=== PATIENT | male | born 1955 | race Caucasian/White ===

== ENCOUNTER 2017-01-30 12:12 | Emergency (ER) | payer MEDICARE, BC ==
[2017-01-30] MEDS ORDERED: Sodium Chloride 0.9% 10 ML Syringe FLUSH PRN (14:33)
[2017-01-30] MEDS ORDERED: Furosemide 40 MG/4 ML VIAL IVPUSH ONE (14:34)
--- NOTE | 2017-01-30 14:35 | EDM.PDOC ---
ED HPI GENERAL MEDICAL PROBLEM - General Chief Complaint: General Stated Complaint: SOB/SWOLLEN LEGS & ABD Time Seen by Provider: 01/30/17 14:00 Source of Information: Reports: Patient, Family History Limitations: Reports: Other (PT IS A POOR HISTORIAN. ) - History of Present Illness INITIAL COMMENTS - FREE TEXT/NARRATIVE: PT ARRIVED WITH SOB AND MARKED ANKLE SWELLING. hE HAS NOT BEEN TAKING HIS MEDS. hE FILLS THEM AND ONCE THEY RUN OUT HE STOPS TAKING THE MEDS. Onset: Gradual Duration: Day(s): Location: Reports: Chest, Lower Extremity, Left, Lower Extremity, Right, Other ( SOB) Associated Symptoms: Reports: Shortness of Breath - Related Data Allergies Allergy/AdvReac Type Severity Reaction Status Date / Time No Known Allergies Allergy Verified 01/30/17 13:26 Home Meds: Home Meds Aspirin [Ecotrin] 325 mg PO DAILY 10/03/13 [History] Metoprolol Tartrate [Metoprolol Tartrate] 100 mg PO BID 10/03/13 [History] Warfarin Sodium [Warfarin Sodium] 7.5 mg PO DAILY 10/03/13 [History] atorvaSTATin [Lipitor] 10 mg PO BEDTIME 10/03/13 [History] Past Medical History - Past Health History Medical/Surgical History: Denies Medical/Surgical History HEENT History: Reports: Impaired Vision Cardiovascular History: Reports: Bypass, High Cholesterol, Hypertension, Other ( See Below) Other Cardiovascular History: aortic disection Respiratory History: Reports: SOB Musculoskeletal History: Reports: Fracture Hematologic History: Reports: Blood Transfusion(s) - Past Surgical History Cardiovascular Surgical History: Reports: Valve Replacement Other 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 ) : Reports: No Symptoms Musculoskeletal: Reports: No Symptoms Skin: Reports: No Symptoms Neurological: Reports: Other ( very forgetful. He is quite sob and when he walks his o2 sats drop. ) Psychiatric: Reports: No Symptoms ED EXAM, GENERAL - Physical Exam Exam: See Below Free Text/Narrative:: Pt arrived with a history of increased sob. He has marked swelling of both legs and his abdoman. Exam Limited By: No Limitations General Appearance: Alert, Anxious Ears: Normal TMs Nose: Normal Inspection Throat/Mouth: Normal Inspection Head: Atraumatic Neck: Other (neck veins are markedly distended. ) Respiratory/Chest: Decreased Breath Sounds, Rales Cardiovascular: Irregularly Irregular GI/Abdominal: Distended, Other ( abdomanis very tight. ) (Male) Exam: Deferred Rectal (Males) Exam: Deferred Back Exam: Normal Inspection Extremities: Pedal Edema, Other (pt has severe edema with evidence of dermatitis. ) Neurological: Alert, Oriented, Normal Cognition Psychiatric: Normal Affect Course - Vital Signs Last Recorded V/S: Last Vital Signs Temp 36.9 C 01/30/17 13:25 Pulse 63 01/30/17 13:25 Resp 18 01/30/17 13:25 BP 122/71 01/30/17 13:25 Pulse Ox 90 L 01/30/17 13:25 - Orders/Labs/Meds Orders: Active Orders 24 hr Category Date Time Status EKG Documentation Completion [RC] ASDIRECTED Care 01/30/17 14:34 Active Chest 2V [CR] Stat Exams 01/30/17 14:33 Taken Sodium Chloride 0.9% [Saline Flush] Med 01/30/17 14:33 Active 10 ml FLUSH ASDIRECTED PRN Saline Lock Insert [OM.PC] Routine Oth 01/30/17 14:33 Ordered EKG 12 Lead [EK] Routine Ther 01/30/17 14:34 Ordered Medication Orders Sodium Chloride (Saline Flush) 10 ml FLUSH ASDIRECTED PRN PRN Reason: Keep Vein Open Last Admin: 01/30/17 14:50 Dose: 10 ml Labs: Laboratory Tests 01/30/17 01/30/17 01/30/17 Range/Units 14:37 14:37 14:37 WBC 4.8 (4.5-11.0) K/uL RBC 5.73 (4.30-5.90) M/uL Hgb 14.7 D (12.0-15.0) g/dL Hct 44.4 (40.0-54.0) % MCV 78 L (80-98) fL MCH 26 L (27-31) pg MCHC 33 (32-36) % Plt Count 211 (150-400) K/uL Neut % (Auto) 79 H (36-66) % Lymph % (Auto) 9 L (24-44) % Davison % (Auto) 10 H (2-6) % Eos % (Auto) 2 (2-4) % Baso % (Auto) 0 (0-1) % PT 44.3 H (9.5-12.0) sec INR 3.91 H D (0.80-1.20) Sodium 138 L (140-148) mmol/L Potassium 4.3 (3.6-5.2) mmol/L Chloride 103 (100-108) mmol/L Carbon Dioxide 26 (21-32) mmol/L Anion Gap 13.3 (5.0-14.0) mmol/L BUN 18 (7-18) mg/dL Creatinine 1.2 (0.8-1.3) mg/dL Est Cr Clr Drug Dosing 71.21 mL/min Estimated GFR (MDRD) > 60 (>60) Glucose 87 (74-106) mg/dL Calcium 8.6 (8.5-10.1) mg/dL Total Bilirubin 2.4 H D (0.2-1.0) mg/dL AST 22 (15-37) U/L ALT 9 L (12-78) U/L Alkaline Phosphatase 116 (46-116) U/L Troponin I (0.000-0.056) ng/mL NT-Pro-B Natriuret Pep 04410 H (5-125) pg/mL Total Protein 6.3 L (6.4-8.2) g/dL Albumin 3.1 L (3.4-5.0) g/dL Globulin 3.2 (2.3-3.5) g/dL Albumin/Globulin Ratio 1.0 L (1.2-2.2) Urine Color Urine Appearance Urine pH (4.5-8.0) Ur Specific [place] (1.008-1.030) Urine Protein (NEGATIVE) mg/dL Urine Glucose (UA) (NEGATIVE) mg/dL Urine Ketones (NEGATIVE) mg/dL Urine Occult Blood (NEGATIVE) Urine Nitrite (NEGAITVE) Urine Bilirubin (NEGATIVE) Urine Urobilinogen (NORMAL) mg/dL Ur Leukocyte Esterase (NEGATIVE) Urine RBC (0-5) Urine WBC (0-5) Ur Epithelial Cells Amorphous Sediment Urine Bacteria Urine Mucus 01/30/17 01/30/17 Range/Units 15:54 16:37 WBC (4.5-11.0) K/uL RBC (4.30-5.90) M/uL Hgb (12.0-15.0) g/dL Hct (40.0-54.0) % MCV (80-98) fL MCH (27-31) pg MCHC (32-36) % Plt Count (150-400) K/uL Neut % (Auto) (36-66) % Lymph % (Auto) (24-44) % Davison % (Auto) (2-6) % Eos % (Auto) (2-4) % Baso % (Auto) (0-1) % PT (9.5-12.0) sec INR (0.80-1.20) Sodium (140-148) mmol/L Potassium (3.6-5.2) mmol/L Chloride (100-108) mmol/L Carbon Dioxide (21-32) mmol/L Anion Gap (5.0-14.0) mmol/L BUN (7-18) mg/dL Creatinine (0.8-1.3) mg/dL Est Cr Clr Drug Dosing mL/min Estimated GFR (MDRD) (>60) Glucose (74-106) mg/dL Calcium (8.5-10.1) mg/dL Total Bilirubin (0.2-1.0) mg/dL AST (15-37) U/L ALT (12-78) U/L Alkaline Phosphatase (46-116) U/L Troponin I 0.023 (0.000-0.056) ng/mL NT-Pro-B Natriuret Pep (5-125) pg/mL Total Protein (6.4-8.2) g/dL Albumin (3.4-5.0) g/dL Globulin (2.3-3.5) g/dL Albumin/Globulin Ratio (1.2-2.2) Urine Color [place] Urine Appearance Clear Urine pH 5.0 (4.5-8.0) Ur Specific [place] 1.015 (1.008-1.030) Urine Protein 30 H (NEGATIVE) mg/dL Urine Glucose (UA) Normal (NEGATIVE) mg/dL Urine Ketones Negative (NEGATIVE) mg/dL Urine Occult Blood Negative (NEGATIVE) Urine Nitrite Negative (NEGAITVE) Urine Bilirubin Small (NEGATIVE) Urine Urobilinogen 4 (NORMAL) mg/dL Ur Leukocyte Esterase Negative (NEGATIVE) Urine RBC 0-5 (0-5) Urine WBC 0-5 (0-5) Ur Epithelial Cells Not seen Amorphous Sediment Not seen Urine Bacteria Not seen Urine Mucus Not seen Meds: Medications Generic Name Dose Route Start Last Admin Trade Name Freq PRN Reason Stop Dose Admin Sodium Chloride 10 ml 01/30/17 14:33 01/30/17 14:50 Saline Flush FLUSH 10 ml ASDIRECTED PRN Administration Keep Vein Open Discontinued Medications Generic Name Dose Route Start Last Admin Trade Name Freq PRN Reason Stop Dose Admin Furosemide 60 mg 01/30/17 14:34 01/30/17 14:50 Lasix IVPUSH 01/30/17 14:35 60 mg ONETIME ONE Administration - Re-Assessments/Exams Free Text/Narrative Re-Assessment/Exam: 01/30/17 17:09 murillo cath was placed. He was given Laix 60mg iv push. There were no beds in [facility] and he was transfered to [facility]. Departure - Departure Time of Disposition: 17:10 Disposition: DC/Tfer to Acute Hospital 02 Condition: Fair Clinical Impression: Chronic right-sided CHF (congestive heart failure), History of aortic dissection - Discharge Information Referrals: Nick Albright MD [Primary Care Provider] - Forms: ED Department Discharge Care Plan Goals: transfer to [facility]. - My Orders Last 24 Hours: My Active Orders 01/30/17 14:33 Chest 2V [CR] Stat Sodium Chloride 0.9% [Saline Flush] 10 ml FLUSH ASDIRECTED PRN Saline Lock Insert [OM.PC] Routine 01/30/17 14:34 EKG Documentation Completion [RC] ASDIRECTED EKG 12 Lead [EK] Routine - Assessment/Plan Last 24 Hours: My Active Orders 01/30/17 14:33 Chest 2V [CR] Stat Sodium Chloride 0.9% [Saline Flush] 10 ml FLUSH ASDIRECTED PRN Saline Lock Insert [OM.PC] Routine 01/30/17 14:34 EKG Documentation Completion [RC] ASDIRECTED EKG 12 Lead [EK] Routine
[2017-01-30 17:10] VITALS: BP 125/71
--- NOTE | 2017-01-31 08:47 | CR ---
Cardiomegaly. Sternotomy. Tortuous aorta. The last sternotomy wire is broken. No focal consolidation.
== END 2017-01-30 18:14 ==
LOC: JP.ED 12:12
DX: I11.0 Hypertensive heart disease with heart failure (principal); I50.9 Heart failure, unspecified; E78.00 Pure hypercholesterolemia, unspecified; Z95.1 Presence of aortocoronary bypass graft; Z95.2 Presence of prosthetic heart valve; Z98.890 Other specified postprocedural states; Z79.82 Long term (current) use of aspirin; Z79.01 Long term (current) use of anticoagulants; Z79.899 Other long term (current) drug therapy
CPT/HCPCS: 36415; 51702; 71020; 80053; 81001; 83880; 84484; 85025; 85610; 93005; 96374; 99285; J1940; J7050; 93010

== ENCOUNTER 2019-12-09 14:42 | Inpatient (IN) | payer BC, MEDICARE, OTHER ==
--- NOTE | 2019-12-09 15:42 | EDM.PDOC ---
<DeborahJaqueliney M - Last Filed: 12/09/19 16:40> ED HPI GENERAL MEDICAL PROBLEM - General Chief Complaint: Cardiovascular Problem Stated Complaint: ANKLES INFECTED Time Seen by Provider: 12/09/19 14:46 Source of Information: Reports: Patient, Old Records, RN, RN Notes Reviewed History Limitations: Reports: No Limitations - History of Present Illness INITIAL COMMENTS - FREE TEXT/NARRATIVE: 64 year old male presents with 3 plus weeks of the progression of BLLE wounds. The right leg is 3+ edema, reddened, open vascular sores, blisters that have opened, pulse is +1, cool, and skin is shiny, and tight. The left leg is +4 edema, reddened, open vascular sores with maggots, blisters that have opened, pulse is +1, cool. and skin is shiny, and tight. BLLE are very malodorous with seeping exudate that is yellowish/willis. Patient states ambulation is difficult. Pain at rest is minimal, however, the pain starts "when I'm trying to take a nap". Did not disclose a specific pain score. Pt lives alone in a single dwelling. States he called home health today and they came out to the residence to "clean his legs" and that is when it was discovered maggots were in wound bed on left leg. Pt indicates that this happens every summer for the last four years. Further indicated, he is only taking a "1/2 fluid pill and a daily aspirin". Has not taken the prescribed medications in months as was trying to self diagnose illnesses. Does further request "we give him antibiotics like all the other times". Will complete a sepsis work up. Called Dr Rod and will see pt in the am and more than likely debride and follow patient as inpatient. Onset: Gradual Onset Date: 11/17/19 Duration: Week(s):, Getting Worse, Recurring Location: Reports: Lower Extremity, Left, Lower Extremity, Right Quality: Reports: Ache Severity: Severe Improves with: Reports: None Worsens with: Reports: None Associated Symptoms: Reports: Fever/Chills, Weakness - Related Data Allergies Allergy/AdvReac Type Severity Reaction Status Date / Time pollen extracts Allergy Sneezing Verified 12/09/19 16:14 Home Meds: Home Meds atorvaSTATin [Lipitor] 0 mg PO BEDTIME 10/03/13 [History] Spironolactone [Aldactone] 0 mg PO BID 04/03/18 [History] carvediloL [Coreg] 0 mg PO BID 04/03/18 [History] lisinopriL [Prinivil] 0 mg PO DAILY 04/03/18 [History] Warfarin [Coumadin] 0 mg PO DAILY@1300 04/17/18 [History] Aspirin 325 mg PO DAILY 12/09/19 [History] Furosemide [Lasix] 0 mg PO DAILY 12/09/19 [History] Past Medical History - Past Health History Medical/Surgical History: Denies Medical/Surgical History HEENT History: Reports: Impaired Vision Cardiovascular History: Reports: Bypass, High Cholesterol, Hypertension, Other (See Below) Other Cardiovascular History: aortic disection Respiratory History: Reports: SOB Musculoskeletal History: Reports: Fracture Other Musculoskeletal History: Hx of rib fx Hematologic History: Reports: Blood Transfusion(s) Dermatologic History: Reports: Cellulitis - Past Surgical History Head Surgeries/Procedures: Reports: None HEENT Surgical History: Reports: None Cardiovascular Surgical History: Reports: Valve Replacement Other 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 Musculoskeletal Surgical History: Reports: None Dermatological Surgical History: Reports: None Social & Family History - Family History Family Medical History: Noncontributory - Tobacco Use Smoking Status *Q: Never Smoker - Caffeine Use Caffeine Use: Reports: None - Alcohol Use Days Per Week of Alcohol Use: 7 Number of Drinks Per Day: 2 Total Drinks Per Week: 14 - Recreational Drug Use Recreational Drug Use: No - Living Situation & Occupation Occupation: Other (Single dwelling home) ED ROS GENERAL - Review of Systems Constitutional: Reports: Fever, Chills, Malaise, Weakness, Fatigue, Night Sweats, Diaphoresis, Decreased Appetite HEENT: Reports: No Symptoms Respiratory: Reports: Shortness of Breath Cardiovascular: Reports: Dyspnea on Exertion, Edema Endocrine: Reports: Fatigue GI/Abdominal: Reports: Decreased Appetite : Reports: No Symptoms Musculoskeletal: Reports: Leg Pain, Foot Pain Skin: Reports: Erythema, Wound, Change in Color, Other (Significant vascular wounds to BLLE ) Neurological: Reports: No Symptoms Psychiatric: Reports: No Symptoms Hematologic/Lymphatic: Reports: Other (Prescribed to take Coumadin but does not) Immunologic: Reports: Seasonal Allergy, Pollen Allergy ED EXAM, GENERAL - Physical Exam Exam: See Below Exam Limited By: No Limitations General Appearance: Alert, Moderate Distress Eye Exam: Bilateral Eye: Normal Inspection, PERRL Ear Exam: Bilateral Ear: Auricle Normal Nose: Normal Inspection Throat/Mouth: Normal Inspection, Normal Voice, No Airway Compromise Head: Normocephalic Neck: Normal Inspection Respiratory/Chest: Other (Pt c/o SOB but on RA 93%) Cardiovascular: Irregularly Irregular, Other (EKG A fib controlled rate ) Peripheral Pulses: 1+: Dorsalis Pedis (L), Dorsalis Pedis (R), 2+: Radial (L), Radial (R) GI/Abdominal: Normal Bowel Sounds, Soft, Non-Tender, No Distention (Male) Exam: Deferred Rectal (Males) Exam: Deferred Extremities: Slow Capillary Refill, Leg Pain, Increased Warmth, Redness, Other (BLLE vascular wounds with decreased pulses) Neurological: Alert, Oriented, CN II-XII Intact, Normal Cognition Psychiatric: Other (Amor answers. ) Skin Exam: Cool, Erythema, Increased Warmth, Wound/Incision Course - Re-Assessments/Exams Free Text/Narrative Re-Assessment/Exam: 12/09/19 16:24 ROS completed Consulted with Dr Fuentes on diagnostics Orders initiated mine supervisor aware of admit Dr Rod on OR for Sunday12/09/19 16:40 All labs and diagnostics have been reviewed. Departure - Departure Disposition: Admitted As Inpatient 64 Clinical Impression: Cellulitis of left lower leg Referrals: Nick Albright MD [Primary Care Provider] - Forms: ED Department Discharge Sepsis Event Note (ED) - Evaluation Sepsis Screening Result: No Definite Risk <Alex Fuentes - Last Filed: 12/09/19 17:35> ED ROS GENERAL - Review of Systems Review Of Systems: See Below ED EXAM, GENERAL - Physical Exam Free Text/Narrative:: Agree with exam below Course - Vital Signs Last Recorded V/S: Last Vital Signs Temp 100 F 12/09/19 15:14 Pulse 74 12/09/19 16:31 Resp 16 12/09/19 15:14 BP 137/68 12/09/19 16:31 Pulse Ox 95 12/09/19 15:14 - Orders/Labs/Meds Orders: Active Orders 24 hr Category Date Time Status Patient Status Manage Transfer [TRANSFER] Routine ADT 12/09/19 17:14 Active EKG Documentation Completion [RC] ASDIRECTED Care 12/09/19 15:49 Active Chest 1V Frontal [CR] Stat Exams 12/09/19 15:45 Taken CORONAVIRUS COVID-19 YINKA [MOLEC] Stat Lab 12/09/19 16:01 Ordered CRP [C-REACTIVE PROTEIN] [CHEM] Stat Lab 12/09/19 17:20 Received CULTURE BLOOD [BC] Stat Lab 12/09/19 15:52 Received CULTURE BLOOD [BC] Stat Lab 12/09/19 16:00 Received Piperacillin/Tazobactam/Dext [Zosyn in Dextrose Iso- Med 12/09/19 18:00 Active Osmotic 3.375 GM] 3.375 gm Premix Bag 1 bag IV Q6H Sodium Chloride 0.9% [Normal Saline] 1,000 ml Med 12/09/19 17:15 Active IV ASDIRECTED Resuscitation Status Routine Resus Stat 12/09/19 17:15 Ordered EKG 12 Lead [EK] Routine Ther 12/09/19 15:48 Ordered Medication Orders Sodium Chloride (Normal Saline) 1,000 mls @ 25 mls/hr IV ASDIRECTED LEIGH Piperacillin/Tazobactam/ (Dextrose 3.375 gm/ Premix) 50 mls @ 100 mls/hr IV Q6H [facility] Labs: Laboratory Tests 12/09/19 12/09/19 12/09/19 Range/Units 15:52 15:52 15:52 WBC 4.3 L (4.5-11.0) K/uL RBC 4.97 (4.30-5.90) M/uL Hgb 14.1 (12.0-15.0) g/dL Hct 44.0 (40.0-54.0) % MCV 89 (80-98) fL MCH 28 (27-31) pg MCHC 32 (32-36) % Plt Count 146 L (150-400) K/uL Neut % (Auto) 73 H (36-66) % Lymph % (Auto) 13 L (24-44) % Swisher % (Auto) 11 H (2-6) % Eos % (Auto) 3 (2-4) % Baso % (Auto) 0 (0-1) % PT (9.5-12.0) sec INR (0.80-1.20) Sodium 140 (140-148) mmol/L Potassium 4.4 (3.6-5.2) mmol/L Chloride 102 (100-108) mmol/L Carbon Dioxide 28 (21-32) mmol/L Anion Gap 10.3 (5.0-14.0) mmol/L BUN 22 H (7-18) mg/dL Creatinine 1.2 (0.8-1.3) mg/dL Est Cr Clr Drug Dosing 66.46 mL/min Estimated GFR (MDRD) > 60 (>60) Glucose 90 (74-106) mg/dL Lactic Acid 1.4 (0.4-2.0) mmol/L Calcium 8.8 (8.5-10.1) mg/dL Total Bilirubin 2.0 H (0.2-1.0) mg/dL AST 29 (15-37) U/L ALT 13 (12-78) U/L Alkaline Phosphatase 197 H (46-116) U/L Total Protein 7.2 (6.4-8.2) g/dL Albumin 3.6 (3.4-5.0) g/dL Globulin 3.6 H (2.3-3.5) g/dL Albumin/Globulin Ratio 1.0 L (1.2-2.2) Procalcitonin ng/mL Urine Color (YELLOW) Urine Appearance (CLEAR) Urine pH (5.0-8.0) Ur Specific [place] (1.008-1.030) Urine Protein (NEGATIVE) mg/dL Urine Glucose (UA) (NEGATIVE) mg/dL Urine Ketones (NEGATIVE) mg/dL Urine Occult Blood (NEGATIVE) Urine Nitrite (NEGATIVE) Urine Bilirubin (NEGATIVE) Urine Urobilinogen (0.2-1.0) EU/dL Ur Leukocyte Esterase (NEGATIVE) Ethyl Alcohol mg/dL 12/09/19 12/09/19 12/09/19 Range/Units 15:52 15:52 15:52 WBC (4.5-11.0) K/uL RBC (4.30-5.90) M/uL Hgb (12.0-15.0) g/dL Hct (40.0-54.0) % MCV (80-98) fL MCH (27-31) pg MCHC (32-36) % Plt Count (150-400) K/uL Neut % (Auto) (36-66) % Lymph % (Auto) (24-44) % Swisher % (Auto) (2-6) % Eos % (Auto) (2-4) % Baso % (Auto) (0-1) % PT 12.7 H (9.5-12.0) sec INR 1.19 D (0.80-1.20) Sodium (140-148) mmol/L Potassium (3.6-5.2) mmol/L Chloride (100-108) mmol/L Carbon Dioxide (21-32) mmol/L Anion Gap (5.0-14.0) mmol/L BUN (7-18) mg/dL Creatinine (0.8-1.3) mg/dL Est Cr Clr Drug Dosing mL/min Estimated GFR (MDRD) (>60) Glucose (74-106) mg/dL Lactic Acid (0.4-2.0) mmol/L Calcium (8.5-10.1) mg/dL Total Bilirubin (0.2-1.0) mg/dL AST (15-37) U/L ALT (12-78) U/L Alkaline Phosphatase (46-116) U/L Total Protein (6.4-8.2) g/dL Albumin (3.4-5.0) g/dL Globulin (2.3-3.5) g/dL Albumin/Globulin Ratio (1.2-2.2) Procalcitonin < 0.05 ng/mL Urine Color (YELLOW) Urine Appearance (CLEAR) Urine pH (5.0-8.0) Ur Specific [place] (1.008-1.030) Urine Protein (NEGATIVE) mg/dL Urine Glucose (UA) (NEGATIVE) mg/dL Urine Ketones (NEGATIVE) mg/dL Urine Occult Blood (NEGATIVE) Urine Nitrite (NEGATIVE) Urine Bilirubin (NEGATIVE) Urine Urobilinogen (0.2-1.0) EU/dL Ur Leukocyte Esterase (NEGATIVE) Ethyl Alcohol < 3 mg/dL 12/09/19 Range/Units 16:32 WBC (4.5-11.0) K/uL RBC (4.30-5.90) M/uL Hgb (12.0-15.0) g/dL Hct (40.0-54.0) % MCV (80-98) fL MCH (27-31) pg MCHC (32-36) % Plt Count (150-400) K/uL Neut % (Auto) (36-66) % Lymph % (Auto) (24-44) % Swisher % (Auto) (2-6) % Eos % (Auto) (2-4) % Baso % (Auto) (0-1) % PT (9.5-12.0) sec INR (0.80-1.20) Sodium (140-148) mmol/L Potassium (3.6-5.2) mmol/L Chloride (100-108) mmol/L Carbon Dioxide (21-32) mmol/L Anion Gap (5.0-14.0) mmol/L BUN (7-18) mg/dL Creatinine (0.8-1.3) mg/dL Est Cr Clr Drug Dosing mL/min Estimated GFR (MDRD) (>60) Glucose (74-106) mg/dL Lactic Acid (0.4-2.0) mmol/L Calcium (8.5-10.1) mg/dL Total Bilirubin (0.2-1.0) mg/dL AST (15-37) U/L ALT (12-78) U/L Alkaline Phosphatase (46-116) U/L Total Protein (6.4-8.2) g/dL Albumin (3.4-5.0) g/dL Globulin (2.3-3.5) g/dL Albumin/Globulin Ratio (1.2-2.2) Procalcitonin ng/mL Urine Color Yellow (YELLOW) Urine Appearance Clear (CLEAR) Urine pH 6.0 (5.0-8.0) Ur Specific [place] 1.020 (1.008-1.030) Urine Protein 100 H (NEGATIVE) mg/dL Urine Glucose (UA) Negative (NEGATIVE) mg/dL Urine Ketones Negative (NEGATIVE) mg/dL Urine Occult Blood Negative (NEGATIVE) Urine Nitrite Negative (NEGATIVE) Urine Bilirubin Negative (NEGATIVE) Urine Urobilinogen 2.0 H (0.2-1.0) EU/dL Ur Leukocyte Esterase Negative (NEGATIVE) Ethyl Alcohol mg/dL Meds: Medications Generic Name Dose Route Start Last Admin Trade Name Freq PRN Reason Stop Dose Admin Sodium Chloride 1,000 mls @ 25 mls/hr 12/09/19 17:15 Normal Saline IV ASDIRECTED LEIGH Piperacillin/Tazobactam/ 50 mls @ 100 mls/hr 12/09/19 18:00 Dextrose 3.375 gm/ Premix IV Q6H LEIGH Discontinued Medications Generic Name Dose Route Start Last Admin Trade Name Matthieu PRN Reason Stop Dose Admin Sodium Chloride 1,000 mls @ 125 mls/hr 12/09/19 15:51 12/09/19 16:15 Normal Saline IV 12/09/19 23:50 125 mls/hr .BOLUS ONE Administration Departure - Departure Time of Disposition: 17:35 Condition: Fair Sepsis Event Note (ED) - Focused Exam Vital Signs: Vital Signs Temp Pulse Resp BP Pulse Ox 12/09/19 16:31 74 137/68 12/09/19 16:01 70 131/66 12/09/19 15:14 100 F 85 16 149/81 H 95 - Assessment/Plan Plan: Assessment Acuity = acute Site and laterality = bilateral lower extremity cellulitis with medical compliance Etiology = probable bacterial cause Manifestations = none Location of injury = Home Lab values = CBC, CMP, lactic acid, procalcitonin, urinalysis, alcohol all within normal limits Plan Call discussed case hospitalist on-call he currently agreed to come and evaluate the patient at 1700 Alex Gray MD was personally available for consultation in the ED. I have reviewed the chart and agree with the documentation as recorded by the CAREER DEVELOPER Student, including the assessment, treatment plan and disposition. Alex Gray MD personally saw and examined the patient. I have reviewed and agree with the CAREER DEVELOPER Student's findings. This note was dictated using [employer] voice recognition software please call with any questions on syntax or grammar.
[2019-12-09] MEDS ORDERED: Sodium Chloride 0.9% 1,000 ML IV ONE (15:51)
[2019-12-09] MEDS ORDERED: Piperacillin/Tazobactam 3.375 GM in Sodium Chloride 0.9% 50 ML IV SCH (17:15)
[2019-12-09] MEDS ORDERED: Sodium Chloride 0.9% 1,000 ML IV SCH (17:15)
--- NOTE | 2019-12-09 17:29 | PCM.HP.2 ---
H&P History of Present Illness - General Date of Service: 12/09/19 Admit Problem/Dx: Admission Diagnosis/Problem Admission Diagnosis/Problem Cellulitis of lower extremity Source of Information: Patient, Provider History Limitations: Reports: No Limitations - History of Present Illness Initial Comments - Free Text/Narative: CC: my legs are stinging HPI: Prabhjot presents to the emergency room today with about 1 month of progressive swelling and increasing pain in both lower extremities from the knee distally. He describes a moderate stinging pain involving both lower legs especially in the posterior portion between the calf and the heel. Pain is worse when he tries to stand up but there are some sharp shooting pains that come and go. He has been taking aspirin without much relief. Pain has steadily been getting worse. He has also noted increased swelling in both lower extremities over that period of time. The legs are weeping. He reports a history of similar difficulties and that this occurs about once per year in the early summer. He does admit that he quit taking all of his medications about 1 month ago. Since that time he has noticed the changes mentioned above. He has not had any fevers. He does occasionally have chills. No complaints of cough, shortness of breath, abdominal pain or nausea. No change in bowel or bladder habits. Appetite has been good. No change in energy that he reports. He did call to set up home health care to come take care of the wounds on his legs which he says have been increasing over the past couple of weeks. When the nurse came to evaluate his legs she noticed maggots on his leg and immediately called an a mbulance. Work-up in the emergency room revealed evidence for bilateral lower extremity cellulitis with significant ulcerations and sloughing of the skin especially in the posterior aspect of the lower extremities. Multiple maggots have been removed. Laboratory studies are surprisingly normal. There is evidence for volume overload with congestive heart failure. Cultures have been obtained. A ntibiotics will be initiated. He will be admitted for medical and likely surgical management. - Related Data Allergies/Adverse Reactions: Allergies Allergy/AdvReac Type Severity Reaction Status Date / Time pollen extracts Allergy Sneezing Verified 12/09/19 16:14 Home Medications: Home Meds atorvaSTATin [Lipitor] 0 mg PO BEDTIME 10/03/13 [History] Spironolactone [Aldactone] 0 mg PO BID 04/03/18 [History] carvediloL [Coreg] 0 mg PO BID 04/03/18 [History] lisinopriL [Prinivil] 0 mg PO DAILY 04/03/18 [History] Warfarin [Coumadin] 0 mg PO DAILY@1300 04/17/18 [History] Aspirin 325 mg PO DAILY 12/09/19 [History] Furosemide [Lasix] 0 mg PO DAILY 12/09/19 [History] Past Medical History - Past Health History Medical/Surgical History: Denies Medical/Surgical History HEENT History: Reports: Impaired Vision Cardiovascular History: Reports: Bypass, High Cholesterol, Hypertension, Other (See Below) Other Cardiovascular History: aortic disection Respiratory History: Reports: SOB Musculoskeletal History: Reports: Fracture Other Musculoskeletal History: Hx of rib fx Hematologic History: Reports: Blood Transfusion(s) Dermatologic History: Reports: Cellulitis - Past Surgical History Head Surgeries/Procedures: Reports: None HEENT Surgical History: Reports: None Cardiovascular Surgical History: Reports: Valve Replacement Other 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 Musculoskeletal Surgical History: Reports: None Dermatological Surgical History: Reports: None Social & Family History - Family History Family Medical History: Noncontributory - Tobacco Use Smoking Status *Q: Never Smoker - Caffeine Use Caffeine Use: Reports: None - Alcohol Use Days Per Week of Alcohol Use: 7 Number of Drinks Per Day: 2 Total Drinks Per Week: 14 - Recreational Drug Use Recreational Drug Use: No - Living Situation & Occupation Occupation: Other (Single dwelling home) H&P Review of Systems - Review of Systems: Review Of Systems: See Below Free Text/Narrative: A complete 12 point review of systems was obtained. Pertinent positives and negatives are noted in the history of present illness. All other systems were reviewed and were negative except as noted. Exam - Exam Exam: See Below - Vital Signs Vital Signs: Last Vital Signs Temp 37.7 C 12/09/19 15:14 Pulse 85 12/09/19 15:14 Resp 16 12/09/19 15:14 BP 149/81 H 12/09/19 15:14 Pulse Ox 95 12/09/19 15:14 Weight: 98.2 kg - Exam Quality Assessment: No: Supplemental Oxygen General: Alert, Oriented, Cooperative. No: Mild Distress HEENT: Conjunctiva Clear, Mucosa Moist & [place]. No: Scleral Icterus Neck: Supple, Trachea Midline, JVD Lungs: Clear to Auscultation, Normal Respiratory Effort Cardiovascular: Regular Rate, Irregular Rhythm, Systolic Murmur, Diastolic Murmur, Gallop/S3 GI/Abdominal Exam: Normal Bowel Sounds, Soft, Non-Tender, No Distention Extremities: Pedal Edema, Increased Warmth (both lower legs from knee to midshin ), Other (feet are cool to touch ) Peripheral Pulses: 0: Dorsalis Pedis (L), Dorsalis Pedis (R) Skin: Warm, Dry, Rash (erythema over both lower legs from toes to knee. Ulcerations with sloughing skin posterior lower legs from heel to midcalf. One maggot noted on left leg. ) Neuro Extensive - Mental Status: Alert, Oriented x3, Nl Response to Commands Neuro Extensive - Motor, Sensory, Reflexes: No: Dysarthria, Abnormal Motor, Tremor Psychiatric: Alert, Normal Affect - Patient Data Lab Results Last 24 hrs: Laboratory Results - last 24 hr 12/09/19 12/09/19 12/09/19 Range/Units 15:52 15:52 15:52 WBC 4.3 L (4.5-11.0) K/uL RBC 4.97 (4.30-5.90) M/uL Hgb 14.1 (12.0-15.0) g/dL Hct 44.0 (40.0-54.0) % MCV 89 (80-98) fL MCH 28 (27-31) pg MCHC 32 (32-36) % Plt Count 146 L (150-400) K/uL Neut % (Auto) 73 H (36-66) % Lymph % (Auto) 13 L (24-44) % [place] % (Auto) 11 H (2-6) % Eos % (Auto) 3 (2-4) % Baso % (Auto) 0 (0-1) % PT (9.5-12.0) sec INR (0.80-1.20) Sodium 140 (140-148) mmol/L Potassium 4.4 (3.6-5.2) mmol/L Chloride 102 (100-108) mmol/L Carbon Dioxide 28 (21-32) mmol/L Anion Gap 10.3 (5.0-14.0) mmol/L BUN 22 H (7-18) mg/dL Creatinine 1.2 (0.8-1.3) mg/dL Est Cr Clr Drug Dosing 66.46 mL/min Estimated GFR (MDRD) > 60 (>60) Glucose 90 (74-106) mg/dL Lactic Acid 1.4 (0.4-2.0) mmol/L Calcium 8.8 (8.5-10.1) mg/dL Total Bilirubin 2.0 H (0.2-1.0) mg/dL AST 29 (15-37) U/L ALT 13 (12-78) U/L Alkaline Phosphatase 197 H (46-116) U/L Total Protein 7.2 (6.4-8.2) g/dL Albumin 3.6 (3.4-5.0) g/dL Globulin 3.6 H (2.3-3.5) g/dL Albumin/Globulin Ratio 1.0 L (1.2-2.2) Procalcitonin ng/mL Urine Color (YELLOW) Urine Appearance (CLEAR) Urine pH (5.0-8.0) Ur Specific [place] (1.008-1.030) Urine Protein (NEGATIVE) mg/dL Urine Glucose (UA) (NEGATIVE) mg/dL Urine Ketones (NEGATIVE) mg/dL Urine Occult Blood (NEGATIVE) Urine Nitrite (NEGATIVE) Urine Bilirubin (NEGATIVE) Urine Urobilinogen (0.2-1.0) EU/dL Ur Leukocyte Esterase (NEGATIVE) Ethyl Alcohol mg/dL 12/09/19 12/09/19 12/09/19 Range/Units 15:52 15:52 15:52 WBC (4.5-11.0) K/uL RBC (4.30-5.90) M/uL Hgb (12.0-15.0) g/dL Hct (40.0-54.0) % MCV (80-98) fL MCH (27-31) pg MCHC (32-36) % Plt Count (150-400) K/uL Neut % (Auto) (36-66) % Lymph % (Auto) (24-44) % [place] % (Auto) (2-6) % Eos % (Auto) (2-4) % Baso % (Auto) (0-1) % PT 12.7 H (9.5-12.0) sec INR 1.19 D (0.80-1.20) Sodium (140-148) mmol/L Potassium (3.6-5.2) mmol/L Chloride (100-108) mmol/L Carbon Dioxide (21-32) mmol/L Anion Gap (5.0-14.0) mmol/L BUN (7-18) mg/dL Creatinine (0.8-1.3) mg/dL Est Cr Clr Drug Dosing mL/min Estimated GFR (MDRD) (>60) Glucose (74-106) mg/dL Lactic Acid (0.4-2.0) mmol/L Calcium (8.5-10.1) mg/dL Total Bilirubin (0.2-1.0) mg/dL AST (15-37) U/L ALT (12-78) U/L Alkaline Phosphatase (46-116) U/L Total Protein (6.4-8.2) g/dL Albumin (3.4-5.0) g/dL Globulin (2.3-3.5) g/dL Albumin/Globulin Ratio (1.2-2.2) Procalcitonin < 0.05 ng/mL Urine Color (YELLOW) Urine Appearance (CLEAR) Urine pH (5.0-8.0) Ur Specific [place] (1.008-1.030) Urine Protein (NEGATIVE) mg/dL Urine Glucose (UA) (NEGATIVE) mg/dL Urine Ketones (NEGATIVE) mg/dL Urine Occult Blood (NEGATIVE) Urine Nitrite (NEGATIVE) Urine Bilirubin (NEGATIVE) Urine Urobilinogen (0.2-1.0) EU/dL Ur Leukocyte Esterase (NEGATIVE) Ethyl Alcohol < 3 mg/dL 12/09/19 Range/Units 16:32 WBC (4.5-11.0) K/uL RBC (4.30-5.90) M/uL Hgb (12.0-15.0) g/dL Hct (40.0-54.0) % MCV (80-98) fL MCH (27-31) pg MCHC (32-36) % Plt Count (150-400) K/uL Neut % (Auto) (36-66) % Lymph % (Auto) (24-44) % [place] % (Auto) (2-6) % Eos % (Auto) (2-4) % Baso % (Auto) (0-1) % PT (9.5-12.0) sec INR (0.80-1.20) Sodium (140-148) mmol/L Potassium (3.6-5.2) mmol/L Chloride (100-108) mmol/L Carbon Dioxide (21-32) mmol/L Anion Gap (5.0-14.0) mmol/L BUN (7-18) mg/dL Creatinine (0.8-1.3) mg/dL Est Cr Clr Drug Dosing mL/min Estimated GFR (MDRD) (>60) Glucose (74-106) mg/dL Lactic Acid (0.4-2.0) mmol/L Calcium (8.5-10.1) mg/dL Total Bilirubin (0.2-1.0) mg/dL AST (15-37) U/L ALT (12-78) U/L Alkaline Phosphatase (46-116) U/L Total Protein (6.4-8.2) g/dL Albumin (3.4-5.0) g/dL Globulin (2.3-3.5) g/dL Albumin/Globulin Ratio (1.2-2.2) Procalcitonin ng/mL Urine Color Yellow (YELLOW) Urine Appearance Clear (CLEAR) Urine pH 6.0 (5.0-8.0) Ur Specific [place] 1.020 (1.008-1.030) Urine Protein 100 H (NEGATIVE) mg/dL Urine Glucose (UA) Negative (NEGATIVE) mg/dL Urine Ketones Negative (NEGATIVE) mg/dL Urine Occult Blood Negative (NEGATIVE) Urine Nitrite Negative (NEGATIVE) Urine Bilirubin Negative (NEGATIVE) Urine Urobilinogen 2.0 H (0.2-1.0) EU/dL Ur Leukocyte Esterase Negative (NEGATIVE) Ethyl Alcohol mg/dL Result Diagrams: 12/09/19 15:52 12/09/19 15:52 Imaging Impressions Last 24 hrs: CXR-image personally reviewed-lungs clear with no mass, infiltrate or effusion. Heart size is enlarged and bigger than previous CXR EKG INTERPRETATION EKG Date: 12/09/19 Rhythm: A-Fib Rate (Beats/Min): 80 [place]: Normal P-Wave: Variable QRS: Normal ST-T: Normal QT: Normal Sepsis Event Note - Evaluation Sepsis Screening Result: No Definite Risk - Focused Exam Vital Signs: Vital Signs Temp Pulse Resp BP Pulse Ox 12/09/19 15:14 37.7 C 85 16 149/81 H 95 Date Exam was Performed: 12/09/19 Time Exam was Performed: 17:38 *Q Meaningful Use (ADM) - VTE *Q VTE Mechanical Contraindications *Q: Bilateral Lower Dermatits - VTE Risk Assess *Q Each Risk Factor Represents 1 Point: Swollen Legs, Current, Obesity ( BMI > 25 kg/m2), Congestive heart failure (CHF) Total Score 1 Point Risk Factors: 3 Each Risk Factor Represents 2 Points: Age 60 - 74 Years Total Score 2 Point Risk Factors: 2 Each Risk Factor Represents 3 Points: None Total Score 3 Point Risk Factors: 0 Each Risk Factor Represents 5 Points: None Total Score 5 Point Risk Factors: 0 Venous Thromboembolism Risk Factor Score *Q: 5 - Problem List (1) Cellulitis of both lower extremities SNOMED Code(s): 623153928 ICD Code: L03.115 - CELLULITIS OF RIGHT LOWER LIMB; L03.116 - CELLULITIS OF LEFT LOWER LIMB Status: Acute Current Visit: Yes (2) Venous stasis dermatitis of both lower extremities SNOMED Code(s): 93831417 ICD Code: I87.2 - VENOUS INSUFFICIENCY (CHRONIC) (PERIPHERAL) Status: Acute Current Visit: No (3) Systolic congestive heart failure SNOMED Code(s): 97702027, 833138803 ICD Code: I50.20 - UNSPECIFIED SYSTOLIC (CONGESTIVE) HEART FAILURE Status: Acute Current Visit: Yes Qualifiers: Heart failure chronicity: acute on chronic Qualified Code(s): I50.23 - Acute on chronic systolic (congestive) heart failure (4) Chronic atrial fibrillation SNOMED Code(s): 767310929 ICD Code: I48.20 - CHRONIC ATRIAL FIBRILLATION, UNSPECIFIED Status: Chronic Current Visit: Yes Problem List Initiated/Reviewed/Updated: Yes Orders Last 24hrs: Active Orders 24 hr Category Date Time Status Patient Status Manage Transfer [TRANSFER] Routine ADT 12/09/19 17:14 Ordered EKG Documentation Completion [RC] ASDIRECTED Care 12/09/19 15:49 Active Chest 1V Frontal [CR] Stat Exams 12/09/19 15:45 Taken CORONAVIRUS COVID-19 YINKA [MOLEC] Stat Lab 12/09/19 16:01 Ordered CRP [C-REACTIVE PROTEIN] [CHEM] Stat Lab 12/09/19 17:20 Received CULTURE BLOOD [BC] Stat Lab 12/09/19 15:52 Received CULTURE BLOOD [BC] Stat Lab 12/09/19 16:00 Received Piperacillin/Tazobactam/Dext [Zosyn in Dextrose Iso- Med 12/09/19 18:00 Active Osmotic 3.375 GM] 3.375 gm Premix Bag 1 bag IV Q6H Sodium Chloride 0.9% [Normal Saline] 1,000 ml Med 12/09/19 17:15 Active IV ASDIRECTED Resuscitation Status Routine Resus Stat 12/09/19 17:15 Ordered EKG 12 Lead [EK] Routine Ther 12/09/19 15:48 Ordered Medication Orders Sodium Chloride (Normal Saline) 1,000 mls @ 25 mls/hr IV ASDIRECTED LEIGH Piperacillin/Tazobactam/ (Dextrose 3.375 gm/ Premix) 50 mls @ 100 mls/hr IV Q6H LEIGH Assessment/Plan Comment:: ASSESSMENT AND PLAN - Bilateral lower extremity cellulitis with ulcerations and sloughing of the skin- underlying congestive heart failure as well as peripheral vascular disease as discussed below. There is evidence for cellulitis. History of similar wounds and has previously been seen by wound care. Not febrile or septic. Procalcitonin is normal but CRP is greater than 3. -Antibiotic coverage with Pip/Tazo and vancomycin -Follow-up cultures -Symptomatic management of pain -Surgical consultation with Dr. Rod for debridement Congestive heart failure, systolic-most recent recorded ejection fraction was 25 to 30%. History of CABG. No reports of angina or even dyspnea on exertion. Off all of his medications times at least 1 month. -Dose of furosemide now and repeat in the morning -Consider restarting beta-hope and potentially URVASHI inhibitor following some initial diuresis -Congestive heart failure education -Low-sodium diet Chronic atrial fibrillation-currently rate controlled even without medications. Previously anticoagulated but off times at least 1 month. CHADSS-Vasc >2. -Consider beta-hope as above -Patient would benefit from anticoagulation once surgical interventions are complete Peripheral vascular disease-history of. No recent studies to evaluate arterial flow. -Consider further evaluation such as CT angiogram or DANIEL Maintenance issues - - DVT prophylaxis -none for right now with mechanical not an option given his cellulitis and holding off on pharmacological in case he needs more intense debridement - GI prophylaxis -not indicated - Nutrition -low sodium this evening and nothing by mouth after midnight just in case - Leach catheter -not indicated CODE STATUS -full code Admission justification -this patient will be admitted for inpatient services and is medically appropriate meeting medical necessity for inpatient admission as outlined in my documentation. I reasonably expect the patient will require inpatient services that span a period time over 2 midnights. I reasonably expect this patient to be discharged or transferred within 96 hours after admission to the [facility]. Disposition -I would anticipate discharge home probably with home care after the hospital stay Primary care physician -Dr Anam Khan M.D. - Mortality Measure Prognosis:: Good
[2019-12-09] MEDS: Piperacillin/Tazobactam/Dext 3.375 GM in Premix Bag 1 BAG IV SCH (17:31)
[2019-12-09] MEDS ORDERED: Magnesium Hydroxide 400 MG/5 ML Susp 30 ML Cup PO PRN (17:46)
[2019-12-09] MEDS ORDERED: Ondansetron 4 MG/2 ML SDV IV PRN (17:46)
[2019-12-09] MEDS ORDERED: Ondansetron 4 MG Tab.DIS PO PRN (17:46)
[2019-12-09] MEDS ORDERED: Furosemide 20 MG/2 ML VIAL IVPUSH ONE (17:46)
[2019-12-09] MEDS ORDERED: LORazepam 2 MG/ML SDV IVPUSH PRN (17:46)
[2019-12-09] MEDS ORDERED: HYDROmorphone 1 MG/ML Syringe IVPUSH PRN (17:46)
[2019-12-09] MEDS ORDERED: Acetaminophen 325 MG Tab PO PRN (17:46)
[2019-12-09] MEDS ORDERED: Melatonin 3 MG Tab PO PRN (17:46)
[2019-12-09] MEDS: oxyCODONE 5 MG Tab PO PRN (20:55)
[2019-12-09] MEDS: atorvaSTATin 10 MG Tab PO SCH (20:55)
[2019-12-09] MEDS: Lactobacillus Rhamnosus GG (Probiotic) Cap PO SCH (20:55)
[2019-12-10] MEDS: Piperacillin/Tazobactam/Dext 3.375 GM in Premix Bag 1 BAG IV SCH ×4 (00:25→20:51)
[2019-12-10 07:03] LABS: HEMOGLOBIN A1C 5.4 % (4.5-6.2)
[2019-12-10] MEDS: Aspirin 325 MG Tab.EC PO SCH (08:49)
[2019-12-10] MEDS: Furosemide 20 MG/2 ML VIAL IVPUSH SCH (08:49)
[2019-12-10] MEDS: Lactobacillus Rhamnosus GG (Probiotic) Cap PO SCH ×2 (08:49→20:54)
--- NOTE | 2019-12-10 09:13 | CONS ---
DATE OF SERVICE: 12/10/2019 REFERRING PHYSICIAN: CONSULTING PHYSICIAN: Devon Rod MD REASON FOR CONSULTATION: Cellulitis, lower leg. HISTORY OF PRESENT ILLNESS: This is a gentleman who was admitted to the hospital for a 1- month history of cellulitis in his lower extremities. There were some compliance issues. The patient states he has been washing this, however, he is uncertain. He has had maggots noted in the wound during this hospitalization. He has a longstanding history of venous insufficiency. PAST MEDICAL HISTORY: Hypercholesterolemia, hypertension, rib fractures, recurrent cellulitis, shortness of breath, aortic dissection with repair. SOCIAL HISTORY: He is not a smoker. FAMILY HISTORY: Noncontributory. REVIEW OF SYSTEMS: GENERAL: No specific changes. HEENT: No changes. CARDIOVASCULAR: No history of myocardial infarction. RESPIRATORY: No shortness of breath. GASTROINTESTINAL: No changes. The remainder of review of systems is reviewed and is negative. PHYSICAL EXAMINATION: VITAL SIGNS: Temperature is 99.7, blood pressure 100/68, respirations 16, 94% on room air. HEENT: Pupils are equal. NECK: Supple. LUNGS: Clear. CARDIOVASCULAR: Regular rhythm and rate. ABDOMEN: Nondistended. EXTREMITIES: Venous stasis ulcers with lipodermatosclerosis. PLAN: I discussed and placed orders for a wound care plan, which include showering, debridement with soft mechanical debridement today. This will continue daily, and we will re- evaluate intermittently. Devon Rod MD /[id number] MTDD
--- NOTE | 2019-12-10 09:25 | PCM.PN ---
- General Info Date of Service: 12/10/19 Subjective Update: Mr. Wise is been stable since admission. Vital signs have been within desired range and he has been afebrile, white blood cell count remains normal. Functional Status: Reports: Pain Controlled, Tolerating Diet, Ambulating, Urinating - Review of Systems General: Reports: Weakness. Denies: Fever, Chills Pulmonary: Reports: No Symptoms Cardiovascular: Reports: No Symptoms Gastrointestinal: Reports: No Symptoms - Patient Data Vitals - Most Recent: Last Vital Signs Temp 98.0 F 12/10/19 08:59 Pulse 68 12/10/19 08:59 Resp 16 12/10/19 08:59 BP 117/54 L 12/10/19 08:59 Pulse Ox 97 12/10/19 08:59 Weight - Most Recent: 216 lb I&O - Last 24 Hours: Intake & Output 12/09/19 12/10/19 12/10/19 22:59 06:59 14:59 Intake Total 730 Output Total 900 Balance -170 Lab Results Last 24 Hours: Laboratory Results - last 24 hr 12/09/19 12/09/19 12/09/19 Range/Units 15:52 15:52 15:52 WBC 4.3 L (4.5-11.0) K/uL RBC 4.97 (4.30-5.90) M/uL Hgb 14.1 (12.0-15.0) g/dL Hct 44.0 (40.0-54.0) % MCV 89 (80-98) fL MCH 28 (27-31) pg MCHC 32 (32-36) % Plt Count 146 L (150-400) K/uL Neut % (Auto) 73 H (36-66) % Lymph % (Auto) 13 L (24-44) % [place] % (Auto) 11 H (2-6) % Eos % (Auto) 3 (2-4) % Baso % (Auto) 0 (0-1) % PT (9.5-12.0) sec INR (0.80-1.20) Sodium 140 (140-148) mmol/L Potassium 4.4 (3.6-5.2) mmol/L Chloride 102 (100-108) mmol/L Carbon Dioxide 28 (21-32) mmol/L Anion Gap 10.3 (5.0-14.0) mmol/L BUN 22 H (7-18) mg/dL Creatinine 1.2 (0.8-1.3) mg/dL Est Cr Clr Drug Dosing 66.46 mL/min Estimated GFR (MDRD) > 60 (>60) Glucose 90 (74-106) mg/dL Hemoglobin A1c (4.5-6.2) % Lactic Acid 1.4 (0.4-2.0) mmol/L Calcium 8.8 (8.5-10.1) mg/dL Magnesium (1.8-2.4) mg/dL Total Bilirubin 2.0 H (0.2-1.0) mg/dL AST 29 (15-37) U/L ALT 13 (12-78) U/L Alkaline Phosphatase 197 H (46-116) U/L C-Reactive Protein (0.0-0.3) mg/dL Total Protein 7.2 (6.4-8.2) g/dL Albumin 3.6 (3.4-5.0) g/dL Globulin 3.6 H (2.3-3.5) g/dL Albumin/Globulin Ratio 1.0 L (1.2-2.2) Procalcitonin ng/mL TSH, Ultra Sensitive (0.358-3.740) uIU/mL Urine Color (YELLOW) Urine Appearance (CLEAR) Urine pH (5.0-8.0) Ur Specific [place] (1.008-1.030) Urine Protein (NEGATIVE) mg/dL Urine Glucose (UA) (NEGATIVE) mg/dL Urine Ketones (NEGATIVE) mg/dL Urine Occult Blood (NEGATIVE) Urine Nitrite (NEGATIVE) Urine Bilirubin (NEGATIVE) Urine Urobilinogen (0.2-1.0) EU/dL Ur Leukocyte Esterase (NEGATIVE) Ethyl Alcohol mg/dL SARS Virus RNA (PCR) (NEGATIVE) 12/09/19 12/09/19 12/09/19 Range/Units 15:52 15:52 15:52 WBC (4.5-11.0) K/uL RBC (4.30-5.90) M/uL Hgb (12.0-15.0) g/dL Hct (40.0-54.0) % MCV (80-98) fL MCH (27-31) pg MCHC (32-36) % Plt Count (150-400) K/uL Neut % (Auto) (36-66) % Lymph % (Auto) (24-44) % [place] % (Auto) (2-6) % Eos % (Auto) (2-4) % Baso % (Auto) (0-1) % PT 12.7 H (9.5-12.0) sec INR 1.19 D (0.80-1.20) Sodium (140-148) mmol/L Potassium (3.6-5.2) mmol/L Chloride (100-108) mmol/L Carbon Dioxide (21-32) mmol/L Anion Gap (5.0-14.0) mmol/L BUN (7-18) mg/dL Creatinine (0.8-1.3) mg/dL Est Cr Clr Drug Dosing mL/min Estimated GFR (MDRD) (>60) Glucose (74-106) mg/dL Hemoglobin A1c (4.5-6.2) % Lactic Acid (0.4-2.0) mmol/L Calcium (8.5-10.1) mg/dL Magnesium (1.8-2.4) mg/dL Total Bilirubin (0.2-1.0) mg/dL AST (15-37) U/L ALT (12-78) U/L Alkaline Phosphatase (46-116) U/L C-Reactive Protein (0.0-0.3) mg/dL Total Protein (6.4-8.2) g/dL Albumin (3.4-5.0) g/dL Globulin (2.3-3.5) g/dL Albumin/Globulin Ratio (1.2-2.2) Procalcitonin < 0.05 ng/mL TSH, Ultra Sensitive (0.358-3.740) uIU/mL Urine Color (YELLOW) Urine Appearance (CLEAR) Urine pH (5.0-8.0) Ur Specific [place] (1.008-1.030) Urine Protein (NEGATIVE) mg/dL Urine Glucose (UA) (NEGATIVE) mg/dL Urine Ketones (NEGATIVE) mg/dL Urine Occult Blood (NEGATIVE) Urine Nitrite (NEGATIVE) Urine Bilirubin (NEGATIVE) Urine Urobilinogen (0.2-1.0) EU/dL Ur Leukocyte Esterase (NEGATIVE) Ethyl Alcohol < 3 mg/dL SARS Virus RNA (PCR) (NEGATIVE) 12/09/19 12/09/19 12/09/19 Range/Units 16:01 16:32 17:20 WBC (4.5-11.0) K/uL RBC (4.30-5.90) M/uL Hgb (12.0-15.0) g/dL Hct (40.0-54.0) % MCV (80-98) fL MCH (27-31) pg MCHC (32-36) % Plt Count (150-400) K/uL Neut % (Auto) (36-66) % Lymph % (Auto) (24-44) % [place] % (Auto) (2-6) % Eos % (Auto) (2-4) % Baso % (Auto) (0-1) % PT (9.5-12.0) sec INR (0.80-1.20) Sodium (140-148) mmol/L Potassium (3.6-5.2) mmol/L Chloride (100-108) mmol/L Carbon Dioxide (21-32) mmol/L Anion Gap (5.0-14.0) mmol/L BUN (7-18) mg/dL Creatinine (0.8-1.3) mg/dL Est Cr Clr Drug Dosing mL/min Estimated GFR (MDRD) (>60) Glucose (74-106) mg/dL Hemoglobin A1c (4.5-6.2) % Lactic Acid (0.4-2.0) mmol/L Calcium (8.5-10.1) mg/dL Magnesium (1.8-2.4) mg/dL Total Bilirubin (0.2-1.0) mg/dL AST (15-37) U/L ALT (12-78) U/L Alkaline Phosphatase (46-116) U/L C-Reactive Protein 3.57 H (0.0-0.3) mg/dL Total Protein (6.4-8.2) g/dL Albumin (3.4-5.0) g/dL Globulin (2.3-3.5) g/dL Albumin/Globulin Ratio (1.2-2.2) Procalcitonin ng/mL TSH, Ultra Sensitive (0.358-3.740) uIU/mL Urine Color Yellow (YELLOW) Urine Appearance Clear (CLEAR) Urine pH 6.0 (5.0-8.0) Ur Specific [place] 1.020 (1.008-1.030) Urine Protein 100 H (NEGATIVE) mg/dL Urine Glucose (UA) Negative (NEGATIVE) mg/dL Urine Ketones Negative (NEGATIVE) mg/dL Urine Occult Blood Negative (NEGATIVE) Urine Nitrite Negative (NEGATIVE) Urine Bilirubin Negative (NEGATIVE) Urine Urobilinogen 2.0 H (0.2-1.0) EU/dL Ur Leukocyte Esterase Negative (NEGATIVE) Ethyl Alcohol mg/dL SARS Virus RNA (PCR) Negative (NEGATIVE) 12/10/19 12/10/19 12/10/19 Range/Units 04:30 04:30 04:30 WBC 4.7 (4.5-11.0) K/uL RBC 4.43 (4.30-5.90) M/uL Hgb 12.5 (12.0-15.0) g/dL Hct 39.4 L (40.0-54.0) % MCV 89 (80-98) fL MCH 28 (27-31) pg MCHC 32 (32-36) % Plt Count 156 (150-400) K/uL Neut % (Auto) (36-66) % Lymph % (Auto) (24-44) % [place] % (Auto) (2-6) % Eos % (Auto) (2-4) % Baso % (Auto) (0-1) % PT (9.5-12.0) sec INR (0.80-1.20) Sodium 139 L (140-148) mmol/L Potassium 3.5 L (3.6-5.2) mmol/L Chloride 103 (100-108) mmol/L Carbon Dioxide 29 (21-32) mmol/L Anion Gap 10.5 (5.0-14.0) mmol/L BUN 21 H (7-18) mg/dL Creatinine 1.1 (0.8-1.3) mg/dL Est Cr Clr Drug Dosing 68.21 mL/min Estimated GFR (MDRD) > 60 (>60) Glucose 97 (74-106) mg/dL Hemoglobin A1c 5.4 (4.5-6.2) % Lactic Acid (0.4-2.0) mmol/L Calcium 8.4 L (8.5-10.1) mg/dL Magnesium 1.8 (1.8-2.4) mg/dL Total Bilirubin (0.2-1.0) mg/dL AST (15-37) U/L ALT (12-78) U/L Alkaline Phosphatase (46-116) U/L C-Reactive Protein (0.0-0.3) mg/dL Total Protein (6.4-8.2) g/dL Albumin (3.4-5.0) g/dL Globulin (2.3-3.5) g/dL Albumin/Globulin Ratio (1.2-2.2) Procalcitonin ng/mL TSH, Ultra Sensitive 3.121 (0.358-3.740) uIU/mL Urine Color (YELLOW) Urine Appearance (CLEAR) Urine pH (5.0-8.0) Ur Specific [place] (1.008-1.030) Urine Protein (NEGATIVE) mg/dL Urine Glucose (UA) (NEGATIVE) mg/dL Urine Ketones (NEGATIVE) mg/dL Urine Occult Blood (NEGATIVE) Urine Nitrite (NEGATIVE) Urine Bilirubin (NEGATIVE) Urine Urobilinogen (0.2-1.0) EU/dL Ur Leukocyte Esterase (NEGATIVE) Ethyl Alcohol mg/dL SARS Virus RNA (PCR) (NEGATIVE) Med Orders - Current: Current Medications Acetaminophen (Tylenol) 650 mg PO Q4H PRN PRN Reason: Pain (Mild 1-3)/fever Aspirin (Ecotrin) 325 mg PO DAILY REPLACED BY [facility] Last Admin: 12/10/19 08:49 Dose: 325 mg Documented by: Atorvastatin Calcium (Lipitor) 10 mg PO BEDTIME REPLACED BY [facility] Last Admin: 12/09/19 20:55 Dose: 10 mg Documented by: Furosemide (Lasix) 20 mg IVPUSH DAILY REPLACED BY [facility] Last Admin: 12/10/19 08:49 Dose: 20 mg Documented by: Hydromorphone HCl (Dilaudid) 0.5 mg IVPUSH Q2H PRN PRN Reason: Pain (severe 7-10) Vancomycin HCl 1.5 gm/ Sodium (Chloride) 250 mls @ 150 mls/hr IV Q12H REPLACED BY [facility] Last Admin: 12/10/19 06:34 Dose: 150 mls/hr Documented by: Piperacillin/Tazobactam/ (Dextrose 3.375 gm/ Premix) 50 mls @ 100 mls/hr IV Q6H REPLACED BY [facility] Lactobacillus Rhamnosus (Culturelle) 1 cap PO BID REPLACED BY [facility] Last Admin: 12/10/19 08:49 Dose: 1 cap Documented by: Lorazepam (Ativan) 0.5 mg IVPUSH Q4H PRN PRN Reason: Nausea/Vomiting Magnesium Hydroxide (Milk Of Magnesia) 30 ml PO Q12H PRN PRN Reason: Constipation Melatonin (Melatonin) 9 mg PO BEDTIME PRN PRN Reason: sleep Ondansetron HCl (Zofran) 4 mg IV Q6H PRN PRN Reason: Nausea/Vomiting Ondansetron HCl (Zofran Odt) 4 mg PO Q6H PRN PRN Reason: Nausea able to take PO Oxycodone HCl (Oxycodone) 5 - 10 mg PO Q4H PRN PRN Reason: Pain Last Admin: 12/09/19 20:55 Dose: 10 mg Documented by: Potassium Chloride (Klor-Con M20) 40 meq PO ONETIME ONE Stop: 12/10/19 09:21 Senna/Docusate Sodium (Senna Plus) 1 tab PO BID PRN PRN Reason: Constipation Spironolactone (Aldactone) 25 mg PO BID REPLACED BY [facility] Discontinued Medications Furosemide (Lasix) 20 mg IVPUSH ONETIME ONE Stop: 12/09/19 17:47 Last Admin: 12/09/19 18:45 Dose: 20 mg Documented by: Sodium Chloride (Normal Saline) 1,000 mls @ 125 mls/hr IV .BOLUS ONE Stop: 12/09/19 23:50 Last Admin: 12/09/19 16:15 Dose: 125 mls/hr Documented by: Sodium Chloride (Normal Saline) 1,000 mls @ 25 mls/hr IV ASDIRECTED REPLACED BY [facility] Last Admin: 12/09/19 18:31 Dose: 25 mls/hr Documented by: Piperacillin/Tazobactam/ (Dextrose 3.375 gm/ Premix) 50 mls @ 100 mls/hr IV Q6H REPLACED BY [facility] Last Admin: 12/10/19 05:59 Dose: 100 mls/hr Documented by: - Exam Quality Assessment: DVT Prophylaxis General: Alert, Oriented, Cooperative, Mild Distress Lungs: Clear to Auscultation, Normal Respiratory Effort Cardiovascular: Regular Rate, Regular Rhythm, No Murmurs GI/Abdominal Exam: Soft, Non-Tender, No Organomegaly, No Distention Extremities: Pedal Edema, Redness Sepsis Event Note - Evaluation Sepsis Screening Result: No Definite Risk - Focused Exam Vital Signs: Vital Signs Temp Pulse Resp BP Pulse Ox 12/10/19 08:59 98.0 F 68 16 117/54 L 97 12/10/19 02:00 99.7 F 69 16 100/68 94 L 12/09/19 22:00 99.1 F 71 16 117/64 94 L Date Exam was Performed: 12/10/19 Time Exam was Performed: 09:22 - Problem List Review Problem List Initiated/Reviewed/Updated: Yes - My Orders Last 24 Hours: My Active Orders 12/10/19 09:17 Convert IV to Saline Lock [OM.PC] Routine 12/10/19 09:20 Potassium Chloride [Klor-Con M20] 40 meq PO ONETIME ONE 12/10/19 09:30 Spironolactone [Aldactone] 25 mg PO BID 12/11/19 05:00 BASIC METABOLIC PANEL,BMP [CHEM] Timed - Plan Plan:: ASSESSMENT AND PLAN - Bilateral lower extremity cellulitis with ulcerations and sloughing of the skin- underlying congestive heart failure as well as peripheral vascular disease as discussed below. There is evidence for cellulitis. History of similar wounds and has previously been seen by wound care. Not febrile or septic. Procalcitonin is normal but CRP is greater than 3. -Antibiotic coverage with Pip/Tazo and vancomycin -Follow-up cultures -Symptomatic management of pain -Surgical follow-up per Dr. Rod Congestive heart failure, systolic-most recent recorded ejection fraction was 25 to 30%. History of CABG. No reports of angina or even dyspnea on exertion. Off all of his medications times at least 1 month. -Dose of furosemide now and repeat in the morning -Consider restarting beta-hope and potentially URVASHI inhibitor following some initial diuresis -Congestive heart failure education -Low-sodium diet -Echocardiogram to reassess left ventricular function Chronic atrial fibrillation-currently rate controlled even without medications. Previously anticoagulated but off times at least 1 month. CHADSS-Vasc >2. -Consider beta-hope as above -Patient would benefit from anticoagulation once surgical interventions are complete Peripheral vascular disease-history of. No recent studies to evaluate arterial flow. -Consider further evaluation such as CT angiogram or DANIEL Maintenance issues - - DVT prophylaxis -none for right now with mechanical not an option given his cellulitis and holding off on pharmacological in case he needs more intense debridement - GI prophylaxis -not indicated - Nutrition -low sodium this evening and nothing by mouth after midnight just in case - Leach catheter -not indicated CODE STATUS -full code Admission justification -this patient will be admitted for inpatient services and is medically appropriate meeting medical necessity for inpatient admission as outlined in my documentation. I reasonably expect the patient will require inpatient services that span a period time over 2 midnights. I reasonably expect this patient to be discharged or transferred within 96 hours after admission to the [facility]. Disposition -I would anticipate discharge home probably with home care after the hospital stay Primary care physician -Dr Anam Albright
[2019-12-10] MEDS ORDERED: Potassium Chloride 20 MEQ Tab.ER PO ONE (10:00)
[2019-12-10] MEDS: Spironolactone 25 MG Tab PO SCH ×2 (10:55→20:54)
[2019-12-10] MEDS: Carvedilol 6.25 MG Tab PO SCH (17:23)
[2019-12-10] MEDS: atorvaSTATin 10 MG Tab PO SCH (20:54)
[2019-12-11] MEDS: Piperacillin/Tazobactam/Dext 3.375 GM in Premix Bag 1 BAG IV SCH ×4 (02:28→20:45)
[2019-12-11] MEDS: oxyCODONE 5 MG Tab PO PRN (07:43)
[2019-12-11] MEDS ORDERED: Lisinopril 5 MG Tab PO SCH (09:00)
--- NOTE | 2019-12-11 09:14 | CR ---
CHEST: Portable 12/09/2019 at 4:13 PM CLINICAL HISTORY:Fatigue COMPARISON:2017 FINDINGS: The heart is enlarged. There has been previous sternotomy. No infiltrate effusion or pneumothorax is seen. There are atherosclerotic changes in the aorta. Impression: Moderate cardiomegaly No acute cardiopulmonary process.
[2019-12-11] MEDS: Aspirin 325 MG Tab.EC PO SCH (09:24)
[2019-12-11] MEDS: Lactobacillus Rhamnosus GG (Probiotic) Cap PO SCH ×2 (09:24→21:06)
[2019-12-11] MEDS: Carvedilol 6.25 MG Tab PO SCH (10:53)
[2019-12-11] MEDS: Spironolactone 25 MG Tab PO SCH (10:53)
[2019-12-11] MEDS: Furosemide 20 MG/2 ML VIAL IVPUSH SCH (10:54)
--- NOTE | 2019-12-11 11:56 | PCM.PN ---
- General Info Date of Service: 12/11/19 Subjective Update: Mr. Wise has noted further improvement over the last 24 hours, he did have a more mild temperature elevation last night. Legs are currently wrapped with Prateek bandages but were seen earlier this morning by Dr. Rod. Vital signs have shown a lower blood pressure so his antihypertensive congestive heart failure medications have been held. Appetite is been fairly good and he denies other symptoms or discomfort. Functional Status: Reports: Tolerating Diet, Ambulating, Urinating - Review of Systems General: Reports: Fever, Weakness. Denies: Chills Pulmonary: Reports: No Symptoms Cardiovascular: Reports: No Symptoms Gastrointestinal: Reports: No Symptoms - Patient Data Vitals - Most Recent: Last Vital Signs Temp 97.4 F 12/11/19 11:00 Pulse 60 12/11/19 11:00 Resp 16 12/11/19 11:00 BP 118/57 L 12/11/19 11:00 Pulse Ox 97 12/11/19 11:00 Weight - Most Recent: 216 lb 0.002 oz I&O - Last 24 Hours: Intake & Output 12/10/19 12/11/19 12/11/19 22:59 06:59 14:59 Intake Total 1875 1000 530 Output Total 100 Balance 1775 1000 530 Lab Results Last 24 Hours: Laboratory Results - last 24 hr 12/11/19 12/11/19 Range/Units 05:34 05:34 Sodium 138 L (140-148) mmol/L Potassium 3.9 (3.6-5.2) mmol/L Chloride 103 (100-108) mmol/L Carbon Dioxide 31 (21-32) mmol/L Anion Gap 7.9 (5.0-14.0) mmol/L BUN 24 H (7-18) mg/dL Creatinine 1.3 (0.8-1.3) mg/dL Est Cr Clr Drug Dosing 61.44 mL/min Estimated GFR (MDRD) 55 L (>60) Glucose 102 (74-106) mg/dL Calcium 8.5 (8.5-10.1) mg/dL Vancomycin Trough 16.6 (10.0-20.0) ug/mL [place] Results Last 24 Hours: Microbiology 12/09/19 16:00 Aerobic Blood Culture - Preliminary Blood NO GROWTH AFTER 1 DAY Anaerobic Blood Culture - Preliminary NO GROWTH AFTER 1 DAY 12/09/19 15:52 Aerobic Blood Culture - Preliminary Blood NO GROWTH AFTER 1 DAY Anaerobic Blood Culture - Preliminary NO GROWTH AFTER 1 DAY Med Orders - Current: Current Medications Acetaminophen (Tylenol) 650 mg PO Q4H PRN PRN Reason: Pain (Mild 1-3)/fever Last Admin: 12/10/19 17:23 Dose: 650 mg Documented by: Aspirin (Ecotrin) 325 mg PO DAILY [facility] Last Admin: 12/11/19 09:24 Dose: 325 mg Documented by: Atorvastatin Calcium (Lipitor) 10 mg PO BEDTIME [facility] Last Admin: 12/10/19 20:54 Dose: 10 mg Documented by: Furosemide (Lasix) 20 mg IVPUSH DAILY [facility] Last Admin: 12/11/19 10:54 Dose: Not Given Documented by: Hydromorphone HCl (Dilaudid) 0.5 mg IVPUSH Q2H PRN PRN Reason: Pain (severe 7-10) Vancomycin HCl 1.5 gm/ Sodium (Chloride) 250 mls @ 150 mls/hr IV Q12H [facility] Last Admin: 12/11/19 05:51 Dose: 150 mls/hr Documented by: Piperacillin/Tazobactam/ (Dextrose 3.375 gm/ Premix) 50 mls @ 100 mls/hr IV Q6H [facility] Last Admin: 12/11/19 07:43 Dose: 100 mls/hr Documented by: Lactobacillus Rhamnosus (Culturelle) 1 cap PO BID [facility] Last Admin: 12/11/19 09:24 Dose: 1 cap Documented by: Lorazepam (Ativan) 0.5 mg IVPUSH Q4H PRN PRN Reason: Nausea/Vomiting Magnesium Hydroxide (Milk Of Magnesia) 30 ml PO Q12H PRN PRN Reason: Constipation Melatonin (Melatonin) 9 mg PO BEDTIME PRN PRN Reason: sleep Ondansetron HCl (Zofran) 4 mg IV Q6H PRN PRN Reason: Nausea/Vomiting Ondansetron HCl (Zofran Odt) 4 mg PO Q6H PRN PRN Reason: Nausea able to take PO Oxycodone HCl (Oxycodone) 5 - 10 mg PO Q4H PRN PRN Reason: Pain Last Admin: 12/11/19 07:43 Dose: 5 mg Documented by: Senna/Docusate Sodium (Senna Plus) 1 tab PO BID PRN PRN Reason: Constipation Discontinued Medications Carvedilol (Coreg) 6.25 mg PO BIDMEALS [facility] Last Admin: 12/11/19 10:53 Dose: Not Given Documented by: Furosemide (Lasix) 20 mg IVPUSH ONETIME ONE Stop: 12/09/19 17:47 Last Admin: 12/09/19 18:45 Dose: 20 mg Documented by: Sodium Chloride (Normal Saline) 1,000 mls @ 125 mls/hr IV .BOLUS ONE Stop: 12/09/19 23:50 Last Admin: 12/09/19 16:15 Dose: 125 mls/hr Documented by: Sodium Chloride (Normal Saline) 1,000 mls @ 25 mls/hr IV ASDIRECTED [facility] Last Admin: 12/09/19 18:31 Dose: 25 mls/hr Documented by: Piperacillin/Tazobactam/ (Dextrose 3.375 gm/ Premix) 50 mls @ 100 mls/hr IV Q6H [facility] Last Admin: 12/10/19 05:59 Dose: 100 mls/hr Documented by: Lisinopril (Prinivil) 5 mg PO DAILY [facility] Last Admin: 12/11/19 10:54 Dose: Not Given Documented by: Potassium Chloride (Klor-Con M20) 40 meq PO ONETIME ONE Stop: 12/10/19 10:01 Last Admin: 12/10/19 10:55 Dose: 40 meq Documented by: Spironolactone (Aldactone) 25 mg PO BID [facility] Last Admin: 12/11/19 10:53 Dose: Not Given Documented by: - Exam Quality Assessment: DVT Prophylaxis General: Alert, Oriented, Cooperative, Mild Distress Lungs: Clear to Auscultation, Normal Respiratory Effort Cardiovascular: Regular Rate, Regular Rhythm, No Murmurs GI/Abdominal Exam: Soft, Non-Tender, No Organomegaly, No Distention Extremities: Pedal Edema Sepsis Event Note - Evaluation Sepsis Screening Result: No Definite Risk - Focused Exam Vital Signs: Vital Signs Temp Pulse Resp BP BP Pulse Ox 12/11/19 11:00 97.4 F 60 16 118/57 L 97 12/11/19 07:00 97.2 F 49 L 16 90/54 L 96 12/11/19 03:00 98.6 F 60 18 105/66 95 Date Exam was Performed: 12/11/19 Time Exam was Performed: 11:52 - Problem List Review Problem List Initiated/Reviewed/Updated: Yes - Plan Plan:: ASSESSMENT AND PLAN - Bilateral lower extremity cellulitis with ulcerations and sloughing of the skin- underlying congestive heart failure as well as peripheral vascular disease as discussed below. -Antibiotic coverage with Pip/Tazo and vancomycin -Follow-up cultures -Symptomatic management of pain -Surgical follow-up per Dr. Rod Congestive heart failure, systolic-most recent recorded ejection fraction was 25 to 30%. History of CABG. No reports of angina or even dyspnea on exertion. Pressure has been trending low and will need to hold his PRATEEK inhibitor beta- hope and Spironolactone. Echocardiogram obtained this morning results are pending -Dose of furosemide now and repeat in the morning -Low-sodium diet -Echocardiogram to reassess left ventricular function Chronic atrial fibrillation-currently rate controlled even without medications. Previously anticoagulated but off times at least 1 month. CHADSS-Vasc >2. -Consider beta-hope as above -Patient would benefit from anticoagulation once surgical interventions are complete Peripheral vascular disease-history of Maintenance issues - - DVT prophylaxis -Lovenox 40 mg subcu daily - GI prophylaxis -not indicated - Nutrition -low sodium this evening and nothing by mouth after midnight just in case - Leach catheter -not indicated CODE STATUS -full code Admission justification -this patient will be admitted for inpatient services and is medically appropriate meeting medical necessity for inpatient admission as outlined in my documentation. I reasonably expect the patient will require inpatient services that span a period time over 2 midnights. I reasonably expect this patient to be discharged or transferred within 96 hours [facility]. Disposition -I would anticipate discharge home probably with home care after the hospital stay Primary care physician -Dr Anam Albright
[2019-12-11] MEDS: Enoxaparin 40 MG/0.4 ML Syringe SUBCUT SCH (13:18)
[2019-12-11] MEDS: atorvaSTATin 10 MG Tab PO SCH (21:06)
[2019-12-12] MEDS: Piperacillin/Tazobactam/Dext 3.375 GM in Premix Bag 1 BAG IV SCH ×4 (02:20→20:17)
[2019-12-12] MEDS: Aspirin 325 MG Tab.EC PO SCH (08:06)
[2019-12-12] MEDS: Lactobacillus Rhamnosus GG (Probiotic) Cap PO SCH ×2 (08:06→20:31)
[2019-12-12] MEDS: Furosemide 20 MG/2 ML VIAL IVPUSH SCH (10:24)
[2019-12-12] MEDS: oxyCODONE 5 MG Tab PO PRN (10:31)
[2019-12-12] MEDS: Enoxaparin 40 MG/0.4 ML Syringe SUBCUT SCH (13:20)
--- NOTE | 2019-12-12 15:31 | PCM.PN ---
- General Info Date of Service: 12/12/19 Subjective Update: Mr. Wise has been stable since yesterday, further improvement in swelling as well as erythema of both lower extremities. He has remained afebrile and been hemodynamically stable. Functional Status: Reports: Tolerating Diet, Ambulating, Urinating - Review of Systems General: Denies: Fever, Chills Pulmonary: Reports: No Symptoms Cardiovascular: Reports: No Symptoms Gastrointestinal: Reports: No Symptoms - Patient Data Vitals - Most Recent: Last Vital Signs Temp 98.3 F 12/12/19 10:42 Pulse 65 12/12/19 10:42 Resp 14 12/12/19 10:42 BP 124/70 12/12/19 10:42 Pulse Ox 97 12/12/19 10:42 Weight - Most Recent: 216 lb 0.002 oz I&O - Last 24 Hours: Intake & Output 12/12/19 12/12/19 12/12/19 06:59 14:59 22:59 Intake Total 300 472 Balance 300 472 Lab Results Last 24 Hours: Laboratory Results - last 24 hr 12/12/19 Range/Units 04:10 Creatinine 1.1 (0.8-1.3) mg/dL Est Cr Clr Drug Dosing 72.61 mL/min Estimated GFR (MDRD) > 60 (>60) [place] Results Last 24 Hours: Microbiology 12/09/19 16:00 Aerobic Blood Culture - Preliminary Blood NO GROWTH AFTER 2 DAYS Anaerobic Blood Culture - Preliminary NO GROWTH AFTER 2 DAYS 12/09/19 15:52 Aerobic Blood Culture - Preliminary Blood NO GROWTH AFTER 2 DAYS Anaerobic Blood Culture - Preliminary NO GROWTH AFTER 2 DAYS Med Orders - Current: Current Medications Acetaminophen (Tylenol) 650 mg PO Q4H PRN PRN Reason: Pain (Mild 1-3)/fever Last Admin: 12/10/19 17:23 Dose: 650 mg Documented by: Aspirin (Ecotrin) 325 mg PO DAILY [facility] Last Admin: 12/12/19 08:06 Dose: 325 mg Documented by: Atorvastatin Calcium (Lipitor) 10 mg PO BEDTIME [facility] Last Admin: 12/11/19 21:06 Dose: 10 mg Documented by: Enoxaparin Sodium (Lovenox) 40 mg SUBCUT Q24H [facility] Last Admin: 12/12/19 13:20 Dose: 40 mg Documented by: Hydromorphone HCl (Dilaudid) 0.5 mg IVPUSH Q2H PRN PRN Reason: Pain (severe 7-10) Vancomycin HCl 1.5 gm/ Sodium (Chloride) 250 mls @ 150 mls/hr IV Q12H [facility] Last Admin: 12/12/19 05:35 Dose: 150 mls/hr Documented by: Piperacillin/Tazobactam/ (Dextrose 3.375 gm/ Premix) 50 mls @ 100 mls/hr IV Q6H [facility] Last Admin: 12/12/19 13:19 Dose: 100 mls/hr Documented by: Lactobacillus Rhamnosus (Culturelle) 1 cap PO BID [facility] Last Admin: 12/12/19 08:06 Dose: 1 cap Documented by: Lorazepam (Ativan) 0.5 mg IVPUSH Q4H PRN PRN Reason: Nausea/Vomiting Magnesium Hydroxide (Milk Of Magnesia) 30 ml PO Q12H PRN PRN Reason: Constipation Melatonin (Melatonin) 9 mg PO BEDTIME PRN PRN Reason: sleep Ondansetron HCl (Zofran) 4 mg IV Q6H PRN PRN Reason: Nausea/Vomiting Ondansetron HCl (Zofran Odt) 4 mg PO Q6H PRN PRN Reason: Nausea able to take PO Oxycodone HCl (Oxycodone) 5 - 10 mg PO Q4H PRN PRN Reason: Pain Last Admin: 12/12/19 10:31 Dose: 5 mg Documented by: Senna/Docusate Sodium (Senna Plus) 1 tab PO BID PRN PRN Reason: Constipation Discontinued Medications Carvedilol (Coreg) 6.25 mg PO BIDMEALS [facility] Last Admin: 12/11/19 10:53 Dose: Not Given Documented by: Furosemide (Lasix) 20 mg IVPUSH ONETIME ONE Stop: 12/09/19 17:47 Last Admin: 12/09/19 18:45 Dose: 20 mg Documented by: Furosemide (Lasix) 20 mg IVPUSH DAILY [facility] Last Admin: 12/12/19 10:24 Dose: 20 mg Documented by: Sodium Chloride (Normal Saline) 1,000 mls @ 125 mls/hr IV .BOLUS ONE Stop: 12/09/19 23:50 Last Admin: 12/09/19 16:15 Dose: 125 mls/hr Documented by: Sodium Chloride (Normal Saline) 1,000 mls @ 25 mls/hr IV ASDIRECTED [facility] Last Admin: 12/09/19 18:31 Dose: 25 mls/hr Documented by: Piperacillin/Tazobactam/ (Dextrose 3.375 gm/ Premix) 50 mls @ 100 mls/hr IV Q6H [facility] Last Admin: 12/10/19 05:59 Dose: 100 mls/hr Documented by: Lisinopril (Prinivil) 5 mg PO DAILY [facility] Last Admin: 12/11/19 10:54 Dose: Not Given Documented by: Potassium Chloride (Klor-Con M20) 40 meq PO ONETIME ONE Stop: 12/10/19 10:01 Last Admin: 12/10/19 10:55 Dose: 40 meq Documented by: Spironolactone (Aldactone) 25 mg PO BID [facility] Last Admin: 12/11/19 10:53 Dose: Not Given Documented by: - Exam Quality Assessment: DVT Prophylaxis General: Alert, Oriented, Cooperative, Mild Distress Lungs: Clear to Auscultation, Normal Respiratory Effort, Decreased Breath Sounds Cardiovascular: Regular Rate, Regular Rhythm, No Murmurs GI/Abdominal Exam: Soft, Non-Tender, No Organomegaly, No Distention Extremities: Other (Improved erythema and infection both lower extremities) Sepsis Event Note - Evaluation Sepsis Screening Result: No Definite Risk - Focused Exam Vital Signs: Vital Signs Temp Pulse Resp BP Pulse Ox 12/12/19 10:42 98.3 F 65 14 124/70 97 12/12/19 07:42 98 F 57 L 14 122/58 L 95 Date Exam was Performed: 12/12/19 Time Exam was Performed: 15:25 - Problem List Review Problem List Initiated/Reviewed/Updated: Yes - My Orders Last 24 Hours: My Active Orders 12/13/19 09:00 Furosemide [Lasix] 40 mg PO DAILY - Plan Plan:: ASSESSMENT AND PLAN - Bilateral lower extremity cellulitis with ulcerations and sloughing of the skin- underlying congestive heart failure as well as peripheral vascular disease as discussed below. Very good improvement from admission and infection and swelling -Antibiotic coverage with Pip/Tazo and vancomycin -Follow-up cultures -Symptomatic management of pain -Surgical follow-up per Dr. Rod Congestive heart failure, systolic-most recent recorded ejection fraction was 25 to 30%. History of CABG. No reports of angina or even dyspnea on exertion. Pressure has been trending low and will need to hold his URVASHI inhibitor beta- hope and Spironolactone. Echocardiogram results are pending -Furosemide 40 mg p.o. daily -Low-sodium diet Chronic atrial fibrillation-currently rate controlled even without medications. Previously anticoagulated but off times at least 1 month. CHADSS-Vasc >2. -Consider beta-hope as above -Patient would benefit from anticoagulation once surgical interventions are complete Peripheral vascular disease-history of Maintenance issues - - DVT prophylaxis -Lovenox 40 mg subcu daily - GI prophylaxis -not indicated - Nutrition -low sodium this evening and nothing by mouth after midnight just in case - Leach catheter -not indicated CODE STATUS -full code Admission justification -this patient will be admitted for inpatient services and is medically appropriate meeting medical necessity for inpatient admission as outlined in my documentation. I reasonably expect the patient will require inpatient services that span a period time over 2 midnights. I reasonably expect this patient to be discharged or transferred within 96 hours [facility] Disposition -I would anticipate discharge home probably with home care after the hospital stay Primary care physician -Dr Anam Albright
[2019-12-12] MEDS: atorvaSTATin 10 MG Tab PO SCH (20:31)
[2019-12-13] MEDS: Piperacillin/Tazobactam/Dext 3.375 GM in Premix Bag 1 BAG IV SCH ×4 (01:19→20:31)
[2019-12-13] MEDS: Furosemide 40 MG Tab PO SCH (08:42)
[2019-12-13] MEDS: Lactobacillus Rhamnosus GG (Probiotic) Cap PO SCH ×2 (08:42→20:40)
[2019-12-13] MEDS: Aspirin 325 MG Tab.EC PO SCH (08:42)
--- NOTE | 2019-12-13 10:11 | PCM.PN ---
- General Info Date of Service: 12/13/19 Subjective Update: Mr. Wise has been stable since yesterday, good vital signs and no significant temperature elevation. Continues to experience pain in both legs especially with ambulation. Functional Status: Reports: Tolerating Diet, Ambulating, Urinating - Review of Systems General: Reports: Weakness, Fatigue. Denies: Fever, Chills Pulmonary: Reports: No Symptoms Cardiovascular: Reports: No Symptoms Gastrointestinal: Reports: No Symptoms Musculoskeletal: Reports: Leg Pain - Patient Data Vitals - Most Recent: Last Vital Signs Temp 97.4 F 12/13/19 07:00 Pulse 61 12/13/19 07:00 Resp 18 12/13/19 07:00 BP 121/65 12/13/19 07:00 Pulse Ox 96 12/13/19 07:00 Weight - Most Recent: 216 lb 0.002 oz I&O - Last 24 Hours: Intake & Output 12/12/19 12/13/19 12/13/19 22:59 06:59 14:59 Intake Total 1280 350 240 Balance 1280 350 240 [place] Results Last 24 Hours: Microbiology 12/09/19 16:00 Aerobic Blood Culture - Preliminary Blood NO GROWTH AFTER 3 DAYS Anaerobic Blood Culture - Preliminary NO GROWTH AFTER 3 DAYS 12/09/19 15:52 Aerobic Blood Culture - Preliminary Blood NO GROWTH AFTER 3 DAYS Anaerobic Blood Culture - Preliminary NO GROWTH AFTER 3 DAYS Med Orders - Current: Current Medications Acetaminophen (Tylenol) 650 mg PO Q4H PRN PRN Reason: Pain (Mild 1-3)/fever Last Admin: 12/10/19 17:23 Dose: 650 mg Documented by: Aspirin (Ecotrin) 325 mg PO DAILY [facility] Last Admin: 12/13/19 08:42 Dose: 325 mg Documented by: Atorvastatin Calcium (Lipitor) 10 mg PO BEDTIME [facility] Last Admin: 12/12/19 20:31 Dose: 10 mg Documented by: Enoxaparin Sodium (Lovenox) 40 mg SUBCUT Q24H [facility] Last Admin: 12/12/19 13:20 Dose: 40 mg Documented by: Furosemide (Lasix) 40 mg PO DAILY [facility] Last Admin: 12/13/19 08:42 Dose: 40 mg Documented by: Hydromorphone HCl (Dilaudid) 0.5 mg IVPUSH Q2H PRN PRN Reason: Pain (severe 7-10) Vancomycin HCl 1.5 gm/ Sodium (Chloride) 250 mls @ 150 mls/hr IV Q12H [facility] Last Admin: 12/13/19 05:20 Dose: 150 mls/hr Documented by: Piperacillin/Tazobactam/ (Dextrose 3.375 gm/ Premix) 50 mls @ 100 mls/hr IV Q6H [facility] Last Admin: 12/13/19 08:38 Dose: 100 mls/hr Documented by: Lactobacillus Rhamnosus (Culturelle) 1 cap PO BID [facility] Last Admin: 12/13/19 08:42 Dose: 1 cap Documented by: Lorazepam (Ativan) 0.5 mg IVPUSH Q4H PRN PRN Reason: Nausea/Vomiting Magnesium Hydroxide (Milk Of Magnesia) 30 ml PO Q12H PRN PRN Reason: Constipation Melatonin (Melatonin) 9 mg PO BEDTIME PRN PRN Reason: sleep Ondansetron HCl (Zofran) 4 mg IV Q6H PRN PRN Reason: Nausea/Vomiting Ondansetron HCl (Zofran Odt) 4 mg PO Q6H PRN PRN Reason: Nausea able to take PO Oxycodone HCl (Oxycodone) 5 - 10 mg PO Q4H PRN PRN Reason: Pain Last Admin: 12/12/19 10:31 Dose: 5 mg Documented by: Senna/Docusate Sodium (Senna Plus) 1 tab PO BID PRN PRN Reason: Constipation Discontinued Medications Carvedilol (Coreg) 6.25 mg PO BIDMEALS [facility] Last Admin: 12/11/19 10:53 Dose: Not Given Documented by: Furosemide (Lasix) 20 mg IVPUSH ONETIME ONE Stop: 12/09/19 17:47 Last Admin: 12/09/19 18:45 Dose: 20 mg Documented by: Furosemide (Lasix) 20 mg IVPUSH DAILY [facility] Last Admin: 12/12/19 10:24 Dose: 20 mg Documented by: Sodium Chloride (Normal Saline) 1,000 mls @ 125 mls/hr IV .BOLUS ONE Stop: 12/09/19 23:50 Last Admin: 12/09/19 16:15 Dose: 125 mls/hr Documented by: Sodium Chloride (Normal Saline) 1,000 mls @ 25 mls/hr IV ASDIRECTED [facility] Last Admin: 12/09/19 18:31 Dose: 25 mls/hr Documented by: Piperacillin/Tazobactam/ (Dextrose 3.375 gm/ Premix) 50 mls @ 100 mls/hr IV Q6H [facility] Last Admin: 12/10/19 05:59 Dose: 100 mls/hr Documented by: Lisinopril (Prinivil) 5 mg PO DAILY [facility] Last Admin: 12/11/19 10:54 Dose: Not Given Documented by: Potassium Chloride (Klor-Con M20) 40 meq PO ONETIME ONE Stop: 12/10/19 10:01 Last Admin: 12/10/19 10:55 Dose: 40 meq Documented by: Spironolactone (Aldactone) 25 mg PO BID [facility] Last Admin: 12/11/19 10:53 Dose: Not Given Documented by: - Exam Quality Assessment: DVT Prophylaxis General: Alert, Oriented, Cooperative, Mild Distress Lungs: Clear to Auscultation, Normal Respiratory Effort Cardiovascular: Regular Rate, Regular Rhythm, No Murmurs GI/Abdominal Exam: Soft, Non-Tender, No Organomegaly, No Distention Extremities: Other (Venous stasis both lower extremities, cellulitis significantly improved) Sepsis Event Note - Evaluation Sepsis Screening Result: No Definite Risk - Focused Exam Vital Signs: Vital Signs Temp Pulse Resp BP Pulse Ox 12/13/19 07:00 97.4 F 61 18 121/65 96 12/13/19 04:41 96.9 F 65 18 95/59 L 95 12/12/19 22:55 98.0 F 67 16 127/86 97 Date Exam was Performed: 12/13/19 Time Exam was Performed: 10:09 - Problem List Review Problem List Initiated/Reviewed/Updated: Yes - My Orders Last 24 Hours: My Active Orders 12/13/19 09:00 Furosemide [Lasix] 40 mg PO DAILY 12/13/19 10:08 Warfarin [Coumadin] 5 mg PO ONETIME ONE 12/13/19 10:09 INR,PT,PROTHROMBIN TIME [COAG] Routine 12/14/19 05:11 INR,PT,PROTHROMBIN TIME [COAG] AM - Plan Plan:: ASSESSMENT AND PLAN - Bilateral lower extremity cellulitis with ulcerations and sloughing of the skin- underlying congestive heart failure as well as peripheral vascular disease as discussed below. Very good improvement from admission and infection and swelling -Antibiotic coverage with Pip/Tazo and vancomycin -Follow-up cultures -Symptomatic management of pain -Surgical follow-up per Dr. Rod Congestive heart failure, systolic-most recent recorded ejection fraction was 25 to 30%. History of CABG. No reports of angina or even dyspnea on exertion. Pressure has been trending low and will need to hold his URVASHI inhibitor beta- hope and Spironolactone. Echocardiogram results are pending -Furosemide 40 mg p.o. daily -Low-sodium diet Chronic atrial fibrillation-currently rate controlled even without medications. Previously anticoagulated but off times at least 1 month. CHADSS-Vasc >2. -Warfarin 5 mg p.o. today -INR now and in a.m. Peripheral vascular disease-history of Maintenance issues - - DVT prophylaxis -Lovenox 40 mg subcu daily - GI prophylaxis -not indicated - Nutrition -low sodium this evening and nothing by mouth after midnight just in case - Leach catheter -not indicated CODE STATUS -full code Admission justification -this patient will be admitted for inpatient services and is medically appropriate meeting medical necessity for inpatient admission as outlined in my documentation. I reasonably expect the patient will require inpatient services that span a period time over 2 midnights. I reasonably expect this patient to be discharged or transferred within 96 hours after admission to the [facility]. Disposition -I would anticipate discharge home probably with home care after the hospital stay Primary care physician -Dr Anam Albright
[2019-12-13] MEDS ORDERED: Warfarin 5 MG Tab PO ONE (11:00)
[2019-12-13] MEDS: Enoxaparin 40 MG/0.4 ML Syringe SUBCUT SCH (11:44)
[2019-12-13] MEDS: atorvaSTATin 10 MG Tab PO SCH (20:40)
[2019-12-14] MEDS: Piperacillin/Tazobactam/Dext 3.375 GM in Premix Bag 1 BAG IV SCH ×2 (01:23→07:43)
[2019-12-14] MEDS: oxyCODONE 5 MG Tab PO PRN (08:13)
[2019-12-14] MEDS: Lactobacillus Rhamnosus GG (Probiotic) Cap PO SCH (08:14)
[2019-12-14] MEDS: Aspirin 325 MG Tab.EC PO SCH (08:14)
[2019-12-14] MEDS: Furosemide 40 MG Tab PO SCH (08:14)
[2019-12-14] MEDS ORDERED: Warfarin 5 MG Tab PO ONE (11:00)
[2019-12-14 11:16] VITALS: BP 133/72; PULSE 73
[2019-12-14] MEDS: Enoxaparin 40 MG/0.4 ML Syringe SUBCUT SCH (12:07)
--- NOTE | 2019-12-14 12:34 | PCM.DCSUM1 ---
Discharge Summary - Hospital Course Brief History: Mr. Wise is a 64-year-old gentleman who was admitted through the emergency department with weakness and fever secondary to bilateral lower extremity venous stasis and cellulitis. - Discharge Data Discharge Date: 12/14/19 Discharge Disposition: Home, Self-Care 01 Condition: Fair - Referral to Home Health Date of Face to Face Encounter: 12/14/19 Reason for Homebound Status: Weakness, veinous stasis Primary Care Physician: Nick Albright MD Skilled Need: Daily dressing changes to both lower extremities - Patient Summary/Data Consults: Consultations 12/09/19 17:46 Consult to Physician [CONS] Routine Consulting Provider: Devon Rod Call Completed to Consulting Physician: Yes Reason for Consult: bilateral lower ext stasis ulcerations with infection Person Notified: RW Date Notified: 12/09/19 Special Instructions: will see in the morning Hospital Course: Mr. Wise presented to the emergency room with about 1 month of progressive swelling and increasing pain in both lower extremities from the knee distally. He describes a moderate stinging pain involving both lower legs especially in the posterior portion between the calf and the heel. Pain is worse when he tries to stand up but there are some sharp shooting pains that come and go. He has been taking aspirin without much relief. Pain has steadily been getting worse. He has also noted increased swelling in both lower extremities over that period of time. The legs are weeping. He reports a history of similar difficulties and that this occurs about once per year in the early summer. He does admit that he quit taking all of his medications about 1 month ago. Since that time he has noticed the changes mentioned above. He does occasionally have chills. He did call to set up home health care to come take care of the wounds on his legs which he says have been increasing over the past couple of weeks. When the nurse came to evaluate his legs she noticed maggots on his leg and imm ediately called an ambulance. Work-up in the emergency room revealed evidence for bilateral lower extremity cellulitis with significant ulcerations and sloughing of the skin especially in the posterior aspect of the lower extremities. Multiple maggots have been removed. Laboratory studies are surprisingly normal. There is evidence for volume overload with congestive heart failure. Cultures have been obtained. Antibiotics will be initiated. Given IV diuretic therapy during hospitalization with good diuresis and improvement in peripheral edema. Antibiotic therapy was initiated with Zosyn and vancomycin. Cultures remained negative. During the course of hospitalization he was seen and evaluated by Dr. Rod, who recommended daily dressing changes with Prateek wraps to both lower extremities. Follow-up appointment will be scheduled with Dr. Rod within a few weeks. Complex dressing changes at home home care services have been arranged, they will also check INR levels as needed. He was restarted on oral anticoagulation with warfarin during hospitalization. He will be discharged home with furosemide 40 mg daily and is instructed to follow a low-sodium diet. He will be transitioned to oral antibiotic therapy with Augmentin twice daily for an additional 5 days. Activity will be as tolerated and he will resume a low-sodium diet. - Patient Instructions Diet: Low Sodium Activity: As Tolerated Other/Special Instructions: Home care services for daily dressing changes both lower extremities. Please schedule follow-up appointment with primary care provider within 1 week, BMP should be obtained at the time of follow-up appointment. Please arrange for home care service to obtain INR on December 14. - Discharge Plan *PRESCRIPTION DRUG MONITORING PROGRAM REVIEWED*: Not Applicable *COPY OF PRESCRIPTION DRUG MONITORING REPORT IN PATIENT REESE: Not Applicable Prescriptions/Med Rec: Spironolactone [Aldactone] 25 mg PO BID #60 Amoxicillin/Potassium Clav [Augmentin 875-125 Tablet] 1 each PO BID #10 tablet carvediloL [Coreg] 6.25 mg PO BID #60 Warfarin [Coumadin] 5 mg PO DAILY@1300 #50 Lactobacillus Rhamnosus GG [Culturelle] 1 cap PO BID #60 cap Furosemide [Lasix] 40 mg PO DAILY #30 tablet atorvaSTATin [Lipitor] 10 mg PO BEDTIME #30 Home Medications: Home Meds Aspirin 325 mg PO DAILY 12/09/19 [History] Amoxicillin/Potassium Clav [Augmentin 875-125 Tablet] 1 each PO BID #10 tablet 12/14/19 [Rx] Furosemide [Lasix] 40 mg PO DAILY #30 tablet 12/14/19 [Rx] Lactobacillus Rhamnosus GG [Culturelle] 1 cap PO BID #60 cap 12/14/19 [Rx] Spironolactone [Aldactone] 25 mg PO BID #60 12/14/19 [Rx] Warfarin [Coumadin] 5 mg PO DAILY@1300 #50 12/14/19 [Rx] atorvaSTATin [Lipitor] 10 mg PO BEDTIME #30 12/14/19 [Rx] carvediloL [Coreg] 6.25 mg PO BID #60 12/14/19 [Rx] Referrals: Nick Alrbight MD [Primary Care Provider] - 12/22/19 1:40 pm Devon Rod MD [Physician] - 12/22/19 3:00 pm () - Discharge Summary/Plan Comment DC Time >30 min.: No - Patient Data Vitals - Most Recent: Last Vital Signs Temp 97.0 F 12/14/19 11:00 Pulse 73 12/14/19 11:00 Resp 18 12/14/19 11:00 BP 133/72 12/14/19 11:00 Pulse Ox 97 12/14/19 11:00 Weight - Most Recent: 216 lb 0.002 oz I&O - Last 24 hours: Intake & Output 12/13/19 12/14/19 12/14/19 22:59 06:59 14:59 Intake Total 830 100 50 Output Total 600 Balance 830 -500 50 Lab Results - Last 24 hrs: Laboratory Results - last 24 hr 12/14/19 Range/Units 04:50 PT 13.7 H (9.5-12.0) sec INR 1.29 H (0.80-1.20) CARLOS Results - Last 24 hrs: Microbiology 12/09/19 16:00 Aerobic Blood Culture - Preliminary Blood NO GROWTH AFTER 4 DAYS Anaerobic Blood Culture - Preliminary NO GROWTH AFTER 4 DAYS 12/09/19 15:52 Aerobic Blood Culture - Preliminary Blood NO GROWTH AFTER 4 DAYS Anaerobic Blood Culture - Preliminary NO GROWTH AFTER 4 DAYS Med Orders - Current: Current Medications Acetaminophen (Tylenol) 650 mg PO Q4H PRN PRN Reason: Pain (Mild 1-3)/fever Last Admin: 12/10/19 17:23 Dose: 650 mg Documented by: Aspirin (Ecotrin) 325 mg PO DAILY [facility] Last Admin: 12/14/19 08:14 Dose: 325 mg Documented by: Atorvastatin Calcium (Lipitor) 10 mg PO BEDTIME [facility] Last Admin: 12/13/19 20:40 Dose: 10 mg Documented by: Enoxaparin Sodium (Lovenox) 40 mg SUBCUT Q24H [facility] Last Admin: 12/14/19 12:07 Dose: 40 mg Documented by: Furosemide (Lasix) 40 mg PO DAILY [facility] Last Admin: 12/14/19 08:14 Dose: 40 mg Documented by: Hydromorphone HCl (Dilaudid) 0.5 mg IVPUSH Q2H PRN PRN Reason: Pain (severe 7-10) Vancomycin HCl 1.5 gm/ Sodium (Chloride) 250 mls @ 150 mls/hr IV Q12H [facility] Last Admin: 12/14/19 05:18 Dose: 150 mls/hr Documented by: Piperacillin/Tazobactam/ (Dextrose 3.375 gm/ Premix) 50 mls @ 100 mls/hr IV Q6H [facility] Last Admin: 12/14/19 07:43 Dose: 100 mls/hr Documented by: Lactobacillus Rhamnosus (Culturelle) 1 cap PO BID [facility] Last Admin: 12/14/19 08:14 Dose: 1 cap Documented by: Lorazepam (Ativan) 0.5 mg IVPUSH Q4H PRN PRN Reason: Nausea/Vomiting Magnesium Hydroxide (Milk Of Magnesia) 30 ml PO Q12H PRN PRN Reason: Constipation Melatonin (Melatonin) 9 mg PO BEDTIME PRN PRN Reason: sleep Ondansetron HCl (Zofran) 4 mg IV Q6H PRN PRN Reason: Nausea/Vomiting Ondansetron HCl (Zofran Odt) 4 mg PO Q6H PRN PRN Reason: Nausea able to take PO Oxycodone HCl (Oxycodone) 5 - 10 mg PO Q4H PRN PRN Reason: Pain Last Admin: 12/14/19 08:13 Dose: 5 mg Documented by: Senna/Docusate Sodium (Senna Plus) 1 tab PO BID PRN PRN Reason: Constipation Discontinued Medications Carvedilol (Coreg) 6.25 mg PO BIDMEALS [facility] Last Admin: 12/11/19 10:53 Dose: Not Given Documented by: Furosemide (Lasix) 20 mg IVPUSH ONETIME ONE Stop: 12/09/19 17:47 Last Admin: 12/09/19 18:45 Dose: 20 mg Documented by: Furosemide (Lasix) 20 mg IVPUSH DAILY [facility] Last Admin: 12/12/19 10:24 Dose: 20 mg Documented by: Sodium Chloride (Normal Saline) 1,000 mls @ 125 mls/hr IV .BOLUS ONE Stop: 12/09/19 23:50 Last Admin: 12/09/19 16:15 Dose: 125 mls/hr Documented by: Sodium Chloride (Normal Saline) 1,000 mls @ 25 mls/hr IV ASDIRECTED [facility] Last Admin: 12/09/19 18:31 Dose: 25 mls/hr Documented by: Piperacillin/Tazobactam/ (Dextrose 3.375 gm/ Premix) 50 mls @ 100 mls/hr IV Q6H [facility] Last Admin: 12/10/19 05:59 Dose: 100 mls/hr Documented by: Lisinopril (Prinivil) 5 mg PO DAILY [facility] Last Admin: 12/11/19 10:54 Dose: Not Given Documented by: Potassium Chloride (Klor-Con M20) 40 meq PO ONETIME ONE Stop: 12/10/19 10:01 Last Admin: 12/10/19 10:55 Dose: 40 meq Documented by: Spironolactone (Aldactone) 25 mg PO BID [facility] Last Admin: 12/11/19 10:53 Dose: Not Given Documented by: Warfarin Sodium (Coumadin) 5 mg PO ONETIME ONE Stop: 12/13/19 11:01 Last Admin: 12/13/19 11:44 Dose: 5 mg Documented by: Warfarin Sodium (Coumadin) 5 mg PO ONETIME ONE Stop: 12/14/19 11:01 Last Admin: 12/14/19 10:10 Dose: 5 mg Documented by: - Exam Quality Assessment: Reports: DVT Prophylaxis General: Reports: Alert, Oriented, Cooperative, No Acute Distress Lungs: Reports: Clear to Auscultation, Normal Respiratory Effort Cardiovascular: Reports: Regular Rate, Regular Rhythm, No Murmurs GI/Abdominal Exam: Soft, Non-Tender, No Organomegaly, No Distention Extremities: Other (Venous stasis both lower legs, cellulitis has resolved) *Q Meaningful Use (DIS) - VTE *Q VTE Mechanical Contraindications *Q: Bilateral Lower Edema
== END 2019-12-14 13:10 | disposition home or self-care (01) | DRG 602 ==
LOC: JP.ED 14:42 → JP.MS 17:14
PROVIDERS: ADMIT Internal Medicine; ATTEND Hospitalist
DX: L03.115 Cellulitis of right lower limb (principal); H54.7 Unspecified visual loss; I50.23 Acute on chronic systolic (congestive) heart failure; I10 Essential (primary) hypertension; I48.20 Chronic atrial fibrillation, unspecified; L97.929 Non-pressure chronic ulcer of unspecified part of left lower leg with unspecified severity; L97.919 Non-pressure chronic ulcer of unspecified part of right lower leg with unspecified severity; Z20.828 Contact with and (suspected) exposure to other viral communicable diseases; I11.0 Hypertensive heart disease with heart failure; L03.116 Cellulitis of left lower limb; E78.00 Pure hypercholesterolemia, unspecified; I87.2 Venous insufficiency (chronic) (peripheral); I73.9 Peripheral vascular disease, unspecified; Z91.09 Other allergy status, other than to drugs and biological substances; Z79.01 Long term (current) use of anticoagulants; Z79.82 Long term (current) use of aspirin; Z79.899 Other long term (current) drug therapy; Z95.2 Presence of prosthetic heart valve; Z95.1 Presence of aortocoronary bypass graft
CPT/HCPCS: 36415; 71045 ×2; 80053; 80307; 81003; 83605; 84145; 85025; 85610; 87040 ×2; 93005; 93010; 99285; J7040; U0002; 80048; 80202; 82565; 83036; 83735; 84443; 85027; 86140; 93306; A9270-GY; J1650; J1940; J2543; J3370; J7030; J7050

== ENCOUNTER 2020-02-26 15:20 | Observation (INO) | payer MEDICARE, OTHER ==
--- NOTE | 2020-02-26 16:43 | EDM.PDOC ---
ED HPI GENERAL MEDICAL PROBLEM - General Chief Complaint: General Stated Complaint: MEDICAL [facility]IA [facility] Time Seen by Provider: 02/26/20 16:43 Source of Information: Reports: Patient History Limitations: Reports: No Limitations - History of Present Illness INITIAL COMMENTS - FREE TEXT/NARRATIVE: 64 years old male patient brought in by ambulance for evaluation. Patient stated that he was drinking alcohol 4 days ago and watching football game. He tripped and fell down. He think he had his head at that time. He think he might have lost consciousness. Patient was in the floor for 4 days not able to get up because of generalized weakness and generalized pain. His neighbor was checking on him today and found him in the floor and they called ambulance to bring him in for evaluation. Patient is complaining of left-sided rib pain and left hip pain that has been going on for 4 days since the fall. Otherwise denies any headache or visual changes. Denies any neck pain or back pain. Denies any focal weakness or numbness anywhere. Complaining of generalized weakness. Denies any cough or fever. Denies any sore throat runny nose or congestion. Denies any chest pain or shortness breath. Denies any abdominal pain diarrhea or constipation. Denies any urinary symptom. Denies any drug use. Left Breast Pain Score (Numeric/FACES): 1 - Related Data Allergies Allergy/AdvReac Type Severity Reaction Status Date / Time pollen extracts Allergy Sneezing Verified 02/26/20 15:56 Home Meds: Home Meds Aspirin 325 mg PO DAILY 12/09/19 [History] Furosemide [Lasix] 40 mg PO DAILY #30 tablet 12/14/19 [Rx] Lactobacillus Rhamnosus GG [Culturelle] 1 cap PO BID #60 cap 12/14/19 [Rx] Spironolactone [Aldactone] 25 mg PO BID #60 12/14/19 [Rx] Warfarin [Coumadin] 5 mg PO DAILY@1300 #50 12/14/19 [Rx] atorvaSTATin [Lipitor] 10 mg PO BEDTIME #30 12/14/19 [Rx] carvediloL [Coreg] 6.25 mg PO BID #60 12/14/19 [Rx] Cholecalciferol (Vitamin D3) [Vitamin D3] 2,000 unit PO DAILY 02/26/20 [History] Omeprazole 20 mg PO QID 02/26/20 [History] Sertraline [Zoloft] 50 mg PO DAILY 02/26/20 [History] Past Medical History - Past Health History Medical/Surgical History: Denies Medical/Surgical History HEENT History: Reports: Impaired Vision Cardiovascular History: Reports: Bypass, High Cholesterol, Hypertension, Other (See Below) Other Cardiovascular History: aortic disection Respiratory History: Reports: SOB Musculoskeletal History: Reports: Fracture Other Musculoskeletal History: Hx of rib fx Psychiatric History: Reports: Depression Hematologic History: Reports: Blood Transfusion(s) Dermatologic History: Reports: Cellulitis - Past Surgical History Cardiovascular Surgical History: Reports: Valve Replacement 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 ED EXAM, GENERAL - Physical Exam Exam: See Below Exam Limited By: No Limitations General Appearance: Alert, WD/WN, No Apparent Distress Eye Exam: Bilateral Eye: EOMI, PERRL Nose: Normal Inspection, Normal Mucosa, No Blood Throat/Mouth: Normal Inspection, Normal Lips, Normal Teeth, Normal Gums, Normal Oropharynx, Normal Voice, No Airway Compromise Head: Atraumatic, Normocephalic Neck: Normal Inspection, Supple, Non-Tender, Full Range of Motion Respiratory/Chest: No Respiratory Distress, Lungs Clear, Normal Breath Sounds, No Accessory Muscle Use, Other (Tenderness on palpation all the left lateral chest wall. No erythema no swelling no deformity.). No: Respiratory Distress, Crackles, Rales, Rhonchi, Wheezing, Stridor, Retractions Cardiovascular: Normal Peripheral Pulses, Regular Rate, Rhythm, No Edema, No Gallop, No JVD, No Murmur, No Rub GI/Abdominal: Normal Bowel Sounds, Soft, Non-Tender, No Organomegaly, No Distention, No Abnormal Bruit, No Mass Back Exam: Normal Inspection. No: CVA Tenderness (R), CVA Tenderness (L), Muscle Spasm (Bilateral lower extremity erythema, excoriation, dermatitis), Paraspinal Tenderness, Vertebral Tenderness Extremities: Normal Capillary Refill. No: Pedal Edema Neurological: Alert, Oriented, CN II-XII Intact, Normal Cognition, Normal Gait, Normal Reflexes, No Motor/Sensory Deficits Psychiatric: Normal Affect, Normal Mood Course - Vital Signs Last Recorded V/S: Last Vital Signs Temp 35.8 C L 02/26/20 16:08 Pulse 60 02/26/20 18:54 Resp 16 02/26/20 16:08 BP 125/57 L 02/26/20 18:54 Pulse Ox 98 02/26/20 18:54 - Orders/Labs/Meds Orders: Active Orders 24 hr Category Date Time Status EKG Documentation Completion [RC] ASDIRECTED Care 02/26/20 16:46 Active Hip Min 2V or 3V w Pelvis Lt [CR] Stat Exams 02/26/20 17:45 Taken Ribs 2V w Chest Lt [CR] Stat Exams 02/26/20 17:42 Taken DRUG SCREEN, URINE [URCHEM] Urgent Lab 02/26/20 16:44 Ordered UA W/MICROSCOPIC [URIN] Urgent Lab 02/26/20 16:44 Ordered EKG 12 Lead [EK] Urgent Ther 02/26/20 16:44 Ordered Labs: Laboratory Tests 02/26/20 02/26/20 02/26/20 Range/Units 16:50 16:50 16:50 WBC 7.7 (4.5-11.0) K/uL RBC 4.51 (4.30-5.90) M/uL Hgb 12.9 (12.0-15.0) g/dL Hct 40.6 (40.0-54.0) % MCV 90 (80-98) fL MCH 29 (27-31) pg MCHC 32 (32-36) % Plt Count 186 (150-400) K/uL Neut % (Auto) 84 H (36-66) % Lymph % (Auto) 7 L (24-44) % Brule % (Auto) 9 H (2-6) % Eos % (Auto) 0 L (2-4) % Baso % (Auto) 0 (0-1) % PT 13.2 H (9.5-12.0) sec INR 1.22 H (0.80-1.20) Sodium 140 (140-148) mmol/L Potassium 4.3 (3.6-5.2) mmol/L Chloride 103 (100-108) mmol/L Carbon Dioxide 25 (21-32) mmol/L Anion Gap 11.7 (5.0-14.0) mmol/L BUN 32 H (7-18) mg/dL Creatinine 0.9 (0.8-1.3) mg/dL Est Cr Clr Drug Dosing 88.62 mL/min Estimated GFR (MDRD) > 60 (>60) Glucose 85 (74-106) mg/dL Lactic Acid (0.4-2.0) mmol/L Calcium 8.9 (8.5-10.1) mg/dL Total Bilirubin 3.4 H D (0.2-1.0) mg/dL AST 31 (15-37) U/L ALT 19 (12-78) U/L Alkaline Phosphatase 145 H (46-116) U/L Ammonia (11-32) mmol/L Creatine Kinase (39-308) U/L Troponin I 0.057 H (0.000-0.056) ng/mL Total Protein 6.4 (6.4-8.2) g/dL Albumin 3.1 L (3.4-5.0) g/dL Globulin 3.3 (2.3-3.5) g/dL Albumin/Globulin Ratio 0.9 L (1.2-2.2) Lipase 45 L (73-393) U/L Ethyl Alcohol mg/dL 02/26/20 02/26/20 02/26/20 Range/Units 16:50 16:50 16:50 WBC (4.5-11.0) K/uL RBC (4.30-5.90) M/uL Hgb (12.0-15.0) g/dL Hct (40.0-54.0) % MCV (80-98) fL MCH (27-31) pg MCHC (32-36) % Plt Count (150-400) K/uL Neut % (Auto) (36-66) % Lymph % (Auto) (24-44) % Brule % (Auto) (2-6) % Eos % (Auto) (2-4) % Baso % (Auto) (0-1) % PT (9.5-12.0) sec INR (0.80-1.20) Sodium (140-148) mmol/L Potassium (3.6-5.2) mmol/L Chloride (100-108) mmol/L Carbon Dioxide (21-32) mmol/L Anion Gap (5.0-14.0) mmol/L BUN (7-18) mg/dL Creatinine (0.8-1.3) mg/dL Est Cr Clr Drug Dosing mL/min Estimated GFR (MDRD) (>60) Glucose (74-106) mg/dL Lactic Acid 1.4 (0.4-2.0) mmol/L Calcium (8.5-10.1) mg/dL Total Bilirubin (0.2-1.0) mg/dL AST (15-37) U/L ALT (12-78) U/L Alkaline Phosphatase (46-116) U/L Ammonia 20 (11-32) mmol/L Creatine Kinase (39-308) U/L Troponin I (0.000-0.056) ng/mL Total Protein (6.4-8.2) g/dL Albumin (3.4-5.0) g/dL Globulin (2.3-3.5) g/dL Albumin/Globulin Ratio (1.2-2.2) Lipase (73-393) U/L Ethyl Alcohol < 3 mg/dL 02/26/20 Range/Units 17:42 WBC (4.5-11.0) K/uL RBC (4.30-5.90) M/uL Hgb (12.0-15.0) g/dL Hct (40.0-54.0) % MCV (80-98) fL MCH (27-31) pg MCHC (32-36) % Plt Count (150-400) K/uL Neut % (Auto) (36-66) % Lymph % (Auto) (24-44) % Brule % (Auto) (2-6) % Eos % (Auto) (2-4) % Baso % (Auto) (0-1) % PT (9.5-12.0) sec INR (0.80-1.20) Sodium (140-148) mmol/L Potassium (3.6-5.2) mmol/L Chloride (100-108) mmol/L Carbon Dioxide (21-32) mmol/L Anion Gap (5.0-14.0) mmol/L BUN (7-18) mg/dL Creatinine (0.8-1.3) mg/dL Est Cr Clr Drug Dosing mL/min Estimated GFR (MDRD) (>60) Glucose (74-106) mg/dL Lactic Acid (0.4-2.0) mmol/L Calcium (8.5-10.1) mg/dL Total Bilirubin (0.2-1.0) mg/dL AST (15-37) U/L ALT (12-78) U/L Alkaline Phosphatase (46-116) U/L Ammonia (11-32) mmol/L Creatine Kinase 123 (39-308) U/L Troponin I (0.000-0.056) ng/mL Total Protein (6.4-8.2) g/dL Albumin (3.4-5.0) g/dL Globulin (2.3-3.5) g/dL Albumin/Globulin Ratio (1.2-2.2) Lipase (73-393) U/L Ethyl Alcohol mg/dL - Re-Assessments/Exams Free Text/Narrative Re-Assessment/Exam: 02/26/20 19:27 Patient was seen and examined shortly after arrival. Stable. EKG, lab and imaging reviewed with the patient. EKG shows no sign of acute ischemia. Troponin is barely above the upper limits of normal. Patient doesn't have any chest pain. No sign of acute coronary syndrome. CT head shows left-sided subdural hematoma. Small 2 mm. Patient does not want to be transferred to a higher level of care. He is asymptomatic. Neurologically intact. Very small 2 mm subdural hematoma. Possibly happened 4 days ago after the fall. Has been stable since then. Case was discussed with Dr. Khan hospitalist bloom conveyor operator and he accepted the admission for further management. Patient agrees with the plan. Stable for admission. Departure - Departure Time of Disposition: 19:20 Disposition: Admitted As Inpatient 64 Condition: Fair Clinical Impression: Subdural hematoma, Elevated troponin, Fall, Left hip pain, Dermatitis - Discharge Information Referrals: PCP,None [Primary Care Provider] - Forms: ED Department Discharge Sepsis Event Note (ED) - Evaluation Sepsis Screening Result: No Definite Risk - Focused Exam Vital Signs: Vital Signs Temp Pulse Resp BP Pulse Ox 02/26/20 18:54 60 125/57 L 98 02/26/20 17:21 51 L 129/52 L 02/26/20 16:15 63 128/90 98 02/26/20 16:08 35.8 C L 64 16 137/84 98 02/26/20 15:30 35.8 C L 64 16 137/84 98 - My Orders Last 24 Hours: My Active Orders 02/26/20 16:44 DRUG SCREEN, URINE [URCHEM] Urgent UA W/MICROSCOPIC [URIN] Urgent EKG 12 Lead [EK] Urgent 02/26/20 16:46 EKG Documentation Completion [RC] ASDIRECTED 02/26/20 17:42 Ribs 2V w Chest Lt [CR] Stat 02/26/20 17:45 Hip Min 2V or 3V w Pelvis Lt [CR] Stat - Assessment/Plan Last 24 Hours: My Active Orders 02/26/20 16:44 DRUG SCREEN, URINE [URCHEM] Urgent UA W/MICROSCOPIC [URIN] Urgent EKG 12 Lead [EK] Urgent 02/26/20 16:46 EKG Documentation Completion [RC] ASDIRECTED 02/26/20 17:42 Ribs 2V w Chest Lt [CR] Stat 02/26/20 17:45 Hip Min 2V or 3V w Pelvis Lt [CR] Stat Plan: Admission to Dr. Khan hospitalist bloom conveyor operator.
--- NOTE | 2020-02-26 18:13 | CRLCT ---
INDICATION: Fall TECHNIQUE: CT head without contrast. COMPARISON: 04/21/2013 FINDINGS: There is mild age-related cortical atrophy, increased. The ventricles have increased in size, however within normal limits for the patient`s age. There is no mass effect or midline shift. 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 White matter hypodensities are suggestive of chronic small vessel ischemic changes, increased. There is no loss of blanco-white differentiation. There is a small left parafalcine subdural hematoma, measuring approximately 2 mm, with apparent extension of tiny subdural blood along the left tentorial root. No acute calvarial fracture is seen. There is mild paranasal sinus mucosal thickening. There is opacification of some posterior mastoid air cells bilaterally. The visualized orbits are within normal limits. IMPRESSION: A small left parafalcine subdural hematoma. Chronic infarcts. The findings were discussed with Dr. Marques Rdz, by phone, on 02/26/2020 at 6:05 p.m.. Dictated by Jd Grant MD @ 02/26/2020 6:10:49 PM Please note that all CT scans at this facility use dose modulation, iterative reconstruction, and/or weight-based dosing when appropriate to reduce radiation dose to as low as reasonably achievable. Dictated by: Jd Grant MD @ 02/26/2020 18:11:05 (Electronically Signed)
--- NOTE | 2020-02-26 19:51 | PCM.HP.2 ---
H&P History of Present Illness - General Date of Service: 02/26/20 Admit Problem/Dx: Admission Diagnosis/Problem Admission Diagnosis/Problem Subdural hematoma Source of Information: Patient, Provider History Limitations: Reports: No Limitations - History of Present Illness Initial Comments - Free Text/Narative: CC: I've been on the floor for days HPI: Prabhjot presents to the emergency room today by ambulance with weakness, left rib pain and left hip pain. He reports that he tripped and fell 4 days ago after the [employer] game. He has been laying on the floor since that time. He has been able to crawl short distances but could not get to the phone. He landed on his left side striking his left shoulder, left ribs and left hip. Between weakness and pain he was not able to get up. He has not had anything to eat or drink in 4 days. Today he was finally able to manage to crawl far enough to get to the phone to call for help. He does admit to drinking about 3 ounces of alcohol during the football game but does not think that he was drunk. He reports that he just tripped over a rug and fell down. He has not had any fevers. He has not had any medications. He is feeling better after a little bit of fluid and some food here in the emergency room. Work-up in the emergency room has been remarkable for a very small left-sided subdural hematoma which is only 2 mm in diameter. There is no evidence for hip or rib fracture. His lab work looks surprisingly good with a normal CK and normal kidney function. He is very weak. He is going to be admitted for fu rther management. Left Breast Pain Score (Numeric/FACES): 1 - Related Data Allergies/Adverse Reactions: Allergies Allergy/AdvReac Type Severity Reaction Status Date / Time pollen extracts Allergy Sneezing Verified 02/26/20 15:56 Home Medications: Home Meds Aspirin 325 mg PO DAILY 12/09/19 [History] Furosemide [Lasix] 40 mg PO DAILY #30 tablet 12/14/19 [Rx] Lactobacillus Rhamnosus GG [Culturelle] 1 cap PO BID #60 cap 12/14/19 [Rx] Spironolactone [Aldactone] 25 mg PO BID #60 12/14/19 [Rx] Warfarin [Coumadin] 5 mg PO DAILY@1300 #50 12/14/19 [Rx] atorvaSTATin [Lipitor] 10 mg PO BEDTIME #30 12/14/19 [Rx] carvediloL [Coreg] 6.25 mg PO BID #60 12/14/19 [Rx] Cholecalciferol (Vitamin D3) [Vitamin D3] 2,000 unit PO DAILY 02/26/20 [History] Omeprazole 20 mg PO QID 02/26/20 [History] Sertraline [Zoloft] 50 mg PO DAILY 02/26/20 [History] Past Medical History - Past Health History Medical/Surgical History: Denies Medical/Surgical History HEENT History: Reports: Impaired Vision Cardiovascular History: Reports: Bypass, High Cholesterol, Hypertension, Other (See Below) Other Cardiovascular History: aortic disection Respiratory History: Reports: SOB Musculoskeletal History: Reports: Fracture Other Musculoskeletal History: Hx of rib fx Psychiatric History: Reports: Depression Hematologic History: Reports: Blood Transfusion(s) Dermatologic History: Reports: Cellulitis - Past Surgical History Cardiovascular Surgical History: Reports: Valve Replacement 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 Pertinent positives and negatives are noted in the history of present illness. All other systems were reviewed and were negative except as noted. Exam - Exam Exam: See Below - Vital Signs Vital Signs: Last Vital Signs Temp 35.8 C L 02/26/20 16:08 Pulse 60 02/26/20 18:54 Resp 16 02/26/20 16:08 BP 125/57 L 02/26/20 18:54 Pulse Ox 98 02/26/20 18:54 Weight: 90.718 kg - Exam Quality Assessment: No: Supplemental Oxygen General: Alert, Oriented, Cooperative. No: Mild Distress HEENT: Conjunctiva Clear. No: Mucosa Moist & Benld (dry), Scleral Icterus Neck: Supple, Trachea Midline. No: Lymphadenopathy Lungs: Clear to Auscultation, Normal Respiratory Effort Cardiovascular: Regular Rate, Regular Rhythm, Systolic Murmur GI/Abdominal Exam: Normal Bowel Sounds, Soft, No Distention, Tender (mild LUQ) Back Exam: Normal Inspection, Muscle Spasm Extremities: Pedal Edema. No: Increased Warmth Skin: Warm, Dry, Other (bothlower legs erythematous and scaly with some SS drainage from the posterior left lower leg) Neuro Extensive - Mental Status: Alert, Oriented x3, Nl Response to Commands Neuro Extensive - Motor, Sensory, Reflexes: No: Dysarthria, Abnormal Motor, Tremor Psychiatric: Alert, Normal Affect - Patient Data Lab Results Last 24 hrs: Laboratory Results - last 24 hr 02/26/20 02/26/20 02/26/20 Range/Units 16:50 16:50 16:50 WBC 7.7 (4.5-11.0) K/uL RBC 4.51 (4.30-5.90) M/uL Hgb 12.9 (12.0-15.0) g/dL Hct 40.6 (40.0-54.0) % MCV 90 (80-98) fL MCH 29 (27-31) pg MCHC 32 (32-36) % Plt Count 186 (150-400) K/uL Neut % (Auto) 84 H (36-66) % Lymph % (Auto) 7 L (24-44) % Morrison % (Auto) 9 H (2-6) % Eos % (Auto) 0 L (2-4) % Baso % (Auto) 0 (0-1) % PT 13.2 H (9.5-12.0) sec INR 1.22 H (0.80-1.20) Sodium 140 (140-148) mmol/L Potassium 4.3 (3.6-5.2) mmol/L Chloride 103 (100-108) mmol/L Carbon Dioxide 25 (21-32) mmol/L Anion Gap 11.7 (5.0-14.0) mmol/L BUN 32 H (7-18) mg/dL Creatinine 0.9 (0.8-1.3) mg/dL Est Cr Clr Drug Dosing 88.62 mL/min Estimated GFR (MDRD) > 60 (>60) Glucose 85 (74-106) mg/dL Lactic Acid (0.4-2.0) mmol/L Calcium 8.9 (8.5-10.1) mg/dL Total Bilirubin 3.4 H D (0.2-1.0) mg/dL AST 31 (15-37) U/L ALT 19 (12-78) U/L Alkaline Phosphatase 145 H (46-116) U/L Ammonia (11-32) mmol/L Creatine Kinase (39-308) U/L Troponin I 0.057 H (0.000-0.056) ng/mL Total Protein 6.4 (6.4-8.2) g/dL Albumin 3.1 L (3.4-5.0) g/dL Globulin 3.3 (2.3-3.5) g/dL Albumin/Globulin Ratio 0.9 L (1.2-2.2) Lipase 45 L (73-393) U/L Ethyl Alcohol mg/dL 02/26/20 02/26/20 02/26/20 Range/Units 16:50 16:50 16:50 WBC (4.5-11.0) K/uL RBC (4.30-5.90) M/uL Hgb (12.0-15.0) g/dL Hct (40.0-54.0) % MCV (80-98) fL MCH (27-31) pg MCHC (32-36) % Plt Count (150-400) K/uL Neut % (Auto) (36-66) % Lymph % (Auto) (24-44) % Morrison % (Auto) (2-6) % Eos % (Auto) (2-4) % Baso % (Auto) (0-1) % PT (9.5-12.0) sec INR (0.80-1.20) Sodium (140-148) mmol/L Potassium (3.6-5.2) mmol/L Chloride (100-108) mmol/L Carbon Dioxide (21-32) mmol/L Anion Gap (5.0-14.0) mmol/L BUN (7-18) mg/dL Creatinine (0.8-1.3) mg/dL Est Cr Clr Drug Dosing mL/min Estimated GFR (MDRD) (>60) Glucose (74-106) mg/dL Lactic Acid 1.4 (0.4-2.0) mmol/L Calcium (8.5-10.1) mg/dL Total Bilirubin (0.2-1.0) mg/dL AST (15-37) U/L ALT (12-78) U/L Alkaline Phosphatase (46-116) U/L Ammonia 20 (11-32) mmol/L Creatine Kinase (39-308) U/L Troponin I (0.000-0.056) ng/mL Total Protein (6.4-8.2) g/dL Albumin (3.4-5.0) g/dL Globulin (2.3-3.5) g/dL Albumin/Globulin Ratio (1.2-2.2) Lipase (73-393) U/L Ethyl Alcohol < 3 mg/dL 02/26/20 Range/Units 17:42 WBC (4.5-11.0) K/uL RBC (4.30-5.90) M/uL Hgb (12.0-15.0) g/dL Hct (40.0-54.0) % MCV (80-98) fL MCH (27-31) pg MCHC (32-36) % Plt Count (150-400) K/uL Neut % (Auto) (36-66) % Lymph % (Auto) (24-44) % Morrison % (Auto) (2-6) % Eos % (Auto) (2-4) % Baso % (Auto) (0-1) % PT (9.5-12.0) sec INR (0.80-1.20) Sodium (140-148) mmol/L Potassium (3.6-5.2) mmol/L Chloride (100-108) mmol/L Carbon Dioxide (21-32) mmol/L Anion Gap (5.0-14.0) mmol/L BUN (7-18) mg/dL Creatinine (0.8-1.3) mg/dL Est Cr Clr Drug Dosing mL/min Estimated GFR (MDRD) (>60) Glucose (74-106) mg/dL Lactic Acid (0.4-2.0) mmol/L Calcium (8.5-10.1) mg/dL Total Bilirubin (0.2-1.0) mg/dL AST (15-37) U/L ALT (12-78) U/L Alkaline Phosphatase (46-116) U/L Ammonia (11-32) mmol/L Creatine Kinase 123 (39-308) U/L Troponin I (0.000-0.056) ng/mL Total Protein (6.4-8.2) g/dL Albumin (3.4-5.0) g/dL Globulin (2.3-3.5) g/dL Albumin/Globulin Ratio (1.2-2.2) Lipase (73-393) U/L Ethyl Alcohol mg/dL Result Diagrams: 02/26/20 16:50 02/26/20 16:50 Imaging Impressions Last 24 hrs: I personally reviewed all of the images listed below and the radiologist interpretation is noted for the CT scan of the head Head CT-very small subfalcine subdural hematoma measuring 2 mm in diameter. He has some chronic changes but no evidence for acute stroke. No mass. Left hip x-ray-no evidence for fracture or dislocation. Left chest x-ray with rib detail-no evidence for rib fracture Sepsis Event Note - Evaluation Sepsis Screening Result: No Definite Risk - Focused Exam Vital Signs: Vital Signs Temp Pulse Resp BP Pulse Ox 02/26/20 18:54 60 125/57 L 98 02/26/20 17:21 51 L 129/52 L 02/26/20 16:15 63 128/90 98 02/26/20 16:08 35.8 C L 64 16 137/84 98 02/26/20 15:30 35.8 C L 64 16 137/84 98 *Q Meaningful Use (ADM) - VTE *Q VTE Mechanical Contraindications *Q: Bilateral Lower Dermatits VTE Pharmacological Contraindications *Q: Risk of Bleeding (Subdural hematoma) - VTE Risk Assess *Q Each Risk Factor Represents 1 Point: Swollen Legs, Current, Congestive heart failure (CHF) Total Score 1 Point Risk Factors: 2 Each Risk Factor Represents 2 Points: Age 60 - 74 Years Total Score 2 Point Risk Factors: 2 Each Risk Factor Represents 3 Points: None Total Score 3 Point Risk Factors: 0 Each Risk Factor Represents 5 Points: None Total Score 5 Point Risk Factors: 0 Venous Thromboembolism Risk Factor Score *Q: 4 - Problem List (1) Subdural hematoma SNOMED Code(s): 143711576 ICD Code: S06.5X9A - TRAUM SUBDR HEM W LOC OF UNSP DURATION, INIT Status: Acute Current Visit: Yes (2) Generalized weakness SNOMED Code(s): 77731093 ICD Code: R53.1 - WEAKNESS Status: Acute Current Visit: Yes (3) Systolic congestive heart failure SNOMED Code(s): 02911068, 367663372 ICD Code: I50.20 - UNSPECIFIED SYSTOLIC (CONGESTIVE) HEART FAILURE Status: Chronic Current Visit: No Qualifiers: Heart failure chronicity: chronic Qualified Code(s): I50.22 - Chronic systolic (congestive) heart failure (4) Chronic atrial fibrillation SNOMED Code(s): 369565436 ICD Code: I48.20 - CHRONIC ATRIAL FIBRILLATION, UNSPECIFIED Status: Chronic Current Visit: No Problem List Initiated/Reviewed/Updated: Yes Orders Last 24hrs: Active Orders 24 hr Category Date Time Status Patient Status Manage Transfer [TRANSFER] Routine ADT 02/26/20 19:40 Ordered EKG Documentation Completion [RC] ASDIRECTED Care 02/26/20 16:46 Active Hip Min 2V or 3V w Pelvis Lt [CR] Stat Exams 02/26/20 17:45 Taken Ribs 2V w Chest Lt [CR] Stat Exams 02/26/20 17:42 Taken DRUG SCREEN, URINE [URCHEM] Urgent Lab 02/26/20 16:44 Ordered UA W/MICROSCOPIC [URIN] Urgent Lab 02/26/20 16:44 Ordered Resuscitation Status Routine Resus Stat 02/26/20 19:42 Ordered EKG 12 Lead [EK] Urgent Ther 02/26/20 16:44 Ordered Assessment/Plan Comment:: ASSESSMENT AND PLAN - Subdural hematoma-resulted from a fall. This is very small. No headache or symptoms to suggest this is clinically significant. Previously he has been on warfarin but has not been taking this recently. -Repeat CT scan in the morning -Hold systemic anticoagulation Fall with generalized weakness-no obvious evidence for infection. Surprisingly there is no evidence for rhabdomyolysis after being on the floor for several days. Laboratory studies look surprisingly good. He is mildly dehydrated. -IV fluids -Physical therapy in the morning Chronic systolic congestive heart failure-compensated at this time. 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 Also contribution from peripheral vascular disease. Overall his legs look to be doing fairly well with no obvious evidence for infection. -Continue medical management Chronic atrial fibrillation-currently rate controlled. INR is normal at this time and probably a good thing with his subdural hematoma. -Continue beta-hope -Hold warfarin Maintenance issues - - DVT prophylaxis -unable to utilize DVT prophylaxis because of chronic lower extremity dermatitis as well as high risk of bleeding with any sort of ant icoagulation - GI prophylaxis -PPI - Nutrition -regular - Leach catheter -not indicated CODE STATUS -full code Admission justification -patient will be referred observation status for repeat head CT and physical therapy Disposition -I would anticipate discharge home after the hospital stay Primary care physician -Dr Anam Khan M.D. - Mortality Measure Prognosis:: Good
[2020-02-26] MEDS ORDERED: Ondansetron 4 MG Tab.DIS PO PRN (20:13)
[2020-02-26] MEDS ORDERED: Sodium Chloride 0.9% 1,000 ML IV ONE (20:13)
[2020-02-26] MEDS ORDERED: Magnesium Hydroxide 400 MG/5 ML Susp 30 ML Cup PO PRN (20:13)
[2020-02-26] MEDS ORDERED: oxyCODONE 5 MG Tab PO PRN (20:13)
[2020-02-26] MEDS ORDERED: Albuterol 0.083% 2.5 MG/3 ML Neb Soln NEB PRN (20:13)
[2020-02-26] MEDS ORDERED: Acetaminophen 325 MG Tab PO PRN (20:13)
[2020-02-26] MEDS ORDERED: Ibuprofen 600 MG Tab PO PRN (20:13)
[2020-02-26] MEDS ORDERED: Ondansetron 4 MG/2 ML SDV IV PRN (20:13)
[2020-02-26] MEDS ORDERED: LORazepam 2 MG/ML SDV IVPUSH PRN (20:13)
[2020-02-26] MEDS: Sodium Chloride 0.9% 1,000 ML IV SCH (20:54)
[2020-02-26] MEDS ORDERED: atorvaSTATin 10 MG Tab PO SCH (21:00)
[2020-02-26] MEDS: Melatonin 3 MG Tab PO PRN (21:06)
[2020-02-27] MEDS: Sodium Chloride 0.9% 1,000 ML IV SCH (06:09)
[2020-02-27] MEDS: CARVEDILOL 6.25 MG PO SCH ×3 (08:22→20:13)
[2020-02-27] MEDS: Pantoprazole 40 MG Tab.CR PO SCH (08:32)
[2020-02-27] MEDS: Aspirin 325 MG Tab.EC PO SCH (08:50)
[2020-02-27] MEDS: SERTRALINE 50 MG PO SCH (08:50)
[2020-02-27] MEDS ORDERED: Non-Formulary Medication 1 Each (Aspirin [Aspirin] 325 MG) PO SCH (09:00)
--- NOTE | 2020-02-27 09:15 | CT ---
Head wo Cont CLINICAL HISTORY: Subdural hematoma COMPARISON: 02/26/2020 TECHNIQUE: Transverse scans were obtained from the base of the skull through the vertex without IV contrast on a multislice, multidetector CT scanner. Auto dosage reduction and iterative reconstruction techniques employed. FINDINGS: Persistent thickening and increased density in the falx extending posteriorly to the tentorium. It is unchanged since the prior study. There is an area of previous ischemic infarct in the right frontal lobe. There are small hypodensities in both basal ganglia. Represent previous lacunar type infarcts There is moderate periventricular and subcortical lucency consistent with chronic ischemic microvascular change The basal cisterns and sulci over the convexities are prominent. The ventricles are prominent. There is moderate atherosclerotic calcification in the carotid and vertebrobasilar arteries IMPRESSION: No significant change in parafalcine density extending posteriorly.. This is suspect for small subdural hematoma. 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
--- NOTE | 2020-02-27 09:50 | CR ---
Hip Min 2V or 3V w Pelvis CLINICAL HISTORY: Fall FINDINGS: There is joint space narrowing and some periarticular spurring in both hips. No fracture is identified. Sacrum and SI joints appear intact IMPRESSION: Moderate osteoarthritic changes both hips No fracture or dislocation , Ribs 2V w Chest Lt CLINICAL HISTORY: Fall FINDINGS: Heart is moderately enlarged. Patient has had previous sternotomy. Lungs are clear. There is a slightly angulated fracture of the distal aspect of the left seventh rib IMPRESSION: Anterior lateral fracture of the left seventh rib
[2020-02-27] MEDS ORDERED: FLU Vacc QV2020-21(65YR UP)/PF 240 MCG/0.7 ML Syringe IM ONE (10:00)
--- NOTE | 2020-02-27 15:22 | PCM.PN ---
- General Info Date of Service: 02/27/20 Subjective Update: No acute events overnight. Symptomatically feeling better today. Less hip and rib pain. Strength is a little better and he was able to get around the room to some extent. Appetite has been good. Vitals are stable. No fevers. Feels extremely tired but does feel like he is moving in the right direction and is hoping to go home tomorrow. Functional Status: Reports: Pain Controlled, Tolerating Diet - Review of Systems General: Reports: Weakness - Patient Data Vitals - Most Recent: Last Vital Signs Temp 36.4 C 02/27/20 14:43 Pulse 108 H 02/27/20 14:43 Resp 16 02/27/20 14:43 BP 118/48 L 02/27/20 14:43 Pulse Ox 96 02/27/20 14:43 Weight - Most Recent: 90.718 kg I&O - Last 24 Hours: Intake & Output 02/27/20 02/27/20 02/27/20 06:59 14:59 22:59 Intake Total 1933 1090 Output Total 600 Balance 1333 1090 Lab Results Last 24 Hours: Laboratory Results - last 24 hr 02/26/20 02/26/20 02/26/20 Range/Units 16:50 16:50 16:50 WBC 7.7 (4.5-11.0) K/uL RBC 4.51 (4.30-5.90) M/uL Hgb 12.9 (12.0-15.0) g/dL Hct 40.6 (40.0-54.0) % MCV 90 (80-98) fL MCH 29 (27-31) pg MCHC 32 (32-36) % Plt Count 186 (150-400) K/uL Neut % (Auto) 84 H (36-66) % Lymph % (Auto) 7 L (24-44) % [place] % (Auto) 9 H (2-6) % Eos % (Auto) 0 L (2-4) % Baso % (Auto) 0 (0-1) % PT 13.2 H (9.5-12.0) sec INR 1.22 H (0.80-1.20) Sodium 140 (140-148) mmol/L Potassium 4.3 (3.6-5.2) mmol/L Chloride 103 (100-108) mmol/L Carbon Dioxide 25 (21-32) mmol/L Anion Gap 11.7 (5.0-14.0) mmol/L BUN 32 H (7-18) mg/dL Creatinine 0.9 (0.8-1.3) mg/dL Est Cr Clr Drug Dosing 88.62 mL/min Estimated GFR (MDRD) > 60 (>60) Glucose 85 (74-106) mg/dL Lactic Acid (0.4-2.0) mmol/L Calcium 8.9 (8.5-10.1) mg/dL Total Bilirubin 3.4 H D (0.2-1.0) mg/dL AST 31 (15-37) U/L ALT 19 (12-78) U/L Alkaline Phosphatase 145 H (46-116) U/L Ammonia (11-32) mmol/L Creatine Kinase (39-308) U/L Troponin I 0.057 H (0.000-0.056) ng/mL Total Protein 6.4 (6.4-8.2) g/dL Albumin 3.1 L (3.4-5.0) g/dL Globulin 3.3 (2.3-3.5) g/dL Albumin/Globulin Ratio 0.9 L (1.2-2.2) Lipase 45 L (73-393) U/L Urine Color (YELLOW) Urine Appearance (CLEAR) Urine pH (5.0-8.0) Ur Specific [place] (1.008-1.030) Urine Protein (NEGATIVE) mg/dL Urine Glucose (UA) (NEGATIVE) mg/dL Urine Ketones (NEGATIVE) mg/dL Urine Occult Blood (NEGATIVE) Urine Nitrite (NEGATIVE) Urine Bilirubin (NEGATIVE) Urine Urobilinogen (0.2-1.0) EU/dL Ur Leukocyte Esterase (NEGATIVE) Urine RBC (0-5) Urine WBC (0-5) Ur Epithelial Cells Amorphous Sediment Urine Bacteria Urine Mucus Urine Opiates Screen (NEGATIVE) Ur Oxycodone Screen (NEGATIVE) Urine Methadone Screen (NEGATIVE) Ur Propoxyphene Screen (NEGATIVE) Ur Barbiturates Screen (NEGATIVE) Ur Tricyclics Screen (NEGATIVE) Ur Phencyclidine Scrn (NEGATIVE) Ur Amphetamine Screen (NEGATIVE) U Methamphetamines Scrn (NEGATIVE) Urine MDMA Screen (NEGATIVE) U Benzodiazepines Scrn (NEGATIVE) U Cocaine Metab Screen (NEGATIVE) U Marijuana (THC) Screen (NEGATIVE) Ethyl Alcohol mg/dL 02/26/20 02/26/20 02/26/20 Range/Units 16:50 16:50 16:50 WBC (4.5-11.0) K/uL RBC (4.30-5.90) M/uL Hgb (12.0-15.0) g/dL Hct (40.0-54.0) % MCV (80-98) fL MCH (27-31) pg MCHC (32-36) % Plt Count (150-400) K/uL Neut % (Auto) (36-66) % Lymph % (Auto) (24-44) % [place] % (Auto) (2-6) % Eos % (Auto) (2-4) % Baso % (Auto) (0-1) % PT (9.5-12.0) sec INR (0.80-1.20) Sodium (140-148) mmol/L Potassium (3.6-5.2) mmol/L Chloride (100-108) mmol/L Carbon Dioxide (21-32) mmol/L Anion Gap (5.0-14.0) mmol/L BUN (7-18) mg/dL Creatinine (0.8-1.3) mg/dL Est Cr Clr Drug Dosing mL/min Estimated GFR (MDRD) (>60) Glucose (74-106) mg/dL Lactic Acid 1.4 (0.4-2.0) mmol/L Calcium (8.5-10.1) mg/dL Total Bilirubin (0.2-1.0) mg/dL AST (15-37) U/L ALT (12-78) U/L Alkaline Phosphatase (46-116) U/L Ammonia 20 (11-32) mmol/L Creatine Kinase (39-308) U/L Troponin I (0.000-0.056) ng/mL Total Protein (6.4-8.2) g/dL Albumin (3.4-5.0) g/dL Globulin (2.3-3.5) g/dL Albumin/Globulin Ratio (1.2-2.2) Lipase (73-393) U/L Urine Color (YELLOW) Urine Appearance (CLEAR) Urine pH (5.0-8.0) Ur Specific [place] (1.008-1.030) Urine Protein (NEGATIVE) mg/dL Urine Glucose (UA) (NEGATIVE) mg/dL Urine Ketones (NEGATIVE) mg/dL Urine Occult Blood (NEGATIVE) Urine Nitrite (NEGATIVE) Urine Bilirubin (NEGATIVE) Urine Urobilinogen (0.2-1.0) EU/dL Ur Leukocyte Esterase (NEGATIVE) Urine RBC (0-5) Urine WBC (0-5) Ur Epithelial Cells Amorphous Sediment Urine Bacteria Urine Mucus Urine Opiates Screen (NEGATIVE) Ur Oxycodone Screen (NEGATIVE) Urine Methadone Screen (NEGATIVE) Ur Propoxyphene Screen (NEGATIVE) Ur Barbiturates Screen (NEGATIVE) Ur Tricyclics Screen (NEGATIVE) Ur Phencyclidine Scrn (NEGATIVE) Ur Amphetamine Screen (NEGATIVE) U Methamphetamines Scrn (NEGATIVE) Urine MDMA Screen (NEGATIVE) U Benzodiazepines Scrn (NEGATIVE) U Cocaine Metab Screen (NEGATIVE) U Marijuana (THC) Screen (NEGATIVE) Ethyl Alcohol < 3 mg/dL 02/26/20 02/27/20 02/27/20 Range/Units 17:42 04:00 04:00 WBC 5.4 (4.5-11.0) K/uL RBC 4.11 L (4.30-5.90) M/uL Hgb 11.7 L (12.0-15.0) g/dL Hct 37.1 L (40.0-54.0) % MCV 90 (80-98) fL MCH 29 (27-31) pg MCHC 32 (32-36) % Plt Count 150 (150-400) K/uL Neut % (Auto) (36-66) % Lymph % (Auto) (24-44) % [place] % (Auto) (2-6) % Eos % (Auto) (2-4) % Baso % (Auto) (0-1) % PT (9.5-12.0) sec INR (0.80-1.20) Sodium 139 L (140-148) mmol/L Potassium 3.9 (3.6-5.2) mmol/L Chloride 107 (100-108) mmol/L Carbon Dioxide 23 (21-32) mmol/L Anion Gap 12.9 (5.0-14.0) mmol/L BUN 32 H (7-18) mg/dL Creatinine 0.9 (0.8-1.3) mg/dL Est Cr Clr Drug Dosing 88.62 mL/min Estimated GFR (MDRD) > 60 (>60) Glucose 117 H (74-106) mg/dL Lactic Acid (0.4-2.0) mmol/L Calcium 8.5 (8.5-10.1) mg/dL Total Bilirubin 2.2 H (0.2-1.0) mg/dL AST 28 (15-37) U/L ALT 14 (12-78) U/L Alkaline Phosphatase 140 H (46-116) U/L Ammonia (11-32) mmol/L Creatine Kinase 123 (39-308) U/L Troponin I (0.000-0.056) ng/mL Total Protein 5.7 L (6.4-8.2) g/dL Albumin 2.7 L (3.4-5.0) g/dL Globulin 3.0 (2.3-3.5) g/dL Albumin/Globulin Ratio 0.9 L (1.2-2.2) Lipase (73-393) U/L Urine Color (YELLOW) Urine Appearance (CLEAR) Urine pH (5.0-8.0) Ur Specific [place] (1.008-1.030) Urine Protein (NEGATIVE) mg/dL Urine Glucose (UA) (NEGATIVE) mg/dL Urine Ketones (NEGATIVE) mg/dL Urine Occult Blood (NEGATIVE) Urine Nitrite (NEGATIVE) Urine Bilirubin (NEGATIVE) Urine Urobilinogen (0.2-1.0) EU/dL Ur Leukocyte Esterase (NEGATIVE) Urine RBC (0-5) Urine WBC (0-5) Ur Epithelial Cells Amorphous Sediment Urine Bacteria Urine Mucus Urine Opiates Screen (NEGATIVE) Ur Oxycodone Screen (NEGATIVE) Urine Methadone Screen (NEGATIVE) Ur Propoxyphene Screen (NEGATIVE) Ur Barbiturates Screen (NEGATIVE) Ur Tricyclics Screen (NEGATIVE) Ur Phencyclidine Scrn (NEGATIVE) Ur Amphetamine Screen (NEGATIVE) U Methamphetamines Scrn (NEGATIVE) Urine MDMA Screen (NEGATIVE) U Benzodiazepines Scrn (NEGATIVE) U Cocaine Metab Screen (NEGATIVE) U Marijuana (THC) Screen (NEGATIVE) Ethyl Alcohol mg/dL 02/27/20 02/27/20 Range/Units 05:34 05:34 WBC (4.5-11.0) K/uL RBC (4.30-5.90) M/uL Hgb (12.0-15.0) g/dL Hct (40.0-54.0) % MCV (80-98) fL MCH (27-31) pg MCHC (32-36) % Plt Count (150-400) K/uL Neut % (Auto) (36-66) % Lymph % (Auto) (24-44) % [place] % (Auto) (2-6) % Eos % (Auto) (2-4) % Baso % (Auto) (0-1) % PT (9.5-12.0) sec INR (0.80-1.20) Sodium (140-148) mmol/L Potassium (3.6-5.2) mmol/L Chloride (100-108) mmol/L Carbon Dioxide (21-32) mmol/L Anion Gap (5.0-14.0) mmol/L BUN (7-18) mg/dL Creatinine (0.8-1.3) mg/dL Est Cr Clr Drug Dosing mL/min Estimated GFR (MDRD) (>60) Glucose (74-106) mg/dL Lactic Acid (0.4-2.0) mmol/L Calcium (8.5-10.1) mg/dL Total Bilirubin (0.2-1.0) mg/dL AST (15-37) U/L ALT (12-78) U/L Alkaline Phosphatase (46-116) U/L Ammonia (11-32) mmol/L Creatine Kinase (39-308) U/L Troponin I (0.000-0.056) ng/mL Total Protein (6.4-8.2) g/dL Albumin (3.4-5.0) g/dL Globulin (2.3-3.5) g/dL Albumin/Globulin Ratio (1.2-2.2) Lipase (73-393) U/L Urine Color Yellow (YELLOW) Urine Appearance Clear (CLEAR) Urine pH 5.5 (5.0-8.0) Ur Specific [place] 1.025 (1.008-1.030) Urine Protein 30 H (NEGATIVE) mg/dL Urine Glucose (UA) Negative (NEGATIVE) mg/dL Urine Ketones 15 H (NEGATIVE) mg/dL Urine Occult Blood Trace-intact H (NEGATIVE) Urine Nitrite Negative (NEGATIVE) Urine Bilirubin Large H (NEGATIVE) Urine Urobilinogen 2.0 H (0.2-1.0) EU/dL Ur Leukocyte Esterase Negative (NEGATIVE) Urine RBC 0-5 (0-5) Urine WBC 0-5 (0-5) Ur Epithelial Cells Rare Amorphous Sediment Few Urine Bacteria Rare Urine Mucus Many Urine Opiates Screen Negative (NEGATIVE) Ur Oxycodone Screen Negative (NEGATIVE) Urine Methadone Screen Negative (NEGATIVE) Ur Propoxyphene Screen Negative (NEGATIVE) Ur Barbiturates Screen Negative (NEGATIVE) Ur Tricyclics Screen Negative (NEGATIVE) Ur Phencyclidine Scrn Negative (NEGATIVE) Ur Amphetamine Screen Negative (NEGATIVE) U Methamphetamines Scrn Negative (NEGATIVE) Urine MDMA Screen Negative (NEGATIVE) U Benzodiazepines Scrn Negative (NEGATIVE) U Cocaine Metab Screen Negative (NEGATIVE) U Marijuana (THC) Screen Negative (NEGATIVE) Ethyl Alcohol mg/dL Med Orders - Current: Current Medications Acetaminophen (Tylenol) 650 mg PO Q4H PRN PRN Reason: Pain (Mild 1-3)/fever Albuterol (Proventil Neb Soln) 2.5 mg NEB Q4H PRN PRN Reason: Shortness Of Breath/wheezing Aspirin (Ecotrin) 325 mg PO DAILY [facility] [place] Last Admin: 02/27/20 08:50 Dose: Not Given Documented by: Atorvastatin Calcium (Lipitor) 10 mg PO BEDTIME [facility] [place] Carvedilol (Coreg) 6.25 mg PO BID [facility] [place] Last Admin: 02/27/20 08:50 Dose: Not Given Documented by: Sodium Chloride (Normal Saline) 1,000 mls @ 125 mls/hr IV ASDIRECTED [facility] [place] Last Admin: 02/27/20 06:09 Dose: 125 mls/hr Documented by: Ibuprofen (Motrin) 600 mg PO Q6H PRN PRN Reason: Pain/Fever Last Admin: 02/26/20 21:06 Dose: 600 mg Documented by: Lorazepam (Ativan) 0.5 mg IVPUSH Q4H PRN PRN Reason: Nausea/Vomiting Magnesium Hydroxide (Milk Of Magnesia) 30 ml PO Q12H PRN PRN Reason: Constipation Melatonin (Melatonin) 9 mg PO BEDTIME PRN PRN Reason: Sleep Last Admin: 02/26/20 21:06 Dose: 9 mg Documented by: Ondansetron HCl (Zofran) 4 mg IV Q6H PRN PRN Reason: Nausea/Vomiting Ondansetron HCl (Zofran Odt) 4 mg PO Q6H PRN PRN Reason: Nausea able to take PO Oxycodone HCl (Oxycodone) 5 - 10 mg PO Q4H PRN PRN Reason: Pain Pantoprazole Sodium (Protonix) 40 mg PO ACBREAKFAST [facility] [place] Last Admin: 02/27/20 08:32 Dose: 40 mg Documented by: Senna/Docusate Sodium (Senna Plus) 1 tab PO BID PRN PRN Reason: Constipation Sertraline HCl (Zoloft) 50 mg PO DAILY [facility] [place] Last Admin: 02/27/20 08:50 Dose: Not Given Documented by: Discontinued Medications Sodium Chloride (Normal Saline) 1,000 mls @ 999 mls/hr IV .BOLUS ONE Stop: 02/26/20 21:13 Last Admin: 02/26/20 20:56 Dose: 999 mls/hr Documented by: - Exam Quality Assessment: No: Supplemental Oxygen General: Alert, Oriented, Cooperative, No Acute Distress Lungs: Normal Respiratory Effort Cardiovascular: Regular Rate, Regular Rhythm GI/Abdominal Exam: Soft, No Distention Extremities: Pedal Edema Skin: Warm, Dry, Other (scaly skin changes both lower legs ) Psy/Mental Status: Alert, Normal Affect Sepsis Event Note - Evaluation Sepsis Screening Result: No Definite Risk - Focused Exam Vital Signs: Vital Signs Temp Pulse Resp BP BP Pulse Ox 02/27/20 14:43 36.4 C 108 H 16 118/48 L 96 02/27/20 10:32 36.5 C 56 L 18 134/59 L 97 02/27/20 07:39 36.3 C 52 L 12 107/59 L 97 - Problem List & Annotations (1) Subdural hematoma SNOMED Code(s): 958144403 Code(s): S06.5X9A - TRAUM SUBDR HEM W LOC OF UNSP DURATION, INIT Status: Acute Current Visit: Yes (2) Generalized weakness SNOMED Code(s): 94866247 Code(s): R53.1 - WEAKNESS Status: Acute Current Visit: Yes (3) Systolic congestive heart failure SNOMED Code(s): 12869598, 914209177 Code(s): I50.20 - UNSPECIFIED SYSTOLIC (CONGESTIVE) HEART FAILURE Status: Chronic Current Visit: No Qualifiers: Heart failure chronicity: chronic Qualified Code(s): I50.22 - Chronic systolic (congestive) heart failure (4) Chronic atrial fibrillation SNOMED Code(s): 622781699 Code(s): I48.20 - CHRONIC ATRIAL FIBRILLATION, UNSPECIFIED Status: Chronic Current Visit: No - Problem List Review Problem List Initiated/Reviewed/Updated: Yes - My Orders Last 24 Hours: My Active Orders 02/26/20 Dinner Regular Diet [DIET] 02/26/20 19:42 Resuscitation Status Routine 02/26/20 20:13 Acetaminophen [TylenoL] 650 mg PO Q4H PRN Albuterol [Proventil Neb Soln] 2.5 mg NEB Q4H PRN Docusate Sodium/Sennosides [Senna Plus] 1 tab PO BID PRN Ibuprofen [Motrin] 600 mg PO Q6H PRN LORazepam [Ativan] 0.5 mg IVPUSH Q4H PRN Magnesium Hydroxide [Milk of Magnesia] 30 ml PO Q12H PRN Melatonin 9 mg PO BEDTIME PRN Ondansetron [Zofran ODT] 4 mg PO Q6H PRN Ondansetron [Zofran] 4 mg IV Q6H PRN Sodium Chloride 0.9% [Normal Saline] 1,000 ml IV ASDIRECTED oxyCODONE 5 - 10 mg PO Q4H PRN 02/26/20 20:13 Patient Status [ADT] Routine Intake and Output [RC] QSHIFT Notify Provider Vital Signs [RC] ASDIRECTED Oxygen Therapy [RC] PRN RT Aerosol Therapy [RC] ASDIRECTED Up With Assistance [RC] ASDIRECTED Vital Signs [RC] Q4H Pressure Reduction Mattress [OM.PC] Routine VTE Mechanical Contraindications [AST] Routine VTE Pharmacological Contraindications [AST] Routine 02/26/20 21:00 carvediloL [Coreg] 6.25 mg PO BID 02/27/20 07:00 PT Evaluation and Treatment [CONS] Routine 02/27/20 07:30 Pantoprazole [ProTONIX] 40 mg PO ACBREAKFAST 02/27/20 09:00 Aspirin [Ecotrin] 325 mg PO DAILY Sertraline [Zoloft] 50 mg PO DAILY 02/27/20 21:00 atorvaSTATin [Lipitor] 10 mg PO BEDTIME - Plan Plan:: ASSESSMENT AND PLAN - Subdural hematoma-resulted from a fall. This is very small and repeat head CT showed it was stable. -Hold systemic anticoagulation Fall with generalized weakness-no obvious evidence for infection. Repeat labs unremarkable. Still very weak and fatigued otherwise doing okay. -Saline lock IV -Physical therapy Chronic systolic congestive heart failure-compensated at this time. 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 Also contribution from peripheral vascular disease. -Continue medical management Chronic atrial fibrillation-currently rate controlled. INR is normal at this time. -Continue beta-hope -Hold warfarin Maintenance issues - - DVT prophylaxis -unable to utilize DVT prophylaxis because of chronic lower extremity dermatitis as well as high risk of bleeding with any sort of a nticoagulation - GI prophylaxis -PPI - Nutrition -regular Admission justification -patient will be referred observation status for additional physical therapy Disposition -I would anticipate discharge home with home care after the hospital stay Primary care physician -Dr Anam Khan M.D.
[2020-02-27] MEDS: atorvaSTATin 10 MG Tab (PTOM) PO SCH (20:11)
[2020-02-28] MEDS: Sodium Chloride 0.9% 1,000 ML IV SCH ×2 (00:12→09:12)
[2020-02-28] MEDS: Melatonin 3 MG Tab PO PRN (00:15)
[2020-02-28] MEDS: Pantoprazole 40 MG Tab.CR PO SCH (08:29)
[2020-02-28] MEDS: SERTRALINE 50 MG PO SCH (08:46)
[2020-02-28] MEDS: Aspirin 325 MG Tab.EC PO SCH (08:46)
[2020-02-28] MEDS ORDERED: Carvedilol 3.125 MG Tab PO SCH (09:00)
--- NOTE | 2020-02-28 12:38 | PCM.PN ---
- General Info Date of Service: 02/28/20 Subjective Update: There were no acute events overnight. Patient feels a little better today with a little bit of improvement in his strength. Still having some intermittent pains in the left side of his chest where he fell and landed on that area. Appetite has been good. Hydration is slowly improving. No fevers. Repeat labs were unremarkable. He thinks that he is still too weak to go home but has been making improvements. Functional Status: Reports: Pain Controlled, Tolerating Diet - Review of Systems General: Reports: Weakness. Denies: Fever - Patient Data Vitals - Most Recent: Last Vital Signs Temp 36 C L 02/28/20 11:07 Pulse 62 02/28/20 11:07 Resp 18 02/28/20 11:07 BP 130/63 02/28/20 11:07 Pulse Ox 95 02/28/20 11:07 Weight - Most Recent: 90.718 kg I&O - Last 24 Hours: Intake & Output 02/27/20 02/28/20 02/28/20 22:59 06:59 14:59 Intake Total 1679 980 Output Total 400 500 Balance -400 1679 480 Med Orders - Current: Current Medications Acetaminophen (Tylenol) 650 mg PO Q4H PRN PRN Reason: Pain (Mild 1-3)/fever Albuterol (Proventil Neb Soln) 2.5 mg NEB Q4H PRN PRN Reason: Shortness Of Breath/wheezing Aspirin (Ecotrin) 325 mg PO DAILY [facility] Last Admin: 02/28/20 08:46 Dose: 325 mg Documented by: Atorvastatin Calcium (Lipitor) 10 mg PO BEDTIME [facility] Last Admin: 02/27/20 20:11 Dose: 10 mg Documented by: Carvedilol (Coreg) 3.125 mg PO BIDMEALS [facility] Ibuprofen (Motrin) 600 mg PO Q6H PRN PRN Reason: Pain/Fever Last Admin: 02/26/20 21:06 Dose: 600 mg Documented by: Lorazepam (Ativan) 0.5 mg IVPUSH Q4H PRN PRN Reason: Nausea/Vomiting Magnesium Hydroxide (Milk Of Magnesia) 30 ml PO Q12H PRN PRN Reason: Constipation Melatonin (Melatonin) 9 mg PO BEDTIME PRN PRN Reason: Sleep Last Admin: 02/28/20 00:15 Dose: 9 mg Documented by: Ondansetron HCl (Zofran) 4 mg IV Q6H PRN PRN Reason: Nausea/Vomiting Ondansetron HCl (Zofran Odt) 4 mg PO Q6H PRN PRN Reason: Nausea able to take PO Oxycodone HCl (Oxycodone) 5 - 10 mg PO Q4H PRN PRN Reason: Pain Last Admin: 02/28/20 10:25 Dose: 10 mg Documented by: Pantoprazole Sodium (Protonix) 40 mg PO ACBREAKFAST [facility] Last Admin: 02/28/20 08:29 Dose: 40 mg Documented by: Senna/Docusate Sodium (Senna Plus) 1 tab PO BID PRN PRN Reason: Constipation Sertraline HCl (Zoloft) 50 mg PO DAILY [facility] Last Admin: 02/28/20 08:46 Dose: 50 mg Documented by: Discontinued Medications Carvedilol (Coreg) 6.25 mg PO BID [facility] Last Admin: 02/27/20 20:13 Dose: Not Given Documented by: Carvedilol (Coreg) 3.125 mg PO BIDMEALS [facility] Last Admin: 02/28/20 10:26 Dose: 3.125 mg Documented by: Sodium Chloride (Normal Saline) 1,000 mls @ 125 mls/hr IV ASDIRECTED [facility] Last Admin: 02/27/20 06:09 Dose: 125 mls/hr Documented by: Sodium Chloride (Normal Saline) 1,000 mls @ 999 mls/hr IV .BOLUS ONE Stop: 02/26/20 21:13 Last Admin: 02/26/20 20:56 Dose: 999 mls/hr Documented by: Sodium Chloride (Normal Saline) 1,000 mls @ 125 mls/hr IV ASDIRECTED [facility] Last Admin: 02/28/20 09:12 Dose: 125 mls/hr Documented by: - Exam Quality Assessment: No: Supplemental Oxygen General: Alert, Oriented, Cooperative, No Acute Distress Lungs: Normal Respiratory Effort Cardiovascular: Regular Rate, Regular Rhythm, Tachycardia GI/Abdominal Exam: Soft, No Distention Extremities: No Pedal Edema Skin: Warm, Dry Psy/Mental Status: Alert, Normal Affect Sepsis Event Note - Evaluation Sepsis Screening Result: No Definite Risk - Focused Exam Vital Signs: Vital Signs Temp Pulse Pulse Resp BP BP BP 02/28/20 11:07 36 C L 62 18 130/63 02/28/20 10:26 62 105/68 02/28/20 07:43 37.0 C 62 12 105/68 02/28/20 03:00 16 Pulse Ox 02/28/20 11:07 95 02/28/20 10:26 02/28/20 07:43 98 02/28/20 03:00 - Problem List & Annotations (1) Subdural hematoma SNOMED Code(s): 200104224 Code(s): S06.5X9A - TRAUM SUBDR HEM W LOC OF UNSP DURATION, INIT Status: Acute Current Visit: Yes (2) Generalized weakness SNOMED Code(s): 42286946 Code(s): R53.1 - WEAKNESS Status: Acute Current Visit: Yes (3) Systolic congestive heart failure SNOMED Code(s): 13571471, 713771183 Code(s): I50.20 - UNSPECIFIED SYSTOLIC (CONGESTIVE) HEART FAILURE Status: Chronic Current Visit: No Qualifiers: Heart failure chronicity: chronic Qualified Code(s): I50.22 - Chronic systolic (congestive) heart failure (4) Chronic atrial fibrillation SNOMED Code(s): 100277490 Code(s): I48.20 - CHRONIC ATRIAL FIBRILLATION, UNSPECIFIED Status: Chronic Current Visit: No - Problem List Review Problem List Initiated/Reviewed/Updated: Yes - My Orders Last 24 Hours: My Active Orders 02/27/20 21:00 atorvaSTATin [Lipitor] 10 mg PO BEDTIME 02/28/20 11:15 carvediloL [Coreg] 3.125 mg PO BIDMEALS 02/28/20 12:37 Convert IV to Saline Lock [OM.PC] Routine - Plan Plan:: ASSESSMENT AND PLAN - Subdural hematoma-resulted from a fall. This is very small and repeat head CT showed it was stable. -Hold systemic anticoagulation Fall with generalized weakness-no obvious evidence for infection. Repeat labs unremarkable. Still subjectively weak but seems to be doing okay. Has been working with physical therapy. He thinks he would benefit from 1 additional day of therapy before going home. -Saline lock IV -Physical therapy -Ambulate 4 times daily Chronic systolic congestive heart failure-compensated at this time. 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 Also contribution from peripheral vascular disease. -Continue medical management -Wound care per Dr. Rod for his chronic lower extremity wounds Chronic atrial fibrillation-currently rate controlled. INR is normal at this time. -Continue beta-hope -Hold warfarin Maintenance issues - - DVT prophylaxis -unable to utilize DVT prophylaxis because of chronic lower extremity dermatitis as well as high risk of bleeding with any sort of anticoagulation - GI prophylaxis -PPI - Nutrition -regular Admission justification -patient will be referred observation status for additional physical therapy Disposition -I would anticipate discharge home with home care after the hospital stay, likely tomorrow if stable overnight Primary care physician -Dr Anam Khan M.D.
[2020-02-28] MEDS: Carvedilol 6.25 MG Tab**POM PO SCH (17:28)
[2020-02-28] MEDS: atorvaSTATin 10 MG Tab (PTOM) PO SCH (20:40)
[2020-02-29] MEDS: Pantoprazole 40 MG Tab.CR PO SCH (07:59)
[2020-02-29] MEDS: Aspirin 325 MG Tab.EC PO SCH (09:02)
[2020-02-29] MEDS: SERTRALINE 50 MG PO SCH (09:02)
[2020-02-29] MEDS: Carvedilol 6.25 MG Tab**POM PO SCH (09:16)
[2020-02-29 11:06] VITALS: BP 131/73; PULSE 54
--- NOTE | 2020-02-29 12:16 | PCM.DCSUM1 ---
Discharge Summary - Hospital Course Brief History: 64-year-old male with history of systolic congestive heart failure chronic lower extremity dermatitis with slowly healing wounds and chronic atrial fibrillation who presented with generalized weakness and dehydration after falling at home and spending 4 days on the floor. He was admitted for management of weakness and observation. Diagnosis: Stroke: No - Discharge Data Discharge Date: 02/29/20 Discharge Disposition: Home, W Home Health Agency Condition: Good - Referral to Home Health Date of Face to Face Encounter: 02/29/20 Reason for Homebound Status: Acute on chronic weakness with congestive heart failure Primary Care Physician: PCP None Skilled Need: Nursing to monitor congestive heart failure and perform dressing changes twice weekly on both lower extremities. Physical therapy to improve strength and endurance - Discharge Diagnosis/Problem(s) (1) Subdural hematoma SNOMED Code(s): 395399253 ICD Code: S06.5X9A - TRAUM SUBDR HEM W LOC OF UNSP DURATION, INIT Status: Acute Current Visit: Yes (2) Generalized weakness SNOMED Code(s): 88227478 ICD Code: R53.1 - WEAKNESS Status: Acute Current Visit: Yes (3) Systolic congestive heart failure SNOMED Code(s): 33256287, 418239377 ICD Code: I50.20 - UNSPECIFIED SYSTOLIC (CONGESTIVE) HEART FAILURE Status: Chronic Current Visit: No Qualifiers: Heart failure chronicity: chronic Qualified Code(s): I50.22 - Chronic systolic (congestive) heart failure (4) Chronic atrial fibrillation SNOMED Code(s): 989035518 ICD Code: I48.20 - CHRONIC ATRIAL FIBRILLATION, UNSPECIFIED Status: Chronic Current Visit: No - Patient Summary/Data Consults: Consultations 02/27/20 07:00 PT Evaluation and Treatment [CONS] Routine Please Evaluate and Treat. PT Reason for Consult: Strengthening This query below is only for informational purposes and is not editable. Hospital Course: Prabhjot presented to the emergency room with weakness and dehydration after falling at home and being on the floor for 4 days. Surprisingly in the emergency room his laboratory studies looked fairly good. There is no evidence for kidney injury or rhabdomyolysis. There is no evidence for infection. There is no evidence for rib fracture or left hip fracture. A head CT did show a very tiny 2 mm subdural hematoma. Patient was admitted for observation and hydration. A repeat head CT in the morning following admission showed that this was stable and had not increased in size. His warfarin was held during the hospital stay. His INR was normal at the time of presentation and he had not been taking the medication. Over the next several days he made slow but steady improvement in his strength. After we got him well-hydrated which took about 36 hours we converted him to a saline lock. He has been eating well. His strength has been improving and he has been able to take fairly long walks in the hallway. He has been using a walker and does have 1 that he will be taking home. His vital signs have all been stable. His pain has been fairly minimal. We did decrease the dose of his carvedilol because of some bradycardia. Dr. Rod did come see him regarding his lower extremity wounds which are chronic and he had been lost to follow-up as of late. Unna boots have been placed and the plan is to change these about every 3 days. He was interested in home care and a referral has been placed to [facility]. They will be providing nursing and physical therapy services. He will have follow-up with primary care and with Dr. Rod. - Patient Instructions Diet: Heart Healthy Diet Activity: As Tolerated Showering/Bathing: May Shower (if you cover your lower leg wraps) Notify Provider of: Fever, Increased Pain Other/Special Instructions: 1. You were in the hospital for observation and management of dehydration and weakness. Your strength has been improving following IV fluids as well as physical therapy. There is no evidence for infection. I recommend that you drink 64 ounces of water each day to help maintain hydration. I also recommend physical therapy via the home care team as outlined below. This will help improve your strength and endurance. 2. To help your lower legs heal up we have placed Unna boots. These should be changed twice weekly. This will be performed by home care services. You will be due for a boot change on either Sunday or Sunday. 3. Decrease your carvedilol dosing to 3.125 mg twice daily. Otherwise continue your usual home medications as previously prescribed. 4. Follow up with Dr Anam Albright as scheduled. 5. Follow up with Dr. Rod for additional wound care recommendations. The clinic will contact you to schedule this appointment early in the week. 6. I have placed a referral to home health care services. They will provide nursing services to help with wound care and dressing changes as well as physical therapy to help improve your strength and endurance. You should have your Unna boots changed twice weekly. Ideally you would remove the current set of Unna boots and shower on the day of the dressing change prior to the dressing change. - Discharge Plan *PRESCRIPTION DRUG MONITORING PROGRAM REVIEWED*: Not Applicable *COPY OF PRESCRIPTION DRUG MONITORING REPORT IN PATIENT REESE: Not Applicable Prescriptions/Med Rec: carvediloL [Carvedilol] 3.125 mg PO BID #60 tablet Home Medications: Home Meds Aspirin 325 mg PO DAILY 12/09/19 [History] Furosemide [Lasix] 40 mg PO DAILY #30 tablet 12/14/19 [Rx] Lactobacillus Rhamnosus GG [Culturelle] 1 cap PO BID #60 cap 12/14/19 [Rx] Spironolactone [Aldactone] 25 mg PO BID #60 12/14/19 [Rx] Warfarin [Coumadin] 5 mg PO DAILY@1300 #50 12/14/19 [Rx] atorvaSTATin [Lipitor] 10 mg PO BEDTIME #30 12/14/19 [Rx] Cholecalciferol (Vitamin D3) [Vitamin D3] 2,000 unit PO DAILY 02/26/20 [History] Omeprazole 20 mg PO QID 02/26/20 [History] Sertraline [Zoloft] 50 mg PO DAILY 02/26/20 [History] carvediloL [Carvedilol] 3.125 mg PO BID #60 tablet 02/29/20 [Rx] Oxygen Therapy Mode: Room Air Patient Handouts: Deconditioning, Dehydration, Adult, [id number] Referrals: Nick Albright MD [Family Provider] - 03/04/20 1:40 pm (Please arrive 15 minutes early to register for your appointment.) - Discharge Summary/Plan Comment DC Time >30 min.: Yes (45-setting up home care ) - Patient Data Vitals - Most Recent: Last Vital Signs Temp 35.6 C L 02/29/20 11:00 Pulse 54 L 02/29/20 11:00 Resp 18 02/29/20 07:47 BP 131/73 02/29/20 11:00 Pulse Ox 95 02/29/20 11:00 Weight - Most Recent: 90.718 kg I&O - Last 24 hours: Intake & Output 02/28/20 02/29/20 02/29/20 22:59 06:59 14:59 Intake Total 500 1000 1240 Output Total 200 300 300 Balance 300 700 940 Med Orders - Current: Current Medications Acetaminophen (Tylenol) 650 mg PO Q4H PRN PRN Reason: Pain (Mild 1-3)/fever Last Admin: 02/29/20 02:54 Dose: 650 mg Documented by: Albuterol (Proventil Neb Soln) 2.5 mg NEB Q4H PRN PRN Reason: Shortness Of Breath/wheezing Aspirin (Ecotrin) 325 mg PO DAILY [facility] Last Admin: 02/29/20 09:02 Dose: 325 mg Documented by: Atorvastatin Calcium (Lipitor) 10 mg PO BEDTIME [facility] Last Admin: 02/28/20 20:40 Dose: 10 mg Documented by: Carvedilol (Coreg) 3.125 mg PO BIDMEALS [facility] Last Admin: 02/29/20 09:16 Dose: 3.125 mg Documented by: Ibuprofen (Motrin) 600 mg PO Q6H PRN PRN Reason: Pain/Fever Last Admin: 02/26/20 21:06 Dose: 600 mg Documented by: Lorazepam (Ativan) 0.5 mg IVPUSH Q4H PRN PRN Reason: Nausea/Vomiting Magnesium Hydroxide (Milk Of Magnesia) 30 ml PO Q12H PRN PRN Reason: Constipation Melatonin (Melatonin) 9 mg PO BEDTIME PRN PRN Reason: Sleep Last Admin: 02/28/20 00:15 Dose: 9 mg Documented by: Ondansetron HCl (Zofran) 4 mg IV Q6H PRN PRN Reason: Nausea/Vomiting Ondansetron HCl (Zofran Odt) 4 mg PO Q6H PRN PRN Reason: Nausea able to take PO Oxycodone HCl (Oxycodone) 5 - 10 mg PO Q4H PRN PRN Reason: Pain Last Admin: 02/28/20 10:25 Dose: 10 mg Documented by: Pantoprazole Sodium (Protonix) 40 mg PO ACBREAKFAST [facility] Last Admin: 02/29/20 07:59 Dose: 40 mg Documented by: Senna/Docusate Sodium (Senna Plus) 1 tab PO BID PRN PRN Reason: Constipation Sertraline HCl (Zoloft) 50 mg PO DAILY [facility] Last Admin: 02/29/20 09:02 Dose: 50 mg Documented by: Discontinued Medications Carvedilol (Coreg) 6.25 mg PO BID [facility] Last Admin: 02/27/20 20:13 Dose: Not Given Documented by: Carvedilol (Coreg) 3.125 mg PO BIDMEALS [facility] Last Admin: 02/28/20 10:26 Dose: 3.125 mg Documented by: Sodium Chloride (Normal Saline) 1,000 mls @ 125 mls/hr IV ASDIRECTED [facility] Last Admin: 02/27/20 06:09 Dose: 125 mls/hr Documented by: Sodium Chloride (Normal Saline) 1,000 mls @ 999 mls/hr IV .BOLUS ONE Stop: 02/26/20 21:13 Last Admin: 02/26/20 20:56 Dose: 999 mls/hr Documented by: Sodium Chloride (Normal Saline) 1,000 mls @ 125 mls/hr IV ASDIRECTED [facility] Last Admin: 02/28/20 09:12 Dose: 125 mls/hr Documented by: *Q Meaningful Use (DIS) - VTE *Q VTE Mechanical Contraindications *Q: Bilateral Lower Dermatits VTE Pharmacological Contraindications *Q: Risk of Bleeding (Subdural hematoma)
== END 2020-02-29 15:10 | disposition home health service (06) ==
LOC: JP.ED 15:20 → JP.MS 19:40
PROVIDERS: ADMIT Internal Medicine; ATTEND Internal Medicine
DX: S06.5X9A Traumatic subdural hemorrhage with loss of consciousness of unspecified duration, initial encounter (principal); R53.1 Weakness; E86.0 Dehydration; I50.22 Chronic systolic (congestive) heart failure; I48.20 Chronic atrial fibrillation, unspecified; I11.0 Hypertensive heart disease with heart failure; E78.00 Pure hypercholesterolemia, unspecified; F32.9 Major depressive disorder, single episode, unspecified; W19.XXXA Unspecified fall, initial encounter; Z79.82 Long term (current) use of aspirin; Z79.899 Other long term (current) drug therapy; Z79.01 Long term (current) use of anticoagulants; Z91.048 Other nonmedicinal substance allergy status
CPT/HCPCS: 36415; 51798; 70450; 71101; 73502; 80053; 80305; 80307; 81001; 82140; 82550; 83605; 83690; 84484; 85025; 85027; 85610; 93005; 96360; 96361; 97110; 97116; 97162; 97535; 99285; A9270; G0378; J7030; 93010

== ENCOUNTER 2020-07-01 14:17 | Inpatient (IN) | payer MEDICARE ==
--- NOTE | 2020-07-01 15:15 | EDM.PDOC ---
ED HPI GENERAL MEDICAL PROBLEM - General Chief Complaint: General Stated Complaint: MEDICAL [facility]IA [facility] Time Seen by Provider: 07/01/20 14:25 Source of Information: Reports: Patient, EMS, Old Records History Limitations: Reports: Other (poor historian) - History of Present Illness INITIAL COMMENTS - FREE TEXT/NARRATIVE: 64 yo male here via EMS with a complaint of weakness and SOB. He has had a frequent cough. Sx's getting worse for about 2 weeks. He was here last in the fall as an inpatient and has not had any follow up visits since then. He lives alone. He has a vehicle that he rarely drives. He says he's been too weak to get to the bathroom or get food since yesterday. He has not had a fever or chest pain. Has kemi boots on both legs since March that he has never taken off. Has a pHx of ETOH abuse. Onset: Gradual Duration: Week(s): (2), Getting Worse Location: Reports: Chest, Generalized Quality: Reports: Other (pain not reported) Severity: Moderate Improves with: Reports: Rest Worsens with: Reports: Movement Context: Reports: Other (See HPI) Associated Symptoms: Reports: Cough, Shortness of Breath, Weakness. Denies: Diaphoresis, Fever/Chills, Nausea/Vomiting Treatments FR[employer]: Reports: Other (see below) (none) - Related Data Allergies Allergy/AdvReac Type Severity Reaction Status Date / Time pollen extracts Allergy Sneezing Verified 07/01/20 14:26 Home Meds: Home Meds Aspirin 325 mg PO DAILY 12/09/19 [History] Furosemide [Lasix] 40 mg PO DAILY #30 tablet 12/14/19 [Rx] Lactobacillus Rhamnosus GG [Culturelle] 1 cap PO BID #60 cap 12/14/19 [Rx] Spironolactone [Aldactone] 25 mg PO BID #60 12/14/19 [Rx] Warfarin [Coumadin] 5 mg PO DAILY@1300 #50 12/14/19 [Rx] atorvaSTATin [Lipitor] 10 mg PO BEDTIME #30 12/14/19 [Rx] Cholecalciferol (Vitamin D3) [Vitamin D3] 2,000 unit PO DAILY 02/26/20 [History] Omeprazole 20 mg PO QID 02/26/20 [History] Sertraline [Zoloft] 50 mg PO DAILY 02/26/20 [History] carvediloL [Carvedilol] 3.125 mg PO BID #60 tablet 02/29/20 [Rx] Past Medical History - Past Health History Medical/Surgical History: Denies Medical/Surgical History HEENT History: Reports: Impaired Vision Cardiovascular History: Reports: Afib, Bypass, Heart Failure, High Cholesterol, Hypertension, MS, Prior Cardiac Arrest, PVD, Other (See Below) Other Cardiovascular History: CABG; aortic dissection; CHF Respiratory History: Reports: SOB Musculoskeletal History: Reports: Fracture, Other (See Below) Other Musculoskeletal History: Hx of rib fx Neurological History: Reports: Other (See Below) Other Neuro History: subdural hematoma. Hx of cerebral embolic infarction Psychiatric History: Reports: Depression Hematologic History: Reports: Blood Transfusion(s) Dermatologic History: Reports: Cellulitis, Venous Stasis Dermatitis, Other (See Below) Other Dermatologic History: B lower leg (12/2019) - Infectious Disease History Infectious Disease History: Reports: None - Past Surgical History Head Surgeries/Procedures: Reports: None HEENT Surgical History: Reports: None Cardiovascular Surgical History: Reports: Aneurysm, Coronary Artery Bypass, Valve Replacement, Other (See Below) Other 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 Musculoskeletal Surgical History: Reports: None Dermatological Surgical History: Reports: None Social & Family History - Family History Family Medical History: No Pertinent Family History - Tobacco Use Tobacco Use Status *Q: Former Tobacco User Used Tobacco, but Quit: Yes Month/Year Tobacco Last Used: 35 years ago - Caffeine Use Caffeine Use: Reports: Coffee - Recreational Drug Use Recreational Drug Use: No - Living Situation & Occupation Occupation: Other (Single dwelling home) ED ROS GENERAL - Review of Systems Review Of Systems: See Below Constitutional: Reports: Weakness. Denies: Fever, Chills HEENT: Reports: No Symptoms Respiratory: Reports: Shortness of Breath, Cough, Sputum. Denies: Pleuritic Chest Pain, Hemoptysis (not until he arrived in the ER) Cardiovascular: Denies: Chest Pain Endocrine: Reports: No Symptoms GI/Abdominal: Reports: Other (abdominal distention) : Reports: No Symptoms Musculoskeletal: Reports: No Symptoms Skin: Reports: Other (wraps on both legs for chronic LE edema/stasis ulcers) Neurological: Reports: No Symptoms Psychiatric: Reports: No Symptoms ED EXAM, GENERAL - Physical Exam Exam: See Below Exam Limited By: No Limitations General Appearance: Alert, WD/WN, No Apparent Distress Eye Exam: Bilateral Eye: Normal Inspection Ears: Normal External Exam, Normal Canal, Hearing Grossly Normal Ear Exam: Bilateral Ear: Auricle Normal, Canal Normal Nose: Normal Inspection, No Blood Throat/Mouth: Normal Inspection, Normal Lips, Normal Oropharynx, Normal Voice, No Airway Compromise Head: Atraumatic, Normocephalic Neck: Normal Inspection Respiratory/Chest: No Respiratory Distress, Lungs Clear, No Accessory Muscle Use, Decreased Breath Sounds (Right lower half of his chest). No: Normal Breath Sounds Cardiovascular: Regular Rate, Rhythm, Tachycardia (mildly tachy) GI/Abdominal: Normal Bowel Sounds, Non-Tender, Distended (ascites present). No: Soft Back Exam: Normal Inspection Extremities: Other (Kemi Boots on both legs, removed and skin looks pretty well healed. ) Neurological: Alert, Oriented, CN II-XII Intact, Normal Cognition, No Motor/Sensory Deficits Psychiatric: Normal Affect, Normal Mood Skin Exam: Warm, Dry, Intact, Normal Color, No Rash. No: Erythema #1 Interpretation EKG Date: 07/01/20 Time: 15:55 Rhythm: A-Fib Rate (Beats/Min): 100 [place]: LAD-Left [place] Deviation P-Wave: Absent QRS: Normal ST-T: Normal QT: Normal (inverted or flattened T's in lateral leads) Comparison: No Change Course - Vital Signs Text/Narrative:: Dr. Khan aware @ 1740h Last Recorded V/S: Last Vital Signs Temp 36.8 C 07/01/20 14:26 Pulse 96 07/01/20 15:51 Resp 26 H 07/01/20 15:51 BP 131/71 07/01/20 15:51 Pulse Ox 93 L 07/01/20 15:51 - Orders/Labs/Meds Orders: Active Orders 24 hr Category Date Time Status Cardiac Monitoring [RC] .As Directed Care 07/01/20 14:49 Active EKG Documentation Completion [RC] ASDIRECTED Care 07/01/20 15:42 Active COVID-19/FLU A+B/RSV [[facility]] Stat Lab 07/01/20 17:34 Received HEPATIC FUNCTION PANEL,HFP [CHEM] Urgent Lab 07/01/20 14:56 Received Iopamidol [Isovue-370 (76%)] Med 07/01/20 17:00 Active 100 ml IV . DIRECTED Sodium Chloride 0.9% [Normal Saline] 1,000 ml Med 07/01/20 15:45 Active IV ASDIRECTED Sodium Chloride 0.9% [Normal Saline] 100 ml Med 07/01/20 17:00 Active IV ASDIRECTED EKG 12 Lead [EK] Routine Ther 07/01/20 15:42 Ordered Medication Orders Sodium Chloride (Normal Saline) 1,000 mls @ 125 mls/hr IV ASDIRECTED [facility] Last Admin: 07/01/20 15:58 Dose: 125 mls/hr Documented by: PREILOR Sodium Chloride (Normal Saline) 100 mls @ 3.5 mls/sec IV ASDIRECTED [facility] Stop: 07/01/20 23:00 Last Admin: 07/01/20 17:06 Dose: 4 mls/sec Documented by: ELADIO Iopamidol (Isovue-370 (76%)) 100 ml IV . DIRECTED LEIGH Stop: 07/01/20 23:00 Last Admin: 07/01/20 17:06 Dose: 100 ml Documented by: ELADIO Labs: Laboratory Tests 07/01/20 07/01/20 07/01/20 Range/Units 14:56 14:56 14:56 WBC 9.4 (4.5-11.0) K/uL RBC 5.11 (4.30-5.90) M/uL Hgb 14.4 D (12.0-15.0) g/dL Hct 45.4 (40.0-54.0) % MCV 89 (80-98) fL MCH 28 (27-31) pg MCHC 32 (32-36) % Plt Count 218 (150-400) K/uL PT (9.5-12.0) sec INR (0.80-1.20) D-Dimer, Quantitative 8079.33 H (0.0-500.0) ng/mL Sodium 134 L (140-148) mmol/L Potassium 4.1 (3.6-5.2) mmol/L Chloride 97 L (100-108) mmol/L Carbon Dioxide 24 (21-32) mmol/L Anion Gap 17.1 H (5.0-14.0) mmol/L BUN 37 H (7-18) mg/dL Creatinine 1.3 (0.8-1.3) mg/dL Est Cr Clr Drug Dosing 63.17 mL/min Estimated GFR (MDRD) 55 L (>60) Glucose 127 H (74-106) mg/dL Calcium 9.0 (8.5-10.1) mg/dL Troponin I 0.118 H* (0.000-0.056) ng/mL NT-Pro-B Natriuret Pep 49328 H (5-125) pg/mL Urine Color (YELLOW) Urine Appearance (CLEAR) Urine pH (5.0-8.0) Ur Specific [place] (1.008-1.030) Urine Protein (NEGATIVE) mg/dL Urine Glucose (UA) (NEGATIVE) mg/dL Urine Ketones (NEGATIVE) mg/dL Urine Occult Blood (NEGATIVE) Urine Nitrite (NEGATIVE) Urine Bilirubin (NEGATIVE) Urine Urobilinogen (0.2-1.0) EU/dL Ur Leukocyte Esterase (NEGATIVE) Urine RBC (0-5) Urine WBC (0-5) Ur Epithelial Cells Amorphous Sediment Urine Bacteria Urine Mucus Urine Other 07/01/20 07/01/20 Range/Units 14:56 17:28 WBC (4.5-11.0) K/uL RBC (4.30-5.90) M/uL Hgb (12.0-15.0) g/dL Hct (40.0-54.0) % MCV (80-98) fL MCH (27-31) pg MCHC (32-36) % Plt Count (150-400) K/uL PT 15.9 H (9.5-12.0) sec INR 1.47 H (0.80-1.20) D-Dimer, Quantitative (0.0-500.0) ng/mL Sodium (140-148) mmol/L Potassium (3.6-5.2) mmol/L Chloride (100-108) mmol/L Carbon Dioxide (21-32) mmol/L Anion Gap (5.0-14.0) mmol/L BUN (7-18) mg/dL Creatinine (0.8-1.3) mg/dL Est Cr Clr Drug Dosing mL/min Estimated GFR (MDRD) (>60) Glucose (74-106) mg/dL Calcium (8.5-10.1) mg/dL Troponin I (0.000-0.056) ng/mL NT-Pro-B Natriuret Pep (5-125) pg/mL Urine Color Brown A (YELLOW) Urine Appearance Turbid A (CLEAR) Urine pH 5.5 (5.0-8.0) Ur Specific [place] 1.025 (1.008-1.030) Urine Protein 100 H (NEGATIVE) mg/dL Urine Glucose (UA) Negative (NEGATIVE) mg/dL Urine Ketones Trace H (NEGATIVE) mg/dL Urine Occult Blood Negative (NEGATIVE) Urine Nitrite Negative (NEGATIVE) Urine Bilirubin Large H (NEGATIVE) Urine Urobilinogen >=8.0 H (0.2-1.0) EU/dL Ur Leukocyte Esterase Negative (NEGATIVE) Urine RBC 0-5 (0-5) Urine WBC 0-5 (0-5) Ur Epithelial Cells Few Amorphous Sediment Not seen Urine Bacteria Not seen Urine Mucus Moderate Urine Other Meds: Medications Generic Name Dose Route Start Last Admin Trade Name Freq PRN Reason Stop Dose Admin Sodium Chloride 1,000 mls @ 125 mls/hr 07/01/20 15:45 07/01/20 15:58 Normal Saline IV 125 mls/hr ASDIRECTED [facility] Administration Sodium Chloride 100 mls @ 3.5 mls/sec 07/01/20 17:00 07/01/20 17:06 Normal Saline IV 07/01/20 23:00 4 mls/sec ASDIRECTED [facility] Administration Iopamidol 100 ml 07/01/20 17:00 07/01/20 17:06 Isovue-370 (76%) IV 07/01/20 23:00 100 ml . DIRECTED LEIGH Administration Discontinued Medications Generic Name Dose Route Start Last Admin Trade Name Freq PRN Reason Stop Dose Admin Sodium Chloride 10 ml 07/01/20 16:58 07/01/20 17:06 Saline Flush FLUSH 07/01/20 16:59 10 ml ONETIME ONE Administration - Radiology Interpretation Free Text/Narrative:: CXR-infiltrate R lower lung field angio chest-poor study, can't r/o PE abd/pelvis CT-ascites, no other acute findings CT Results Date: 07/01/20 Departure - Departure Time of Disposition: 18:00 Disposition: Admitted As Inpatient 64 Condition: Fair Clinical Impression: Weakness, Medical non-compliance Ascites Qualifiers: Ascites type: due to alcoholic cirrhosis Qualified Code(s): K70.31 - Alcoholic cirrhosis of liver with ascites - Discharge Information *PRESCRIPTION DRUG MONITORING PROGRAM REVIEWED*: Not Applicable *COPY OF PRESCRIPTION DRUG MONITORING REPORT IN PATIENT REESE: Not Applicable Referrals: PCP,None [Primary Care Provider] - Forms: ED Department Discharge Sepsis Event Note (ED) - Evaluation Sepsis Screening Result: No Definite Risk - Focused Exam Vital Signs: Vital Signs Temp Pulse Resp BP Pulse Ox 07/01/20 15:51 96 26 H 131/71 93 L 07/01/20 15:01 105 H 132/75 07/01/20 14:26 36.8 C 108 H 20 142/80 H 93 L 07/01/20 14:23 36.8 C 108 H 20 142/80 H 93 L - My Orders Last 24 Hours: My Active Orders 07/01/20 14:49 Cardiac Monitoring [RC] .As Directed 07/01/20 15:42 EKG Documentation Completion [RC] ASDIRECTED EKG 12 Lead [EK] Routine 07/01/20 15:45 Sodium Chloride 0.9% [Normal Saline] 1,000 ml IV ASDIRECTED 07/01/20 17:00 Iopamidol [Isovue-370 (76%)] 100 ml IV . DIRECTED Sodium Chloride 0.9% [Normal Saline] 100 ml IV ASDIRECTED 07/01/20 17:34 COVID-19/FLU A+B/RSV [[facility]] Stat - Assessment/Plan Last 24 Hours: My Active Orders 07/01/20 14:49 Cardiac Monitoring [RC] .As Directed 07/01/20 15:42 EKG Documentation Completion [RC] ASDIRECTED EKG 12 Lead [EK] Routine 07/01/20 15:45 Sodium Chloride 0.9% [Normal Saline] 1,000 ml IV ASDIRECTED 07/01/20 17:00 Iopamidol [Isovue-370 (76%)] 100 ml IV . DIRECTED Sodium Chloride 0.9% [Normal Saline] 100 ml IV ASDIRECTED 07/01/20 17:34 COVID-19/FLU A+B/RSV [[facility]] Stat
--- NOTE | 2020-07-01 15:23 | CR ---
CHEST: 2 view CLINICAL HISTORY:Hemoptysis, SOB COMPARISON:February 2020 FINDINGS: Heart is moderately enlarged. There has been previous sternotomy. Pulmonary vascularity is normal. There is right lower lobe infiltrate. There may be a small right effusion. IMPRESSION: Right lower lobe pneumonia. Follow-up recommended until clear Moderate cardiomegaly.
[2020-07-01] MEDS: Sodium Chloride 0.9% 1,000 ML IV SCH (15:58)
[2020-07-01] MEDS ORDERED: Sodium Chloride 0.9% 10 ML Syringe FLUSH ONE (16:58)
[2020-07-01] MEDS ORDERED: Iopamidol 755 Mg/ML 100 ML Bottle IV SCH (17:00)
[2020-07-01] MEDS ORDERED: Sodium Chloride 0.9% 100 ML IV SCH (17:00)
--- NOTE | 2020-07-01 17:34 | CRLCT ---
Indication: Shortness of breath Technique: Volumetric multidetector CT images of the chest were obtained after the administration of IV contrast. 100 cc Isovue 370 low osmolar intravenous contrast Comparison: None available. Findings: The thoracic inlet and thyroid gland are unremarkable. The thoracic aorta is moderately ectatic. There is prior median sternotomy with likely coronary artery bypass grafting. There is marked enlargement of the cardiac chambers predominantly within the right atrium. There is reflux of contrast seen into the inferior vena cava. There is demonstration of somewhat poor distal contrast opacification of the right lower lobe subsegmental pulmonary arteries likely representing admixture of contrast, underlying pulmonary emboli are difficult to exclude. Otherwise no evidence of large central pulmonary emboli are appreciated. There is no mediastinal, hilar or axillary adenopathy. There is moderate central bronchial thickening and mucoid impaction of lower lobe bronchi. There is moderate right-sided pleural effusion with adjacent compressive atelectasis with consolidative opacity in the inferior right upper and right lower lobes likely representing multifocal infiltrates. There is no evidence of pulmonary mass or suspicious pulmonary nodule. The partially visualized upper abdomen demonstrates marked ascites fluid. The thoracic vertebral body heights are grossly maintained with moderate multilevel degenerative disc disease and flowing anterior osteophytosis. Impression: Exam is somewhat limited due to early contrast bolus timing with poor opacification of the right lower lobe subsegmental pulmonary arteries where there is likely admixture of contrast versus non opacification of the right lower lobe subsegmental arteries. An underlying pulmonary embolus is difficult to exclude. No other filling defect within the subsegmental pulmonary arteries is appreciated. There is demonstration of marked cardiac chamber enlargement predominantly in the right atrium with reflux of contrast into the inferior vena cava. Moderate right-sided pleural effusion with airspace opacity in the inferior right upper and aerated right lower lobes likely representing infiltrates and/or atelectasis. Please note that all CT scans at this facility use dose modulation, iterative reconstruction, and/or weight-based dosing when appropriate to reduce radiation dose to as low as reasonably achievable. Dictated by Gideon Walker MD @ Jul 01 2020 5:20PM Signed by Dr. Gideon Walker @ Jul 01 2020 5:32PM
--- NOTE | 2020-07-01 17:44 | CRLCT ---
INDICATION: Ascites COMPARISON: Portions of the study from July 21, 2015 TECHNIQUE: CT examination of the abdomen and pelvis was performed following the uneventful intravenous administration of 100 cc of Isovue 370. Thin section axial images were obtained from the lung bases through the pubic symphysis. Oral contrast was not administered. Please note that all CT scans at this facility use dose modulation, iterative reconstruction, and/or weight-based dosing when appropriate to reduce radiation dose to as low as reasonably achievable. FINDINGS: LUNG BASES: The heart is substantially enlarged with multichamber enlargement. There is a right effusion and there is right basilar airspace disease. The left lung base appears normal. LIVER/BILIARY SYSTEM:There is no focal hepatic mass or biliary ductal dilatation. Imaging is limited by motion. There appears to be a sludge ball in the gallbladder but the gallbladder is poorly seen. ADRENALS: Normal KIDNEYS, URETERS and BLADDER:There is a left renal mass that does not measure simple cystic nodule was present in 2016 and is actually smaller. It currently measures about 1.6 centimeters and is probably a hyperdense cyst. No obstructive uropathy. Possible small renal calculi. SPLEEN:Normal appearance. PANCREAS: Poorly seen due to motion RETROPERITONEUM and MESENTERY: Atherosclerotic vascular calcifications. There are findings of a chronic dissection which appear to been present in 2016. The contrast bolus is such that this is not fully or formally evaluated GASTROINTESTINAL SYSTEM: There is no evidence of diverticulitis, colitis, mechanical obstruction, or appendicitis. The small bowel as visualized appears normal. PELVIS: Bladder wall thickening diffusely..Limited evaluation due to motion OSSEOUS STRUCTURES and ABDOMINAL WALL: No destructive process of bonediffuse body wall edema. OTHER: Marked ascites IMPRESSION: 1. There is a right effusion and there is body wall edema and marked ascites. This represents an anasarca pattern and is new since the prior study. The liver is difficult to evaluate due to motion but no abnormalities are noted. The anasarca may be due to right heart disease. 2. The heart is markedly enlarged. 3. There are findings of a chronic dissection of the aorta. This was present in 2016. 4. Other incidental findings as discussed above Please note that all CT scans at this facility use dose modulation, iterative reconstruction, and/or weight-based dosing when appropriate to reduce radiation dose to as low as reasonably achievable. Dictated by Pepito Lucio MD @ Jul 01 2020 5:34PM Signed by Dr. Pepito Lucio @ Jul 01 2020 5:44PM
[2020-07-01 18:20] LABS: CORONAVIRUS COVID-19 NAA NEGATIVE (NEGATIVE)
--- NOTE | 2020-07-01 18:26 | PCM.HP.2 ---
H&P History of Present Illness - General Date of Service: 07/01/20 Admit Problem/Dx: Admission Diagnosis/Problem Admission Diagnosis/Problem CHF, Congestive heart failure Source of Information: Patient, Provider History Limitations: Reports: No Limitations - History of Present Illness Initial Comments - Free Text/Narative: CC: my belly is too big HPI: Prabhjot presents to the emergency room today by ambulance with progressive weakness, diarrhea and lightheadedness. He reports that he has not been doing well for the last several months but things have gone downhill more quickly over the past 2 weeks and especially the last 1 week. He reports increasing abdominal distention but no significant abdominal pain. He has not had much of an appetite and has consumed very little food. He does not have nausea. He does report multiple loose bowel movements daily for the past 2 weeks. No blood in his stool. He feels more short of breath than usual and walking even a short distance causes him to have dyspnea. He has not had any chest pain. He does report an occasional cough and has had some blood tinged sputum. He is not aware of any fevers or chills. He has not had any sick contacts. He does admit to drinking 2 alcoholic drinks per day with his drink of choice being peach tootie. He is not able to tell me the quantity and each of these drinks. When he arrived he had compression wraps on both lower legs. He tells us that they have been in place for about 3 months. He has not been to see a doctor since his last hospital discharge because travel is too difficult for him. He intermittently takes his pills but does not take them when he does not feel good. Work-up in the emergency room revealed a normal white count, stage III kidney disease as well as a mild elevation of his bilirubin. Imaging revealed right pleural effusion and probable right pneumonia as well as marked ascites and significant cardiomegaly. He is extremely weak and not safe for outpatient management. He will be admitted for management of congestive heart failure and right lung pneumonia. - Related Data Allergies/Adverse Reactions: Allergies Allergy/AdvReac Type Severity Reaction Status Date / Time pollen extracts Allergy Sneezing Verified 07/01/20 14:26 Home Medications: Home Meds Aspirin 325 mg PO DAILY 12/09/19 [History] Furosemide [Lasix] 40 mg PO DAILY #30 tablet 12/14/19 [Rx] Lactobacillus Rhamnosus GG [Culturelle] 1 cap PO BID #60 cap 12/14/19 [Rx] Spironolactone [Aldactone] 25 mg PO BID #60 12/14/19 [Rx] Warfarin [Coumadin] 5 mg PO DAILY@1300 #50 12/14/19 [Rx] atorvaSTATin [Lipitor] 10 mg PO BEDTIME #30 12/14/19 [Rx] Cholecalciferol (Vitamin D3) [Vitamin D3] 2,000 unit PO DAILY 02/26/20 [History] Omeprazole 20 mg PO QID 02/26/20 [History] Sertraline [Zoloft] 50 mg PO DAILY 02/26/20 [History] carvediloL [Carvedilol] 3.125 mg PO BID #60 tablet 02/29/20 [Rx] Past Medical History - Past Health History Medical/Surgical History: Denies Medical/Surgical History HEENT History: Reports: Impaired Vision Cardiovascular History: Reports: Afib, Bypass, Heart Failure, High Cholesterol, Hypertension, MA, Prior Cardiac Arrest, PVD, Other (See Below) Other Cardiovascular History: CABG; aortic dissection; CHF Respiratory History: Reports: SOB Musculoskeletal History: Reports: Fracture, Other (See Below) Other Musculoskeletal History: Hx of rib fx Neurological History: Reports: Other (See Below) Other Neuro History: subdural hematoma. Hx of cerebral embolic infarction Psychiatric History: Reports: Depression Hematologic History: Reports: Blood Transfusion(s) Dermatologic History: Reports: Cellulitis, Venous Stasis Dermatitis, Other (See Below) Other Dermatologic History: B lower leg (12/2019) - Infectious Disease History Infectious Disease History: Reports: None - Past Surgical History Head Surgeries/Procedures: Reports: None HEENT Surgical History: Reports: None Cardiovascular Surgical History: Reports: Aneurysm, Coronary Artery Bypass, Valve Replacement, Other (See Below) Other 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 Musculoskeletal Surgical History: Reports: None Dermatological Surgical History: Reports: None Social & Family History - Family History Family Medical History: No Pertinent Family History - Tobacco Use Tobacco Use Status *Q: Former Tobacco User Used Tobacco, but Quit: Yes Month/Year Tobacco Last Used: 35 years ago - Caffeine Use Caffeine Use: Reports: Coffee - Recreational Drug Use Recreational Drug Use: No - Living Situation & Occupation Occupation: Other (Single dwelling home) H&P Review of Systems - Review of Systems: Review Of Systems: See Below Free Text/Narrative: A complete 12 point review of systems was obtained. Pertinent positives and negatives are noted in the history of present illness. All other systems were reviewed and were negative except as noted. Exam - Exam Exam: See Below - Vital Signs Vital Signs: Last Vital Signs Temp 36.8 C 07/01/20 14:26 Pulse 96 07/01/20 15:51 Resp 26 H 07/01/20 15:51 BP 131/71 07/01/20 15:51 Pulse Ox 93 L 07/01/20 15:51 Weight: 81.647 kg - Exam Quality Assessment: No: Supplemental Oxygen General: Alert, Oriented, Cooperative. No: Mild Distress HEENT: Conjunctiva Clear. No: Mucosa Moist & [place] (dry), Scleral Icterus Neck: Supple, Trachea Midline, JVD Lungs: Decreased Breath Sounds (Right lower lung), Crackles (Right midlung). No: Normal Respiratory Effort (Increased work of breathing) Cardiovascular: Regular Rhythm, Tachycardia, Systolic Murmur, Gallop/S3 GI/Abdominal Exam: Soft, Distended, Tender (Mild epigastric). No: Normal Bowel Sounds (Hypoactive) Back Exam: Normal Inspection, Full Range of Motion Extremities: Pedal Edema (Pitting edema to the knee bilaterally). No: Increased Warmth Skin: Warm, Dry, Other (Ichthyotic changes of both lower legs below the knee. There is a lot of dry skin that remains adherent even after the compression wraps were removed. He does have a scabbed area on the upper lateral left lower leg. No significant drainage and no purulence. No erythema.) Neuro Extensive - Mental Status: Alert, Oriented x3, Nl Response to Commands Neuro Extensive - Motor, Sensory, Reflexes: No: Dysarthria, Abnormal Motor, Tremor Psychiatric: Alert, Normal Affect - Patient Data Lab Results Last 24 hrs: Laboratory Results - last 24 hr 07/01/20 07/01/20 07/01/20 Range/Units 14:56 14:56 14:56 WBC 9.4 (4.5-11.0) K/uL RBC 5.11 (4.30-5.90) M/uL Hgb 14.4 D (12.0-15.0) g/dL Hct 45.4 (40.0-54.0) % MCV 89 (80-98) fL MCH 28 (27-31) pg MCHC 32 (32-36) % Plt Count 218 (150-400) K/uL PT (9.5-12.0) sec INR (0.80-1.20) D-Dimer, Quantitative 8079.33 H (0.0-500.0) ng/mL Sodium 134 L (140-148) mmol/L Potassium 4.1 (3.6-5.2) mmol/L Chloride 97 L (100-108) mmol/L Carbon Dioxide 24 (21-32) mmol/L Anion Gap 17.1 H (5.0-14.0) mmol/L BUN 37 H (7-18) mg/dL Creatinine 1.3 (0.8-1.3) mg/dL Est Cr Clr Drug Dosing 63.17 mL/min Estimated GFR (MDRD) 55 L (>60) Glucose 127 H (74-106) mg/dL Calcium 9.0 (8.5-10.1) mg/dL Total Bilirubin (0.2-1.0) mg/dL Direct Bilirubin (0.0-0.2) mg/dL Indirect Bilirubin AST (15-37) U/L ALT (12-78) U/L Alkaline Phosphatase (46-116) U/L Troponin I 0.118 H* (0.000-0.056) ng/mL NT-Pro-B Natriuret Pep 08841 H (5-125) pg/mL Total Protein (6.4-8.2) g/dL Albumin (3.4-5.0) g/dL Globulin (2.3-3.5) g/dL Albumin/Globulin Ratio (1.2-2.2) Urine Color (YELLOW) Urine Appearance (CLEAR) Urine pH (5.0-8.0) Ur Specific [place] (1.008-1.030) Urine Protein (NEGATIVE) mg/dL Urine Glucose (UA) (NEGATIVE) mg/dL Urine Ketones (NEGATIVE) mg/dL Urine Occult Blood (NEGATIVE) Urine Nitrite (NEGATIVE) Urine Bilirubin (NEGATIVE) Urine Urobilinogen (0.2-1.0) EU/dL Ur Leukocyte Esterase (NEGATIVE) Urine RBC (0-5) Urine WBC (0-5) Ur Epithelial Cells Amorphous Sediment Urine Bacteria Urine Mucus Urine Other Influenza Type A RNA (NEGATIVE) RSV RNA (INAAT) (NEGATIVE) Influenza Type B RNA (NEGATIVE) SARS-CoV-2 RNA (YINKA) (NEGATIVE) 07/01/20 07/01/20 07/01/20 Range/Units 14:56 14:56 17:28 WBC (4.5-11.0) K/uL RBC (4.30-5.90) M/uL Hgb (12.0-15.0) g/dL Hct (40.0-54.0) % MCV (80-98) fL MCH (27-31) pg MCHC (32-36) % Plt Count (150-400) K/uL PT 15.9 H (9.5-12.0) sec INR 1.47 H (0.80-1.20) D-Dimer, Quantitative (0.0-500.0) ng/mL Sodium (140-148) mmol/L Potassium (3.6-5.2) mmol/L Chloride (100-108) mmol/L Carbon Dioxide (21-32) mmol/L Anion Gap (5.0-14.0) mmol/L BUN (7-18) mg/dL Creatinine (0.8-1.3) mg/dL Est Cr Clr Drug Dosing mL/min Estimated GFR (MDRD) (>60) Glucose (74-106) mg/dL Calcium (8.5-10.1) mg/dL Total Bilirubin 3.1 H (0.2-1.0) mg/dL Direct Bilirubin 1.95 H (0.0-0.2) mg/dL Indirect Bilirubin 1.15 AST 51 H D (15-37) U/L ALT 16 (12-78) U/L Alkaline Phosphatase 179 H (46-116) U/L Troponin I (0.000-0.056) ng/mL NT-Pro-B Natriuret Pep (5-125) pg/mL Total Protein 6.7 (6.4-8.2) g/dL Albumin 3.1 L (3.4-5.0) g/dL Globulin 3.6 H (2.3-3.5) g/dL Albumin/Globulin Ratio 0.9 L (1.2-2.2) Urine Color Brown A (YELLOW) Urine Appearance Turbid A (CLEAR) Urine pH 5.5 (5.0-8.0) Ur Specific [place] 1.025 (1.008-1.030) Urine Protein 100 H (NEGATIVE) mg/dL Urine Glucose (UA) Negative (NEGATIVE) mg/dL Urine Ketones Trace H (NEGATIVE) mg/dL Urine Occult Blood Negative (NEGATIVE) Urine Nitrite Negative (NEGATIVE) Urine Bilirubin Large H (NEGATIVE) Urine Urobilinogen >=8.0 H (0.2-1.0) EU/dL Ur Leukocyte Esterase Negative (NEGATIVE) Urine RBC 0-5 (0-5) Urine WBC 0-5 (0-5) Ur Epithelial Cells Few Amorphous Sediment Not seen Urine Bacteria Not seen Urine Mucus Moderate Urine Other Influenza Type A RNA (NEGATIVE) RSV RNA (INAAT) (NEGATIVE) Influenza Type B RNA (NEGATIVE) SARS-CoV-2 RNA (YINKA) (NEGATIVE) 07/01/20 Range/Units 17:34 WBC (4.5-11.0) K/uL RBC (4.30-5.90) M/uL Hgb (12.0-15.0) g/dL Hct (40.0-54.0) % MCV (80-98) fL MCH (27-31) pg MCHC (32-36) % Plt Count (150-400) K/uL PT (9.5-12.0) sec INR (0.80-1.20) D-Dimer, Quantitative (0.0-500.0) ng/mL Sodium (140-148) mmol/L Potassium (3.6-5.2) mmol/L Chloride (100-108) mmol/L Carbon Dioxide (21-32) mmol/L Anion Gap (5.0-14.0) mmol/L BUN (7-18) mg/dL Creatinine (0.8-1.3) mg/dL Est Cr Clr Drug Dosing mL/min Estimated GFR (MDRD) (>60) Glucose (74-106) mg/dL Calcium (8.5-10.1) mg/dL Total Bilirubin (0.2-1.0) mg/dL Direct Bilirubin (0.0-0.2) mg/dL Indirect Bilirubin AST (15-37) U/L ALT (12-78) U/L Alkaline Phosphatase (46-116) U/L Troponin I (0.000-0.056) ng/mL NT-Pro-B Natriuret Pep (5-125) pg/mL Total Protein (6.4-8.2) g/dL Albumin (3.4-5.0) g/dL Globulin (2.3-3.5) g/dL Albumin/Globulin Ratio (1.2-2.2) Urine Color (YELLOW) Urine Appearance (CLEAR) Urine pH (5.0-8.0) Ur Specific [place] (1.008-1.030) Urine Protein (NEGATIVE) mg/dL Urine Glucose (UA) (NEGATIVE) mg/dL Urine Ketones (NEGATIVE) mg/dL Urine Occult Blood (NEGATIVE) Urine Nitrite (NEGATIVE) Urine Bilirubin (NEGATIVE) Urine Urobilinogen (0.2-1.0) EU/dL Ur Leukocyte Esterase (NEGATIVE) Urine RBC (0-5) Urine WBC (0-5) Ur Epithelial Cells Amorphous Sediment Urine Bacteria Urine Mucus Urine Other Influenza Type A RNA Negative (NEGATIVE) RSV RNA (INAAT) Negative (NEGATIVE) Influenza Type B RNA Negative (NEGATIVE) SARS-CoV-2 RNA (YINKA) Negative (NEGATIVE) Result Diagrams: 07/01/20 14:56 07/01/20 14:56 Imaging Impressions Last 24 hrs: All images below were personally reviewed and the radiologist interpretation was noted Chest [id number] and a right effusion or infiltrate. No obvious mass CT scan of the chest-no definite evidence for pulmonary embolism but IV contrast bolus timing was suboptimal. He has cardiomegaly. He has a moderate right pleural effusion. He has a probable right lung infiltrate. CT scan abdomen and pelvis-Marked ascites noted. There are changes consistent with his known old aortic dissection but no obvious changes since 2016. Liver appears normal in size with no focal abnormalities. Sepsis Event Note - Evaluation Sepsis Screening Result: No Definite Risk - Focused Exam Vital Signs: Vital Signs Temp Pulse Resp BP Pulse Ox 07/01/20 15:51 96 26 H 131/71 93 L 07/01/20 15:01 105 H 132/75 07/01/20 14:26 36.8 C 108 H 20 142/80 H 93 L 07/01/20 14:23 36.8 C 108 H 20 142/80 H 93 L *Q Meaningful Use (ADM) - VTE *Q VTE Mechanical Contraindications *Q: Bilateral Lower Edema - VTE Risk Assess *Q Each Risk Factor Represents 1 Point: Swollen Legs, Current, Congestive heart failure (CHF) Total Score 1 Point Risk Factors: 2 Each Risk Factor Represents 2 Points: Age 60 - 74 Years Total Score 2 Point Risk Factors: 2 Each Risk Factor Represents 3 Points: None Total Score 3 Point Risk Factors: 0 Each Risk Factor Represents 5 Points: None Total Score 5 Point Risk Factors: 0 Venous Thromboembolism Risk Factor Score *Q: 4 - Problem List (1) Combined systolic and diastolic congestive heart failure SNOMED Code(s): 54625047, 759274737 ICD Code: I50.40 - UNSP COMBINED SYSTOLIC AND DIASTOLIC (CONGESTIVE) HRT FAIL Status: Acute Current Visit: Yes Qualifiers: Heart failure chronicity: acute on chronic Qualified Code(s): I50.43 - Acute on chronic combined systolic (congestive) and diastolic (congestive) heart failure (2) Cor pulmonale SNOMED Code(s): 35550914 ICD Code: I27.81 - COR PULMONALE (CHRONIC) Status: Acute Current Visit: Yes (3) Ascites SNOMED Code(s): 529712529 ICD Code: R18.8 - OTHER ASCITES Status: Acute Current Visit: Yes Qualifiers: Ascites type: due to alcoholic cirrhosis Qualified Code(s): K70.31 - Alcoholic cirrhosis of liver with ascites (4) Right lower lobe pneumonia SNOMED Code(s): 734817288 ICD Code: J18.9 - PNEUMONIA, UNSPECIFIED ORGANISM Status: Acute Current Visit: Yes Qualifiers: Pneumonia type: due to unspecified organism Qualified Code(s): J18.9 - Pneumonia, unspecified organism (5) Aortic insufficiency SNOMED Code(s): 65852138 ICD Code: I35.1 - NONRHEUMATIC AORTIC (VALVE) INSUFFICIENCY Status: Chronic Current Visit: Yes Qualifiers: Cardiac valve disease etiology: nonrheumatic Qualified Code(s): I35.1 - Nonrheumatic aortic (valve) insufficiency (6) Chronic venous stasis dermatitis of both lower extremities SNOMED Code(s): 87283802 ICD Code: I87.2 - VENOUS INSUFFICIENCY (CHRONIC) (PERIPHERAL) Status: Chronic Current Visit: Yes (7) CKD (chronic kidney disease), stage III SNOMED Code(s): 175081769 ICD Code: N18.30 - CHRONIC KIDNEY DISEASE, STAGE 3 UNSPECIFIED Status: Chronic Current Visit: Yes Qualifiers: Chronic kidney disease stage 3 subtype: stage 3a (GFR 45-59) Qualified Code(s): N18.31 - Chronic kidney disease, stage 3a (8) Alcohol dependence SNOMED Code(s): 46055441 ICD Code: F10.20 - ALCOHOL DEPENDENCE, UNCOMPLICATED Status: Chronic Current Visit: Yes Qualifiers: Substance use status: unspecified alcohol-induced disorder Qualified Code(s): F10.29 - Alcohol dependence with unspecified alcohol-induced disorder (9) Chronic atrial fibrillation SNOMED Code(s): 572803836 ICD Code: I48.20 - CHRONIC ATRIAL FIBRILLATION, UNSPECIFIED Status: Chronic Current Visit: No Problem List Initiated/Reviewed/Updated: Yes Orders Last 24hrs: Active Orders 24 hr Category Date Time Status Patient Status Manage Transfer [TRANSFER] Routine ADT 07/01/20 18:16 Ordered Cardiac Monitoring [RC] .As Directed Care 07/01/20 14:49 Active EKG Documentation Completion [RC] ASDIRECTED Care 07/01/20 15:42 Active Iopamidol [Isovue-370 (76%)] Med 07/01/20 17:00 Active 100 ml IV . DIRECTED Sodium Chloride 0.9% [Normal Saline] 1,000 ml Med 07/01/20 15:45 Active IV ASDIRECTED Sodium Chloride 0.9% [Normal Saline] 100 ml Med 07/01/20 17:00 Active IV ASDIRECTED Resuscitation Status Routine Resus Stat 07/01/20 18:19 Ordered EKG 12 Lead [EK] Routine Ther 07/01/20 15:42 Ordered Medication Orders Sodium Chloride (Normal Saline) 1,000 mls @ 125 mls/hr IV ASDIRECTED LEIGH Last Admin: 07/01/20 15:58 Dose: 125 mls/hr Documented by: PREILOR Sodium Chloride (Normal Saline) 100 mls @ 3.5 mls/sec IV ASDIRECTED LEIGH Stop: 07/01/20 23:00 Last Admin: 07/01/20 17:06 Dose: 4 mls/sec Documented by: ELADIO Iopamidol (Isovue-370 (76%)) 100 ml IV . DIRECTED LEIGH Stop: 07/01/20 23:00 Last Admin: 07/01/20 17:06 Dose: 100 ml Documented by: ELADIO Assessment/Plan Comment:: ASSESSMENT AND PLAN - Combined systolic and diastolic congestive heart failure-he presents with more of a core pulmonal picture. He has known severely reduced left ventricular func tion and poor right-sided function as well as pulmonary hypertension. Intermittently compliant with medications. He has marked ascites as well as a right pleural effusion. He would benefit from paracentesis and probably thoracentesis. Troponin mildly elevated but probably demand ischemia in the setting of severe heart failure. -Continue beta-hope and diuretics -Surgical consultation for paracentesis and thoracentesis in the morning -Ultrasound marking for the above procedures -Echocardiogram when available Alcohol dependence-marked ascites which could be from his heart failure versus c irrhosis. He does have an elevated bilirubin but AST and ALT are normal. No history of alcohol withdrawal. -Encouraged cessation -Ascites management as above Right lung pneumonia-noted on CT scan. White count is normal. No fevers. Not currently hypoxic. -Antibiotic coverage with ceftriaxone and azithromycin Chronic atrial fibrillation-rate controlled borderline at this time but he has not been taking his beta-hope. INR subtherapeutic at this time. -Continue beta-hope -Restart warfarin tomorrow after the procedure Stage III chronic kidney disease-creatinine near baseline. He will need close monitoring with large fluid shifts expected following the paracentesis and thoracentesis. Maintenance issues - - DVT prophylaxis -none until after procedure tomorrow. Unable to use SCDs or compression stockings because of his chronic venous stasis dermatitis - GI prophylaxis -PPI - Nutrition -low-sodium - Leach catheter -not indicated CODE STATUS -DNR/DNI Admission justification -this patient will be admitted for inpatient services and is medically appropriate meeting medical necessity for inpatient admission as outlined in my documentation. I reasonably expect the patient will require inpatient services that span a period time over 2 midnights. I reasonably expect this patient to be discharged or transferred within 96 hours [facility]. Disposition -I would anticipate discharge with home care versus subacute rehab Primary care physician -Dr Anam Khan M.D. - Mortality Measure Prognosis:: Good
[2020-07-01] MEDS ORDERED: LORazepam 2 MG/ML SDV IVPUSH PRN (19:22)
[2020-07-01] MEDS ORDERED: Ondansetron 4 MG Tab.DIS PO PRN (19:22)
[2020-07-01] MEDS ORDERED: Magnesium Hydroxide 400 MG/5 ML Susp 30 ML Cup PO PRN (19:22)
[2020-07-01] MEDS ORDERED: Melatonin 3 MG Tab PO PRN (19:22)
[2020-07-01] MEDS ORDERED: Morphine 2 MG/ML SYRINGE IVPUSH PRN (19:22)
[2020-07-01] MEDS ORDERED: Acetaminophen 325 MG Tab PO PRN (19:22)
[2020-07-01] MEDS ORDERED: Ondansetron 4 MG/2 ML SDV IV PRN (19:22)
[2020-07-01] MEDS ORDERED: oxyCODONE 5 MG Tab PO PRN (19:22)
[2020-07-01] MEDS: atorvaSTATin 10 MG Tab PO SCH (20:25)
[2020-07-01] MEDS: Azithromycin 250 MG Tab PO SCH (20:25)
[2020-07-01] MEDS ORDERED: cefTRIAXone 1 GM AdvVial IV ONE (20:39)
[2020-07-01] MEDS ORDERED: Sodium Chloride 0.9% 50 ML ONE (20:40)
[2020-07-01] MEDS: cefTRIAXone 1 GM in Sodium Chloride 0.9% 50 ML IV SCH (21:22)
[2020-07-02] MEDS: Sodium Chloride 0.9% 1,000 ML IV SCH ×2 (00:14→08:49)
[2020-07-02] MEDS ORDERED: Pantoprazole 40 MG Tab.CR PO SCH (07:30)
[2020-07-02] MEDS: Spironolactone 25 MG Tab PO SCH ×2 (09:07→16:38)
[2020-07-02] MEDS: Aspirin 325 MG Tab.EC PO SCH (09:08)
[2020-07-02] MEDS: Carvedilol 3.125 MG Tab PO SCH ×2 (09:08→16:30)
[2020-07-02] MEDS: Furosemide 40 MG Tab PO SCH (09:09)
[2020-07-02] MEDS: Pantoprazole 40 MG Tab.CR PO SCH (09:10)
--- NOTE | 2020-07-02 10:22 | PCM.PN ---
- General Info Date of Service: 07/02/20 Subjective Update: There were no acute events overnight. Abdomen still feels distended. He still feels short of breath. Low-grade fever overnight. No significant cough. Not much of an appetite but tolerating diet so far. Thoracentesis removed about 2 L of slightly bloody fluid from the right chest. Paracentesis removed about 2 L of clear yellow fluid from the abdomen. Functional Status: Reports: Pain Controlled, Tolerating Diet - Review of Systems General: Reports: Weakness Pulmonary: Reports: Shortness of Breath Cardiovascular: Reports: Edema Gastrointestinal: Reports: Other (distended ) - Patient Data Vitals - Most Recent: Last Vital Signs Temp 36.3 C 07/02/20 07:00 Pulse 86 07/02/20 09:08 Resp 28 H 07/02/20 07:00 BP 112/73 07/02/20 09:08 Pulse Ox 95 07/02/20 07:00 Weight - Most Recent: 81.647 kg Lab Results Last 24 Hours: Laboratory Results - last 24 hr 07/01/20 07/01/20 07/01/20 Range/Units 14:56 14:56 14:56 WBC 9.4 (4.5-11.0) K/uL RBC 5.11 (4.30-5.90) M/uL Hgb 14.4 D (12.0-15.0) g/dL Hct 45.4 (40.0-54.0) % MCV 89 (80-98) fL MCH 28 (27-31) pg MCHC 32 (32-36) % Plt Count 218 (150-400) K/uL PT (9.5-12.0) sec INR (0.80-1.20) D-Dimer, Quantitative 8079.33 H (0.0-500.0) ng/mL Sodium 134 L (140-148) mmol/L Potassium 4.1 (3.6-5.2) mmol/L Chloride 97 L (100-108) mmol/L Carbon Dioxide 24 (21-32) mmol/L Anion Gap 17.1 H (5.0-14.0) mmol/L BUN 37 H (7-18) mg/dL Creatinine 1.3 (0.8-1.3) mg/dL Est Cr Clr Drug Dosing 63.17 mL/min Estimated GFR (MDRD) 55 L (>60) Glucose 127 H (74-106) mg/dL Calcium 9.0 (8.5-10.1) mg/dL Magnesium (1.8-2.4) mg/dL Total Bilirubin (0.2-1.0) mg/dL Direct Bilirubin (0.0-0.2) mg/dL Indirect Bilirubin AST (15-37) U/L ALT (12-78) U/L Alkaline Phosphatase (46-116) U/L Troponin I 0.118 H* (0.000-0.056) ng/mL NT-Pro-B Natriuret Pep 68189 H (5-125) pg/mL Total Protein (6.4-8.2) g/dL Albumin (3.4-5.0) g/dL Globulin (2.3-3.5) g/dL Albumin/Globulin Ratio (1.2-2.2) Urine Color (YELLOW) Urine Appearance (CLEAR) Urine pH (5.0-8.0) Ur Specific [place] (1.008-1.030) Urine Protein (NEGATIVE) mg/dL Urine Glucose (UA) (NEGATIVE) mg/dL Urine Ketones (NEGATIVE) mg/dL Urine Occult Blood (NEGATIVE) Urine Nitrite (NEGATIVE) Urine Bilirubin (NEGATIVE) Urine Urobilinogen (0.2-1.0) EU/dL Ur Leukocyte Esterase (NEGATIVE) Urine RBC (0-5) Urine WBC (0-5) Ur Epithelial Cells Amorphous Sediment Urine Bacteria Urine Mucus Urine Other Influenza Type A RNA (NEGATIVE) RSV RNA (INAAT) (NEGATIVE) Influenza Type B RNA (NEGATIVE) SARS-CoV-2 RNA (YINKA) (NEGATIVE) 07/01/20 07/01/20 07/01/20 Range/Units 14:56 14:56 17:28 WBC (4.5-11.0) K/uL RBC (4.30-5.90) M/uL Hgb (12.0-15.0) g/dL Hct (40.0-54.0) % MCV (80-98) fL MCH (27-31) pg MCHC (32-36) % Plt Count (150-400) K/uL PT 15.9 H (9.5-12.0) sec INR 1.47 H (0.80-1.20) D-Dimer, Quantitative (0.0-500.0) ng/mL Sodium (140-148) mmol/L Potassium (3.6-5.2) mmol/L Chloride (100-108) mmol/L Carbon Dioxide (21-32) mmol/L Anion Gap (5.0-14.0) mmol/L BUN (7-18) mg/dL Creatinine (0.8-1.3) mg/dL Est Cr Clr Drug Dosing mL/min Estimated GFR (MDRD) (>60) Glucose (74-106) mg/dL Calcium (8.5-10.1) mg/dL Magnesium (1.8-2.4) mg/dL Total Bilirubin 3.1 H (0.2-1.0) mg/dL Direct Bilirubin 1.95 H (0.0-0.2) mg/dL Indirect Bilirubin 1.15 AST 51 H D (15-37) U/L ALT 16 (12-78) U/L Alkaline Phosphatase 179 H (46-116) U/L Troponin I (0.000-0.056) ng/mL NT-Pro-B Natriuret Pep (5-125) pg/mL Total Protein 6.7 (6.4-8.2) g/dL Albumin 3.1 L (3.4-5.0) g/dL Globulin 3.6 H (2.3-3.5) g/dL Albumin/Globulin Ratio 0.9 L (1.2-2.2) Urine Color Brown A (YELLOW) Urine Appearance Turbid A (CLEAR) Urine pH 5.5 (5.0-8.0) Ur Specific [place] 1.025 (1.008-1.030) Urine Protein 100 H (NEGATIVE) mg/dL Urine Glucose (UA) Negative (NEGATIVE) mg/dL Urine Ketones Trace H (NEGATIVE) mg/dL Urine Occult Blood Negative (NEGATIVE) Urine Nitrite Negative (NEGATIVE) Urine Bilirubin Large H (NEGATIVE) Urine Urobilinogen >=8.0 H (0.2-1.0) EU/dL Ur Leukocyte Esterase Negative (NEGATIVE) Urine RBC 0-5 (0-5) Urine WBC 0-5 (0-5) Ur Epithelial Cells Few Amorphous Sediment Not seen Urine Bacteria Not seen Urine Mucus Moderate Urine Other Influenza Type A RNA (NEGATIVE) RSV RNA (INAAT) (NEGATIVE) Influenza Type B RNA (NEGATIVE) SARS-CoV-2 RNA (YINKA) (NEGATIVE) 07/01/20 07/02/20 07/02/20 Range/Units 17:34 04:50 04:50 WBC 10.0 (4.5-11.0) K/uL RBC 5.00 (4.30-5.90) M/uL Hgb 14.3 (12.0-15.0) g/dL Hct 44.0 (40.0-54.0) % MCV 88 (80-98) fL MCH 29 (27-31) pg MCHC 33 (32-36) % Plt Count 197 (150-400) K/uL PT 21.9 H (9.5-12.0) sec INR 2.04 H (0.80-1.20) D-Dimer, Quantitative (0.0-500.0) ng/mL Sodium (140-148) mmol/L Potassium (3.6-5.2) mmol/L Chloride (100-108) mmol/L Carbon Dioxide (21-32) mmol/L Anion Gap (5.0-14.0) mmol/L BUN (7-18) mg/dL Creatinine (0.8-1.3) mg/dL Est Cr Clr Drug Dosing mL/min Estimated GFR (MDRD) (>60) Glucose (74-106) mg/dL Calcium (8.5-10.1) mg/dL Magnesium (1.8-2.4) mg/dL Total Bilirubin (0.2-1.0) mg/dL Direct Bilirubin (0.0-0.2) mg/dL Indirect Bilirubin AST (15-37) U/L ALT (12-78) U/L Alkaline Phosphatase (46-116) U/L Troponin I (0.000-0.056) ng/mL NT-Pro-B Natriuret Pep (5-125) pg/mL Total Protein (6.4-8.2) g/dL Albumin (3.4-5.0) g/dL Globulin (2.3-3.5) g/dL Albumin/Globulin Ratio (1.2-2.2) Urine Color (YELLOW) Urine Appearance (CLEAR) Urine pH (5.0-8.0) Ur Specific [place] (1.008-1.030) Urine Protein (NEGATIVE) mg/dL Urine Glucose (UA) (NEGATIVE) mg/dL Urine Ketones (NEGATIVE) mg/dL Urine Occult Blood (NEGATIVE) Urine Nitrite (NEGATIVE) Urine Bilirubin (NEGATIVE) Urine Urobilinogen (0.2-1.0) EU/dL Ur Leukocyte Esterase (NEGATIVE) Urine RBC (0-5) Urine WBC (0-5) Ur Epithelial Cells Amorphous Sediment Urine Bacteria Urine Mucus Urine Other Influenza Type A RNA Negative (NEGATIVE) RSV RNA (INAAT) Negative (NEGATIVE) Influenza Type B RNA Negative (NEGATIVE) SARS-CoV-2 RNA (YINKA) Negative (NEGATIVE) 07/02/20 Range/Units 04:50 WBC (4.5-11.0) K/uL RBC (4.30-5.90) M/uL Hgb (12.0-15.0) g/dL Hct (40.0-54.0) % MCV (80-98) fL MCH (27-31) pg MCHC (32-36) % Plt Count (150-400) K/uL PT (9.5-12.0) sec INR (0.80-1.20) D-Dimer, Quantitative (0.0-500.0) ng/mL Sodium 134 L (140-148) mmol/L Potassium 4.3 (3.6-5.2) mmol/L Chloride 99 L (100-108) mmol/L Carbon Dioxide 20 L (21-32) mmol/L Anion Gap 19.3 H (5.0-14.0) mmol/L BUN 40 H (7-18) mg/dL Creatinine 1.3 (0.8-1.3) mg/dL Est Cr Clr Drug Dosing 63.17 mL/min Estimated GFR (MDRD) 55 L (>60) Glucose 90 (74-106) mg/dL Calcium 8.6 (8.5-10.1) mg/dL Magnesium 2.0 (1.8-2.4) mg/dL Total Bilirubin 3.4 H (0.2-1.0) mg/dL Direct Bilirubin (0.0-0.2) mg/dL Indirect Bilirubin AST 56 H (15-37) U/L ALT 14 (12-78) U/L Alkaline Phosphatase 163 H (46-116) U/L Troponin I (0.000-0.056) ng/mL NT-Pro-B Natriuret Pep (5-125) pg/mL Total Protein 6.3 L (6.4-8.2) g/dL Albumin 3.0 L (3.4-5.0) g/dL Globulin 3.3 (2.3-3.5) g/dL Albumin/Globulin Ratio 0.9 L (1.2-2.2) Urine Color (YELLOW) Urine Appearance (CLEAR) Urine pH (5.0-8.0) Ur Specific [place] (1.008-1.030) Urine Protein (NEGATIVE) mg/dL Urine Glucose (UA) (NEGATIVE) mg/dL Urine Ketones (NEGATIVE) mg/dL Urine Occult Blood (NEGATIVE) Urine Nitrite (NEGATIVE) Urine Bilirubin (NEGATIVE) Urine Urobilinogen (0.2-1.0) EU/dL Ur Leukocyte Esterase (NEGATIVE) Urine RBC (0-5) Urine WBC (0-5) Ur Epithelial Cells Amorphous Sediment Urine Bacteria Urine Mucus Urine Other Influenza Type A RNA (NEGATIVE) RSV RNA (INAAT) (NEGATIVE) Influenza Type B RNA (NEGATIVE) SARS-CoV-2 RNA (YINKA) (NEGATIVE) Med Orders - Current: Current Medications Acetaminophen (Tylenol) 650 mg PO Q4H PRN PRN Reason: Pain (Mild 1-3)/fever Last Admin: 07/01/20 23:12 Dose: 650 mg Documented by: Aspirin (Ecotrin) 325 mg PO DAILY [facility] Last Admin: 07/02/20 09:08 Dose: 325 mg Documented by: Atorvastatin Calcium (Lipitor) 10 mg PO BEDTIME [facility] Last Admin: 07/01/20 20:25 Dose: 10 mg Documented by: Azithromycin (Zithromax) 500 mg PO BEDTIME [facility] Stop: 07/05/20 21:01 Last Admin: 07/01/20 20:25 Dose: 500 mg Documented by: Carvedilol (Coreg) 3.125 mg PO BIDMEALS [facility] Last Admin: 07/02/20 09:08 Dose: 3.125 mg Documented by: Furosemide (Lasix) 40 mg PO DAILY [facility] Last Admin: 07/02/20 09:09 Dose: 40 mg Documented by: Sodium Chloride (Normal Saline) 1,000 mls @ 125 mls/hr IV ASDIRECTED [facility] Last Admin: 07/02/20 08:49 Dose: 125 mls/hr Documented by: Ceftriaxone Sodium 1 gm/ (Sodium Chloride) 50 mls @ 100 mls/hr IV Q24H [facility] Last Admin: 07/01/20 21:22 Dose: 100 mls/hr Documented by: Lorazepam (Ativan) 0.5 mg IVPUSH Q4H PRN PRN Reason: Nausea/Vomiting Magnesium Hydroxide (Milk Of Magnesia) 30 ml PO Q12H PRN PRN Reason: Constipation Melatonin (Melatonin) 9 mg PO BEDTIME PRN PRN Reason: Sleep Morphine Sulfate (Morphine) 2 mg IVPUSH Q2H PRN PRN Reason: Pain (severe 7-10) Ondansetron HCl (Zofran) 4 mg IV Q6H PRN PRN Reason: Nausea/Vomiting Ondansetron HCl (Zofran Odt) 4 mg PO Q6H PRN PRN Reason: Nausea able to take PO Oxycodone HCl (Oxycodone) 5 mg PO Q4H PRN PRN Reason: Pain (moderate 4-6) Pantoprazole Sodium (Protonix) 40 mg PO ACBREAKFAST [facility] Last Admin: 07/02/20 09:10 Dose: 40 mg Documented by: Senna/Docusate Sodium (Senna Plus) 1 tab PO BID PRN PRN Reason: Constipation Sertraline HCl (Zoloft) 50 mg PO DAILY [facility] Spironolactone (Aldactone) 25 mg PO BIDDIURETIC [facility] Last Admin: 07/02/20 09:07 Dose: 25 mg Documented by: Discontinued Medications Ceftriaxone Sodium (Rocephin) Confirm Administered Dose 1 gm IV .STK-MED [facility] Stop: 07/01/20 20:40 Last Admin: 07/01/20 21:10 Dose: Not Given Documented by: Sodium Chloride (Normal Saline) 100 mls @ 3.5 mls/sec IV ASDIRECTED [facility] Stop: 07/01/20 23:00 Last Admin: 07/01/20 17:06 Dose: 4 mls/sec Documented by: Sodium Chloride (Normal Saline) Confirm Administered Dose 50 mls @ as directed .ROUTE .STK-MED ONE Stop: 07/01/20 20:41 Last Admin: 07/01/20 21:10 Dose: Not Given Documented by: Iopamidol (Isovue-370 (76%)) 100 ml IV . DIRECTED [facility] Stop: 07/01/20 23:00 Last Admin: 07/01/20 17:06 Dose: 100 ml Documented by: Pantoprazole Sodium (Protonix) 40 mg PO ACBREAKFAST [facility] Sodium Chloride (Saline Flush) 10 ml FLUSH ONETIME ONE Stop: 07/01/20 16:59 Last Admin: 07/01/20 17:06 Dose: 10 ml Documented by: - Exam Quality Assessment: No: Supplemental Oxygen General: Alert, Oriented, Cooperative, No Acute Distress Lungs: Normal Respiratory Effort. No: Wheezing Cardiovascular: Regular Rate, Regular Rhythm GI/Abdominal Exam: Soft, Distended Extremities: Pedal Edema. No: Increased Warmth Skin: Warm, Dry Psy/Mental Status: Alert, Normal Affect Sepsis Event Note - Evaluation Sepsis Screening Result: No Definite Risk - Focused Exam Vital Signs: Vital Signs Temp Temp Pulse Pulse Resp BP BP 07/02/20 09:08 86 112/73 07/02/20 07:00 36.3 C 28 H 112/73 07/02/20 05:39 36.8 C 97 18 120/56 L 07/01/20 23:42 36.9 C 07/01/20 23:12 37.8 C 07/01/20 22:50 38.2 C H 96 22 H 108/73 Pulse Ox 07/02/20 09:08 07/02/20 07:00 95 07/02/20 05:39 97 07/01/20 23:42 07/01/20 23:12 07/01/20 22:50 90 L - Problem List & Annotations (1) Combined systolic and diastolic congestive heart failure SNOMED Code(s): 97109445, 061272839 Code(s): I50.40 - UNSP COMBINED SYSTOLIC AND DIASTOLIC (CONGESTIVE) HRT FAIL Status: Acute Current Visit: Yes Qualifiers: Heart failure chronicity: acute on chronic Qualified Code(s): I50.43 - Acute on chronic combined systolic (congestive) and diastolic (congestive) heart failure (2) Cor pulmonale SNOMED Code(s): 45551812 Code(s): I27.81 - COR PULMONALE (CHRONIC) Status: Acute Current Visit: Yes (3) Ascites SNOMED Code(s): 302482517 Code(s): R18.8 - OTHER ASCITES Status: Acute Current Visit: Yes Qualifiers: Ascites type: due to alcoholic cirrhosis Qualified Code(s): K70.31 - Alcoholic cirrhosis of liver with ascites (4) Right lower lobe pneumonia SNOMED Code(s): 751582344 Code(s): J18.9 - PNEUMONIA, UNSPECIFIED ORGANISM Status: Acute Current Visit: Yes Qualifiers: Pneumonia type: due to unspecified organism Qualified Code(s): J18.9 - Pneumonia, unspecified organism (5) Aortic insufficiency SNOMED Code(s): 12316179 Code(s): I35.1 - NONRHEUMATIC AORTIC (VALVE) INSUFFICIENCY Status: Chronic Current Visit: Yes Qualifiers: Cardiac valve disease etiology: nonrheumatic Qualified Code(s): I35.1 - Nonrheumatic aortic (valve) insufficiency (6) Chronic venous stasis dermatitis of both lower extremities SNOMED Code(s): 01509749 Code(s): I87.2 - VENOUS INSUFFICIENCY (CHRONIC) (PERIPHERAL) Status: Chronic Current Visit: Yes (7) CKD (chronic kidney disease), stage III SNOMED Code(s): 465499341 Code(s): N18.30 - CHRONIC KIDNEY DISEASE, STAGE 3 UNSPECIFIED Status: Chron ic Current Visit: Yes Qualifiers: Chronic kidney disease stage 3 subtype: stage 3a (GFR 45-59) Qualified Code(s): N18.31 - Chronic kidney disease, stage 3a (8) Alcohol dependence SNOMED Code(s): 42844661 Code(s): F10.20 - ALCOHOL DEPENDENCE, UNCOMPLICATED Status: Chronic Current Visit: Yes Qualifiers: Substance use status: unspecified alcohol-induced disorder Qualified Code(s): F10.29 - Alcohol dependence with unspecified alcohol-induced disorder (9) Chronic atrial fibrillation SNOMED Code(s): 603832356 Code(s): I48.20 - CHRONIC ATRIAL FIBRILLATION, UNSPECIFIED Status: Chronic Current Visit: No - Problem List Review Problem List Initiated/Reviewed/Updated: Yes - My Orders Last 24 Hours: My Active Orders 07/01/20 Dinner 2 Gram Sodium Diet [DIET] 07/01/20 18:19 Resuscitation Status Routine 07/01/20 19:22 Acetaminophen [TylenoL] 650 mg PO Q4H PRN Azithromycin [Zithromax] 500 mg PO BEDTIME Docusate Sodium/Sennosides [Senna Plus] 1 tab PO BID PRN LORazepam [Ativan] 0.5 mg IVPUSH Q4H PRN Magnesium Hydroxide [Milk of Magnesia] 30 ml PO Q12H PRN Melatonin 9 mg PO BEDTIME PRN Morphine 2 mg IVPUSH Q2H PRN Ondansetron [Zofran ODT] 4 mg PO Q6H PRN Ondansetron [Zofran] 4 mg IV Q6H PRN oxyCODONE 5 mg PO Q4H PRN 07/01/20 19:22 Patient Status [ADT] Routine Height and Weight [RC] DAILY Intake and Output [RC] Q12H Notify Provider Consults [RC] ASDIRECTED Notify Provider Vital Signs [RC] ASDIRECTED Oxygen Therapy [RC] PRN Up With Assistance [RC] ASDIRECTED VTE/DVT Education [RC] Per Unit Routine Vital Signs [RC] Q4H Consult to Physician [CONS] Routine OT Evaluation and Treatment [CONS] Routine PT Evaluation and Treatment [CONS] Routine 07/01/20 20:00 cefTRIAXone [Rocephin] 1 gm Sodium Chloride 0.9% [Normal Saline] 50 ml IV Q24H 07/01/20 21:00 atorvaSTATin [Lipitor] 10 mg PO BEDTIME 07/02/20 07:00 US Guidance Paracentesis NC [US] Routine US Guidance Thoracentesis NC [US] Routine 07/02/20 08:00 Spironolactone [Aldactone] 25 mg PO BIDDIURETIC carvediloL [Coreg] 3.125 mg PO BIDMEALS 07/02/20 09:00 Aspirin [Ecotrin] 325 mg PO DAILY Furosemide [Lasix] 40 mg PO DAILY Pantoprazole [ProTONIX] 40 mg PO ACBREAKFAST Sertraline [Zoloft] 50 mg PO DAILY 07/02/20 10:21 Discontinue Telemetry Monitoring [Cardiac Monitoring Discontinue] [RC] Click to Edit Convert IV to Saline Lock [OM.PC] Routine 07/03/20 05:00 BASIC METABOLIC PANEL,BMP [CHEM] Timed INR,PT,PROTHROMBIN TIME [COAG] Timed 07/05/20 07:00 Echo Comp wo Cont [US] Routine - Plan Plan:: ASSESSMENT AND PLAN - Combined systolic and diastolic congestive heart failure-he presents with more of a core pulmonal picture, most recent EF 20 to 25% and grade 3 diastolic dysfunction. Status post right thoracentesis 07/02. Respiratory status has been stable. -Continue beta-hope and diuretics -Follow-up cultures and lab studies from thoracentesis fluid -Echocardiogram when available Alcohol dependence-marked ascites which could be from his heart failure versus cirrhosis. Bilirubin stable. Status post paracentesis today. -Follow-up cultures and laboratory studies from paracentesis fluid -Encouraged cessation -Diuretics as above -Consider repeat paracentesis in 1-2 days Right lung pneumonia-noted on CT scan. White count is normal. No fevers. Minimal symptoms. -Antibiotic coverage with ceftriaxone and azithromycin Chronic atrial fibrillation-rate controlled borderline at this time but he has not been taking his beta-hope. INR therapeutic today despite no warfarin. -Continue beta-hope -Restart warfarin tomorrow Stage III chronic kidney disease-creatinine near baseline. He will need close monitoring with large fluid shifts expected following the paracentesis and thoracentesis. Maintenance issues - - DVT prophylaxis -warfarin - GI prophylaxis -PPI - Nutrition -low-sodium Disposition -I would anticipate discharge with home care versus subacute rehab Primary care physician -Dr Anam Khan M.D.
[2020-07-02] MEDS ORDERED: LORazepam 2 MG/ML SDV IVPUSH ONE (10:30)
[2020-07-02] MEDS: Sertraline 50 MG Tab PO SCH (10:39)
--- NOTE | 2020-07-02 13:40 | CR ---
CHEST: Portable expiration AP chest CLINICAL HISTORY:Postthoracentesis COMPARISON:07/01/2020 FINDINGS: Heart is moderately enlarged. There has been previous sternotomy. There is a decrease in right pleural effusion. There is some persistent right lower lobe airspace disease. There is no evidence of pneumothorax. IMPRESSION: Status post right thoracentesis with a decrease in right pleural effusion. There is some persistent right lower lobe airspace disease which may represent some atelectasis No pneumothorax Moderate cardiomegaly
[2020-07-02] MEDS ORDERED: Sodium Chloride 0.9% 500 ML IV SCH (16:45)
[2020-07-02] MEDS: cefTRIAXone 1 GM in Sodium Chloride 0.9% 50 ML IV SCH (19:37)
[2020-07-02] MEDS: atorvaSTATin 10 MG Tab PO SCH (20:24)
[2020-07-02] MEDS: Azithromycin 250 MG Tab PO SCH (20:24)
[2020-07-03] MEDS: Pantoprazole 40 MG Tab.CR PO SCH (08:00)
[2020-07-03] MEDS: Aspirin 325 MG Tab.EC PO SCH (08:28)
[2020-07-03] MEDS: Furosemide 40 MG Tab PO SCH (08:29)
[2020-07-03] MEDS: Sertraline 50 MG Tab PO SCH (08:29)
[2020-07-03] MEDS: Spironolactone 25 MG Tab PO SCH ×2 (10:44→13:10)
[2020-07-03] MEDS: Carvedilol 3.125 MG Tab PO SCH ×2 (10:44→17:21)
--- NOTE | 2020-07-03 10:45 | PCM.PN ---
- General Info Date of Service: 07/03/20 Subjective Update: No acute events overnight. Patient had successful paracentesis and thoracentesis yesterday. Shortness of breath is quite a bit better today. Abdominal pain has resolved. Abdominal distention is better but still moderate. Patient does not have much of an appetite. He did not have any fevers overnight. He has not needed oxygen. Not much in the way of a cough. Cultures obtained yesterday from the paracentesis and thoracentesis fluid have not grown any bacteria to date. Functional Status: Reports: Pain Controlled, Tolerating Diet - Review of Systems General: Reports: Weakness Pulmonary: Denies: Shortness of Breath Gastrointestinal: Denies: Abdominal Pain - Patient Data Vitals - Most Recent: Last Vital Signs Temp 35.7 C L 07/03/20 07:23 Pulse 60 07/03/20 07:23 Resp 20 07/03/20 07:23 BP 94/66 07/03/20 07:23 Pulse Ox 92 L 07/03/20 07:23 Weight - Most Recent: 106.594 kg I&O - Last 24 Hours: Intake & Output 07/02/20 07/03/20 07/03/20 22:59 06:59 14:59 Intake Total 550 Balance 550 Lab Results Last 24 Hours: Laboratory Results - last 24 hr 07/02/20 07/02/20 07/02/20 Range/Units 12:36 12:36 12:36 PT (9.5-12.0) sec INR (0.80-1.20) Sodium (140-148) mmol/L Potassium (3.6-5.2) mmol/L Chloride (100-108) mmol/L Carbon Dioxide (21-32) mmol/L Anion Gap (5.0-14.0) mmol/L BUN (7-18) mg/dL Creatinine (0.8-1.3) mg/dL Est Cr Clr Drug Dosing mL/min Estimated GFR (MDRD) (>60) Glucose (74-106) mg/dL Calcium (8.5-10.1) mg/dL Fluid Type Peritoneal fluid Peritoneal fluid Thoracentesis fluid Fluid WBC 75 246 /ul Fluid RBC 558 6621 /ul Fluid Diff Comment Not Reportable Not Reportable Fluid Mononuclear Cell 98 44 % Fl Polymorphonucl Cell 2 56 % Fluid Glucose 88 mg/dL Fluid LDH 87 IU/L 07/02/20 07/03/20 07/03/20 Range/Units 12:36 04:00 04:00 PT 20.4 H (9.5-12.0) sec INR 1.90 H (0.80-1.20) Sodium 134 L (140-148) mmol/L Potassium 4.3 (3.6-5.2) mmol/L Chloride 102 (100-108) mmol/L Carbon Dioxide 20 L (21-32) mmol/L Anion Gap 16.3 H (5.0-14.0) mmol/L BUN 45 H (7-18) mg/dL Creatinine 1.1 (0.8-1.3) mg/dL Est Cr Clr Drug Dosing 74.30 mL/min Estimated GFR (MDRD) > 60 (>60) Glucose 93 (74-106) mg/dL Calcium 8.3 L (8.5-10.1) mg/dL Fluid Type Thoracentesis fluid Fluid WBC /ul Fluid RBC /ul Fluid Diff Comment Fluid Mononuclear Cell % Fl Polymorphonucl Cell % Fluid Glucose 70 mg/dL Fluid LDH 162 IU/L Francisco Results Last 24 Hours: Microbiology 07/02/20 12:36 Gram Stain - Final Thoracentesis Fluid 07/02/20 12:36 Gram Stain - Final Peritoneal Fluid Med Orders - Current: Current Medications Acetaminophen (Tylenol) 650 mg PO Q4H PRN PRN Reason: Pain (Mild 1-3)/fever Last Admin: 07/01/20 23:12 Dose: 650 mg Documented by: Aspirin (Ecotrin) 325 mg PO DAILY [facility] Last Admin: 07/03/20 08:28 Dose: 325 mg Documented by: Atorvastatin Calcium (Lipitor) 10 mg PO BEDTIME [facility] Last Admin: 07/02/20 20:24 Dose: 10 mg Documented by: Azithromycin (Zithromax) 500 mg PO BEDTIME [facility] Stop: 07/05/20 21:01 Last Admin: 07/02/20 20:24 Dose: 500 mg Documented by: Carvedilol (Coreg) 3.125 mg PO BIDMEALS [facility] Last Admin: 07/03/20 10:44 Dose: Not Given Documented by: Furosemide (Lasix) 40 mg PO DAILY [facility] Last Admin: 07/03/20 08:29 Dose: 40 mg Documented by: Ceftriaxone Sodium 1 gm/ (Sodium Chloride) 50 mls @ 100 mls/hr IV Q24H [facility] Last Admin: 07/02/20 19:37 Dose: 100 mls/hr Documented by: Lorazepam (Ativan) 0.5 mg IVPUSH Q4H PRN PRN Reason: Nausea/Vomiting Magnesium Hydroxide (Milk Of Magnesia) 30 ml PO Q12H PRN PRN Reason: Constipation Melatonin (Melatonin) 9 mg PO BEDTIME PRN PRN Reason: Sleep Morphine Sulfate (Morphine) 2 mg IVPUSH Q2H PRN PRN Reason: Pain (severe 7-10) Ondansetron HCl (Zofran) 4 mg IV Q6H PRN PRN Reason: Nausea/Vomiting Ondansetron HCl (Zofran Odt) 4 mg PO Q6H PRN PRN Reason: Nausea able to take PO Oxycodone HCl (Oxycodone) 5 mg PO Q4H PRN PRN Reason: Pain (moderate 4-6) Pantoprazole Sodium (Protonix) 40 mg PO ACBREAKFAST [facility] Last Admin: 07/03/20 08:00 Dose: 40 mg Documented by: Senna/Docusate Sodium (Senna Plus) 1 tab PO BID PRN PRN Reason: Constipation Sertraline HCl (Zoloft) 50 mg PO DAILY [facility] Last Admin: 07/03/20 08:29 Dose: 50 mg Documented by: Spironolactone (Aldactone) 25 mg PO BIDDIURETIC [facility] Last Admin: 07/03/20 10:44 Dose: Not Given Documented by: Discontinued Medications Ceftriaxone Sodium (Rocephin) Confirm Administered Dose 1 gm IV .STK-MED ONE Stop: 07/01/20 20:40 Last Admin: 07/01/20 21:10 Dose: Not Given Documented by: Sodium Chloride (Normal Saline) 1,000 mls @ 125 mls/hr IV ASDIRECTED [facility] Last Admin: 07/02/20 08:49 Dose: 125 mls/hr Documented by: Sodium Chloride (Normal Saline) 100 mls @ 3.5 mls/sec IV ASDIRECTED [facility] Stop: 07/01/20 23:00 Last Admin: 07/01/20 17:06 Dose: 4 mls/sec Documented by: Sodium Chloride (Normal Saline) Confirm Administered Dose 50 mls @ as directed .ROUTE .STK-MED ONE Stop: 07/01/20 20:41 Last Admin: 07/01/20 21:10 Dose: Not Given Documented by: Sodium Chloride (Normal Saline) 500 mls @ 500 mls/hr IV ASDIRECTED [facility] Stop: 07/02/20 17:46 Last Admin: 07/02/20 16:00 Dose: 500 mls/hr Documented by: Iopamidol (Isovue-370 (76%)) 100 ml IV . DIRECTED [facility] Stop: 07/01/20 23:00 Last Admin: 07/01/20 17:06 Dose: 100 ml Documented by: Lorazepam (Ativan) 0.5 mg IVPUSH ONETIME ONE Stop: 07/02/20 10:31 Last Admin: 07/02/20 10:51 Dose: 0.5 mg Documented by: Pantoprazole Sodium (Protonix) 40 mg PO ACBREAKFAST [facility] Last Admin: 07/02/20 10:47 Dose: Not Given Documented by: Sodium Chloride (Saline Flush) 10 ml FLUSH ONETIME ONE Stop: 07/01/20 16:59 Last Admin: 07/01/20 17:06 Dose: 10 ml Documented by: - Exam Quality Assessment: No: Supplemental Oxygen General: Alert, Oriented, Cooperative, No Acute Distress Lungs: Normal Respiratory Effort. No: Wheezing Cardiovascular: Regular Rate, Regular Rhythm GI/Abdominal Exam: Soft, Non-Tender, Distended Extremities: Pedal Edema. No: Increased Warmth Skin: Warm, Dry Psy/Mental Status: Alert, Normal Affect Sepsis Event Note - Evaluation Sepsis Screening Result: No Definite Risk - Focused Exam Vital Signs: Vital Signs Temp Pulse Resp BP Pulse Ox 07/03/20 07:23 35.7 C L 60 20 94/66 92 L 07/03/20 03:00 36.8 C 64 15 104/66 92 L - Problem List & Annotations (1) Combined systolic and diastolic congestive heart failure SNOMED Code(s): 61722798, 078663864 Code(s): I50.40 - UNSP COMBINED SYSTOLIC AND DIASTOLIC (CONGESTIVE) HRT FAIL Status: Acute Current Visit: Yes Qualifiers: Heart failure chronicity: acute on chronic Qualified Code(s): I50.43 - Acute on chronic combined systolic (congestive) and diastolic (congestive) heart failure (2) Cor pulmonale SNOMED Code(s): 65447178 Code(s): I27.81 - COR PULMONALE (CHRONIC) Status: Acute Current Visit: Yes (3) Ascites SNOMED Code(s): 850076391 Code(s): R18.8 - OTHER ASCITES Status: Acute Current Visit: Yes Qualifiers: Ascites type: due to alcoholic cirrhosis Qualified Code(s): K70.31 - Alcoholic cirrhosis of liver with ascites (4) Right lower lobe pneumonia SNOMED Code(s): 028782765 Code(s): J18.9 - PNEUMONIA, UNSPECIFIED ORGANISM Status: Acute Current Visit: Yes Qualifiers: Pneumonia type: due to unspecified organism Qualified Code(s): J18.9 - Pneumonia, unspecified organism (5) Aortic insufficiency SNOMED Code(s): 29743789 Code(s): I35.1 - NONRHEUMATIC AORTIC (VALVE) INSUFFICIENCY Status: Chronic Current Visit: Yes Qualifiers: Cardiac valve disease etiology: nonrheumatic Qualified Code(s): I35.1 - Nonrheumatic aortic (valve) insufficiency (6) Chronic venous stasis dermatitis of both lower extremities SNOMED Code(s): 00396890 Code(s): I87.2 - VENOUS INSUFFICIENCY (CHRONIC) (PERIPHERAL) Status: Chronic Current Visit: Yes (7) CKD (chronic kidney disease), stage III SNOMED Code(s): 858976981 Code(s): N18.30 - CHRONIC KIDNEY DISEASE, STAGE 3 UNSPECIFIED Status: Chronic Current Visit: Yes Qualifiers: Chronic kidney disease stage 3 subtype: stage 3a (GFR 45-59) Qualified Code(s): N18.31 - Chronic kidney disease, stage 3a (8) Alcohol dependence SNOMED Code(s): 92172211 Code(s): F10.20 - ALCOHOL DEPENDENCE, UNCOMPLICATED Status: Chronic Current Visit: Yes Qualifiers: Substance use status: unspecified alcohol-induced disorder Qualified Code(s): F10.29 - Alcohol dependence with unspecified alcohol-induced disorder (9) Chronic atrial fibrillation SNOMED Code(s): 682298221 Code(s): I48.20 - CHRONIC ATRIAL FIBRILLATION, UNSPECIFIED Status: Chronic Current Visit: No - Problem List Review Problem List Initiated/Reviewed/Updated: Yes - My Orders Last 24 Hours: My Active Orders 01/29/21 10:21 Convert IV to Saline Lock [OM.PC] Routine 07/02/20 12:36 CULTURE BODY FLUID + SMEAR [RM] Routine CULTURE BODY FLUID + SMEAR [RM] Routine 07/03/20 10:43 US Guidance Paracentesis NC [US] Routine 07/04/20 05:00 BASIC METABOLIC PANEL,BMP [CHEM] Timed INR,PT,PROTHROMBIN TIME [COAG] Timed 07/05/20 07:00 Echo Comp wo Cont [US] Routine - Plan Plan:: ASSESSMENT AND PLAN - Combined systolic and diastolic congestive heart failure-he presents with more of a core pulmonal picture, most recent EF 20 to 25% and grade 3 diastolic dysfunction. Respiratory status improved following paracentesis. Volume status appears fairly appropriate today. -Continue beta-hope and diuretics -Follow-up cultures and lab studies from thoracentesis fluid -Echocardiogram when available Alcohol dependence-marked ascites which could be from his heart failure versus cirrhosis. Bilirubin stable. Status post paracentesis yesterday but still appears to have a fair amount of ascites. -Follow-up cultures and laboratory studies from paracentesis fluid -Encourage alcohol cessation -Diuretics as above -Repeat paracentesis this afternoon or tomorrow morning Right lung pneumonia-noted on CT scan. White count remains normal. No fevers. Minimal symptoms. -Antibiotic coverage with ceftriaxone and azithromycin for 5 days Chronic atrial fibrillation-rate controlled borderline at this time but he has not been taking his beta-hope. INR nearly therapeutic today despite no warfarin. -Continue beta-hope -Hold warfarin today Stage III chronic kidney disease-creatinine near baseline. Stable so far. Maintenance issues - - DVT prophylaxis -warfarin - GI prophylaxis -PPI - Nutrition -low-sodium Disposition -I would anticipate discharge with home care versus subacute rehab Primary care physician -Dr Anam Khan M.D.
[2020-07-03] MEDS: cefTRIAXone 1 GM in Sodium Chloride 0.9% 50 ML IV SCH (19:55)
[2020-07-03] MEDS: atorvaSTATin 10 MG Tab PO SCH (20:03)
[2020-07-03] MEDS: Azithromycin 250 MG Tab PO SCH (20:03)
[2020-07-04] MEDS: Pantoprazole 40 MG Tab.CR PO SCH (08:34)
[2020-07-04] MEDS: Carvedilol 3.125 MG Tab PO SCH ×2 (08:35→16:14)
[2020-07-04] MEDS: Spironolactone 25 MG Tab PO SCH (08:35)
[2020-07-04] MEDS: Aspirin 325 MG Tab.EC PO SCH (08:35)
[2020-07-04] MEDS: Sertraline 50 MG Tab PO SCH (08:36)
[2020-07-04] MEDS: Furosemide 40 MG Tab PO SCH (08:36)
--- NOTE | 2020-07-04 09:50 | PCM.PN ---
- General Info Date of Service: 07/04/20 Subjective Update: No acute events overnight. Patient had a paracentesis with removal of 5 L of straw-colored fluid this morning. Abdominal distention has improved significantly. He does not have any abdominal pain at this time. Shortness of breath is better again today. Still not much of an appetite. He is tired this morning because he did not sleep well last night. He has not had any fevers. Cultures from paracentesis and thoracentesis fluid yesterday are negative at 24 hours. Functional Status: Reports: Pain Controlled, Tolerating Diet - Review of Systems General: Reports: Weakness Cardiovascular: Reports: Dyspnea on Exertion - Patient Data Vitals - Most Recent: Last Vital Signs Temp 36.1 C 07/04/20 07:36 Pulse 60 07/04/20 08:23 Resp 20 07/04/20 08:23 BP 87/61 L 07/04/20 08:23 Pulse Ox 93 L 07/04/20 08:23 Weight - Most Recent: 108.4 kg I&O - Last 24 Hours: Intake & Output 07/03/20 07/04/20 07/04/20 22:59 06:59 14:59 Intake Total 50 480 Balance 50 480 Lab Results Last 24 Hours: Laboratory Results - last 24 hr 07/04/20 07/04/20 Range/Units 04:15 04:15 PT 17.6 H (9.5-12.0) sec INR 1.63 H (0.80-1.20) Sodium 134 L (140-148) mmol/L Potassium 4.0 (3.6-5.2) mmol/L Chloride 101 (100-108) mmol/L Carbon Dioxide 21 (21-32) mmol/L Anion Gap 16.0 H (5.0-14.0) mmol/L BUN 46 H (7-18) mg/dL Creatinine 1.1 (0.8-1.3) mg/dL Est Cr Clr Drug Dosing 74.30 mL/min Estimated GFR (MDRD) > 60 (>60) Glucose 105 (74-106) mg/dL Calcium 8.3 L (8.5-10.1) mg/dL Francisco Results Last 24 Hours: Microbiology 07/02/20 12:36 Gram Stain - Final Thoracentesis Fluid Body Fluid Culture - Preliminary NO GROWTH AFTER 1 DAY 07/02/20 12:36 Gram Stain - Final Peritoneal Fluid Body Fluid Culture - Preliminary NO GROWTH AFTER 1 DAY Med Orders - Current: Current Medications Acetaminophen (Tylenol) 650 mg PO Q4H PRN PRN Reason: Pain (Mild 1-3)/fever Last Admin: 07/01/20 23:12 Dose: 650 mg Documented by: Aspirin (Ecotrin) 325 mg PO DAILY [facility] Last Admin: 07/04/20 08:35 Dose: 325 mg Documented by: Atorvastatin Calcium (Lipitor) 10 mg PO BEDTIME [facility] Last Admin: 07/03/20 20:03 Dose: 10 mg Documented by: Azithromycin (Zithromax) 500 mg PO BEDTIME [facility] Stop: 07/05/20 21:01 Last Admin: 07/03/20 20:03 Dose: 500 mg Documented by: Carvedilol (Coreg) 3.125 mg PO BIDMEALS [facility] Last Admin: 07/04/20 08:35 Dose: Not Given Documented by: Cefdinir (Omnicef) 300 mg PO BID [facility] Stop: 07/06/20 09:01 Furosemide (Lasix) 40 mg PO DAILY [facility] Last Admin: 07/04/20 08:36 Dose: Not Given Documented by: Albumin Human (Albumin 25%) 25 gm in 100 mls @ 25 mls/hr IV Q6H [facility] Stop: 07/04/20 19:29 Last Admin: 07/04/20 09:37 Dose: 25 mls/hr Documented by: Lorazepam (Ativan) 0.5 mg IVPUSH Q4H PRN PRN Reason: Nausea/Vomiting Magnesium Hydroxide (Milk Of Magnesia) 30 ml PO Q12H PRN PRN Reason: Constipation Melatonin (Melatonin) 9 mg PO BEDTIME PRN PRN Reason: Sleep Morphine Sulfate (Morphine) 2 mg IVPUSH Q2H PRN PRN Reason: Pain (severe 7-10) Ondansetron HCl (Zofran) 4 mg IV Q6H PRN PRN Reason: Nausea/Vomiting Ondansetron HCl (Zofran Odt) 4 mg PO Q6H PRN PRN Reason: Nausea able to take PO Oxycodone HCl (Oxycodone) 5 mg PO Q4H PRN PRN Reason: Pain (moderate 4-6) Pantoprazole Sodium (Protonix) 40 mg PO ACBREAKFAST [facility] Last Admin: 07/04/20 08:34 Dose: 40 mg Documented by: Senna/Docusate Sodium (Senna Plus) 1 tab PO BID PRN PRN Reason: Constipation Sertraline HCl (Zoloft) 50 mg PO DAILY [facility] Last Admin: 07/04/20 08:36 Dose: 50 mg Documented by: Spironolactone (Aldactone) 25 mg PO BIDDIURETIC [facility] Last Admin: 07/04/20 08:35 Dose: Not Given Documented by: Warfarin Sodium (Coumadin) 2.5 mg PO DAILY@1300 [facility] Discontinued Medications Ceftriaxone Sodium (Rocephin) Confirm Administered Dose 1 gm IV .STK-MED ONE Stop: 07/01/20 20:40 Last Admin: 07/01/20 21:10 Dose: Not Given Documented by: Sodium Chloride (Normal Saline) 1,000 mls @ 125 mls/hr IV ASDIRECTED [facility] Last Admin: 07/02/20 08:49 Dose: 125 mls/hr Documented by: Sodium Chloride (Normal Saline) 100 mls @ 3.5 mls/sec IV ASDIRECTED [facility] Stop: 07/01/20 23:00 Last Admin: 07/01/20 17:06 Dose: 4 mls/sec Documented by: Ceftriaxone Sodium 1 gm/ (Sodium Chloride) 50 mls @ 100 mls/hr IV Q24H [facility] Last Admin: 07/03/20 19:55 Dose: 100 mls/hr Documented by: Sodium Chloride (Normal Saline) Confirm Administered Dose 50 mls @ as directed .ROUTE .STK-MED ONE Stop: 07/01/20 20:41 Last Admin: 07/01/20 21:10 Dose: Not Given Documented by: Sodium Chloride (Normal Saline) 500 mls @ 500 mls/hr IV ASDIRECTED [facility] Stop: 07/02/20 17:46 Last Admin: 07/02/20 16:00 Dose: 500 mls/hr Documented by: Iopamidol (Isovue-370 (76%)) 100 ml IV . DIRECTED [facility] Stop: 07/01/20 23:00 Last Admin: 07/01/20 17:06 Dose: 100 ml Documented by: Lorazepam (Ativan) 0.5 mg IVPUSH ONETIME ONE Stop: 07/02/20 10:31 Last Admin: 07/02/20 10:51 Dose: 0.5 mg Documented by: Pantoprazole Sodium (Protonix) 40 mg PO ACBREAKFAST [facility] Last Admin: 07/02/20 10:47 Dose: Not Given Documented by: Sodium Chloride (Saline Flush) 10 ml FLUSH ONETIME ONE Stop: 07/01/20 16:59 Last Admin: 07/01/20 17:06 Dose: 10 ml Documented by: - Exam Quality Assessment: No: Supplemental Oxygen General: Alert, Oriented, Cooperative, No Acute Distress Lungs: Normal Respiratory Effort, Crackles (right lung ) Cardiovascular: Regular Rate, Regular Rhythm GI/Abdominal Exam: Soft, No Distention Extremities: Pedal Edema, Other (shedding skin ) Skin: Warm, Dry Psy/Mental Status: Alert, Normal Affect Sepsis Event Note - Evaluation Sepsis Screening Result: No Definite Risk - Focused Exam Vital Signs: Vital Signs Temp Pulse Resp BP Pulse Ox 07/04/20 08:23 60 20 87/61 L 93 L 07/04/20 07:36 36.1 C 72 20 107/76 96 07/04/20 04:00 36.1 C 56 L 16 95/60 94 L 07/03/20 23:00 36.3 C 70 16 100/68 96 - Problem List & Annotations (1) Combined systolic and diastolic congestive heart failure SNOMED Code(s): 65558898, 306286042 Code(s): I50.40 - UNSP COMBINED SYSTOLIC AND DIASTOLIC (CONGESTIVE) HRT FAIL Status: Acute Current Visit: Yes Qualifiers: Heart failure chronicity: acute on chronic Qualified Code(s): I50.43 - Acute on chronic combined systolic (congestive) and diastolic (congestive) heart failure (2) Cor pulmonale SNOMED Code(s): 50090030 Code(s): I27.81 - COR PULMONALE (CHRONIC) Status: Acute Current Visit: Yes (3) Ascites SNOMED Code(s): 461681396 Code(s): R18.8 - OTHER ASCITES Status: Acute Current Visit: Yes Qualifiers: Ascites type: due to alcoholic cirrhosis Qualified Code(s): K70.31 - Alcoholic cirrhosis of liver with ascites (4) Right lower lobe pneumonia SNOMED Code(s): 848425968 Code(s): J18.9 - PNEUMONIA, UNSPECIFIED ORGANISM Status: Acute Current Visit: Yes Qualifiers: Pneumonia type: due to unspecified organism Qualified Code(s): J18.9 - Pneumonia, unspecified organism (5) Aortic insufficiency SNOMED Code(s): 47425992 Code(s): I35.1 - NONRHEUMATIC AORTIC (VALVE) INSUFFICIENCY Status: Chronic Current Visit: Yes Qualifiers: Cardiac valve disease etiology: nonrheumatic Qualified Code(s): I35.1 - Nonrheumatic aortic (valve) insufficiency (6) Chronic venous stasis dermatitis of both lower extremities SNOMED Code(s): 29009972 Code(s): I87.2 - VENOUS INSUFFICIENCY (CHRONIC) (PERIPHERAL) Status: Chronic Current Visit: Yes (7) CKD (chronic kidney disease), stage III SNOMED Code(s): 038556050 Code(s): N18.30 - CHRONIC KIDNEY DISEASE, STAGE 3 UNSPECIFIED Status: Chronic Current Visit: Yes Qualifiers: Chronic kidney disease stage 3 subtype: stage 3a (GFR 45-59) Qualified Code(s): N18.31 - Chronic kidney disease, stage 3a (8) Alcohol dependence SNOMED Code(s): 21640126 Code(s): F10.20 - ALCOHOL DEPENDENCE, UNCOMPLICATED Status: Chronic Current Visit: Yes Qualifiers: Substance use status: unspecified alcohol-induced disorder Qualified Code(s): F10.29 - Alcohol dependence with unspecified alcohol-induced disorder (9) Chronic atrial fibrillation SNOMED Code(s): 817303842 Code(s): I48.20 - CHRONIC ATRIAL FIBRILLATION, UNSPECIFIED Status: Chronic Current Visit: No - Problem List Review Problem List Initiated/Reviewed/Updated: Yes - My Orders Last 24 Hours: My Active Orders 07/03/20 10:43 US Guidance Paracentesis NC [US] Routine 07/04/20 09:30 Albumin Human [Albumin 25%] 25 gm in 100 ml IV Q6H 07/04/20 13:00 Warfarin [Coumadin] 2.5 mg PO DAILY@1300 07/04/20 21:00 Cefdinir [Omnicef] 300 mg PO BID 07/05/20 05:00 BASIC METABOLIC PANEL,BMP [CHEM] Timed INR,PT,PROTHROMBIN TIME [COAG] Timed 07/05/20 07:00 Echo Comp wo Cont [US] Routine - Plan Plan:: ASSESSMENT AND PLAN - Combined systolic and diastolic congestive heart failure-he presents with more of a core pulmonal picture, most recent EF 20 to 25% and grade 3 diastolic dysfunction. Respiratory status has continued to improve. No hypoxia. -Continue beta-hope -Hold diuretics today -Follow-up cultures and lab studies from thoracentesis fluid -Echocardiogram Sunday Alcohol dependence-marked ascites which could be from his heart failure versus cirrhosis. Bilirubin stable. Status post paracentesis x2 and doing better today. -Follow-up cultures and laboratory studies from paracentesis fluid -Encourage alcohol cessation -Diuretics as above Right lung pneumonia-noted on CT scan. White count remains normal. No fevers. Minimal symptoms. -Antibiotic coverage with cefdinir and azithromycin for 5 days Chronic atrial fibrillation-rate controlled good so far. Restarting warfarin today. -Continue beta-hope -Restart warfarin today -INR in the morning Chronic venous stasis-skin is currently sloughing because of prolonged time with compression wraps on. We are currently leaving the legs open to the air to allow the skin to slough. He would benefit from outpatient follow-up with Dr. Rod. Stage III chronic kidney disease-stable. Maintenance issues - - DVT prophylaxis -warfarin - GI prophylaxis -PPI - Nutrition -low-sodium Disposition -I would anticipate discharge with home care if they will take him versus subacute rehab Primary care physician -Dr Anam Khan M.D.
[2020-07-04] MEDS: Warfarin 2.5 MG Tab PO SCH (14:20)
[2020-07-04] MEDS: atorvaSTATin 10 MG Tab PO SCH (20:31)
[2020-07-04] MEDS: Azithromycin 250 MG Tab PO SCH (20:31)
[2020-07-04] MEDS: Cefdinir 300 MG Cap PO SCH (20:31)
--- NOTE | 2020-07-05 07:51 | OR ---
DATE OF PROCEDURE: 07/02/2020 SURGEON: Devon Rod MD PROCEDURES: 1. Thoracentesis. 2. Paracentesis. COMPLICATIONS: None. BATTERY SERVICE TECHNICIAN: None. ANESTHETIC: Local. RISKS: Risks, benefits, alternatives and limitations including but not limited to infection, bleeding, injury to abdominal structures, pneumothorax, hemothorax and other risks not listed here were explained to the patient who wished to proceed. PROCEDURE IN DETAIL: The patient was under the Delatorre stand. The right chest was marked by ultrasound. This was prepped, draped and anesthetized with lidocaine. A single alyssa was created, as the sheath was introduced, the needle was withdrawn. Approximately 1600 mL of straw-colored fluid was removed and sent for cytology. Sheath was then removed, direct pressure was held and dressings were applied. The patient was then placed in a supine position, the area of maximal fluid was marked by ultrasound. This was prepped and draped in the same fashion, anesthetized with lidocaine and alyssa was created in the skin, sheath was introduced as the needle was withdrawn. Approximately 2.5 liters of fluid was removed. This was also straw colored. A suture was then used to close the defect. Dressings were applied. The patient tolerated the procedure well. Devon Rod MD /[id number]
[2020-07-05] MEDS ORDERED: Benzocaine/Cetylpyridinium/Menthol Lozenge MUCMEM PRN (08:25)
--- NOTE | 2020-07-05 08:32 | OR ---
DATE OF PROCEDURE: 07/04/2020 SURGEON: Devon Rod MD PROCEDURE: Paracentesis. COMPLICATIONS: None. IMMERSION METALCLEANER: None. ANESTHETIC: Local. RISKS: Risks, benefits, alternatives, and limitations including, but not limited to, infection, bleeding, injury to abdominal structures were explained to the patient and he wished to proceed. FINDINGS: 5 L of straw-colored fluid. DESCRIPTION OF PROCEDURE: The patient was placed in supine position. The right abdomen was marked. This was then prepped and draped. A single alyssa was created in the skin after anesthetizing with lidocaine. The sheath was introduced as the needle was withdrawn. Using vacuum bottle system, 5 L of straw-colored fluid was able to be removed without difficulty. No blood was noted. The sheath was then removed. A [id number] Prolene suture was then placed. Dressings were applied. The patient tolerated the procedure well. Devon oRd MD /[id number]
[2020-07-05] MEDS: Spironolactone 25 MG Tab PO SCH ×2 (08:33→14:06)
[2020-07-05] MEDS: Pantoprazole 40 MG Tab.CR PO SCH (08:33)
[2020-07-05] MEDS: Aspirin 325 MG Tab.EC PO SCH (08:33)
[2020-07-05] MEDS: Carvedilol 3.125 MG Tab PO SCH ×2 (08:33→16:45)
[2020-07-05] MEDS: Sertraline 50 MG Tab PO SCH (08:34)
[2020-07-05] MEDS: Cefdinir 300 MG Cap PO SCH ×2 (08:34→21:19)
[2020-07-05] MEDS: Furosemide 40 MG Tab PO SCH (08:35)
[2020-07-05] MEDS ORDERED: Furosemide 20 MG/2 ML VIAL IVPUSH ONE ×2 (11:30→14:00)
[2020-07-05] MEDS: Warfarin 2.5 MG Tab PO SCH (13:33)
--- NOTE | 2020-07-05 13:49 | PCM.PN ---
- General Info Date of Service: 07/05/20 Subjective Update: Mr. Wise has been fairly stable since yesterday, following large volume paracentesis performed by Dr. Rod. Blood pressure remains soft and borderline. Echocardiogram obtained this morning shows severely decreased left ventricular function with underlying valvular disease. Continues to experience anasarca involving his thighs, lower back, and lower abdominal wall. Functional Status: Reports: Tolerating Diet, Urinating. Denies: Ambulating - Review of Systems General: Reports: Weakness. Denies: Fever, Chills Pulmonary: Reports: Shortness of Breath, Cough. Denies: Pleuritic Chest Pain, Sputum, Hemoptysis, Wheezing Cardiovascular: Reports: Dyspnea on Exertion, Edema. Denies: Chest Pain, Palpitations, Orthopnea, PND, Lightheadedness Gastrointestinal: Reports: No Symptoms Genitourinary: Reports: No Symptoms - Patient Data Vitals - Most Recent: Last Vital Signs Temp 98.5 F 07/05/20 11:14 Pulse 55 L 07/05/20 11:26 Resp 18 07/05/20 11:14 BP 94/59 L 07/05/20 11:26 Pulse Ox 95 07/05/20 11:26 Weight - Most Recent: 224 lb 3.2 oz I&O - Last 24 Hours: Intake & Output 07/04/20 07/05/20 07/05/20 22:59 06:59 14:59 Intake Total 200 100 240 Balance 200 100 240 Lab Results Last 24 Hours: Laboratory Results - last 24 hr 07/05/20 07/05/20 Range/Units 05:00 05:00 PT 17.0 H (9.5-12.0) sec INR 1.57 H (0.80-1.20) Sodium 135 L (140-148) mmol/L Potassium 4.2 (3.6-5.2) mmol/L Chloride 102 (100-108) mmol/L Carbon Dioxide 22 (21-32) mmol/L Anion Gap 15.2 H (5.0-14.0) mmol/L BUN 47 H (7-18) mg/dL Creatinine 1.1 (0.8-1.3) mg/dL Est Cr Clr Drug Dosing 73.29 mL/min Estimated GFR (MDRD) > 60 (>60) Glucose 109 H (74-106) mg/dL Calcium 8.2 L (8.5-10.1) mg/dL Francisco Results Last 24 Hours: Microbiology 07/02/20 12:36 Gram Stain - Final Peritoneal Fluid Body Fluid Culture - Preliminary NO GROWTH AFTER 2 DAYS 07/02/20 12:36 Gram Stain - Final Thoracentesis Fluid Body Fluid Culture - Preliminary NO GROWTH AFTER 2 DAYS Med Orders - Current: Current Medications Acetaminophen (Tylenol) 650 mg PO Q4H PRN PRN Reason: Pain (Mild 1-3)/fever Last Admin: 07/01/20 23:12 Dose: 650 mg Documented by: Aspirin (Ecotrin) 325 mg PO DAILY [facility] Last Admin: 07/05/20 08:33 Dose: 325 mg Documented by: Atorvastatin Calcium (Lipitor) 10 mg PO BEDTIME [facility] Last Admin: 07/04/20 20:31 Dose: 10 mg Documented by: Azithromycin (Zithromax) 500 mg PO BEDTIME [facility] Stop: 07/05/20 21:01 Last Admin: 07/04/20 20:31 Dose: 500 mg Documented by: Benzocaine/Menthol (Cepacol Sore Throat) 1 lozenge MUCMEM ASDIRECTED PRN PRN Reason: DRY/SORE THROAT Last Admin: 07/05/20 09:11 Dose: 1 reanna Documented by: Carvedilol (Coreg) 3.125 mg PO BIDMEALS [facility] Last Admin: 07/05/20 08:33 Dose: 3.125 mg Documented by: Cefdinir (Omnicef) 300 mg PO BID [facility] Stop: 07/06/20 09:01 Last Admin: 07/05/20 08:34 Dose: 300 mg Documented by: Furosemide (Lasix) 40 mg PO BID [facility] Lorazepam (Ativan) 0.5 mg IVPUSH Q4H PRN PRN Reason: Nausea/Vomiting Magnesium Hydroxide (Milk Of Magnesia) 30 ml PO Q12H PRN PRN Reason: Constipation Melatonin (Melatonin) 9 mg PO BEDTIME PRN PRN Reason: Sleep Morphine Sulfate (Morphine) 2 mg IVPUSH Q2H PRN PRN Reason: Pain (severe 7-10) Ondansetron HCl (Zofran) 4 mg IV Q6H PRN PRN Reason: Nausea/Vomiting Ondansetron HCl (Zofran Odt) 4 mg PO Q6H PRN PRN Reason: Nausea able to take PO Oxycodone HCl (Oxycodone) 5 mg PO Q4H PRN PRN Reason: Pain (moderate 4-6) Pantoprazole Sodium (Protonix) 40 mg PO ACBREAKFAST [facility] Last Admin: 07/05/20 08:33 Dose: 40 mg Documented by: Senna/Docusate Sodium (Senna Plus) 1 tab PO BID PRN PRN Reason: Constipation Sertraline HCl (Zoloft) 50 mg PO DAILY [facility] Last Admin: 07/05/20 08:34 Dose: 50 mg Documented by: Spironolactone (Aldactone) 25 mg PO BIDDIURETIC [facility] Last Admin: 07/05/20 08:33 Dose: 25 mg Documented by: Warfarin Sodium (Coumadin) 2.5 mg PO DAILY@1300 [facility] Last Admin: 07/05/20 13:33 Dose: 2.5 mg Documented by: Discontinued Medications Ceftriaxone Sodium (Rocephin) Confirm Administered Dose 1 gm IV .STK-MED [facility] Stop: 07/01/20 20:40 Last Admin: 07/01/20 21:10 Dose: Not Given Documented by: Furosemide (Lasix) 40 mg PO DAILY [facility] Last Admin: 07/05/20 08:35 Dose: Not Given Documented by: Furosemide (Lasix) 20 mg IVPUSH NOW ONE Stop: 07/05/20 11:31 Sodium Chloride (Normal Saline) 1,000 mls @ 125 mls/hr IV ASDIRECTED [facility] Last Admin: 07/02/20 08:49 Dose: 125 mls/hr Documented by: Sodium Chloride (Normal Saline) 100 mls @ 3.5 mls/sec IV ASDIRECTED [facility] Stop: 07/01/20 23:00 Last Admin: 07/01/20 17:06 Dose: 4 mls/sec Documented by: Ceftriaxone Sodium 1 gm/ (Sodium Chloride) 50 mls @ 100 mls/hr IV Q24H [facility] Last Admin: 07/03/20 19:55 Dose: 100 mls/hr Documented by: Sodium Chloride (Normal Saline) Confirm Administered Dose 50 mls @ as directed .ROUTE .STK-MED ONE Stop: 07/01/20 20:41 Last Admin: 07/01/20 21:10 Dose: Not Given Documented by: Sodium Chloride (Normal Saline) 500 mls @ 500 mls/hr IV ASDIRECTED [facility] Stop: 07/02/20 17:46 Last Admin: 07/02/20 16:00 Dose: 500 mls/hr Documented by: Albumin Human (Albumin 25%) 25 gm in 100 mls @ 25 mls/hr IV Q6H [facility] Stop: 07/04/20 19:29 Last Admin: 07/04/20 15:01 Dose: Not Given Documented by: Iopamidol (Isovue-370 (76%)) 100 ml IV . DIRECTED [facility] Stop: 07/01/20 23:00 Last Admin: 07/01/20 17:06 Dose: 100 ml Documented by: Lorazepam (Ativan) 0.5 mg IVPUSH ONETIME ONE Stop: 07/02/20 10:31 Last Admin: 07/02/20 10:51 Dose: 0.5 mg Documented by: Pantoprazole Sodium (Protonix) 40 mg PO ACBREAKFAST [facility] Last Admin: 07/02/20 10:47 Dose: Not Given Documented by: Sodium Chloride (Saline Flush) 10 ml FLUSH ONETIME ONE Stop: 07/01/20 16:59 Last Admin: 07/01/20 17:06 Dose: 10 ml Documented by: - Exam Quality Assessment: DVT Prophylaxis General: Alert, Oriented, Cooperative, Moderate Distress Lungs: Normal Respiratory Effort, Decreased Breath Sounds, Rales. No: Crackles, Rhonchi Cardiovascular: Regular Rate, Irregular Rhythm, Murmurs GI/Abdominal Exam: Soft, Non-Tender, No Organomegaly, No Distention Extremities: Non-Tender, Pedal Edema Sepsis Event Note - Evaluation Sepsis Screening Result: No Definite Risk - Focused Exam Vital Signs: Vital Signs Temp Pulse Pulse Resp BP BP Pulse Ox 07/05/20 11:26 55 L 94/59 L 95 07/05/20 11:14 98.5 F 48 L 18 86/52 L 95 07/05/20 08:33 65 105/65 07/05/20 08:25 65 18 100/65 95 - Problem List Review Problem List Initiated/Reviewed/Updated: Yes - My Orders Last 24 Hours: My Active Orders 07/05/20 08:25 Benzocaine/Cetylpyrd/Menthol [Cepacol Sore Throat] 1 lozenge MUCMEM ASDIRECTED PRN 07/06/20 05:00 CBC WITH AUTO DIFF [HEME] Timed COMPREHENSIVE METABOLIC PN,CMP [CHEM] Timed INR,PT,PROTHROMBIN TIME [COAG] Timed MAGNESIUM [CHEM] Timed 07/06/20 09:00 Furosemide [Lasix] 40 mg PO BID - Plan Plan:: ASSESSMENT AND PLAN - Combined systolic and diastolic congestive heart failure-echocardiogram shows severely decreased left ventricular function with underlying valvular disease -Continue beta-hope -Furosemide 40 mg twice daily -Follow-up cultures and lab studies from thoracentesis fluid Alcohol dependence-marked ascites which could be from his heart failure versus cirrhosis. Bilirubin stable. Status post paracentesis x2 -Follow-up cultures and laboratory studies from paracentesis fluid -Encourage alcohol cessation -Diuretics as above Right lung pneumonia-noted on CT scan. White count remains normal. No fevers. Minimal symptoms. -Antibiotic coverage with cefdinir and azithromycin for 5 days Chronic atrial fibrillation-rate controlled good so far. -Continue beta-hope -Warfarin daily -INR in the morning Chronic venous stasis-skin is currently sloughing because of prolonged time with compression wraps on. We are currently leaving the legs open to the air to allow the skin to slough. He would benefit from outpatient follow-up with Dr. Rod. Stage III chronic kidney disease-stable. Maintenance issues - - DVT prophylaxis -warfarin - GI prophylaxis -PPI - Nutrition -low-sodium Disposition -I would anticipate discharge with home care if they will take him versus subacute rehab Primary care physician -Dr Anam Albright
[2020-07-05] MEDS: Azithromycin 250 MG Tab PO SCH (21:20)
[2020-07-05] MEDS: atorvaSTATin 10 MG Tab PO SCH (21:20)
[2020-07-06] MEDS: Carvedilol 3.125 MG Tab PO SCH ×2 (08:35→17:39)
[2020-07-06] MEDS: Spironolactone 25 MG Tab PO SCH ×2 (08:35→14:17)
[2020-07-06] MEDS: Pantoprazole 40 MG Tab.CR PO SCH (08:35)
[2020-07-06] MEDS: Sertraline 50 MG Tab PO SCH (08:36)
[2020-07-06] MEDS: Aspirin 325 MG Tab.EC PO SCH (08:36)
[2020-07-06] MEDS: Cefdinir 300 MG Cap PO SCH (08:36)
[2020-07-06] MEDS: Furosemide 40 MG Tab PO SCH ×2 (08:36→14:16)
--- NOTE | 2020-07-06 14:05 | PCM.PN ---
- General Info Date of Service: 07/06/20 Subjective Update: Mr. Wise has felt more weak and tired today. He denies significant change in his level of shortness of breath. Renal function is stable but diuresis was minimal over the last 24 hours. Functional Status: Reports: Tolerating Diet, Urinating. Denies: Ambulating - Review of Systems General: Reports: Weakness, Fatigue. Denies: Fever, Chills Pulmonary: Reports: Shortness of Breath. Denies: Pleuritic Chest Pain, Cough, Sputum, Hemoptysis, Wheezing Cardiovascular: Reports: Dyspnea on Exertion, Edema. Denies: Chest Pain, Palpitations, Orthopnea, PND, Lightheadedness Gastrointestinal: Reports: No Symptoms - Patient Data Vitals - Most Recent: Last Vital Signs Temp 97.5 F 07/06/20 11:00 Pulse 84 07/06/20 11:00 Resp 18 07/06/20 11:00 BP 107/74 07/06/20 11:00 Pulse Ox 98 07/06/20 11:00 Weight - Most Recent: 224 lb 1.6 oz I&O - Last 24 Hours: Intake & Output 07/05/20 07/06/20 07/06/20 22:59 06:59 14:59 Intake Total 800 250 Output Total 300 250 150 Balance 500 -250 100 Lab Results Last 24 Hours: Laboratory Results - last 24 hr 07/06/20 07/06/20 07/06/20 Range/Units 04:10 04:10 04:10 WBC 8.0 (4.5-11.0) K/uL RBC 4.77 (4.30-5.90) M/uL Hgb 13.5 (12.0-15.0) g/dL Hct 41.5 (40.0-54.0) % MCV 87 (80-98) fL MCH 28 (27-31) pg MCHC 33 (32-36) % Plt Count 207 (150-400) K/uL Neut % (Auto) 82 H (36-66) % Lymph % (Auto) 8 L (24-44) % [place] % (Auto) 8 H (2-6) % Eos % (Auto) 2 (2-4) % Baso % (Auto) 0 (0-1) % PT 17.4 H (9.5-12.0) sec INR 1.61 H (0.80-1.20) Sodium 135 L (140-148) mmol/L Potassium 4.2 (3.6-5.2) mmol/L Chloride 101 (100-108) mmol/L Carbon Dioxide 21 (21-32) mmol/L Anion Gap 17.2 H (5.0-14.0) mmol/L BUN 44 H (7-18) mg/dL Creatinine 1.0 (0.8-1.3) mg/dL Est Cr Clr Drug Dosing 80.62 mL/min Estimated GFR (MDRD) > 60 (>60) Glucose 93 (74-106) mg/dL Calcium 8.5 (8.5-10.1) mg/dL Magnesium 1.8 (1.8-2.4) mg/dL Total Bilirubin 2.2 H (0.2-1.0) mg/dL AST 36 (15-37) U/L ALT 12 (12-78) U/L Alkaline Phosphatase 149 H (46-116) U/L Total Protein 5.4 L (6.4-8.2) g/dL Albumin 2.7 L (3.4-5.0) g/dL Globulin 2.7 (2.3-3.5) g/dL Albumin/Globulin Ratio 1.0 L (1.2-2.2) [place] Results Last 24 Hours: Microbiology 07/02/20 12:36 Gram Stain - Final Thoracentesis Fluid Body Fluid Culture - Final NO GROWTH AFTER 3 DAYS 07/02/20 12:36 Gram Stain - Final Peritoneal Fluid Body Fluid Culture - Final NO GROWTH AFTER 3 DAYS Med Orders - Current: Current Medications Acetaminophen (Tylenol) 650 mg PO Q4H PRN PRN Reason: Pain (Mild 1-3)/fever Last Admin: 07/01/20 23:12 Dose: 650 mg Documented by: Aspirin (Ecotrin) 325 mg PO DAILY [facility] Last Admin: 07/06/20 08:36 Dose: 325 mg Documented by: Atorvastatin Calcium (Lipitor) 10 mg PO BEDTIME [facility] Last Admin: 07/05/20 21:20 Dose: 10 mg Documented by: Benzocaine/Menthol (Cepacol Sore Throat) 1 lozenge MUCMEM ASDIRECTED PRN PRN Reason: DRY/SORE THROAT Last Admin: 07/05/20 09:11 Dose: 1 reanna Documented by: Carvedilol (Coreg) 3.125 mg PO BIDMEALS [facility] Last Admin: 07/06/20 08:35 Dose: 3.125 mg Documented by: Furosemide (Lasix) 40 mg PO BIDDIURETIC [facility] Last Admin: 07/06/20 08:36 Dose: 40 mg Documented by: Lorazepam (Ativan) 0.5 mg IVPUSH Q4H PRN PRN Reason: Nausea/Vomiting Magnesium Hydroxide (Milk Of Magnesia) 30 ml PO Q12H PRN PRN Reason: Constipation Melatonin (Melatonin) 9 mg PO BEDTIME PRN PRN Reason: Sleep Morphine Sulfate (Morphine) 2 mg IVPUSH Q2H PRN PRN Reason: Pain (severe 7-10) Ondansetron HCl (Zofran) 4 mg IV Q6H PRN PRN Reason: Nausea/Vomiting Last Admin: 07/06/20 11:09 Dose: 4 mg Documented by: Ondansetron HCl (Zofran Odt) 4 mg PO Q6H PRN PRN Reason: Nausea able to take PO Oxycodone HCl (Oxycodone) 5 mg PO Q4H PRN PRN Reason: Pain (moderate 4-6) Pantoprazole Sodium (Protonix) 40 mg PO ACBREAKFAST [facility] Last Admin: 07/06/20 08:35 Dose: 40 mg Documented by: Senna/Docusate Sodium (Senna Plus) 1 tab PO BID PRN PRN Reason: Constipation Sertraline HCl (Zoloft) 50 mg PO DAILY [facility] Last Admin: 07/06/20 08:36 Dose: 50 mg Documented by: Spironolactone (Aldactone) 25 mg PO BIDDIURETIC [facility] Last Admin: 07/06/20 08:35 Dose: 25 mg Documented by: Warfarin Sodium (Coumadin) 2.5 mg PO DAILY@1300 [facility] Last Admin: 07/05/20 13:33 Dose: 2.5 mg Documented by: Discontinued Medications Azithromycin (Zithromax) 500 mg PO BEDTIME [facility] Stop: 07/05/20 21:01 Last Admin: 07/05/20 21:20 Dose: 500 mg Documented by: Cefdinir (Omnicef) 300 mg PO BID [facility] Stop: 07/06/20 09:01 Last Admin: 07/06/20 08:36 Dose: 300 mg Documented by: Ceftriaxone Sodium (Rocephin) Confirm Administered Dose 1 gm IV .STK-MED ONE Stop: 07/01/20 20:40 Last Admin: 07/01/20 21:10 Dose: Not Given Documented by: Furosemide (Lasix) 40 mg PO DAILY [facility] Last Admin: 07/05/20 08:35 Dose: Not Given Documented by: Furosemide (Lasix) 20 mg IVPUSH NOW ONE Stop: 07/05/20 14:01 Last Admin: 07/05/20 14:06 Dose: 20 mg Documented by: Sodium Chloride (Normal Saline) 1,000 mls @ 125 mls/hr IV ASDIRECTED [facility] Last Admin: 07/02/20 08:49 Dose: 125 mls/hr Documented by: Sodium Chloride (Normal Saline) 100 mls @ 3.5 mls/sec IV ASDIRECTED [facility] Stop: 07/01/20 23:00 Last Admin: 07/01/20 17:06 Dose: 4 mls/sec Documented by: Ceftriaxone Sodium 1 gm/ (Sodium Chloride) 50 mls @ 100 mls/hr IV Q24H [facility] Last Admin: 07/03/20 19:55 Dose: 100 mls/hr Documented by: Sodium Chloride (Normal Saline) Confirm Administered Dose 50 mls @ as directed .ROUTE .[facility] ONE Stop: 07/01/20 20:41 Last Admin: 07/01/20 21:10 Dose: Not Given Documented by: Sodium Chloride (Normal Saline) 500 mls @ 500 mls/hr IV ASDIRECTED [facility] Stop: 07/02/20 17:46 Last Admin: 07/02/20 16:00 Dose: 500 mls/hr Documented by: Albumin Human (Albumin 25%) 25 gm in 100 mls @ 25 mls/hr IV Q6H [facility] Stop: 07/04/20 19:29 Last Admin: 07/04/20 15:01 Dose: Not Given Documented by: Iopamidol (Isovue-370 (76%)) 100 ml IV . DIRECTED [facility] Stop: 07/01/20 23:00 Last Admin: 07/01/20 17:06 Dose: 100 ml Documented by: Lorazepam (Ativan) 0.5 mg IVPUSH ONETIME ONE Stop: 07/02/20 10:31 Last Admin: 07/02/20 10:51 Dose: 0.5 mg Documented by: Pantoprazole Sodium (Protonix) 40 mg PO ACBREAKFAST LEIGH Last Admin: 07/02/20 10:47 Dose: Not Given Documented by: Sodium Chloride (Saline Flush) 10 ml FLUSH ONETIME ONE Stop: 07/01/20 16:59 Last Admin: 07/01/20 17:06 Dose: 10 ml Documented by: - Exam Quality Assessment: DVT Prophylaxis General: Alert, Oriented, Cooperative, Mild Distress Lungs: Normal Respiratory Effort, Decreased Breath Sounds. No: Rales, Rhonchi, Wheezing Cardiovascular: Regular Rate, Irregular Rhythm, Murmurs GI/Abdominal Exam: Soft, Non-Tender, No Organomegaly, No Distention Extremities: Non-Tender, Pedal Edema Sepsis Event Note - Evaluation Sepsis Screening Result: No Definite Risk - Focused Exam Vital Signs: Vital Signs Temp Pulse Pulse Resp BP BP Pulse Ox 07/06/20 11:00 97.5 F 84 18 107/74 98 07/06/20 08:35 70 97/73 07/06/20 07:00 98 F 70 16 / 97 - Problem List Review Problem List Initiated/Reviewed/Updated: Yes - My Orders Last 24 Hours: My Active Orders 07/06/20 09:00 Furosemide [Lasix] 40 mg PO BIDDIURETIC 07/07/20 05:00 COMPREHENSIVE METABOLIC PN,CMP [CHEM] Timed INR,PT,PROTHROMBIN TIME [COAG] Timed - Plan Plan:: ASSESSMENT AND PLAN Combined systolic and diastolic congestive heart failure-echocardiogram shows severely decreased left ventricular function with underlying valvular disease -Continue beta-hope -Furosemide 40 mg twice daily -Follow-up cultures and lab studies from thoracentesis fluid Alcohol dependence-marked ascites which could be from his heart failure versus cirrhosis. Bilirubin stable. Status post paracentesis x2 -Follow-up cultures and laboratory studies from paracentesis fluid -Encourage alcohol cessation -Diuretics as above Right lung pneumonia-noted on CT scan. White count remains normal. No fevers. Minimal symptoms. -Antibiotic coverage with cefdinir and azithromycin for 5 days Chronic atrial fibrillation-rate controlled good so far. -Continue beta-hope -Warfarin daily -INR in the morning Chronic venous stasis-skin is currently sloughing because of prolonged time with compression wraps on. We are currently leaving the legs open to the air to allow the skin to slough. He would benefit from outpatient follow-up with Dr. Rod. Stage III chronic kidney disease-stable. Maintenance issues - - DVT prophylaxis -warfarin - GI prophylaxis -PPI - Nutrition -low-sodium Disposition -I would anticipate discharge with home care if they will take him versus subacute rehab Primary care physician -Dr Anam Albright
[2020-07-06] MEDS: Warfarin 2.5 MG Tab PO SCH (14:16)
[2020-07-06] MEDS: atorvaSTATin 10 MG Tab PO SCH (20:49)
[2020-07-07] MEDS: Spironolactone 25 MG Tab PO SCH ×2 (08:38→13:37)
[2020-07-07] MEDS: Carvedilol 3.125 MG Tab PO SCH ×2 (08:38→16:38)
[2020-07-07] MEDS: Pantoprazole 40 MG Tab.CR PO SCH (08:38)
[2020-07-07] MEDS: Furosemide 40 MG Tab PO SCH ×2 (08:39→13:37)
[2020-07-07] MEDS: Sertraline 50 MG Tab PO SCH (08:39)
[2020-07-07] MEDS: Aspirin 325 MG Tab.EC PO SCH (08:39)
[2020-07-07] MEDS ORDERED: Atropine/Diphenoxylate 0.025-2.5 MG Tab PO PRN (11:53)
--- NOTE | 2020-07-07 11:53 | PCM.PN ---
- General Info Date of Service: 07/07/20 Subjective Update: Mr. Wise has remained stable since yesterday. He reports feeling fairly weak and fatigued today, similar to yesterday. Denies significant shortness of breath at rest, but is very weak with any attempt at activity. Functional Status: Reports: Tolerating Diet, Ambulating, Urinating - Review of Systems General: Reports: Weakness, Fatigue. Denies: Fever, Chills Pulmonary: Reports: Shortness of Breath. Denies: Pleuritic Chest Pain, Cough, Sputum, Hemoptysis, Wheezing Cardiovascular: Reports: Dyspnea on Exertion, Edema. Denies: Chest Pain, Palpitations, Orthopnea, PND, Lightheadedness Gastrointestinal: Reports: No Symptoms - Patient Data Vitals - Most Recent: Last Vital Signs Temp 97.7 F 07/07/20 10:09 Pulse 71 07/07/20 10:09 Resp 18 07/07/20 10:09 BP 93/58 L 07/07/20 10:09 Pulse Ox 94 L 07/07/20 10:09 Weight - Most Recent: 225 lb I&O - Last 24 Hours: Intake & Output 07/06/20 07/07/20 07/07/20 22:59 06:59 14:59 Intake Total 480 260 Output Total 100 Balance 380 260 Lab Results Last 24 Hours: Laboratory Results - last 24 hr 07/07/20 07/07/20 Range/Units 04:12 04:12 PT 19.3 H (9.5-12.0) sec INR 1.79 H (0.80-1.20) Sodium 135 L (140-148) mmol/L Potassium 4.8 (3.6-5.2) mmol/L Chloride 102 (100-108) mmol/L Carbon Dioxide 21 (21-32) mmol/L Anion Gap 16.8 H (5.0-14.0) mmol/L BUN 48 H (7-18) mg/dL Creatinine 1.3 (0.8-1.3) mg/dL Est Cr Clr Drug Dosing 62.02 mL/min Estimated GFR (MDRD) 55 L (>60) Glucose 109 H (74-106) mg/dL Calcium 8.5 (8.5-10.1) mg/dL Total Bilirubin 2.0 H (0.2-1.0) mg/dL AST 37 (15-37) U/L ALT 13 (12-78) U/L Alkaline Phosphatase 170 H (46-116) U/L Total Protein 5.9 L (6.4-8.2) g/dL Albumin 2.9 L (3.4-5.0) g/dL Globulin 3.0 (2.3-3.5) g/dL Albumin/Globulin Ratio 1.0 L (1.2-2.2) Med Orders - Current: Current Medications Acetaminophen (Tylenol) 650 mg PO Q4H PRN PRN Reason: Pain (Mild 1-3)/fever Last Admin: 07/01/20 23:12 Dose: 650 mg Documented by: Aspirin (Ecotrin) 325 mg PO DAILY [facility] Last Admin: 07/07/20 08:39 Dose: 325 mg Documented by: Atorvastatin Calcium (Lipitor) 10 mg PO BEDTIME [facility] Last Admin: 07/06/20 20:49 Dose: 10 mg Documented by: Benzocaine/Menthol (Cepacol Sore Throat) 1 lozenge MUCMEM ASDIRECTED PRN PRN Reason: DRY/SORE THROAT Last Admin: 07/05/20 09:11 Dose: 1 reanna Documented by: Carvedilol (Coreg) 3.125 mg PO BIDMEALS [facility] Last Admin: 07/07/20 08:38 Dose: 3.125 mg Documented by: Furosemide (Lasix) 40 mg PO BIDDIURETIC [facility] Last Admin: 07/07/20 08:39 Dose: 40 mg Documented by: Lorazepam (Ativan) 0.5 mg IVPUSH Q4H PRN PRN Reason: Nausea/Vomiting Magnesium Hydroxide (Milk Of Magnesia) 30 ml PO Q12H PRN PRN Reason: Constipation Melatonin (Melatonin) 9 mg PO BEDTIME PRN PRN Reason: Sleep Morphine Sulfate (Morphine) 2 mg IVPUSH Q2H PRN PRN Reason: Pain (severe 7-10) Ondansetron HCl (Zofran) 4 mg IV Q6H PRN PRN Reason: Nausea/Vomiting Last Admin: 07/06/20 11:09 Dose: 4 mg Documented by: Ondansetron HCl (Zofran Odt) 4 mg PO Q6H PRN PRN Reason: Nausea able to take PO Oxycodone HCl (Oxycodone) 5 mg PO Q4H PRN PRN Reason: Pain (moderate 4-6) Pantoprazole Sodium (Protonix) 40 mg PO ACBREAKFAST [facility] Last Admin: 07/07/20 08:38 Dose: 40 mg Documented by: Senna/Docusate Sodium (Senna Plus) 1 tab PO BID PRN PRN Reason: Constipation Sertraline HCl (Zoloft) 50 mg PO DAILY [facility] Last Admin: 07/07/20 08:39 Dose: 50 mg Documented by: Spironolactone (Aldactone) 25 mg PO BIDDIURETIC [facility] Last Admin: 07/07/20 08:38 Dose: 25 mg Documented by: Warfarin Sodium (Coumadin) 2.5 mg PO DAILY@1300 [facility] Last Admin: 07/06/20 14:16 Dose: 2.5 mg Documented by: Discontinued Medications Azithromycin (Zithromax) 500 mg PO BEDTIME [facility] Stop: 07/05/20 21:01 Last Admin: 07/05/20 21:20 Dose: 500 mg Documented by: Cefdinir (Omnicef) 300 mg PO BID [facility] Stop: 07/06/20 09:01 Last Admin: 07/06/20 08:36 Dose: 300 mg Documented by: Ceftriaxone Sodium (Rocephin) Confirm Administered Dose 1 gm IV .[facility] ONE Stop: 07/01/20 20:40 Last Admin: 07/01/20 21:10 Dose: Not Given Documented by: Furosemide (Lasix) 40 mg PO DAILY [facility] Last Admin: 07/05/20 08:35 Dose: Not Given Documented by: Furosemide (Lasix) 20 mg IVPUSH NOW ONE Stop: 07/05/20 14:01 Last Admin: 07/05/20 14:06 Dose: 20 mg Documented by: Sodium Chloride (Normal Saline) 1,000 mls @ 125 mls/hr IV ASDIRECTED [facility] Last Admin: 07/02/20 08:49 Dose: 125 mls/hr Documented by: Sodium Chloride (Normal Saline) 100 mls @ 3.5 mls/sec IV ASDIRECTED [facility] Stop: 07/01/20 23:00 Last Admin: 07/01/20 17:06 Dose: 4 mls/sec Documented by: Ceftriaxone Sodium 1 gm/ (Sodium Chloride) 50 mls @ 100 mls/hr IV Q24H [facility] Last Admin: 07/03/20 19:55 Dose: 100 mls/hr Documented by: Sodium Chloride (Normal Saline) Confirm Administered Dose 50 mls @ as directed .ROUTE .STK-MED ONE Stop: 07/01/20 20:41 Last Admin: 07/01/20 21:10 Dose: Not Given Documented by: Sodium Chloride (Normal Saline) 500 mls @ 500 mls/hr IV ASDIRECTED [facility] Stop: 07/02/20 17:46 Last Admin: 07/02/20 16:00 Dose: 500 mls/hr Documented by: Albumin Human (Albumin 25%) 25 gm in 100 mls @ 25 mls/hr IV Q6H [facility] Stop: 07/04/20 19:29 Last Admin: 07/04/20 15:01 Dose: Not Given Documented by: Iopamidol (Isovue-370 (76%)) 100 ml IV . DIRECTED [facility] Stop: 07/01/20 23:00 Last Admin: 07/01/20 17:06 Dose: 100 ml Documented by: Lorazepam (Ativan) 0.5 mg IVPUSH ONETIME ONE Stop: 07/02/20 10:31 Last Admin: 07/02/20 10:51 Dose: 0.5 mg Documented by: Pantoprazole Sodium (Protonix) 40 mg PO ACBREAKFAST [facility] Last Admin: 07/02/20 10:47 Dose: Not Given Documented by: Sodium Chloride (Saline Flush) 10 ml FLUSH ONETIME ONE Stop: 07/01/20 16:59 Last Admin: 07/01/20 17:06 Dose: 10 ml Documented by: - Exam Quality Assessment: DVT Prophylaxis General: Alert, Oriented, Cooperative, Mild Distress Lungs: Clear to Auscultation, Normal Respiratory Effort, Decreased Breath Sounds. No: Rales, Rhonchi, Wheezing Cardiovascular: Regular Rate, Irregular Rhythm, Murmurs GI/Abdominal Exam: Soft, Non-Tender, No Organomegaly, No Distention Extremities: Non-Tender, Pedal Edema Sepsis Event Note - Evaluation Sepsis Screening Result: No Definite Risk - Focused Exam Vital Signs: Vital Signs Temp Pulse Pulse Resp BP BP Pulse Ox 07/07/20 10:09 97.7 F 71 18 93/58 L 94 L 07/07/20 08:38 70 102/67 07/07/20 07:00 97.6 F 70 18 102/67 94 L 07/07/20 04:24 18 - Problem List Review Problem List Initiated/Reviewed/Updated: Yes - My Orders Last 24 Hours: My Active Orders 07/08/20 05:00 COMPREHENSIVE METABOLIC PN,CMP [CHEM] Timed INR,PT,PROTHROMBIN TIME [COAG] Timed - Plan Plan:: ASSESSMENT AND PLAN Combined systolic and diastolic congestive heart failure-echocardiogram shows severely decreased left ventricular function with underlying valvular disease -Continue beta-hope -Furosemide 40 mg twice daily -Follow-up cultures and lab studies from thoracentesis fluid Alcohol dependence-marked ascites which could be from his heart failure versus cirrhosis. Bilirubin stable. Status post paracentesis x2 -Follow-up cultures remain negative -Encourage alcohol cessation -Diuretics as above Right lung pneumonia-noted on CT scan. He has now completed a full course of antibiotic therapy Chronic atrial fibrillation-rate controlled good so far. -Continue beta-hope -Warfarin daily -INR in the morning Chronic venous stasis-skin is currently sloughing because of prolonged time with compression wraps on. We are currently leaving the legs open to the air to allow the skin to slough. He would benefit from outpatient follow-up with Dr. Rod. Stage III chronic kidney disease-stable. Maintenance issues - - DVT prophylaxis -warfarin - GI prophylaxis -PPI - Nutrition -low-sodium Disposition -I would anticipate discharge with home care if they will take him versus subacute rehab Primary care physician -Dr Anam Albright
[2020-07-07] MEDS: Warfarin 2.5 MG Tab PO SCH (13:37)
[2020-07-07] MEDS: atorvaSTATin 10 MG Tab PO SCH (20:23)
[2020-07-08] MEDS: Furosemide 40 MG Tab PO SCH ×2 (08:14→14:35)
[2020-07-08] MEDS: Sertraline 50 MG Tab PO SCH (08:14)
[2020-07-08] MEDS: Aspirin 325 MG Tab.EC PO SCH (08:14)
[2020-07-08] MEDS: Pantoprazole 40 MG Tab.CR PO SCH (08:20)
[2020-07-08] MEDS: Carvedilol 3.125 MG Tab PO SCH ×2 (08:20→17:21)
[2020-07-08] MEDS: Spironolactone 25 MG Tab PO SCH ×2 (08:21→14:34)
[2020-07-08] MEDS: Warfarin 2.5 MG Tab PO SCH (14:35)
--- NOTE | 2020-07-08 17:00 | PCM.PN ---
- General Info Date of Service: 07/08/20 Subjective Update: Mr. Wise remains very weak and somewhat lethargic. He has been uncooperative with physical therapy and Occupational Therapy. He reports intermittent difficulty with swallowing with coughing and choking sensation. Respiratory status has been stable and he is not experiencing significant shortness of breath with activity although this is very limited. Functional Status: Reports: Urinating. Denies: Tolerating Diet - Review of Systems General: Reports: Weakness, Fatigue. Denies: Fever, Chills Pulmonary: Reports: Shortness of Breath. Denies: Pleuritic Chest Pain, Cough, Sputum, Hemoptysis, Wheezing Cardiovascular: Reports: Dyspnea on Exertion, Edema. Denies: Chest Pain, Palpitations, Orthopnea, PND, Lightheadedness Gastrointestinal: Reports: No Symptoms Genitourinary: Reports: No Symptoms - Patient Data Vitals - Most Recent: Last Vital Signs Temp 97.2 F 07/08/20 14:34 Pulse 62 07/08/20 14:34 Resp 18 07/08/20 14:34 BP 107/67 07/08/20 14:34 Pulse Ox 92 L 07/08/20 14:34 Weight - Most Recent: 228 lb 1.6 oz I&O - Last 24 Hours: Intake & Output 07/08/20 07/08/20 07/08/20 06:59 14:59 22:59 Intake Total 220 Balance 220 Lab Results Last 24 Hours: Laboratory Results - last 24 hr 07/08/20 07/08/20 Range/Units 04:10 04:10 PT 23.0 H (9.5-12.0) sec INR 2.14 H (0.80-1.20) Sodium 134 L (140-148) mmol/L Potassium 4.6 (3.6-5.2) mmol/L Chloride 102 (100-108) mmol/L Carbon Dioxide 22 (21-32) mmol/L Anion Gap 14.6 H (5.0-14.0) mmol/L BUN 50 H (7-18) mg/dL Creatinine 1.2 (0.8-1.3) mg/dL Est Cr Clr Drug Dosing 67.19 mL/min Estimated GFR (MDRD) > 60 (>60) Glucose 94 (74-106) mg/dL Calcium 8.4 L (8.5-10.1) mg/dL Total Bilirubin 1.8 H (0.2-1.0) mg/dL AST 34 (15-37) U/L ALT 10 L (12-78) U/L Alkaline Phosphatase 152 H (46-116) U/L Total Protein 5.4 L (6.4-8.2) g/dL Albumin 2.6 L (3.4-5.0) g/dL Globulin 2.8 (2.3-3.5) g/dL Albumin/Globulin Ratio 0.9 L (1.2-2.2) Med Orders - Current: Current Medications Acetaminophen (Tylenol) 650 mg PO Q4H PRN PRN Reason: Pain (Mild 1-3)/fever Last Admin: 07/01/20 23:12 Dose: 650 mg Documented by: Aspirin (Ecotrin) 325 mg PO DAILY [facility] Last Admin: 07/08/20 08:14 Dose: 325 mg Documented by: Atorvastatin Calcium (Lipitor) 10 mg PO BEDTIME [facility] Last Admin: 07/07/20 20:23 Dose: 10 mg Documented by: Benzocaine/Menthol (Cepacol Sore Throat) 1 lozenge MUCMEM ASDIRECTED PRN PRN Reason: DRY/SORE THROAT Last Admin: 07/05/20 09:11 Dose: 1 reanna Documented by: Carvedilol (Coreg) 3.125 mg PO BIDMEALS [facility] Last Admin: 07/08/20 08:20 Dose: Not Given Documented by: Diphenoxylate HCl/Atropine (Lomotil 0.025-2.5 Mg) 1 tab PO TID PRN PRN Reason: Diarrhea Furosemide (Lasix) 40 mg PO BIDDIURETIC [facility] Last Admin: 07/08/20 14:35 Dose: 40 mg Documented by: Lorazepam (Ativan) 0.5 mg IVPUSH Q4H PRN PRN Reason: Nausea/Vomiting Magnesium Hydroxide (Milk Of Magnesia) 30 ml PO Q12H PRN PRN Reason: Constipation Melatonin (Melatonin) 9 mg PO BEDTIME PRN PRN Reason: Sleep Morphine Sulfate (Morphine) 2 mg IVPUSH Q2H PRN PRN Reason: Pain (severe 7-10) Ondansetron HCl (Zofran) 4 mg IV Q6H PRN PRN Reason: Nausea/Vomiting Last Admin: 07/06/20 11:09 Dose: 4 mg Documented by: Ondansetron HCl (Zofran Odt) 4 mg PO Q6H PRN PRN Reason: Nausea able to take PO Oxycodone HCl (Oxycodone) 5 mg PO Q4H PRN PRN Reason: Pain (moderate 4-6) Pantoprazole Sodium (Protonix) 40 mg PO ACBREAKFAST [facility] Last Admin: 07/08/20 08:20 Dose: 40 mg Documented by: Senna/Docusate Sodium (Senna Plus) 1 tab PO BID PRN PRN Reason: Constipation Sertraline HCl (Zoloft) 50 mg PO DAILY [facility] Last Admin: 07/08/20 08:14 Dose: 50 mg Documented by: Spironolactone (Aldactone) 25 mg PO BIDDIURETIC [facility] Last Admin: 07/08/20 14:34 Dose: 25 mg Documented by: Warfarin Sodium (Coumadin) 2.5 mg PO DAILY@1300 [facility] Last Admin: 07/08/20 14:35 Dose: 2.5 mg Documented by: Discontinued Medications Azithromycin (Zithromax) 500 mg PO BEDTIME [facility] Stop: 07/05/20 21:01 Last Admin: 07/05/20 21:20 Dose: 500 mg Documented by: Cefdinir (Omnicef) 300 mg PO BID [facility] Stop: 07/06/20 09:01 Last Admin: 07/06/20 08:36 Dose: 300 mg Documented by: Ceftriaxone Sodium (Rocephin) Confirm Administered Dose 1 gm IV .[facility] ONE Stop: 07/01/20 20:40 Last Admin: 07/01/20 21:10 Dose: Not Given Documented by: Furosemide (Lasix) 40 mg PO DAILY [facility] Last Admin: 07/05/20 08:35 Dose: Not Given Documented by: Furosemide (Lasix) 20 mg IVPUSH NOW ONE Stop: 07/05/20 14:01 Last Admin: 07/05/20 14:06 Dose: 20 mg Documented by: Sodium Chloride (Normal Saline) 1,000 mls @ 125 mls/hr IV ASDIRECTED [facility] Last Admin: 07/02/20 08:49 Dose: 125 mls/hr Documented by: Sodium Chloride (Normal Saline) 100 mls @ 3.5 mls/sec IV ASDIRECTED [facility] Stop: 07/01/20 23:00 Last Admin: 07/01/20 17:06 Dose: 4 mls/sec Documented by: Ceftriaxone Sodium 1 gm/ (Sodium Chloride) 50 mls @ 100 mls/hr IV Q24H [facility] Last Admin: 07/03/20 19:55 Dose: 100 mls/hr Documented by: Sodium Chloride (Normal Saline) Confirm Administered Dose 50 mls @ as directed .ROUTE .STK-MED ONE Stop: 07/01/20 20:41 Last Admin: 07/01/20 21:10 Dose: Not Given Documented by: Sodium Chloride (Normal Saline) 500 mls @ 500 mls/hr IV ASDIRECTED [facility] Stop: 07/02/20 17:46 Last Admin: 07/02/20 16:00 Dose: 500 mls/hr Documented by: Albumin Human (Albumin 25%) 25 gm in 100 mls @ 25 mls/hr IV Q6H [facility] Stop: 07/04/20 19:29 Last Admin: 07/04/20 15:01 Dose: Not Given Documented by: Iopamidol (Isovue-370 (76%)) 100 ml IV . DIRECTED [facility] Stop: 07/01/20 23:00 Last Admin: 07/01/20 17:06 Dose: 100 ml Documented by: Lorazepam (Ativan) 0.5 mg IVPUSH ONETIME ONE Stop: 07/02/20 10:31 Last Admin: 07/02/20 10:51 Dose: 0.5 mg Documented by: Pantoprazole Sodium (Protonix) 40 mg PO ACBREAKFAST [facility] Last Admin: 07/02/20 10:47 Dose: Not Given Documented by: Sodium Chloride (Saline Flush) 10 ml FLUSH ONETIME ONE Stop: 07/01/20 16:59 Last Admin: 07/01/20 17:06 Dose: 10 ml Documented by: - Exam Quality Assessment: Supplemental Oxygen, DVT Prophylaxis General: Alert, Oriented, Cooperative, Mild Distress Lungs: Decreased Breath Sounds. No: Rales, Rhonchi, Wheezing Cardiovascular: Regular Rate, Irregular Rhythm, Murmurs GI/Abdominal Exam: Soft, Non-Tender, No Organomegaly, No Distention Extremities: Non-Tender, Pedal Edema Sepsis Event Note - Evaluation Sepsis Screening Result: No Definite Risk - Focused Exam Vital Signs: Vital Signs Temp Pulse Resp BP Pulse Ox 07/08/20 14:34 97.2 F 62 18 107/67 92 L 07/08/20 11:00 97.1 F 56 L 18 105/59 L 95 07/08/20 08:00 96.5 F L 76 16 95/69 97 - Problem List Review Problem List Initiated/Reviewed/Updated: Yes - My Orders Last 24 Hours: My Active Orders 07/08/20 16:56 Consult to Speech Language Pathology [[employer] Evaluation and Treatment] [CONS] Routine 07/09/20 05:00 COMPREHENSIVE METABOLIC PN,CMP [CHEM] Timed INR,PT,PROTHROMBIN TIME [COAG] Timed - Plan Plan:: ASSESSMENT AND PLAN Combined systolic and diastolic congestive heart failure-echocardiogram shows severely decreased left ventricular function with underlying valvular disease -Continue beta-hope -Furosemide 40 mg twice daily -Follow-up cultures and lab studies from thoracentesis fluid Alcohol dependence-marked ascites which could be from his heart failure versus cirrhosis. Bilirubin stable. Status post paracentesis x2 -Follow-up cultures remain negative -Encourage alcohol cessation -Diuretics as above Right lung pneumonia-noted on CT scan. He has now completed a full course of antibiotic therapy Chronic atrial fibrillation-rate controlled good so far. -Continue beta-hope -Warfarin daily -INR in the morning Chronic venous stasis-skin is currently sloughing because of prolonged time with compression wraps on. We are currently leaving the legs open to the air to allow the skin to slough. He would benefit from outpatient follow-up with Dr. Rod. Stage III chronic kidney disease-stable. Maintenance issues - - DVT prophylaxis -warfarin - GI prophylaxis -PPI - Nutrition -low-sodium Disposition -I would anticipate discharge with home care if they will take him versus subacute rehab Primary care physician -Dr Anam Albright
[2020-07-08] MEDS: atorvaSTATin 10 MG Tab PO SCH (22:00)
[2020-07-09 07:54] VITALS: BP 92/66; PULSE 69
[2020-07-09] MEDS: Aspirin 325 MG Tab.EC PO SCH (08:15)
[2020-07-09] MEDS: Sertraline 50 MG Tab PO SCH (08:15)
[2020-07-09] MEDS: Furosemide 40 MG Tab PO SCH (08:16)
[2020-07-09] MEDS: Pantoprazole 40 MG Tab.CR PO SCH (08:16)
[2020-07-09] MEDS: Spironolactone 25 MG Tab PO SCH (08:16)
[2020-07-09] MEDS: Carvedilol 3.125 MG Tab PO SCH (08:17)
--- NOTE | 2020-07-09 09:42 | PCM.DCSUM1 ---
Discharge Summary - Hospital Course Brief History: Mr. Wise is a 65-year-old gentleman who was admitted through the emergency department with severe weakness and shortness of breath secondary to underlying pleural effusion, ascites, and severe systolic congestive heart failure. - Discharge Data Discharge Date: 07/09/20 Discharge Disposition: DC/Tfer to SNF 03 Condition: Stable - Referral to Home Health Primary Care Physician: Nick Albright MD - Patient Summary/Data Consults: Consultations 07/01/20 19:22 Consult to Physician [CONS] Routine Consulting Provider: Devon Rod Call Completed to Consulting Physician: Yes Reason for Consult: ascites Person Notified: RW Date Notified: 07/01/20 Special Instructions: will see in the morning for para and thoracentesis OT Evaluation and Treatment [CONS] Routine Please Evaluate and Treat. OT Reason for Consult: ADL's This query below is only for informational purposes and is not editable. PT Evaluation and Treatment [CONS] Routine Please Evaluate and Treat. PT Reason for Consult: Strengthening This query below is only for informational purposes and is not editable. 07/08/20 16:56 Consult to Speech Language Pathology [[employer] Evaluation and Treatment] [CONS] Routine Please Evaluate and Treat [employer] Reason for Consult: Possible aspiration with eating This query below is only for informational purposes and is not editable. Admission Diagnosis/Problem: CHF, Congestive heart failure Hospital Course: Mr. Wise presented to the emergency room by ambulance with progressive weakness, diarrhea and lightheadedness. He reports that he has not been doing well for the last several months but things have gone downhill more quickly over the past 2 weeks and especially the last 1 week. He reports increasing abdominal distention but no significant abdominal pain. He feels more short of breath than usual and walking even a short distance causes him to have dyspnea. He has not had any chest pain. He does report an occasional cough and has had some blood tinged sputum. He is not aware of any fevers or chills. He has not had any sick contacts. He does admit to drinking 2 alcoholic drinks per day with his drink of choice being peach tootie. He is not able to tell me the quantity and each of these drinks. When he arrived he had compression wraps on both lower legs. He tells us that they have been in place for about 3 months. He has not been to see a doctor since his last hospital discharge because travel is too difficult for him. He intermittently takes his pills but does not take them when he does not feel good. Work-up in the emergency room revealed a normal white count, stage III kidney disease as well as a mild elevation of his bilirubin. Imaging revealed right pleural effusion and probable right pneumonia as well as marked ascites and significant cardiomegaly. He was extremely weak and not safe for outpatient management. He was admitted for management of congestive heart failure and right lung pneumonia. After admission he was started on diuretic therapy and was seen and evaluated by Dr. Rod for surgical consult. Right thoracentesis was performed and 1.5 L of fluid were removed, fluid was consistent with transudate and cultures through the hospital stay showed no growth. Paracentesis was also performed and 1.5 L of fluid were removed, again no growth on cultures throughout the hospital stay. He felt improved but continued to note significant abdominal distention. A second paracentesis was performed by Dr. Rod removing a much greater amount of fluid and the patient felt significantly improved following that. He was treated with antibiotics for right lung pneumonia and completed a 5-day course. He was continued on oral anticoagulation with warfarin throughout his hospitalization and on the day of discharge INR was slightly supratherapeutic. His dose of warfarin will be decreased and a follow-up INR will be obtained on July 12. Through the rest of his hospital stay received oral diuretics twice daily with further diuresis and improvement in shortness of breath. He remains very weak and only intermittently would participate in physical therapy and Occupational Therapy. It was felt that he was too weak to safely function at home and he will be discharged to the longterm for restorative physical therapy and Occupational Therapy. Liver tests were monitored throughout hospital stay and remained stable it is felt that he does have a component of underlying cirrhosis secondary to his longstanding alcohol use. Activity will be as tolerated and he will be on a 2 g sodium diet. Up with primary care will be at the longterm as needed. Follow-up labs will be obtained on July 12 including BMP and INR. - Patient Instructions Diet: Low Sodium Activity: As Tolerated Other/Special Instructions: Obtain follow-up laboratory tests on July 12; BMP and INR. Please schedule outpatient speech pathology consult for evaluation of swallowing. - Discharge Plan *PRESCRIPTION DRUG MONITORING PROGRAM REVIEWED*: Not Applicable *COPY OF PRESCRIPTION DRUG MONITORING REPORT IN PATIENT REESE: Not Applicable Prescriptions/Med Rec: Warfarin [Coumadin] 1.5 mg PO DAILY #60 tab Atropine/Diphenoxylate [Diphenoxylate-Atropine] 1 tab PO TID PRN #60 tablet PRN Reason: Diarrhea Furosemide [Lasix] 40 mg PO BIDDIURETIC #60 tablet Home Medications: Home Meds Aspirin 325 mg PO DAILY 12/09/19 [History] Lactobacillus Rhamnosus GG [Culturelle] 1 cap PO BID #60 cap 12/14/19 [Rx] Spironolactone [Aldactone] 25 mg PO BID #60 12/14/19 [Rx] atorvaSTATin [Lipitor] 10 mg PO BEDTIME #30 12/14/19 [Rx] Cholecalciferol (Vitamin D3) [Vitamin D3] 2,000 unit PO DAILY 02/26/20 [History] Omeprazole 20 mg PO QID 02/26/20 [History] Sertraline [Zoloft] 50 mg PO DAILY 02/26/20 [History] carvediloL [Carvedilol] 3.125 mg PO BID #60 tablet 02/29/20 [Rx] Atropine/Diphenoxylate [Diphenoxylate-Atropine] 1 tab PO TID PRN #60 tablet 07/09/20 [Rx] Furosemide [Lasix] 40 mg PO BIDDIURETIC #60 tablet 07/09/20 [Rx] Warfarin [Coumadin] 1.5 mg PO DAILY #60 tab 07/09/20 [Rx] Referrals: PCP,None [Ordering Only Provider] - - Discharge Summary/Plan Comment DC Time >30 min.: No - Patient Data Vitals - Most Recent: Last Vital Signs Temp 96.6 F L 07/09/20 07:52 Pulse 69 07/09/20 08:17 Resp 16 07/09/20 07:52 BP 92/66 07/09/20 08:17 Pulse Ox 91 L 07/09/20 07:52 Weight - Most Recent: 228 lb 1.6 oz I&O - Last 24 hours: Intake & Output 07/08/20 07/09/20 07/09/20 22:59 06:59 14:59 Intake Total 980 240 Output Total 200 Balance 980 40 Lab Results - Last 24 hrs: Laboratory Results - last 24 hr 07/09/20 07/09/20 Range/Units 04:20 04:20 PT 32.8 H (9.5-12.0) sec INR 3.08 H (0.80-1.20) Sodium 135 L (140-148) mmol/L Potassium 4.6 (3.6-5.2) mmol/L Chloride 102 (100-108) mmol/L Carbon Dioxide 22 (21-32) mmol/L Anion Gap 15.6 H (5.0-14.0) mmol/L BUN 52 H (7-18) mg/dL Creatinine 1.2 (0.8-1.3) mg/dL Est Cr Clr Drug Dosing 67.19 mL/min Estimated GFR (MDRD) > 60 (>60) Glucose 100 (74-106) mg/dL Calcium 8.4 L (8.5-10.1) mg/dL Total Bilirubin 1.8 H (0.2-1.0) mg/dL AST 36 (15-37) U/L ALT 11 L (12-78) U/L Alkaline Phosphatase 161 H (46-116) U/L Total Protein 5.6 L (6.4-8.2) g/dL Albumin 2.6 L (3.4-5.0) g/dL Globulin 3.0 (2.3-3.5) g/dL Albumin/Globulin Ratio 0.9 L (1.2-2.2) Med Orders - Current: Current Medications Acetaminophen (Tylenol) 650 mg PO Q4H PRN PRN Reason: Pain (Mild 1-3)/fever Last Admin: 07/01/20 23:12 Dose: 650 mg Documented by: Aspirin (Ecotrin) 325 mg PO DAILY [facility] Last Admin: 07/09/20 08:15 Dose: 325 mg Documented by: Atorvastatin Calcium (Lipitor) 10 mg PO BEDTIME [facility] Last Admin: 07/08/20 22:00 Dose: 10 mg Documented by: Benzocaine/Menthol (Cepacol Sore Throat) 1 lozenge MUCMEM ASDIRECTED PRN PRN Reason: DRY/SORE THROAT Last Admin: 07/05/20 09:11 Dose: 1 reanna Documented by: Carvedilol (Coreg) 3.125 mg PO BIDMEALS [facility] Last Admin: 07/09/20 08:17 Dose: 3.125 mg Documented by: Diphenoxylate HCl/Atropine (Lomotil 0.025-2.5 Mg) 1 tab PO TID PRN PRN Reason: Diarrhea Furosemide (Lasix) 40 mg PO BIDDIURETIC [facility] Last Admin: 07/09/20 08:16 Dose: 40 mg Documented by: Lorazepam (Ativan) 0.5 mg IVPUSH Q4H PRN PRN Reason: Nausea/Vomiting Magnesium Hydroxide (Milk Of Magnesia) 30 ml PO Q12H PRN PRN Reason: Constipation Melatonin (Melatonin) 9 mg PO BEDTIME PRN PRN Reason: Sleep Morphine Sulfate (Morphine) 2 mg IVPUSH Q2H PRN PRN Reason: Pain (severe 7-10) Ondansetron HCl (Zofran) 4 mg IV Q6H PRN PRN Reason: Nausea/Vomiting Last Admin: 07/06/20 11:09 Dose: 4 mg Documented by: Ondansetron HCl (Zofran Odt) 4 mg PO Q6H PRN PRN Reason: Nausea able to take PO Oxycodone HCl (Oxycodone) 5 mg PO Q4H PRN PRN Reason: Pain (moderate 4-6) Pantoprazole Sodium (Protonix) 40 mg PO ACBREAKFAST [facility] Last Admin: 07/09/20 08:16 Dose: 40 mg Documented by: Senna/Docusate Sodium (Senna Plus) 1 tab PO BID PRN PRN Reason: Constipation Sertraline HCl (Zoloft) 50 mg PO DAILY [facility] Last Admin: 07/09/20 08:15 Dose: 50 mg Documented by: Spironolactone (Aldactone) 25 mg PO BIDDIURETIC [facility] Last Admin: 07/09/20 08:16 Dose: 25 mg Documented by: Warfarin Sodium (Coumadin) 1 mg PO DAILY@1300 [facility] Discontinued Medications Azithromycin (Zithromax) 500 mg PO BEDTIME [facility] Stop: 07/05/20 21:01 Last Admin: 07/05/20 21:20 Dose: 500 mg Documented by: Cefdinir (Omnicef) 300 mg PO BID [facility] Stop: 07/06/20 09:01 Last Admin: 07/06/20 08:36 Dose: 300 mg Documented by: Ceftriaxone Sodium (Rocephin) Confirm Administered Dose 1 gm IV .STK-MED ONE Stop: 07/01/20 20:40 Last Admin: 07/01/20 21:10 Dose: Not Given Documented by: Furosemide (Lasix) 40 mg PO DAILY [facility] Last Admin: 07/05/20 08:35 Dose: Not Given Documented by: Furosemide (Lasix) 20 mg IVPUSH NOW ONE Stop: 07/05/20 14:01 Last Admin: 07/05/20 14:06 Dose: 20 mg Documented by: Sodium Chloride (Normal Saline) 1,000 mls @ 125 mls/hr IV ASDIRECTED [facility] Last Admin: 07/02/20 08:49 Dose: 125 mls/hr Documented by: Sodium Chloride (Normal Saline) 100 mls @ 3.5 mls/sec IV ASDIRECTED [facility] Stop: 07/01/20 23:00 Last Admin: 07/01/20 17:06 Dose: 4 mls/sec Documented by: Ceftriaxone Sodium 1 gm/ (Sodium Chloride) 50 mls @ 100 mls/hr IV Q24H [facility] Last Admin: 07/03/20 19:55 Dose: 100 mls/hr Documented by: Sodium Chloride (Normal Saline) Confirm Administered Dose 50 mls @ as directed .ROUTE .[facility] ONE Stop: 07/01/20 20:41 Last Admin: 07/01/20 21:10 Dose: Not Given Documented by: Sodium Chloride (Normal Saline) 500 mls @ 500 mls/hr IV ASDIRECTED [facility] Stop: 07/02/20 17:46 Last Admin: 07/02/20 16:00 Dose: 500 mls/hr Documented by: Albumin Human (Albumin 25%) 25 gm in 100 mls @ 25 mls/hr IV Q6H [facility] Stop: 07/04/20 19:29 Last Admin: 07/04/20 15:01 Dose: Not Given Documented by: Iopamidol (Isovue-370 (76%)) 100 ml IV . DIRECTED [facility] Stop: 07/01/20 23:00 Last Admin: 07/01/20 17:06 Dose: 100 ml Documented by: Lorazepam (Ativan) 0.5 mg IVPUSH ONETIME ONE Stop: 07/02/20 10:31 Last Admin: 07/02/20 10:51 Dose: 0.5 mg Documented by: Pantoprazole Sodium (Protonix) 40 mg PO ACBREAKFAST [facility] Last Admin: 07/02/20 10:47 Dose: Not Given Documented by: Sodium Chloride (Saline Flush) 10 ml FLUSH ONETIME ONE Stop: 07/01/20 16:59 Last Admin: 07/01/20 17:06 Dose: 10 ml Documented by: Warfarin Sodium (Coumadin) 2.5 mg PO DAILY@1300 [facility] Last Admin: 07/08/20 14:35 Dose: 2.5 mg Documented by: - Exam General: Reports: Alert, Oriented, Cooperative, Mild Distress Lungs: Reports: Decreased Breath Sounds. Denies: Crackles, Rales, Rhonchi, Wheezing Cardiovascular: Reports: Regular Rate, Irregular Rhythm, Murmurs GI/Abdominal Exam: Soft, Non-Tender, No Organomegaly, No Distention Skin: Reports: Other ( flaking skin both lower extremities) *Q Meaningful Use (DIS) - VTE *Q VTE Mechanical Contraindications *Q: Bilateral Lower Edema
== END 2020-07-09 11:00 | DRG 291 ==
LOC: JP.ED 14:17 → JP.MS 18:16
PROVIDERS: ADMIT Internal Medicine; ATTEND Hospitalist
PROC: 0W993ZZ Drainage of Right Pleural Cavity, Percutaneous Approach (ICD-10-PCS; 2020-07-02)
PROC: 0W9G3ZZ Drainage of Peritoneal Cavity, Percutaneous Approach (ICD-10-PCS; 2020-07-02)
PROC: 0W9G3ZZ Drainage of Peritoneal Cavity, Percutaneous Approach (ICD-10-PCS; principal; 2020-07-04)
DX: I13.0 Hypertensive heart and chronic kidney disease with heart failure and stage 1 through stage 4 chronic kidney disease, or unspecified chronic kidney disease (principal); J18.9 Pneumonia, unspecified organism; I50.43 Acute on chronic combined systolic (congestive) and diastolic (congestive) heart failure; I48.20 Chronic atrial fibrillation, unspecified; J91.8 Pleural effusion in other conditions classified elsewhere; E78.5 Hyperlipidemia, unspecified; Z66 Do not resuscitate; R53.1 Weakness; I27.81 Cor pulmonale (chronic); I35.1 Nonrheumatic aortic (valve) insufficiency; K70.31 Alcoholic cirrhosis of liver with ascites; I87.2 Venous insufficiency (chronic) (peripheral); N18.31 Chronic kidney disease, stage 3a; F10.20 Alcohol dependence, uncomplicated; Z91.14 Patient's other noncompliance with medication regimen; H54.7 Unspecified visual loss; Z98.890 Other specified postprocedural states; I48.91 Unspecified atrial fibrillation; E78.00 Pure hypercholesterolemia, unspecified; I25.2 Old myocardial infarction; Z86.74 Personal history of sudden cardiac arrest; Z95.1 Presence of aortocoronary bypass graft; I73.9 Peripheral vascular disease, unspecified; I11.0 Hypertensive heart disease with heart failure; I50.9 Heart failure, unspecified; F32.9 Major depressive disorder, single episode, unspecified; Z79.01 Long term (current) use of anticoagulants; Z79.82 Long term (current) use of aspirin; Z79.899 Other long term (current) drug therapy; Z20.822 Contact with and (suspected) exposure to COVID-19; Z91.048 Other nonmedicinal substance allergy status
CPT/HCPCS: 0241U; 36415; 71045; 71046; 71275; 74177; 80048; 80053; 80076; 81001; 82945; 83615; 83735; 83880; 84484; 85025; 85027; 85379; 85610; 87070; 87205; 89050; 93005; 93306; 97110; 97116; 97162; 97165; 97530; 97535; 99285; 99223; 99231; 99232; 99233; 99238; A9270-GY; J0696; J1940; J2060; J2405; J7030; P9047; Q9967

== ENCOUNTER 2020-07-15 08:28 | Observation (INO) | payer MEDICARE ==
--- NOTE | 2020-07-15 11:58 | CT ---
Abdomen Pelvis wo Cont CLINICAL HISTORY: Abdominal distention, dyspnea, orthopnea COMPARISON: 07/01/2020. TECHNIQUE: Axial tomographic images are obtained from the dome of the diaphragm to the pubic symphysis without IV contrast enhancement. No oral contrast was used. The dosage reduction and iterative reconstruction techniques employed. FINDINGS: The heart is enlarged. Patient is a moderate right-sided pleural effusion which is slightly larger than prior study. There is some increase in right basilar airspace disease which may represent a combination of compressive atelectasis and some consolidation. There is a small but increasing left pleural effusion. There are 2 patchy pleural-based densities in the left posterior basal segment, new since prior study. There is massive abdominal ascites. This is slightly less than seen on 07/01/2020. There is diffuse subcutaneous edema similar to prior study. The liver is small and slightly irregular. The gallbladder is a persistent filling defect similar in appearance to the June study. The spleen has a normal size and shape. The pancreas shows no focal mass or inflammatory change. The adrenal glands appear normal bilaterally. There is a persistent the left upper pole renal mass measuring 3.1 x 2.5 cm. Mastoid density is too high for a simple cyst. There is a 2.4 cm low-attenuation focus just below this also measuring high for simple cyst. This should be correlated with ultrasound. There are 2 punctate calcifications in the left kidney. These may be vascular The aorta shows internal calcification consistent with a chronic dissection. This is unchanged since prior study. 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 There is no suspicious retroperitoneal adenopathy. There are small bilateral inguinal hernias containing ascitic fluid. IMPRESSION: Increasing pleural effusions Cardiomegaly Persistent moderate abdominal ascites. This may be slightly less than prior study. There is also diffuse subcutaneous edema consistent with anasarca. Patchy air space disease in the right lung base increased since prior study. There are patchy peripheral densities in the left basal segments which may represent new infiltrate. No change in chronic the distal aortic dissection. 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
--- NOTE | 2020-07-15 12:03 | EDM.PDOC ---
ED HPI GENERAL MEDICAL PROBLEM - General Chief Complaint: Abdominal Pain Stated Complaint: RASH ON LEGS Time Seen by Provider: 07/15/20 10:32 Source of Information: Reports: Patient, Old Records, Provider History Limitations: Reports: No Limitations - History of Present Illness INITIAL COMMENTS - FREE TEXT/NARRATIVE: Westley is a 65-year-old male with a history for severe congestive heart failure, liver failure with anasarca, pleural effusion, and chronic peripheral edema with venous status dermatitis. The patient was sent in by Dr. Rod for evaluation for possible paracentesis and thoracentesis from [facility]. The patient has been complaining of increasing dyspnea and orthopnea, likely due to the anasarca and pulmonary effusion. Patient denies an y fever, chills, cough, nausea or vomiting, diarrhea or constipation. He does have a markedly distended abdomen and erythematous almost purple lower extremities with 3-4+ pitting edema. The patient remains full code. - Related Data Allergies Allergy/AdvReac Type Severity Reaction Status Date / Time pollen extracts Allergy Sneezing Verified 07/15/20 10:17 Home Meds: Home Meds Aspirin 325 mg PO DAILY 12/09/19 [History] Spironolactone [Aldactone] 25 mg PO BID #60 12/14/19 [Rx] atorvaSTATin [Lipitor] 10 mg PO BEDTIME #30 12/14/19 [Rx] Cholecalciferol (Vitamin D3) [Vitamin D3] 2,000 unit PO DAILY 02/26/20 [History] Omeprazole 20 mg PO QID 02/26/20 [History] Sertraline [Zoloft] 50 mg PO DAILY 02/26/20 [History] carvediloL [Carvedilol] 3.125 mg PO BID #60 tablet 02/29/20 [Rx] Warfarin [Coumadin] 1.5 mg PO DAILY #60 tab 07/09/20 [Rx] Furosemide [Lasix] 40 mg PO BID 07/14/20 [History] Lactobacillus Rhamnosus GG [Culturelle] 1 cap PO TID 07/14/20 [History] Past Medical History - Past Health History Medical/Surgical History: Denies Medical/Surgical History HEENT History: Reports: Impaired Vision Cardiovascular History: Reports: Afib, Bypass, Heart Failure, High Cholesterol, Hypertension, [place], Prior Cardiac Arrest, PVD, Other (See Below) Other Cardiovascular History: CABG; aortic dissection; CHF Respiratory History: Reports: Pneumonia, Recurrent, SOB Gastrointestinal History: Reports: Cirrhosis, GERD, Other (See Below) Other Gastrointestinal History: ascities Genitourinary History: Reports: Chronic Renal Insuffiency Musculoskeletal History: Reports: Fracture, Other (See Below) Other Musculoskeletal History: Hx of rib fx Neurological History: Reports: Other (See Below) Other Neuro History: subdural hematoma. Hx of cerebral embolic infarction Psychiatric History: Reports: Depression Hematologic History: Reports: Blood Transfusion(s) Dermatologic History: Reports: Cellulitis, Venous Stasis Dermatitis, Other (See Below) Other Dermatologic History: B lower leg (12/2019) - Infectious Disease History Infectious Disease History: Reports: None - Past Surgical History Head Surgeries/Procedures: Reports: None HEENT Surgical History: Reports: None Cardiovascular Surgical History: Reports: Aneurysm, Coronary Artery Bypass, Valve Replacement, Other (See Below) Other 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 Respiratory Surgical History: Reports: None Musculoskeletal Surgical History: Reports: None Dermatological Surgical History: Reports: None Social & Family History - Family History Family Medical History: No Pertinent Family History - Tobacco Use Tobacco Use Status *Q: Former Tobacco User Used Tobacco, but Quit: Yes Month/Year Tobacco Last Used: 30 years - Caffeine Use Caffeine Use: Reports: Coffee - Recreational Drug Use Recreational Drug Use: No - Living Situation & Occupation Occupation: Other (Single dwelling home) ED ROS GENERAL - Review of Systems Review Of Systems: See Below Constitutional: Reports: Fever, Chills, Malaise HEENT: Reports: No Symptoms Respiratory: Reports: Shortness of Breath Cardiovascular: Reports: Dyspnea on Exertion, Edema, Orthopnea Endocrine: Reports: No Symptoms GI/Abdominal: Reports: Distension : Reports: No Symptoms Musculoskeletal: Reports: No Symptoms Neurological: Reports: No Symptoms Psychiatric: Reports: No Symptoms Hematologic/Lymphatic: Reports: No Symptoms Immunologic: Reports: No Symptoms ED EXAM, GENERAL - Physical Exam Exam: See Below Exam Limited By: No Limitations General Appearance: Alert, Anxious, Mild Distress Eye Exam: Bilateral Eye: EOMI, PERRL Throat/Mouth: Normal Inspection, Normal Lips, Normal Oropharynx, Normal Voice, No Airway Compromise Head: Atraumatic, Normocephalic Neck: Normal Inspection, Supple, Non-Tender, Full Range of Motion Respiratory/Chest: No Accessory Muscle Use, Chest Non-Tender, Decreased Breath Sounds (Diminished breath sounds especially in the right base.), Crackles Cardiovascular: Normal Peripheral Pulses, No Murmur, JVD (6 cm at 45 degrees.), Irregularly Irregular, Other (4+ pitting edema to the knees bilaterally.) Peripheral Pulses: 2+: Radial (L), Radial (R) GI/Abdominal: Normal Bowel Sounds, Distended (Markedly distended with fluid wave. Dullness to percussion throughout the abdomen.), Tender. No: Guarding, Rebound Back Exam: Normal Inspection, Full Range of Motion Extremities: Pedal Edema (4+ pitting edema to the knees.), Redness (Chronic venous stasis dermatitis.) Neurological: Alert, Oriented, Normal Cognition, No Motor/Sensory Deficits Psychiatric: Anxious Skin Exam: Warm, Erythema (Bilateral lower extremities consistent with venous stasis dermatitis) Lymphatic: No Adenopathy Course - Vital Signs Last Recorded V/S: Last Vital Signs Temp 37.3 C 07/15/20 12:05 Pulse 56 L 07/15/20 12:05 Resp 18 07/15/20 12:05 BP 107/49 L 07/15/20 10:14 Pulse Ox 94 L 07/15/20 12:05 - Orders/Labs/Meds Orders: Active Orders 24 hr Category Date Time Status Chest 1V Frontal [CR] Stat Exams 07/15/20 13:32 Taken US Guidance Paracentesis NC [US] Stat Exams 07/15/20 12:55 Taken US Guidance Thoracentesis NC [US] Routine Exams 07/15/20 Taken Albumin Human [Albumin 25%] Med 07/15/20 14:30 Active 25 gm in 100 ml IV ONETIME Albumin Human [Albumin 25%] Med 07/15/20 18:30 Active 25 gm in 100 ml IV ONETIME Ertapenem [INVanz] 1 gm Med 07/15/20 14:00 Active Sodium Chloride 0.9% [Normal Saline] 100 ml IV Q24H Sodium Chloride 0.9% [Saline Flush] Med 07/15/20 13:59 Active 10 ml FLUSH ASDIRECTED PRN Saline Lock Insert [OM.PC] Routine Oth 07/15/20 13:59 Ordered Medication Orders Ertapenem 1 gm/ Sodium (Chloride) 100 mls @ 200 mls/hr IV Q24H LEIGH Albumin Human (Albumin 25%) 25 gm in 100 mls @ 25 mls/hr IV ONETIME ONE Stop: 07/15/20 18:29 Albumin Human (Albumin 25%) 25 gm in 100 mls @ 25 mls/hr IV ONETIME ONE Stop: 07/15/20 22:29 Sodium Chloride (Saline Flush) 10 ml FLUSH ASDIRECTED PRN PRN Reason: Keep Vein Open Labs: Laboratory Tests 07/15/20 07/15/20 07/15/20 Range/Units 11:13 11:13 11:13 WBC 8.6 (4.5-11.0) K/uL RBC 5.05 (4.30-5.90) M/uL Hgb 14.1 (12.0-15.0) g/dL Hct 44.0 (40.0-54.0) % MCV 87 (80-98) fL MCH 28 (27-31) pg MCHC 32 (32-36) % Plt Count 205 (150-400) K/uL Neut % (Auto) 81 H (36-66) % Lymph % (Auto) 8 L (24-44) % Medina % (Auto) 9 H (2-6) % Eos % (Auto) 1 L (2-4) % Baso % (Auto) 0 (0-1) % PT 29.6 H (9.5-12.0) sec INR 2.77 H (0.80-1.20) Sodium 138 L (140-148) mmol/L Potassium 4.2 (3.6-5.2) mmol/L Chloride 102 (100-108) mmol/L Carbon Dioxide 26 (21-32) mmol/L Anion Gap 14.2 H (5.0-14.0) mmol/L BUN 38 H (7-18) mg/dL Creatinine 1.0 (0.8-1.3) mg/dL Est Cr Clr Drug Dosing 78.68 mL/min Estimated GFR (MDRD) > 60 (>60) Glucose 99 (74-106) mg/dL Calcium 8.2 L (8.5-10.1) mg/dL Total Bilirubin 1.9 H (0.2-1.0) mg/dL AST 32 (15-37) U/L ALT 13 (12-78) U/L Alkaline Phosphatase 178 H (46-116) U/L NT-Pro-B Natriuret Pep 95166 H (5-125) pg/mL Total Protein 6.1 L (6.4-8.2) g/dL Albumin 2.7 L (3.4-5.0) g/dL Globulin 3.4 (2.3-3.5) g/dL Albumin/Globulin Ratio 0.8 L (1.2-2.2) Meds: Medications Generic Name Dose Route Start Last Admin Trade Name Freq PRN Reason Stop Dose Admin Ertapenem 1 gm/ Sodium 100 mls @ 200 mls/hr 07/15/20 14:00 Chloride IV Q24H LEIGH Albumin Human 25 gm in 100 mls @ 25 mls/hr 07/15/20 14:30 Albumin 25% IV 07/15/20 18:29 ONETIME ONE Albumin Human 25 gm in 100 mls @ 25 mls/hr 07/15/20 18:30 Albumin 25% IV 07/15/20 22:29 ONETIME ONE Sodium Chloride 10 ml 07/15/20 13:59 Saline Flush FLUSH ASDIRECTED PRN Keep Vein Open Discontinued Medications Generic Name Dose Route Start Last Admin Trade Name Freq PRN Reason Stop Dose Admin Bacitracin 2 dose 07/15/20 12:56 Bacitracin Oint 1 Gm TOP 07/15/20 12:57 ONETIME ONE - Re-Assessments/Exams Free Text/Narrative Re-Assessment/Exam: 07/15/20 12:16 I reviewed the patient's labs and a CT of the abdomen and pelvis without contrast. Patient has elevation in his INR at 2.77. His AST and ALT are in normal range however, his total bili is 1.9, total protein of 6.1 and albumin of 2.7. The CT of the abdomen pelvis shows a large right pleural effusion and diffuse ascites throughout the abdomen. I discussed these findings with Dr. Rod who was planning on doing a paracentesis and thoracentesis at around 1300 hrs. He will come to the ER to perform these. After the procedures, the patient will likely go back to [facility]. 07/15/20 13:49 patient underwent a paracentesis and thoracentesis performed by Dr. Rod taking off approximately 5.5 L of fluid from between his chest and his abdomen. Patient is feeling better now. We did initiate antibiotics with Invanz 1 g every [address] Rod would also like the patient to receive 50 g of albumin which will take 8+ hours to infuse. We have to be careful because the patient has severe congestive heart failure and is subject of volume overload. 07/15/20 14:18 I discussed the case with Dr. Khan about admitting the patient for observation for this infusion of albumin. We would not be able to get him back to the residential as [facility] does not do any transfers after 1625 hrs. tonight and the patient would likely need to stay in the emergency room until 0700 hrs. tomorrow when they start running again. Departure - Departure Time of Disposition: 14:20 Disposition: Refer to Observation Condition: Poor Clinical Impression: Orthopnea, Peripheral edema, Venous stasis dermatitis of both lower extremitie s, Pleural effusion due to CHF (congestive heart failure), Chronic atrial fibrillation CHF (congestive heart failure), NYHA class IV Qualifiers: Congestive heart failure type: combined Congestive heart failure chronicity: chronic Qualified Code(s): I50.42 - Chronic combined systolic (congestive) and diastolic (congestive) heart failure Ascites Qualifiers: Ascites type: due to alcoholic cirrhosis Qualified Code(s): K70.31 - Alcoholic cirrhosis of liver with ascites Alcohol dependence Qualifiers: Substance use status: unspecified alcohol-induced disorder Qualified Code(s): F10.29 - Alcohol dependence with unspecified alcohol-induced disorder - Discharge Information *PRESCRIPTION DRUG MONITORING PROGRAM REVIEWED*: Not Applicable *COPY OF PRESCRIPTION DRUG MONITORING REPORT IN PATIENT REESE: Not Applicable Instructions: Shortness of Breath, Adult, [id number], Ascites, Stasis Dermatitis, Pleural Effusion Referrals: Nick Albright MD [Primary Care Provider] - Forms: ED Department Discharge Sepsis Event Note (ED) - Evaluation Sepsis Screening Result: No Definite Risk - Focused Exam Vital Signs: Vital Signs Temp Pulse Resp BP Pulse Ox 07/15/20 12:05 37.3 C 56 L 18 94 L 07/15/20 10:14 2.8 C L 62 24 H 107/49 L 95 - Problem List & Annotations (1) Ascites SNOMED Code(s): 683125417 Code(s): R18.8 - OTHER ASCITES Status: Chronic Priority: High Current Visit: Yes Qualifiers: Ascites type: due to alcoholic cirrhosis Qualified Code(s): K70.31 - Alcoholic cirrhosis of liver with ascites (2) Systolic congestive heart failure SNOMED Code(s): 79791031, 338373624 Code(s): I50.20 - UNSPECIFIED SYSTOLIC (CONGESTIVE) HEART FAILURE Status: Chronic Priority: High Current Visit: No Qualifiers: Heart failure chronicity: chronic Qualified Code(s): I50.22 - Chronic systolic (congestive) heart failure (3) Chronic atrial fibrillation SNOMED Code(s): 345566239 Code(s): I48.20 - CHRONIC ATRIAL FIBRILLATION, UNSPECIFIED Status: Chronic Priority: High Current Visit: Yes (4) CHF (congestive heart failure), NYHA class IV SNOMED Code(s): 738639605, 654741340 Code(s): I50.9 - HEART FAILURE, UNSPECIFIED Status: Acute Priority: High Current Visit: Yes Qualifiers: Congestive heart failure type: combined Congestive heart failure chronicity: chronic Qualified Code(s): I50.42 - Chronic combined systolic (congestive) and diastolic (congestive) heart failure (5) Orthopnea SNOMED Code(s): 04923305 Code(s): R06.01 - ORTHOPNEA Status: Acute Priority: High Current Visit: Yes (6) Peripheral edema SNOMED Code(s): 294735236 Code(s): R60.9 - EDEMA, UNSPECIFIED Status: Acute Priority: High Current Visit: Yes (7) Pleural effusion due to CHF (congestive heart failure) SNOMED Code(s): 92327597 Code(s): I50.9 - HEART FAILURE, UNSPECIFIED Status: Acute Priority: High Current Visit: Yes (8) Venous stasis dermatitis of both lower extremities SNOMED Code(s): 13668330 Code(s): I87.2 - VENOUS INSUFFICIENCY (CHRONIC) (PERIPHERAL) Status: Acute Priority: High Current Visit: Yes - Problem List Review Problem List Initiated/Reviewed/Updated: Yes - My Orders Last 24 Hours: My Active Orders 07/15/20 US Guidance Thoracentesis NC [US] Routine 07/15/20 12:55 US Guidance Paracentesis NC [US] Stat 07/15/20 13:32 Chest 1V Frontal [CR] Stat 07/15/20 13:59 Sodium Chloride 0.9% [Saline Flush] 10 ml FLUSH ASDIRECTED PRN Saline Lock Insert [OM.PC] Routine 07/15/20 14:00 Ertapenem [INVanz] 1 gm Sodium Chloride 0.9% [Normal Saline] 100 ml IV Q24H - Assessment/Plan Last 24 Hours: My Active Orders 07/15/20 US Guidance Thoracentesis NC [US] Routine 07/15/20 12:55 US Guidance Paracentesis NC [US] Stat 07/15/20 13:32 Chest 1V Frontal [CR] Stat 07/15/20 13:59 Sodium Chloride 0.9% [Saline Flush] 10 ml FLUSH ASDIRECTED PRN Saline Lock Insert [OM.PC] Routine 07/15/20 14:00 Ertapenem [INVanz] 1 gm Sodium Chloride 0.9% [Normal Saline] 100 ml IV Q24H
[2020-07-15] MEDS ORDERED: Bacitracin Oint 1 GM U/D Packet TOP ONE (12:56)
[2020-07-15] MEDS ORDERED: Sodium Chloride 0.9% 10 ML Syringe FLUSH PRN (13:59)
[2020-07-15] MEDS ORDERED: Ertapenem 1 GM in Sodium Chloride 0.9% 100 ML IV SCH (14:00)
--- NOTE | 2020-07-15 14:33 | CR ---
CHEST: Portable 07/15/2020 at 1:46 PM CLINICAL HISTORY:Post right thoracentesis COMPARISON:CT chest 07/01/2020 FINDINGS: There is some residual airspace disease in the right lung base. This likely represent some patchy atelectasis. There is some minimal residual pleural fluid. There is no evidence of pneumothorax. Heart is enlarged. IMPRESSION: Status post right thoracentesis with minimal residual fluid and some patchy right basilar airspace disease No pneumothorax
[2020-07-15] MEDS ORDERED: Ondansetron 4 MG Tab.DIS PO PRN (15:35)
[2020-07-15] MEDS ORDERED: Ondansetron 4 MG/2 ML SDV IV PRN (15:35)
[2020-07-15] MEDS ORDERED: Albuterol 0.083% 2.5 MG/3 ML Neb Soln NEB PRN (15:35)
[2020-07-15] MEDS ORDERED: Acetaminophen 325 MG Tab PO PRN (15:35)
[2020-07-15] MEDS ORDERED: LORazepam 2 MG/ML SDV IVPUSH PRN (15:35)
[2020-07-15] MEDS ORDERED: Melatonin 3 MG Tab PO PRN (15:35)
[2020-07-15] MEDS ORDERED: oxyCODONE 5 MG Tab PO PRN (15:35)
[2020-07-15] MEDS ORDERED: Magnesium Hydroxide 400 MG/5 ML Susp 30 ML Cup PO PRN (15:35)
--- NOTE | 2020-07-15 15:44 | PCM.HP.2 ---
H&P History of Present Illness - General Date of Service: 07/15/20 Admit Problem/Dx: Admission Diagnosis/Problem Admission Diagnosis/Problem CHF, Congestive heart failure Source of Information: Patient, Care Home Records, Provider, RN Notes Reviewed History Limitations: Reports: No Limitations - History of Present Illness Initial Comments - Free Text/Narative: CC: my belly was full HPI: Prabhjot was sent from the hourly caregiver center to the emergency room for evaluation of increasing abdominal distention and some abdominal discomfort. He reports increasing abdominal distention as well as progressive abdominal discomfort over the last week or so. He has a dull achy pain that is moderate in nature. Pain is relatively constant with no obvious triggers to make it w orse or alleviating factors. The pain does not seem to radiate and is located mostly in the mid abdomen. He has not had any nausea or fevers. He does feel short of breath especially with activity. This feels much like when he had significant ascites and a pleural effusion a couple of weeks ago. He is now status post thoracentesis and paracentesis with a total of 8 L of fluid removed. He will be receiving 50 g of albumin over the next 8 hours. he is currently staying at [facility] getting physical therapy and occupational therapy to improve strength with the goal of returning home. Work-up in the emergency room revealed massive ascites as well as a right pleural effusion. He did have a thoracentesis and paracentesis completed without obvious complication. Because of the large volume paracentesis he requires 50 g of albumin and will be admitted to the hospital to facilitate this infusion as well as monitoring of vital signs overnight. - Related Data Allergies/Adverse Reactions: Allergies Allergy/AdvReac Type Severity Reaction Status Date / Time pollen extracts Allergy Sneezing Verified 07/15/20 10:17 Home Medications: Home Meds Aspirin 325 mg PO DAILY 12/09/19 [History] Spironolactone [Aldactone] 25 mg PO BID #60 12/14/19 [Rx] atorvaSTATin [Lipitor] 10 mg PO BEDTIME #30 12/14/19 [Rx] Cholecalciferol (Vitamin D3) [Vitamin D3] 2,000 unit PO DAILY 02/26/20 [History] Omeprazole 20 mg PO QID 02/26/20 [History] Sertraline [Zoloft] 50 mg PO DAILY 02/26/20 [History] carvediloL [Carvedilol] 3.125 mg PO BID #60 tablet 02/29/20 [Rx] Warfarin [Coumadin] 1.5 mg PO DAILY #60 tab 07/09/20 [Rx] Furosemide [Lasix] 40 mg PO BID 07/14/20 [History] Lactobacillus Rhamnosus GG [Culturelle] 1 cap PO TID 07/14/20 [History] Past Medical History - Past Health History Medical/Surgical History: Denies Medical/Surgical History HEENT History: Reports: Impaired Vision Cardiovascular History: Reports: Afib, Bypass, Heart Failure, High Cholesterol, Hypertension, DE, Prior Cardiac Arrest, PVD, Other (See Below) Other Cardiovascular History: CABG; aortic dissection; CHF Respiratory History: Reports: Pneumonia, Recurrent, SOB Gastrointestinal History: Reports: Cirrhosis, GERD, Other (See Below) Other Gastrointestinal History: ascities Genitourinary History: Reports: Chronic Renal Insuffiency Musculoskeletal History: Reports: Fracture, Other (See Below) Other Musculoskeletal History: Hx of rib fx Neurological History: Reports: Other (See Below) Other Neuro History: subdural hematoma. Hx of cerebral embolic infarction Psychiatric History: Reports: Depression Hematologic History: Reports: Blood Transfusion(s) Dermatologic History: Reports: Cellulitis, Venous Stasis Dermatitis, Other (See Below) Other Dermatologic History: B lower leg (12/2019) - Infectious Disease History Infectious Disease History: Reports: None - Past Surgical History Head Surgeries/Procedures: Reports: None HEENT Surgical History: Reports: None Cardiovascular Surgical History: Reports: Aneurysm, Coronary Artery Bypass, Valve Replacement, Other (See Below) Other 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 Respiratory Surgical History: Reports: None Musculoskeletal Surgical History: Reports: None Dermatological Surgical History: Reports: None Social & Family History - Family History Family Medical History: No Pertinent Family History - Tobacco Use Tobacco Use Status *Q: Former Tobacco User Used Tobacco, but Quit: Yes Month/Year Tobacco Last Used: 30 years - Caffeine Use Caffeine Use: Reports: Coffee - Alcohol Use Alcohol Use History: Yes Alcohol Use in Last Twelve Months: Yes Alcohol Use Frequency: Daily - Recreational Drug Use Recreational Drug Use: No - Living Situation & Occupation Occupation: Other (Single dwelling home) H&P Review of Systems - Review of Systems: Review Of Systems: See Below Free Text/Narrative: A complete 12 point review of systems was obtained. Pertinent positives and negatives are noted in the history of present illness. All other systems were reviewed and were negative except as noted. Exam - Exam Exam: See Below - Vital Signs Vital Signs: Last Vital Signs Temp 37.3 C 07/15/20 12:05 Pulse 56 L 07/15/20 15:34 Resp 18 07/15/20 12:05 BP 118/48 L 07/15/20 15:34 Pulse Ox 94 L 07/15/20 12:05 Weight: 98.8 kg - Exam Quality Assessment: No: Supplemental Oxygen General: Alert, Oriented, Cooperative. No: Mild Distress HEENT: Conjunctiva Clear, Mucosa Moist & [place]. No: Scleral Icterus Neck: Supple, Trachea Midline Lungs: Normal Respiratory Effort, Crackles (right mid and lower lung ) Cardiovascular: Regular Rate, Irregular Rhythm, Systolic Murmur GI/Abdominal Exam: Normal Bowel Sounds, Soft, No Distention, Tender (mild diffuse) Extremities: Pedal Edema (pitting edema to the knee bilaterally ). No: Increased Warmth Skin: Warm, Dry, Rash (erythema right medial calf but no warmth. Peeling skin on both legs R>L but healing well. There are 4 grouped ulcers on the proximal portion of the right medial calf with no drainage. There is a scabbed ulcer that is dry right medial ankle. Left anterior ankle with 2 cm ulcer with no drainage or erythema. ), Other Neuro Extensive - Mental Status: Alert, Oriented x3, Nl Response to Commands Neuro Extensive - Motor, Sensory, Reflexes: No: Abnormal Reflexes, Abnormal Motor, Tremor Psychiatric: Alert, Normal Affect - Patient Data Lab Results Last 24 hrs: Laboratory Results - last 24 hr 07/15/20 07/15/20 07/15/20 Range/Units 11:13 11:13 11:13 WBC 8.6 (4.5-11.0) K/uL RBC 5.05 (4.30-5.90) M/uL Hgb 14.1 (12.0-15.0) g/dL Hct 44.0 (40.0-54.0) % MCV 87 (80-98) fL MCH 28 (27-31) pg MCHC 32 (32-36) % Plt Count 205 (150-400) K/uL Neut % (Auto) 81 H (36-66) % Lymph % (Auto) 8 L (24-44) % [place] % (Auto) 9 H (2-6) % Eos % (Auto) 1 L (2-4) % Baso % (Auto) 0 (0-1) % PT 29.6 H (9.5-12.0) sec INR 2.77 H (0.80-1.20) Sodium 138 L (140-148) mmol/L Potassium 4.2 (3.6-5.2) mmol/L Chloride 102 (100-108) mmol/L Carbon Dioxide 26 (21-32) mmol/L Anion Gap 14.2 H (5.0-14.0) mmol/L BUN 38 H (7-18) mg/dL Creatinine 1.0 (0.8-1.3) mg/dL Est Cr Clr Drug Dosing 78.68 mL/min Estimated GFR (MDRD) > 60 (>60) Glucose 99 (74-106) mg/dL Calcium 8.2 L (8.5-10.1) mg/dL Total Bilirubin 1.9 H (0.2-1.0) mg/dL AST 32 (15-37) U/L ALT 13 (12-78) U/L Alkaline Phosphatase 178 H (46-116) U/L NT-Pro-B Natriuret Pep 78827 H (5-125) pg/mL Total Protein 6.1 L (6.4-8.2) g/dL Albumin 2.7 L (3.4-5.0) g/dL Globulin 3.4 (2.3-3.5) g/dL Albumin/Globulin Ratio 0.8 L (1.2-2.2) Result Diagrams: 07/15/20 11:13 07/15/20 11:13 Imaging Impressions Last 24 hrs: All images below were personally reviewed CT of the abdomen and pelvis-moderate right and small left pleural effusion. Moderate to severe generalized ascites. Chest [id number] status post thoracentesis-minimal residual pleural eff usion. Patchy lower lung airspace change noted. Heart size is enlarged. No obvious mass or definite infiltrate. Sepsis Event Note - Evaluation Sepsis Screening Result: No Definite Risk - Focused Exam Vital Signs: Vital Signs Temp Pulse Resp BP Pulse Ox 07/15/20 15:34 56 L 118/48 L 07/15/20 14:00 58 L 105/56 L 07/15/20 12:05 37.3 C 56 L 18 94 L 07/15/20 10:14 2.8 C L 62 24 H 107/49 L 95 *Q Meaningful Use (ADM) - VTE *Q VTE Mechanical Contraindications *Q: Bilateral Lower Dermatits - Problem List (1) CHF (congestive heart failure), NYHA class IV SNOMED Code(s): 845266352, 163905544 ICD Code: I50.9 - HEART FAILURE, UNSPECIFIED Status: Acute Priority: High Current Visit: Yes Qualifiers: Congestive heart failure type: combined Congestive heart failure chroni city: acute on chronic Qualified Code(s): I50.43 - Acute on chronic combined systolic (congestive) and diastolic (congestive) heart failure (2) Pleural effusion due to CHF (congestive heart failure) SNOMED Code(s): 16384022 ICD Code: I50.9 - HEART FAILURE, UNSPECIFIED Status: Acute Priority: High Current Visit: Yes (3) Venous stasis dermatitis of both lower extremities SNOMED Code(s): 04756821 ICD Code: I87.2 - VENOUS INSUFFICIENCY (CHRONIC) (PERIPHERAL) Status: Chronic Priority: High Current Visit: Yes (4) Alcohol dependence SNOMED Code(s): 81277884 ICD Code: F10.20 - ALCOHOL DEPENDENCE, UNCOMPLICATED Status: Chronic Current Visit: Yes Qualifiers: Substance use status: unspecified alcohol-induced disorder Qualified Code(s): F10.29 - Alcohol dependence with unspecified alcohol-induced disorder (5) Ascites SNOMED Code(s): 075762727 ICD Code: R18.8 - OTHER ASCITES Status: Chronic Priority: High Current Visit: Yes Qualifiers: Ascites type: due to alcoholic cirrhosis Qualified Code(s): K70.31 - Alcoholic cirrhosis of liver with ascites (6) Chronic atrial fibrillation SNOMED Code(s): 478416765 ICD Code: I48.20 - CHRONIC ATRIAL FIBRILLATION, UNSPECIFIED Status: Chronic Priority: High Current Visit: Yes (7) CKD (chronic kidney disease), stage III SNOMED Code(s): 431198689 ICD Code: N18.30 - CHRONIC KIDNEY DISEASE, STAGE 3 UNSPECIFIED Status: Chronic Current Visit: No Qualifiers: Chronic kidney disease stage 3 subtype: stage 3a (GFR 45-59) Qualified Code(s): N18.31 - Chronic kidney disease, stage 3a Problem List Initiated/Reviewed/Updated: Yes Orders Last 24hrs: Active Orders 24 hr Category Date Time Status Patient Status Manage Transfer [TRANSFER] Routine ADT 07/15/20 15:34 Active Patient Status [ADT] Routine ADT 07/15/20 15:35 Active Dressing Change [Wound Care] [RC] Q3D Care 07/15/20 15:38 Active Intake and Output [RC] QSHIFT Care 07/15/20 15:35 Active Notify Provider Vital Signs [RC] ASDIRECTED Care 07/15/20 15:35 Active Oxygen Therapy [RC] PRN Care 07/15/20 15:35 Active RT Aerosol Therapy [RC] ASDIRECTED Care 07/15/20 15:37 Active Up With Assistance [RC] ASDIRECTED Care 07/15/20 15:35 Active VTE/DVT Education [RC] Per Unit Routine Care 07/15/20 15:35 Active Vital Signs [RC] Q4H Care 07/15/20 15:35 Active Regular Diet [DIET] Diet 07/15/20 Dinner Active US Guidance Paracentesis NC [US] Stat Exams 07/15/20 12:55 Taken US Guidance Thoracentesis NC [US] Routine Exams 07/15/20 Taken BASIC METABOLIC PANEL,BMP [CHEM] AM Lab 07/16/20 05:11 Ordered CBC W/O DIFF,HEMOGRAM [HEME] AM Lab 07/16/20 05:11 Ordered INR,PT,PROTHROMBIN TIME [COAG] AM Lab 07/16/20 05:11 Ordered Acetaminophen [TylenoL] Med 07/15/20 15:35 Ordered 650 mg PO Q4H PRN Albumin Human [Albumin 25%] Med 07/15/20 14:30 Active 25 gm in 100 ml IV ONETIME Albumin Human [Albumin 25%] Med 07/15/20 18:30 Active 25 gm in 100 ml IV ONETIME Albuterol [Proventil Neb Soln] Med 07/15/20 15:35 Ordered 2.5 mg NEB Q4H PRN Docusate Sodium/Sennosides [Senna Plus] Med 07/15/20 15:35 Ordered 1 tab PO BID PRN Ertapenem [INVanz] 1 gm Med 07/15/20 14:00 Active Sodium Chloride 0.9% [Normal Saline] 100 ml IV Q24H LORazepam [Ativan] Med 07/15/20 15:35 Ordered 0.5 mg IVPUSH Q4H PRN Magnesium Hydroxide [Milk of Magnesia] Med 07/15/20 15:35 Ordered 30 ml PO Q12H PRN Melatonin Med 07/15/20 15:35 Ordered 9 mg PO BEDTIME PRN Ondansetron [Zofran ODT] Med 07/15/20 15:35 Ordered 4 mg PO Q6H PRN Ondansetron [Zofran] Med 07/15/20 15:35 Ordered 4 mg IV Q6H PRN Sodium Chloride 0.9% [Saline Flush] Med 07/15/20 13:59 Active 10 ml FLUSH ASDIRECTED PRN Torsemide [Demadex] Med 07/16/20 08:00 Ordered 40 mg PO BIDDIURETIC oxyCODONE Med 07/15/20 15:35 Ordered 5 - 10 mg PO Q4H PRN Saline Lock Insert [OM.PC] Routine Oth 07/15/20 13:59 Ordered VTE Mechanical Contraindications [AST] Routine Oth 07/15/20 15:35 Ordered Resuscitation Status Routine Resus Stat 07/15/20 15:35 Ordered Medication Orders Acetaminophen (Tylenol) 650 mg PO Q4H PRN PRN Reason: Pain (Mild 1-3)/fever Albuterol (Proventil Neb Soln) 2.5 mg NEB Q4H PRN PRN Reason: Shortness Of Breath/wheezing Ertapenem 1 gm/ Sodium (Chloride) 100 mls @ 200 mls/hr IV Q24H [facility] Last Admin: 07/15/20 14:46 Dose: 200 mls/hr Documented by: PREILOR Albumin Human (Albumin 25%) 25 gm in 100 mls @ 25 mls/hr IV ONETIME ONE Stop: 07/15/20 18:29 Last Admin: 07/15/20 14:59 Dose: 25 mls/hr Documented by: PREILOR Albumin Human (Albumin 25%) 25 gm in 100 mls @ 25 mls/hr IV ONETIME ONE Stop: 07/15/20 22:29 Lorazepam (Ativan) 0.5 mg IVPUSH Q4H PRN PRN Reason: Nausea/Vomiting Magnesium Hydroxide (Milk Of Magnesia) 30 ml PO Q12H PRN PRN Reason: Constipation Melatonin (Melatonin) 9 mg PO BEDTIME PRN PRN Reason: Sleep Ondansetron HCl (Zofran) 4 mg IV Q6H PRN PRN Reason: Nausea/Vomiting Ondansetron HCl (Zofran Odt) 4 mg PO Q6H PRN PRN Reason: Nausea able to take PO Oxycodone HCl (Oxycodone) 5 - 10 mg PO Q4H PRN PRN Reason: Pain Senna/Docusate Sodium (Senna Plus) 1 tab PO BID PRN PRN Reason: Constipation Sodium Chloride (Saline Flush) 10 ml FLUSH ASDIRECTED PRN PRN Reason: Keep Vein Open Torsemide (Demadex) 40 mg PO BIDDIURETIC LEIGH Assessment/Plan Comment:: ASSESSMENT AND PLAN - Combined systolic and diastolic congestive heart failure-complicated by recurrent pleural effusions as well as ascites. This was his third paracentesis in the past couple of weeks with fairly rapid reaccumulation of large volume ascites. We did talk about the situation and I relayed my concern that this may signify the end-stage of his heart disease. He did not want to talk about this any further. With his fairly rapid accumulation he would benefit from some diuretic adjustment. Tolerated the thoracentesis and paracentesis well today. Because of the large volume paracentesis he needs some albumin replenished. -Albumin 50 g x 1 today -Discontinue furosemide and start torsemide 40 mg twice a day -Continue spironolactone -Continue additional medical management -Outpatient follow-up for consideration of additional paracentesis and/or thoracentesis Chronic lower extremity venous stasis with ulceration-right medial proximal lower leg with multiple ulcerations and some surrounding erythema though this is not warm and I doubt this represents infection. Small ulcer on the distal lower left leg anteriorly but no evidence for infection here. These are chronic and appear to be stable. He is followed as an outpatient by Dr. Rod. -No compression at this time because of pain -Dressing changes every 72 hours on the right leg -Consider compression dressings as an outpatient Chronic atrial fibrillation-rate controlled, INR therapeutic. -Continue home medications Stage III chronic kidney disease-kidney function stable. Alcohol dependence-sober for the past few weeks while he has been hospitalized. There is no alcohol withdrawal. Possibly a component of cirrhosis with his ascites. Maintenance issues - - DVT prophylaxis -warfarin - GI prophylaxis -PPI - Nutrition -regular - Leach catheter -not indicated CODE STATUS -full code Admission justification -patient will be referred observation status for albumin infusion and vital sign monitoring overnight. Disposition -I would anticipate [facility] [facility] tomorrow Primary care physician -Dr Anam Khan M.D. - Mortality Measure Prognosis:: Poor
[2020-07-15] MEDS: Carvedilol 3.125 MG Tab PO SCH (20:55)
[2020-07-15] MEDS: Spironolactone 25 MG Tab PO SCH (20:55)
[2020-07-15] MEDS ORDERED: atorvaSTATin 10 MG Tab PO SCH (21:00)
[2020-07-15] MEDS ORDERED: CARVEDILOL 3.125 MG PO SCH (21:00)
[2020-07-15] MEDS: Lactobacillus Rhamnosus GG (Probiotic) Cap PO SCH (21:18)
[2020-07-16] MEDS ORDERED: Pantoprazole 40 MG Tab.CR PO SCH (08:00)
[2020-07-16] MEDS: Lactobacillus Rhamnosus GG (Probiotic) Cap PO SCH ×2 (08:29→13:40)
[2020-07-16] MEDS ORDERED: Aspirin 325 MG Tab.EC PO SCH (09:00)
[2020-07-16] MEDS ORDERED: Sertraline 50 MG Tab PO SCH (09:00)
[2020-07-16] MEDS: Spironolactone 25 MG Tab PO SCH (09:10)
[2020-07-16] MEDS: Carvedilol 3.125 MG Tab PO SCH (09:10)
[2020-07-16] MEDS: Torsemide 20 MG Tab PO SCH ×2 (09:10→13:40)
--- NOTE | 2020-07-16 09:43 | OR ---
DATE OF PROCEDURE: 07/15/2020 SURGEON: Devon Rod MD PROCEDURES: 1. Thoracentesis. 2. Paracentesis. FINDINGS: 1. 2.5 L of straw-colored fluid from the chest. 2. 5.5 L of straw-colored fluid from the abdomen. COMPLICATIONS: None. ADMITTING SUPERVISOR: None. ANESTHETIC: Local. RISKS: Risks, benefits, alternatives, and limitations including, but not limited to infection, bleeding, and injuries to abdominal structures or chest structures or pneumothorax among other risks not listed here were explained to the patient, and they wished to proceed. PROCEDURE IN DETAIL: The patient was placed over a Delatorre stand. The right chest was prepped and draped. This was anesthetized with lidocaine. A single alyssa was created in the skin. The sheath was introduced as the needle was withdrawn. This was hooked to a vacuum bottle system and the aforementioned amount of fluid was removed. Dressings were applied. The right abdomen was then addressed next. This was prepped and draped, anesthetized with 1% lidocaine and a single alyssa was created in the skin. The sheath was introduced as the needle was withdrawn. After the fluid was removed, a [id number] stitch was then placed and dressings were applied. The patient tolerated the procedure well. Devon Rod MD /[id number]
[2020-07-16 10:53] VITALS: BP 93/60; PULSE 61
--- NOTE | 2020-07-16 10:59 | PCM.DCSUM1 ---
Discharge Summary - Hospital Course Brief History: 65-year-old male with history of combined systolic and diastolic congestive heart failure, chronic atrial fibrillation, stage III chronic kidney disease who presented for consideration of repeat paracentesis. He was sent through the emergency room where he had paracentesis and thoracentesis. He was admitted for albumin administration following a large volume paracentesis. Diagnosis: Stroke: No - Discharge Data Discharge Date: 07/16/20 Discharge Disposition: DC/Tfer to SNF 03 Condition: Fair - Referral to Home Health Primary Care Physician: Nick Albright MD - Discharge Diagnosis/Problem(s) (1) CHF (congestive heart failure), NYHA class IV SNOMED Code(s): 736247379, 340331549 ICD Code: I50.9 - HEART FAILURE, UNSPECIFIED Status: Acute Priority: High Current Visit: Yes Qualifiers: Congestive heart failure type: combined Congestive heart failure chronicity: acute on chronic Qualified Code(s): I50.43 - Acute on chronic combined systolic (congestive) and diastolic (congestive) heart failure (2) Pleural effusion due to CHF (congestive heart failure) SNOMED Code(s): 72853016 ICD Code: I50.9 - HEART FAILURE, UNSPECIFIED Status: Acute Priority: High Current Visit: Yes (3) Venous stasis dermatitis of both lower extremities SNOMED Code(s): 45612634 ICD Code: I87.2 - VENOUS INSUFFICIENCY (CHRONIC) (PERIPHERAL) Status: Chronic Priority: High Current Visit: Yes (4) Alcohol dependence SNOMED Code(s): 49562048 ICD Code: F10.20 - ALCOHOL DEPENDENCE, UNCOMPLICATED Status: Chronic Current Visit: Yes Qualifiers: Substance use status: unspecified alcohol-induced disorder Qualified Co de(s): F10.29 - Alcohol dependence with unspecified alcohol-induced disorder (5) Ascites SNOMED Code(s): 976648678 ICD Code: R18.8 - OTHER ASCITES Status: Chronic Priority: High Current Visit: Yes Qualifiers: Ascites type: due to alcoholic cirrhosis Qualified Code(s): K70.31 - Alcoholic cirrhosis of liver with ascites (6) Chronic atrial fibrillation SNOMED Code(s): 518592965 ICD Code: I48.20 - CHRONIC ATRIAL FIBRILLATION, UNSPECIFIED Status: Chronic Priority: High Current Visit: Yes (7) CKD (chronic kidney disease), stage III SNOMED Code(s): 635909271 ICD Code: N18.30 - CHRONIC KIDNEY DISEASE, STAGE 3 UNSPECIFIED Status: Chronic Current Visit: No Qualifiers: Chronic kidney disease stage 3 subtype: stage 3a (GFR 45-59) Qualified Code(s): N18.31 - Chronic kidney disease, stage 3a (8) Cellulitis of right lower extremity without foot SNOMED Code(s): 926362296 ICD Code: L03.115 - CELLULITIS OF RIGHT LOWER LIMB Status: Acute Current Visit: Yes - Patient Summary/Data Hospital Course: Prabhjot presented initially to the [facility] for an outpatient paracentesis. He was sent to the emergency room for additional work-up to ensure there was nothing acute beyond the intraperitoneal fluid. A CT scan in the emergency room showed massive ascites and right pleural effusion but no other acute findings. He had a right thoracentesis as well as a paracentesis performed. There were 2 L of fluid removed from the right thoracic cavity and 6 L removed from the abdomen. With the large volume paracentesis it was felt prudent to admit the patient for observation and provide 50 g of albumin. He tolerated the albumin infusion well. His vital signs have been stable overnight. No significant abdominal pain or respiratory compromise. Because of the rapid accumulation of the abdominal fluid and fusion I did elect to increase his diuretics. Hopefully this will help slow the accumulation. He was transitioned from furosemide to torsemide. He is stable and safe for discharge back to the residential to resume his therapies at this time. He has a follow- up with Dr. Rod next week to reassess his chronic lower extremity edema and venous stasis as well as his ascites. - Patient Instructions Diet: Low Sodium Activity: As Tolerated Showering/Bathing: May Shower Notify Provider of: Fever, Increased Pain Other/Special Instructions: 1. You were in the hospital for observation following a large volume paracentesis and thoracentesis. Your condition has been improving following these procedures and the administration of albumin. I recommend close follow-up to see if you need additional fluid removal in the next week. We are also making changes to your diuretic medications as outlined below. 2. Stop taking furosemide. This will be replaced by torsemide 40 mg twice daily taken at 8 AM and 2 PM. 3. Dressing change/wound care -this should be changed every 72 hours and were changed today before hospital discharge. --Right lower leg-remove all dressings and cleanse with saline as needed. Apply nonadherent dressing over the ulcers on the medial side of the leg just distal to the knee. Wrap the foot and lower leg up to the knee with Kerlix and then apply moderate pressure with either Coban or an Prateek wrap. --Left lower leg- remove old dressings and cleanse with saline as needed. Wrap legs from the foot up to just below the knee with Kerlix and then apply moderate pressure with either Coban or an Prateek wrap. 4. Physical therapy to fit left arm with a compression garment to help with left arm and hand edema. 5. Suture removal - sutures in place from paracentesis and thoracentesis. --right abdomen-remove dressing and then sutures on Sunday. --right chest-remove dressing and sutures on Sunday - Discharge Plan *PRESCRIPTION DRUG MONITORING PROGRAM REVIEWED*: Not Applicable *COPY OF PRESCRIPTION DRUG MONITORING REPORT IN PATIENT REESE: Not Applicable Prescriptions/Med Rec: Amoxicillin/Clavulanate K [Augmentin 875-125 MG] 1 tab PO BID #20 tablet Torsemide 40 mg PO ASDIRECTED #120 tablet Home Medications: Home Meds Aspirin 325 mg PO DAILY 12/09/19 [History] Spironolactone [Aldactone] 25 mg PO BID #60 12/14/19 [Rx] atorvaSTATin [Lipitor] 10 mg PO BEDTIME #30 12/14/19 [Rx] Cholecalciferol (Vitamin D3) [Vitamin D3] 2,000 unit PO DAILY 02/26/20 [History] Omeprazole 20 mg PO QID 02/26/20 [History] Sertraline [Zoloft] 50 mg PO DAILY 02/26/20 [History] carvediloL [Carvedilol] 3.125 mg PO BID #60 tablet 02/29/20 [Rx] Warfarin [Coumadin] 1.5 mg PO DAILY #60 tab 07/09/20 [Rx] Lactobacillus Rhamnosus GG [Culturelle] 1 cap PO TID 07/14/20 [History] Amoxicillin/Clavulanate K [Augmentin 875-125 MG] 1 tab PO BID #20 tablet 07/16/20 [Rx] Torsemide 40 mg PO ASDIRECTED #120 tablet 07/16/20 [Rx] Patient Handouts: Shortness of Breath, Adult, [id number], Ascites, Stasis Dermatitis, Pleural Effusion Referrals: Devon Rod MD [Physician] - 07/22/20 1:40 pm (f/u as scheduled next week ) Nick Albright MD [Primary Care Provider] - (f/u after the NH stay ) - Discharge Summary/Plan Comment DC Time >30 min.: Yes (40-NH discharge ) - Patient Data Vitals - Most Recent: Last Vital Signs Temp 36.8 C 07/16/20 10:13 Pulse 61 07/16/20 10:13 Resp 18 07/16/20 10:13 BP 93/60 07/16/20 10:13 Pulse Ox 96 07/16/20 10:13 Weight - Most Recent: 98.43 kg I&O - Last 24 hours: Intake & Output 07/15/20 07/16/20 07/16/20 22:59 06:59 14:59 Intake Total 600 Output Total 150 Balance 450 Lab Results - Last 24 hrs: Laboratory Results - last 24 hr 07/15/20 07/15/20 07/15/20 Range/Units 11:13 11:13 11:13 WBC 8.6 (4.5-11.0) K/uL RBC 5.05 (4.30-5.90) M/uL Hgb 14.1 (12.0-15.0) g/dL Hct 44.0 (40.0-54.0) % MCV 87 (80-98) fL MCH 28 (27-31) pg MCHC 32 (32-36) % Plt Count 205 (150-400) K/uL Neut % (Auto) 81 H (36-66) % Lymph % (Auto) 8 L (24-44) % [place] % (Auto) 9 H (2-6) % Eos % (Auto) 1 L (2-4) % Baso % (Auto) 0 (0-1) % PT 29.6 H (9.5-12.0) sec INR 2.77 H (0.80-1.20) Sodium 138 L (140-148) mmol/L Potassium 4.2 (3.6-5.2) mmol/L Chloride 102 (100-108) mmol/L Carbon Dioxide 26 (21-32) mmol/L Anion Gap 14.2 H (5.0-14.0) mmol/L BUN 38 H (7-18) mg/dL Creatinine 1.0 (0.8-1.3) mg/dL Est Cr Clr Drug Dosing 78.68 mL/min Estimated GFR (MDRD) > 60 (>60) Glucose 99 (74-106) mg/dL Calcium 8.2 L (8.5-10.1) mg/dL Total Bilirubin 1.9 H (0.2-1.0) mg/dL AST 32 (15-37) U/L ALT 13 (12-78) U/L Alkaline Phosphatase 178 H (46-116) U/L NT-Pro-B Natriuret Pep 60907 H (5-125) pg/mL Total Protein 6.1 L (6.4-8.2) g/dL Albumin 2.7 L (3.4-5.0) g/dL Globulin 3.4 (2.3-3.5) g/dL Albumin/Globulin Ratio 0.8 L (1.2-2.2) 07/16/20 07/16/20 07/16/20 Range/Units 05:45 05:45 05:45 WBC 7.5 (4.5-11.0) K/uL RBC 5.05 (4.30-5.90) M/uL Hgb 13.9 (12.0-15.0) g/dL Hct 43.9 (40.0-54.0) % MCV 87 (80-98) fL MCH 28 (27-31) pg MCHC 32 (32-36) % Plt Count 180 (150-400) K/uL Neut % (Auto) (36-66) % Lymph % (Auto) (24-44) % [place] % (Auto) (2-6) % Eos % (Auto) (2-4) % Baso % (Auto) (0-1) % PT 26.2 H (9.5-12.0) sec INR 2.45 H (0.80-1.20) Sodium 139 L (140-148) mmol/L Potassium 3.9 (3.6-5.2) mmol/L Chloride 103 (100-108) mmol/L Carbon Dioxide 27 (21-32) mmol/L Anion Gap 12.9 (5.0-14.0) mmol/L BUN 32 H (7-18) mg/dL Creatinine 0.9 (0.8-1.3) mg/dL Est Cr Clr Drug Dosing 87.42 mL/min Estimated GFR (MDRD) > 60 (>60) Glucose 93 (74-106) mg/dL Calcium 8.2 L (8.5-10.1) mg/dL Total Bilirubin (0.2-1.0) mg/dL AST (15-37) U/L ALT (12-78) U/L Alkaline Phosphatase (46-116) U/L NT-Pro-B Natriuret Pep (5-125) pg/mL Total Protein (6.4-8.2) g/dL Albumin (3.4-5.0) g/dL Globulin (2.3-3.5) g/dL Albumin/Globulin Ratio (1.2-2.2) Med Orders - Current: Current Medications Acetaminophen (Tylenol) 650 mg PO Q4H PRN PRN Reason: Pain (Mild 1-3)/fever Albuterol (Proventil Neb Soln) 2.5 mg NEB Q4H PRN PRN Reason: Shortness Of Breath/wheezing Aspirin (Ecotrin) 325 mg PO DAILY [facility] Last Admin: 07/16/20 08:30 Dose: 325 mg Documented by: Atorvastatin Calcium (Lipitor) 10 mg PO BEDTIME [facility] Last Admin: 07/15/20 21:18 Dose: 10 mg Documented by: Carvedilol (Coreg) 3.125 mg PO BID [facility] Last Admin: 07/16/20 09:10 Dose: Not Given Documented by: Lactobacillus Rhamnosus (Culturelle) 1 cap PO TID [facility] Last Admin: 07/16/20 08:29 Dose: 1 cap Documented by: Lorazepam (Ativan) 0.5 mg IVPUSH Q4H PRN PRN Reason: Nausea/Vomiting Magnesium Hydroxide (Milk Of Magnesia) 30 ml PO Q12H PRN PRN Reason: Constipation Melatonin (Melatonin) 9 mg PO BEDTIME PRN PRN Reason: Sleep Ondansetron HCl (Zofran) 4 mg IV Q6H PRN PRN Reason: Nausea/Vomiting Ondansetron HCl (Zofran Odt) 4 mg PO Q6H PRN PRN Reason: Nausea able to take PO Oxycodone HCl (Oxycodone) 5 - 10 mg PO Q4H PRN PRN Reason: Pain Pantoprazole Sodium (Protonix) 40 mg PO ACBREAKFAST [facility] Last Admin: 07/16/20 08:28 Dose: 40 mg Documented by: Senna/Docusate Sodium (Senna Plus) 1 tab PO BID PRN PRN Reason: Constipation Sertraline HCl (Zoloft) 50 mg PO DAILY [facility] Last Admin: 07/16/20 08:30 Dose: 50 mg Documented by: Sodium Chloride (Saline Flush) 10 ml FLUSH ASDIRECTED PRN PRN Reason: Keep Vein Open Spironolactone (Aldactone) 25 mg PO BID [facility] Last Admin: 07/16/20 09:10 Dose: Not Given Documented by: Torsemide (Demadex) 40 mg PO BIDDIURETIC [facility] Last Admin: 07/16/20 09:10 Dose: Not Given Documented by: Warfarin Sodium (Coumadin) 1.5 mg PO DAILY@1300 [facility] Discontinued Medications Bacitracin (Bacitracin Oint 1 Gm) 2 dose TOP ONETIME ONE Stop: 07/15/20 12:57 Last Admin: 07/15/20 14:36 Dose: Not Given Documented by: Ertapenem 1 gm/ Sodium (Chloride) 100 mls @ 200 mls/hr IV Q24H [facility] Last Admin: 07/15/20 14:46 Dose: 200 mls/hr Documented by: Albumin Human (Albumin 25%) 25 gm in 100 mls @ 25 mls/hr IV ONETIME ONE Stop: 07/15/20 18:29 Last Admin: 07/15/20 14:59 Dose: 25 mls/hr Documented by: Albumin Human (Albumin 25%) 25 gm in 100 mls @ 25 mls/hr IV ONETIME ONE Stop: 07/15/20 22:29 Last Admin: 07/15/20 18:41 Dose: 25 mls/hr Documented by: *Q Meaningful Use (DIS) - VTE *Q VTE Mechanical Contraindications *Q: Bilateral Lower Dermatits
[2020-07-16] MEDS ORDERED: WARFARIN 1.5 MG PO SCH (13:00)
== END 2020-07-16 15:13 ==
LOC: JP.ED 08:28 → JP.ICU 15:34 → JP.MS 16:07
PROVIDERS: ADMIT Internal Medicine; ATTEND Internal Medicine
DX: K70.31 Alcoholic cirrhosis of liver with ascites (principal); I50.43 Acute on chronic combined systolic (congestive) and diastolic (congestive) heart failure; F10.20 Alcohol dependence, uncomplicated; I48.20 Chronic atrial fibrillation, unspecified; N18.31 Chronic kidney disease, stage 3a; I83.218 Varicose veins of right lower extremity with both ulcer of other part of lower extremity and inflammation; I83.228 Varicose veins of left lower extremity with both ulcer of other part of lower extremity and inflammation; L97.819 Non-pressure chronic ulcer of other part of right lower leg with unspecified severity; L97.829 Non-pressure chronic ulcer of other part of left lower leg with unspecified severity; Z79.899 Other long term (current) drug therapy
CPT/HCPCS: 32554; 36415; 49082; 71045; 74176; 80048; 80053; 83880; 85025; 85027; 85610; 96365; 96366; 96367; 99217; 99219; 99285; A9270; G0378; J1335; P9047

== ENCOUNTER 2020-10-31 09:50 | Emergency (ER) | payer MEDICARE ==
[2020-10-31 11:39] VITALS: BP 115/45; PULSE 51
--- NOTE | 2020-10-31 12:28 | EDM.PDOC ---
ED HPI GENERAL MEDICAL PROBLEM - General Chief Complaint: General Stated Complaint: INFECTION ON LEGS Time Seen by Provider: 10/31/20 11:51 Source of Information: Reports: Patient History Limitations: Reports: No Limitations - History of Present Illness INITIAL COMMENTS - FREE TEXT/NARRATIVE: 65 yo male presents to the ER today with continued weeping and pain in LE. Left is worse then right. fatigue. with heavy legs. afebrile. - Related Data Allergies Allergy/AdvReac Type Severity Reaction Status Date / Time pollen extracts Allergy Sneezing Verified 10/31/20 11:45 Home Meds: Home Meds Aspirin 325 mg PO DAILY 12/09/19 [History] Spironolactone [Aldactone] 25 mg PO BID #60 12/14/19 [Rx] atorvaSTATin [Lipitor] 10 mg PO BEDTIME #30 12/14/19 [Rx] Cholecalciferol (Vitamin D3) [Vitamin D3] 2,000 unit PO DAILY 02/26/20 [History] Omeprazole 20 mg PO QID 02/26/20 [History] Sertraline [Zoloft] 50 mg PO DAILY 02/26/20 [History] carvediloL [Carvedilol] 3.125 mg PO BID #60 tablet 02/29/20 [Rx] Warfarin [Coumadin] 1.5 mg PO DAILY #60 tab 07/09/20 [Rx] Lactobacillus Rhamnosus GG [Culturelle] 1 cap PO TID 07/14/20 [History] Torsemide 40 mg PO ASDIRECTED #120 tablet 07/16/20 [Rx] Past Medical History - Past Health History Medical/Surgical History: Denies Medical/Surgical History HEENT History: Reports: Impaired Vision Cardiovascular History: Reports: Afib, Bypass, Heart Failure, High Cholesterol, Hypertension, [place], Prior Cardiac Arrest, PVD, Other (See Below) Other Cardiovascular History: CABG; aortic dissection; CHF Respiratory History: Reports: Pneumonia, Recurrent, SOB Gastrointestinal History: Reports: Cirrhosis, GERD, Other (See Below) Other Gastrointestinal History: ascities Genitourinary History: Reports: Chronic Renal Insuffiency Musculoskeletal History: Reports: Fracture, Other (See Below) Other Musculoskeletal History: Hx of rib fx Neurological History: Reports: Other (See Below) Other Neuro History: subdural hematoma. Hx of cerebral embolic infarction Psychiatric History: Reports: Depression Hematologic History: Reports: Blood Transfusion(s) Dermatologic History: Reports: Cellulitis, Venous Stasis Dermatitis, Other (See Below) Other Dermatologic History: B lower leg (12/2019) - Infectious Disease History Infectious Disease History: Reports: None - Past Surgical History Head Surgeries/Procedures: Reports: None HEENT Surgical History: Reports: None Cardiovascular Surgical History: Reports: Aneurysm, Coronary Artery Bypass, Valve Replacement, Other (See Below) Other 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 Respiratory Surgical History: Reports: None GI Surgical History: Reports: None Neurological Surgical History: Reports: None Musculoskeletal Surgical History: Reports: None Dermatological Surgical History: Reports: None Social & Family History - Family History Family Medical History: No Pertinent Family History - Caffeine Use Caffeine Use: Reports: Coffee - Living Situation & Occupation Occupation: Other (Single dwelling home) ED ROS GENERAL - Review of Systems Review Of Systems: See Below Constitutional: Reports: Fatigue. Denies: Fever, Chills Respiratory: Denies: Shortness of Breath, Wheezing Cardiovascular: Reports: Edema. Denies: Chest Pain GI/Abdominal: Denies: Abdominal Pain ED EXAM, GENERAL - Physical Exam Exam: See Below Exam Limited By: No Limitations General Appearance: Alert, WD/WN, No Apparent Distress Respiratory/Chest: No Respiratory Distress, Lungs Clear, Normal Breath Sounds. No: Crackles, Rhonchi, Wheezing Cardiovascular: Systolic Murmur, Other (3+ edema, weeping) GI/Abdominal: Normal Bowel Sounds, Soft, Non-Tender, Distended Extremities: Other (bilateral lower legs weeping, left leg crusted, malodorous discharge) Neurological: Alert, Oriented Psychiatric: Normal Affect, Depressed Mood Skin Exam: Warm, Dry, Erythema (LE bilateral) Course - Vital Signs Last Recorded V/S: Last Vital Signs Temp 36.4 C 10/31/20 11:46 Pulse 51 L 10/31/20 11:46 Resp 17 10/31/20 11:46 BP 115/45 L 10/31/20 11:46 Pulse Ox 93 L 10/31/20 11:46 - Orders/Labs/Meds Labs: Laboratory Tests 10/31/20 10/31/20 Range/Units 12:34 12:34 WBC 4.8 (4.5-11.0) K/uL RBC 5.28 (4.30-5.90) M/uL Hgb 14.3 (12.0-15.0) g/dL Hct 45.1 (40.0-54.0) % MCV 85 (80-98) fL MCH 27 (27-31) pg MCHC 32 (32-36) % Plt Count 136 L (150-400) K/uL Neut % (Auto) 84.0 H (36-66) % Lymph % (Auto) 7.1 L (24-44) % [place] % (Auto) 7.5 H (2-6) % Eos % (Auto) 1.2 L (2-4) % Baso % (Auto) 0.2 (0-1) % Sodium 137 L (140-148) mmol/L Potassium 4.3 (3.6-5.2) mmol/L Chloride 97 L (100-108) mmol/L Carbon Dioxide 28 (21-32) mmol/L Anion Gap 16.3 H (5.0-14.0) mmol/L BUN 36 H (7-18) mg/dL Creatinine 1.5 H D (0.8-1.3) mg/dL Est Cr Clr Drug Dosing 54.01 mL/min Estimated GFR (MDRD) 47 L (>60) Glucose 87 (74-106) mg/dL Calcium 8.8 (8.5-10.1) mg/dL Total Bilirubin 1.8 H (0.2-1.0) mg/dL AST 23 (15-37) U/L ALT 11 L (12-78) U/L Alkaline Phosphatase 137 H (46-116) U/L Total Protein 7.2 (6.4-8.2) g/dL Albumin 3.5 (3.4-5.0) g/dL Globulin 3.7 H (2.3-3.5) g/dL Albumin/Globulin Ratio 1.0 L (1.2-2.2) - Re-Assessments/Exams Free Text/Narrative Re-Assessment/Exam: 10/31/20 14:28 WBC WNL, he is afebrile legs are equally erythemic and swollen, more crusting and weeping to the left leg. encouraged pt to practice self care with shower daily, to decrease his intake of sodium. pt primary food source in frozen dinners. He is frustrated with his legs. It was discussed with him that his legs will not heal until he reduces peripheral edema, he has hx of heart failure and does not monitor sodium intake. his kidney function has decrease since his last visit to the ER in 07/2020 creatine 1.5 will increase torsemide to 80 mg for 7 days. Strongly encouraged him to follow-up with primary care. 10/31/20 14:29 10/31/20 17:40 Departure - Departure Time of Disposition: 14:19 Disposition: Home, Self-Care 01 Condition: Fair Clinical Impression: CHF, Congestive heart failure, Peripheral edema, Venous stasis dermatitis of both lower extremities, Generalized weakness Venous dermatitis Qualifiers: Laterality: bilateral Qualified Code(s): I87.2 - Venous insufficiency (chronic) (peripheral) CHF (congestive heart failure), NYHA class IV Qualifiers: Congestive heart failure type: combined Congestive heart failure chronicity: acute on chronic Qualified Code(s): I50.43 - Acute on chronic combined systolic (congestive) and diastolic (congestive) heart failure - Discharge Information *PRESCRIPTION DRUG MONITORING PROGRAM REVIEWED*: Not Applicable *COPY OF PRESCRIPTION DRUG MONITORING REPORT IN PATIENT REESE: Not Applicable Instructions: Peripheral Edema Referrals: Nick Albright MD [Primary Care Provider] - Forms: ED Department Discharge Additional Instructions: Increase Torsemide to 80 mg daily for 7 days Follow-up with your primary care provider this week Your legs will not heal until you decrease the edema (swelling) your legs are swollen because your heart is failing to pump efficiently You absolutely need to reduce the sodium in your diet sodium is found in any food item that is in a box, bag or can (accept frozen vegetables or fruit) diet goals: 6 servings of vegetables daily, 3-4 fruits, 3 protein servings limit fluid intake to 64 ounces of fluid, but it is still important to drink fluids minimally 40 ounces YOu need to take a shower every day. wash your legs with soapy water. pat dry Sepsis Event Note (ED) - Evaluation Sepsis Screening Result: No Definite Risk - Focused Exam Vital Signs: Vital Signs Temp Pulse Resp BP Pulse Ox 10/31/20 11:46 36.4 C 51 L 17 115/45 L 93 L 10/31/20 11:37 36.4 C 51 L 17 115/45 L 93 L
== END 2020-10-31 14:38 | disposition home or self-care (01) ==
LOC: JP.ED 09:50
DX: I87.2 Venous insufficiency (chronic) (peripheral) (principal); I13.0 Hypertensive heart and chronic kidney disease with heart failure and stage 1 through stage 4 chronic kidney disease, or unspecified chronic kidney disease; I50.43 Acute on chronic combined systolic (congestive) and diastolic (congestive) heart failure; I48.91 Unspecified atrial fibrillation; I25.2 Old myocardial infarction; N18.9 Chronic kidney disease, unspecified; E78.00 Pure hypercholesterolemia, unspecified; Z91.048 Other nonmedicinal substance allergy status; Z79.82 Long term (current) use of aspirin; Z79.01 Long term (current) use of anticoagulants; Z79.899 Other long term (current) drug therapy; Z95.1 Presence of aortocoronary bypass graft
CPT/HCPCS: 36415; 80053; 85025; 99283

== ENCOUNTER 2020-11-02 10:48 | Inpatient (IN) | payer MEDICARE ==
[2020-11-02] MEDS ORDERED: Sodium Chloride 0.9% 10 ML Syringe FLUSH PRN (10:57)
[2020-11-02] MEDS ORDERED: Sodium Chloride 0.9% 1,000 ML IV ONE (10:57)
[2020-11-02] MEDS ORDERED: cefTRIAXone 2 GM in Sodium Chloride 0.9% 50 ML IV ONE (11:02)
[2020-11-02] MEDS ORDERED: Vancomycin 1.5 GM in Sodium Chloride 0.9% 500 ML IV ONE (11:03)
--- NOTE | 2020-11-02 11:23 | EDM.PDOC ---
ED HPI GENERAL MEDICAL PROBLEM - General Chief Complaint: Lower Extremity Injury/Pain Stated Complaint: MEDICAL VIA [facility] Time Seen by Provider: 11/02/20 11:00 Source of Information: Reports: Patient History Limitations: Reports: No Limitations - History of Present Illness INITIAL COMMENTS - FREE TEXT/NARRATIVE: This is a 65-year-old male with extensive medical history including prior cardiac arrest, atrial fibrillation managed on anticoagulation, CHF, chronic lower extremity wounds who presents with concerns of worsening discomfort in the bilateral lower extremities. He was seen in the ED 2 days ago for worsening lower extremity swelling. Since that time he has been at home sitting around on the couch, not really able to ambulate due to generalized weakness. He has been urinating on the couch as well. He reports increasing pain and swelling in the bilateral lower extremities. He is not sure if he has been taking an antibiotic. He denies any fevers. No cough. No abdominal pain, no nausea or vomiting. No diarrhea. - Related Data Allergies Allergy/AdvReac Type Severity Reaction Status Date / Time pollen extracts Allergy Sneezing Verified 10/31/20 11:45 Home Meds: Home Meds Aspirin 325 mg PO DAILY 12/09/19 [History] Spironolactone [Aldactone] 25 mg PO BID #60 12/14/19 [Rx] atorvaSTATin [Lipitor] 10 mg PO BEDTIME #30 12/14/19 [Rx] Cholecalciferol (Vitamin D3) [Vitamin D3] 2,000 unit PO DAILY 02/26/20 [History] Omeprazole 20 mg PO QID 02/26/20 [History] Sertraline [Zoloft] 50 mg PO DAILY 02/26/20 [History] carvediloL [Carvedilol] 3.125 mg PO BID #60 tablet 02/29/20 [Rx] Warfarin [Coumadin] 1.5 mg PO DAILY #60 tab 07/09/20 [Rx] Lactobacillus Rhamnosus GG [Culturelle] 1 cap PO TID 07/14/20 [History] Torsemide 40 mg PO ASDIRECTED #120 tablet 07/16/20 [Rx] Past Medical History - Past Health History Medical/Surgical History: Denies Medical/Surgical History HEENT History: Reports: Impaired Vision Cardiovascular History: Reports: Afib, Bypass, Heart Failure, High Cholesterol, Hypertension, [place], Prior Cardiac Arrest, PVD, Other (See Below) Other Cardiovascular History: CABG; aortic dissection; CHF Respiratory History: Reports: Pneumonia, Recurrent, SOB Gastrointestinal History: Reports: Cirrhosis, GERD, Other (See Below) Other Gastrointestinal History: ascities Genitourinary History: Reports: Chronic Renal Insuffiency Musculoskeletal History: Reports: Fracture, Other (See Below) Other Musculoskeletal History: Hx of rib fx Neurological History: Reports: Other (See Below) Other Neuro History: subdural hematoma. Hx of cerebral embolic infarction Psychiatric History: Reports: Depression Hematologic History: Reports: Blood Transfusion(s) Dermatologic History: Reports: Cellulitis, Venous Stasis Dermatitis, Other (See Below) Other Dermatologic History: B lower leg (12/2019) - Infectious Disease History Infectious Disease History: Reports: None - Past Surgical History Head Surgeries/Procedures: Reports: None HEENT Surgical History: Reports: None Cardiovascular Surgical History: Reports: Aneurysm, Coronary Artery Bypass, Valve Replacement, Other (See Below) Other 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 Respiratory Surgical History: Reports: None GI Surgical History: Reports: None Neurological Surgical History: Reports: None Musculoskeletal Surgical History: Reports: None Dermatological Surgical History: Reports: None Social & Family History - Family History Family Medical History: No Pertinent Family History - Caffeine Use Caffeine Use: Reports: Coffee - Living Situation & Occupation Occupation: Other (Single dwelling home) Review of Systems - Review of Systems Review Of Systems: See Below Constitutional: Reports: No Symptoms Eyes: Reports: No Symptoms Ears: Reports: No Symptoms Nose: Reports: No Symptoms Mouth/Throat: Reports: No Symptoms Respiratory: Reports: No Symptoms Cardiovascular: Reports: No Symptoms GI/Abdominal: Reports: No Symptoms Genitourinary: Reports: No Symptoms Musculoskeletal: Reports: No Symptoms Skin: Reports: Erythema, Wound Neurological: Reports: No Symptoms Psychiatric: Reports: No Symptoms ED EXAM, GENERAL - Physical Exam Exam: See Below Exam Limited By: No Limitations General Appearance: Alert, No Apparent Distress Ears: Normal External Exam Nose: Normal Inspection Throat/Mouth: Normal Inspection Head: Atraumatic, Normocephalic Neck: Normal Inspection Respiratory/Chest: Lungs Clear Cardiovascular: Regular Rate, Rhythm GI/Abdominal: Soft, Non-Tender Back Exam: Normal Inspection Extremities: Other (Bilateral lower extremity swelling with crusting of chronic wounds, erythroderma of both feet extending up to the rick.) Neurological: Alert, Oriented Psychiatric: Normal Affect, Normal Mood Skin Exam: Warm, Dry #1 Interpretation EKG Date: 11/02/20 Rhythm: A-Fib Rate (Beats/Min): 46 QRS: Wide QT: Prolonged Comparison: Other: (When compared to prior tracing bradycardia is now present.) Course - Vital Signs Last Recorded V/S: Last Vital Signs Temp 36.3 C 11/02/20 10:54 Pulse 44 L 11/02/20 11:36 Resp 18 11/02/20 10:54 BP 92/54 L 11/02/20 11:36 Pulse Ox 95 11/02/20 10:54 - Orders/Labs/Meds Orders: Active Orders 24 hr Category Date Time Status Blood Pressure Mgt: Sepsis [RC] Q15MX2 Care 11/02/20 10:58 Active EKG Documentation Completion [RC] ASDIRECTED Care 11/02/20 12:18 Active Sodium Chloride 0.9% [Saline Flush] Med 11/02/20 10:57 Active 10 ml FLUSH ASDIRECTED PRN Blood Culture x2 Reflex Set [OM.PC] Urgent Oth 11/02/20 10:57 Ordered Saline Lock Insert [OM.PC] Stat Oth 11/02/20 10:57 Ordered Severe Sepsis Onset Time [OM.PC] Stat Oth 11/02/20 10:57 Ordered EKG 12 Lead [EK] Routine Ther 11/02/20 12:18 Ordered Medication Orders Sodium Chloride (Sodium Chloride 0.9% 10 Ml Syringe) 10 ml FLUSH ASDIRECTED PRN PRN Reason: Keep Vein Open Last Admin: 11/02/20 11:15 Dose: 10 ml Documented by: JUMANA Labs: Laboratory Tests 11/02/20 11/02/20 11/02/20 Range/Units 11:05 11:05 11:05 WBC 4.9 (4.5-11.0) K/uL RBC 4.85 (4.30-5.90) M/uL Hgb 13.0 (12.0-15.0) g/dL Hct 41.1 (40.0-54.0) % MCV 85 (80-98) fL MCH 27 (27-31) pg MCHC 32 (32-36) % Plt Count 128 L (150-400) K/uL Neut % (Auto) 80.8 H (36-66) % Lymph % (Auto) 9.9 L (24-44) % [place] % (Auto) 8.1 H (2-6) % Eos % (Auto) 0.8 L (2-4) % Baso % (Auto) 0.4 (0-1) % PT (9.5-12.0) sec INR (0.80-1.20) Sodium 137 L (140-148) mmol/L Potassium 4.1 (3.6-5.2) mmol/L Chloride 100 (100-108) mmol/L Carbon Dioxide 27 (21-32) mmol/L Anion Gap 14.1 H (5.0-14.0) mmol/L BUN 41 H (7-18) mg/dL Creatinine 1.9 H (0.8-1.3) mg/dL Est Cr Clr Drug Dosing 42.64 mL/min Estimated GFR (MDRD) 36 L (>60) Glucose 121 H (74-106) mg/dL Lactic Acid 1.6 (0.4-2.0) mmol/L Calcium 8.2 L (8.5-10.1) mg/dL Total Bilirubin 1.3 H (0.2-1.0) mg/dL AST 19 (15-37) U/L ALT 10 L (12-78) U/L Alkaline Phosphatase 121 H (46-116) U/L Total Protein 6.4 (6.4-8.2) g/dL Albumin 2.9 L (3.4-5.0) g/dL Globulin 3.5 (2.3-3.5) g/dL Albumin/Globulin Ratio 0.8 L (1.2-2.2) Procalcitonin ng/mL Urine Color (YELLOW) Urine Appearance (CLEAR) Urine pH (5.0-8.0) Ur Specific [place] (1.008-1.030) Urine Protein (NEGATIVE) mg/dL Urine Glucose (UA) (NEGATIVE) mg/dL Urine Ketones (NEGATIVE) mg/dL Urine Occult Blood (NEGATIVE) Urine Nitrite (NEGATIVE) Urine Bilirubin (NEGATIVE) Urine Urobilinogen (0.2-1.0) EU/dL Ur Leukocyte Esterase (NEGATIVE) Urine RBC (0-5) Urine WBC (0-5) Ur Epithelial Cells Amorphous Sediment Urine Bacteria Urine Mucus 11/02/20 11/02/20 11/02/20 Range/Units 11:19 11:19 12:33 WBC (4.5-11.0) K/uL RBC (4.30-5.90) M/uL Hgb (12.0-15.0) g/dL Hct (40.0-54.0) % MCV (80-98) fL MCH (27-31) pg MCHC (32-36) % Plt Count (150-400) K/uL Neut % (Auto) (36-66) % Lymph % (Auto) (24-44) % [place] % (Auto) (2-6) % Eos % (Auto) (2-4) % Baso % (Auto) (0-1) % PT 16.0 H (9.5-12.0) sec INR 1.48 H (0.80-1.20) Sodium (140-148) mmol/L Potassium (3.6-5.2) mmol/L Chloride (100-108) mmol/L Carbon Dioxide (21-32) mmol/L Anion Gap (5.0-14.0) mmol/L BUN (7-18) mg/dL Creatinine (0.8-1.3) mg/dL Est Cr Clr Drug Dosing mL/min Estimated GFR (MDRD) (>60) Glucose (74-106) mg/dL Lactic Acid (0.4-2.0) mmol/L Calcium (8.5-10.1) mg/dL Total Bilirubin (0.2-1.0) mg/dL AST (15-37) U/L ALT (12-78) U/L Alkaline Phosphatase (46-116) U/L Total Protein (6.4-8.2) g/dL Albumin (3.4-5.0) g/dL Globulin (2.3-3.5) g/dL Albumin/Globulin Ratio (1.2-2.2) Procalcitonin < 0.05 ng/mL Urine Color Yellow (YELLOW) Urine Appearance Clear (CLEAR) Urine pH 5.5 (5.0-8.0) Ur Specific [place] 1.015 (1.008-1.030) Urine Protein Negative (NEGATIVE) mg/dL Urine Glucose (UA) Negative (NEGATIVE) mg/dL Urine Ketones Negative (NEGATIVE) mg/dL Urine Occult Blood Negative (NEGATIVE) Urine Nitrite Negative (NEGATIVE) Urine Bilirubin Negative (NEGATIVE) Urine Urobilinogen 0.2 (0.2-1.0) EU/dL Ur Leukocyte Esterase Negative (NEGATIVE) Urine RBC 0-5 (0-5) Urine WBC 0-5 (0-5) Ur Epithelial Cells Not seen Amorphous Sediment Not seen Urine Bacteria Not seen Urine Mucus Not seen Meds: Medications Generic Name Dose Route Start Last Admin Trade Name Freq PRN Reason Stop Dose Admin Sodium Chloride 10 ml 11/02/20 10:57 11/02/20 11:15 Sodium Chloride 0.9% 10 Ml Syringe FLUSH 10 ml ASDIRECTED PRN Administration Keep Vein Open Discontinued Medications Generic Name Dose Route Start Last Admin Trade Name Freq PRN Reason Stop Dose Admin Sodium Chloride 1,000 mls @ 999 mls/hr 11/02/20 10:57 11/02/20 11:14 Normal Saline IV 11/02/20 11:57 999 mls/hr BOLUS ONE Administration Protocol Ceftriaxone Sodium 2 gm/ 50 mls @ 100 mls/hr 11/02/20 11:02 11/02/20 11:34 Sodium Chloride IV 11/02/20 11:31 100 mls/hr ONETIME ONE Administration Vancomycin HCl 1.5 gm/ Sodium 500 mls @ 250 mls/hr 11/02/20 11:03 11/02/20 12:23 Chloride IV 11/02/20 13:02 250 mls/hr ONETIME ONE Administration - Re-Assessments/Exams Free Text/Narrative Re-Assessment/Exam: 65-year-old with complex medical history presented concerns of lower extremity swelling, discomfort, and possible cellulitis. On arrival to the ED was noted to be bradycardic, is on a beta-hope, as well as hypotensive systolic with pressures in the 80s. Initial concern was for possible sepsis, likely from cellulitis. We have tediously been giving him fluid boluses given his history of CHF with improvement in his blood pressure. He does have quite erythematous lower extremities over his chronic skin changes. He was given ceftriaxone and vancomycin for possible cellulitis and sepsis. Interestingly, labs returned and are generally not indicative of infection with normal white blood cell count, negative pro-Killian, negative lactate. Possibly the skin changes were seen on exam or just his chronic state. Regardless, the last couple days he has been nonambulatory, sitting in his own urine. He will need to be admitted for possible placement as well as to further observe him and rule out acute infection. 11/02/20 13:51 Departure - Departure Time of Disposition: 13:30 Disposition: Admitted As Inpatient 64 Clinical Impression: Failure to thrive Qualifiers: Failure to thrive age range: in adult Qualified Code(s): R62.7 - Adult failure to thrive - Discharge Information Referrals: PCP,None [Primary Care Provider] - Forms: ED Department Discharge Sepsis Event Note (ED) - Evaluation Sepsis Screening Result: No Definite Risk - Focused Exam Vital Signs: Vital Signs Temp Pulse Resp BP Pulse Ox 11/02/20 11:36 44 L 92/54 L 11/02/20 11:22 47 L 90/61 11/02/20 10:58 95/56 L 11/02/20 10:54 36.3 C 49 L 18 80/47 L 95 11/02/20 10:50 36.3 C 49 L 18 80/47 L 95 - My Orders Last 24 Hours: My Active Orders 11/02/20 10:57 Sodium Chloride 0.9% [Saline Flush] 10 ml FLUSH ASDIRECTED PRN Blood Culture x2 Reflex Set [OM.PC] Urgent Saline Lock Insert [OM.PC] Stat Severe Sepsis Onset Time [OM.PC] Stat 11/02/20 10:58 Blood Pressure Mgt: Sepsis [RC] Q15MX2 11/02/20 12:18 EKG Documentation Completion [RC] ASDIRECTED EKG 12 Lead [EK] Routine - Assessment/Plan Last 24 Hours: My Active Orders 11/02/20 10:57 Sodium Chloride 0.9% [Saline Flush] 10 ml FLUSH ASDIRECTED PRN Blood Culture x2 Reflex Set [OM.PC] Urgent Saline Lock Insert [OM.PC] Stat Severe Sepsis Onset Time [OM.PC] Stat 11/02/20 10:58 Blood Pressure Mgt: Sepsis [RC] Q15MX2 11/02/20 12:18 EKG Documentation Completion [RC] ASDIRECTED EKG 12 Lead [EK] Routine
--- NOTE | 2020-11-02 13:20 | CR ---
CHEST: Portable 11/02/2020 at 11:25 AM CLINICAL HISTORY:Sepsis COMPARISON:07/15/2020 FINDINGS: Patient has right pleural effusion and/or pleural thickening. Heart is enlarged pulmonary vascularity is normal. Left lung is clear. Impression: Right pleural effusion with loculation or pleural thickening Cardiomegaly
[2020-11-02] MEDS ORDERED: Sodium Chloride 0.9% 500 ML IV ONE (14:39)
[2020-11-02] MEDS: Sodium Chloride 0.9% 1,000 ML IV SCH ×2 (15:27→22:36)
[2020-11-02] MEDS ORDERED: LORazepam 2 MG/ML SDV IVPUSH PRN (15:27)
[2020-11-02] MEDS ORDERED: Ondansetron 4 MG Tab.DIS PO PRN (15:27)
[2020-11-02] MEDS ORDERED: Ondansetron 4 MG/2 ML SDV IV PRN (15:27)
[2020-11-02] MEDS ORDERED: Albuterol 0.083% 2.5 MG/3 ML Neb Soln NEB PRN (15:27)
[2020-11-02] MEDS ORDERED: Warfarin 5 MG Tab PO ONE (16:00)
[2020-11-02] MEDS: Pantoprazole 40 MG Tab.CR PO SCH (16:11)
--- NOTE | 2020-11-02 18:04 | PCM.HP.2 ---
H&P History of Present Illness - General Date of Service: 11/02/20 Admit Problem/Dx: Admission Diagnosis/Problem Admission Diagnosis/Problem Acute kidney injury Source of Information: Patient, Provider History Limitations: Reports: No Limitations - History of Present Illness Initial Comments - Free Text/Narative: CC: My legs are acting up again HPI: Prabhjot presents to the emergency room today with progressive weakness as well as pain and swelling in both of his lower legs. He reports a slow decline over the last few months with more rapid decline in the last few days. He has had increasing weakness as well as increasing swelling of both lower legs. The legs are cracked and weeping and sometimes bleeding. He reports moderate to severe achy pain with some sharp shooting pains throughout his lower legs below the knees. This is steadily getting worse. He has not been taking anything to make the pain better at home but does note that any sort of activity makes the pain worse. He is having a more difficult time getting around because of the swelling and pain. He has been sitting on his couch for the last 2 days and has not been able to get up. He has not had any fevers or chills. His appetite has been reduced. He does not feel short of breath. No significant change in bowel or bladder habits but he has been incontinent because he is been unable to get to the bathroom. He reports no recent follow-up with wound care or primary care. He was seen in the emergency room a few days ago for lower extremity swelling and was started on antibiotics with some concern for cellulitis but things have not gotten better. Work-up in the emergency room is most consistent with intravascular volume depletion with hypotension and acute kidney injury. His creatinine is 1.9 with a baseline of around 1. He does have significant swelling of both legs but this could be related to poor perfusion and venous stasis. He did receive some fluids with slight improvement in his blood pressure in the emergency room. Procalcitonin is undetectable so I doubt there is an active infection. He will be admitted for management of acute kidney injury with hypotension, intravascular volume depletion and congestive heart failure with venous stasis. - Related Data Allergies/Adverse Reactions: Allergies Allergy/AdvReac Type Severity Reaction Status Date / Time pollen extracts Allergy Sneezing Verified 10/31/20 11:45 Home Medications: Home Meds Aspirin 325 mg PO DAILY 12/09/19 [History] Spironolactone [Aldactone] 25 mg PO BID #60 12/14/19 [Rx] atorvaSTATin [Lipitor] 10 mg PO BEDTIME #30 12/14/19 [Rx] Cholecalciferol (Vitamin D3) [Vitamin D3] 2,000 unit PO DAILY 02/26/20 [History] Omeprazole 20 mg PO BID 02/26/20 [History] Sertraline [Zoloft] 50 mg PO DAILY 02/26/20 [History] carvediloL [Carvedilol] 3.125 mg PO BID #60 tablet 02/29/20 [Rx] Lactobacillus Rhamnosus GG [Culturelle] 1 cap PO TID 07/14/20 [History] Torsemide 40 mg PO ASDIRECTED #120 tablet 07/16/20 [Rx] Warfarin [Coumadin] 2.5 mg PO DAILY 11/02/20 [History] Past Medical History - Past Health History Medical/Surgical History: Denies Medical/Surgical History HEENT History: Reports: Impaired Vision Cardiovascular History: Reports: Afib, Bypass, Heart Failure, High Cholesterol, Hypertension, SC, Prior Cardiac Arrest, PVD, Other (See Below) Other Cardiovascular History: CABG; aortic dissection; CHF Respiratory History: Reports: Pneumonia, Recurrent, SOB Gastrointestinal History: Reports: Cirrhosis, GERD, Other (See Below) Other Gastrointestinal History: ascities Genitourinary History: Reports: Chronic Renal Insuffiency Musculoskeletal History: Reports: Fracture, Other (See Below) Other Musculoskeletal History: Hx of rib fx Neurological History: Reports: Other (See Below) Other Neuro History: subdural hematoma. Hx of cerebral embolic infarction Psychiatric History: Reports: Depression Hematologic History: Reports: Blood Transfusion(s) Dermatologic History: Reports: Cellulitis, Venous Stasis Dermatitis, Other (See Below) Other Dermatologic History: B lower leg (12/2019) - Infectious Disease History Infectious Disease History: Reports: None - Past Surgical History Head Surgeries/Procedures: Reports: None HEENT Surgical History: Reports: None Cardiovascular Surgical History: Reports: Aneurysm, Coronary Artery Bypass, Valve Replacement, Other (See Below) Other 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 Respiratory Surgical History: Reports: None GI Surgical History: Reports: None Neurological Surgical History: Reports: None Musculoskeletal Surgical History: Reports: None Dermatological Surgical History: Reports: None Social & Family History - Family History Family Medical History: No Pertinent Family History - Tobacco Use Tobacco Use Status *Q: Former Tobacco User Used Tobacco, but Quit: Yes Month/Year Tobacco Last Used: 30 years ago - Caffeine Use Caffeine Use: Reports: Coffee - Recreational Drug Use Recreational Drug Use: No - Living Situation & Occupation Occupation: Other (Single dwelling home) H&P Review of Systems - Review of Systems: Review Of Systems: See Below Free Text/Narrative: A complete 12 point review of systems was obtained. Pertinent positives and negatives are noted in the history of present illness. All other systems were reviewed and were negative except as noted. Exam - Exam Exam: See Below - Vital Signs Vital Signs: Last Vital Signs Temp 36.3 C 11/02/20 15:40 Pulse 45 L 11/02/20 14:45 Resp 17 11/02/20 16:00 BP 104/57 L 11/02/20 16:00 Pulse Ox 97 11/02/20 16:00 Weight: 99.745 kg - Exam Quality Assessment: No: Supplemental Oxygen General: Alert, Oriented, Cooperative, Mild Distress HEENT: Conjunctiva Clear. No: Mucosa Moist & [place] (dry), Scleral Icterus Neck: Supple, Trachea Midline. No: JVD Lungs: Normal Respiratory Effort, Decreased Breath Sounds (Right lung base) Cardiovascular: Irregular Rhythm, Bradycardia, Systolic Murmur GI/Abdominal Exam: Normal Bowel Sounds, Soft, Non-Tender, No Distention Extremities: Pedal Edema (Massive pitting edema to the knee bilaterally as well as posterior thighs). No: Increased Warmth Skin: Warm, Dry, Other (Both lower legs are erythematous from the toes all the way up to just below the knee. There are multiple areas of ulceration most notably in the distal lower extremity posteriorly. There is no active bleeding but there are some areas that are macerated and look like they have been bleeding recentl) Neuro Extensive - Mental Status: Alert, Oriented x3, Nl Response to Commands Neuro Extensive - Motor, Sensory, Reflexes: No: Dysarthria, Abnormal Motor, Tremor Psychiatric: Alert, Normal Affect - Patient Data Lab Results Last 24 hrs: Laboratory Results - last 24 hr 11/02/20 11/02/20 11/02/20 Range/Units 11:05 11:05 11:05 WBC 4.9 (4.5-11.0) K/uL RBC 4.85 (4.30-5.90) M/uL Hgb 13.0 (12.0-15.0) g/dL Hct 41.1 (40.0-54.0) % MCV 85 (80-98) fL MCH 27 (27-31) pg MCHC 32 (32-36) % Plt Count 128 L (150-400) K/uL Neut % (Auto) 80.8 H (36-66) % Lymph % (Auto) 9.9 L (24-44) % Callahan % (Auto) 8.1 H (2-6) % Eos % (Auto) 0.8 L (2-4) % Baso % (Auto) 0.4 (0-1) % PT (9.5-12.0) sec INR (0.80-1.20) Sodium 137 L (140-148) mmol/L Potassium 4.1 (3.6-5.2) mmol/L Chloride 100 (100-108) mmol/L Carbon Dioxide 27 (21-32) mmol/L Anion Gap 14.1 H (5.0-14.0) mmol/L BUN 41 H (7-18) mg/dL Creatinine 1.9 H (0.8-1.3) mg/dL Est Cr Clr Drug Dosing 42.64 mL/min Estimated GFR (MDRD) 36 L (>60) Glucose 121 H (74-106) mg/dL Lactic Acid 1.6 (0.4-2.0) mmol/L Calcium 8.2 L (8.5-10.1) mg/dL Total Bilirubin 1.3 H (0.2-1.0) mg/dL AST 19 (15-37) U/L ALT 10 L (12-78) U/L Alkaline Phosphatase 121 H (46-116) U/L Total Protein 6.4 (6.4-8.2) g/dL Albumin 2.9 L (3.4-5.0) g/dL Globulin 3.5 (2.3-3.5) g/dL Albumin/Globulin Ratio 0.8 L (1.2-2.2) Procalcitonin ng/mL Urine Color (YELLOW) Urine Appearance (CLEAR) Urine pH (5.0-8.0) Ur Specific [place] (1.008-1.030) Urine Protein (NEGATIVE) mg/dL Urine Glucose (UA) (NEGATIVE) mg/dL Urine Ketones (NEGATIVE) mg/dL Urine Occult Blood (NEGATIVE) Urine Nitrite (NEGATIVE) Urine Bilirubin (NEGATIVE) Urine Urobilinogen (0.2-1.0) EU/dL Ur Leukocyte Esterase (NEGATIVE) Urine RBC (0-5) Urine WBC (0-5) Ur Epithelial Cells Amorphous Sediment Urine Bacteria Urine Mucus 11/02/20 11/02/20 11/02/20 Range/Units 11:19 11:19 12:33 WBC (4.5-11.0) K/uL RBC (4.30-5.90) M/uL Hgb (12.0-15.0) g/dL Hct (40.0-54.0) % MCV (80-98) fL MCH (27-31) pg MCHC (32-36) % Plt Count (150-400) K/uL Neut % (Auto) (36-66) % Lymph % (Auto) (24-44) % Callahan % (Auto) (2-6) % Eos % (Auto) (2-4) % Baso % (Auto) (0-1) % PT 16.0 H (9.5-12.0) sec INR 1.48 H (0.80-1.20) Sodium (140-148) mmol/L Potassium (3.6-5.2) mmol/L Chloride (100-108) mmol/L Carbon Dioxide (21-32) mmol/L Anion Gap (5.0-14.0) mmol/L BUN (7-18) mg/dL Creatinine (0.8-1.3) mg/dL Est Cr Clr Drug Dosing mL/min Estimated GFR (MDRD) (>60) Glucose (74-106) mg/dL Lactic Acid (0.4-2.0) mmol/L Calcium (8.5-10.1) mg/dL Total Bilirubin (0.2-1.0) mg/dL AST (15-37) U/L ALT (12-78) U/L Alkaline Phosphatase (46-116) U/L Total Protein (6.4-8.2) g/dL Albumin (3.4-5.0) g/dL Globulin (2.3-3.5) g/dL Albumin/Globulin Ratio (1.2-2.2) Procalcitonin < 0.05 ng/mL Urine Color Yellow (YELLOW) Urine Appearance Clear (CLEAR) Urine pH 5.5 (5.0-8.0) Ur Specific [place] 1.015 (1.008-1.030) Urine Protein Negative (NEGATIVE) mg/dL Urine Glucose (UA) Negative (NEGATIVE) mg/dL Urine Ketones Negative (NEGATIVE) mg/dL Urine Occult Blood Negative (NEGATIVE) Urine Nitrite Negative (NEGATIVE) Urine Bilirubin Negative (NEGATIVE) Urine Urobilinogen 0.2 (0.2-1.0) EU/dL Ur Leukocyte Esterase Negative (NEGATIVE) Urine RBC 0-5 (0-5) Urine WBC 0-5 (0-5) Ur Epithelial Cells Not seen Amorphous Sediment Not seen Urine Bacteria Not seen Urine Mucus Not seen 11/02/20 Range/Units 14:57 WBC (4.5-11.0) K/uL RBC (4.30-5.90) M/uL Hgb (12.0-15.0) g/dL Hct (40.0-54.0) % MCV (80-98) fL MCH (27-31) pg MCHC (32-36) % Plt Count (150-400) K/uL Neut % (Auto) (36-66) % Lymph % (Auto) (24-44) % [place]ahan % (Auto) (2-6) % Eos % (Auto) (2-4) % Baso % (Auto) (0-1) % PT (9.5-12.0) sec INR (0.80-1.20) Sodium (140-148) mmol/L Potassium (3.6-5.2) mmol/L Chloride (100-108) mmol/L Carbon Dioxide (21-32) mmol/L Anion Gap (5.0-14.0) mmol/L BUN (7-18) mg/dL Creatinine (0.8-1.3) mg/dL Est Cr Clr Drug Dosing mL/min Estimated GFR (MDRD) (>60) Glucose (74-106) mg/dL Lactic Acid 1.6 (0.4-2.0) mmol/L Calcium (8.5-10.1) mg/dL Total Bilirubin (0.2-1.0) mg/dL AST (15-37) U/L ALT (12-78) U/L Alkaline Phosphatase (46-116) U/L Total Protein (6.4-8.2) g/dL Albumin (3.4-5.0) g/dL Globulin (2.3-3.5) g/dL Albumin/Globulin Ratio (1.2-2.2) Procalcitonin ng/mL Urine Color (YELLOW) Urine Appearance (CLEAR) Urine pH (5.0-8.0) Ur Specific [place] (1.008-1.030) Urine Protein (NEGATIVE) mg/dL Urine Glucose (UA) (NEGATIVE) mg/dL Urine Ketones (NEGATIVE) mg/dL Urine Occult Blood (NEGATIVE) Urine Nitrite (NEGATIVE) Urine Bilirubin (NEGATIVE) Urine Urobilinogen (0.2-1.0) EU/dL Ur Leukocyte Esterase (NEGATIVE) Urine RBC (0-5) Urine WBC (0-5) Ur Epithelial Cells Amorphous Sediment Urine Bacteria Urine Mucus Result Diagrams: 11/02/20 11:05 11/02/20 11:05 Imaging Impressions Last 24 hrs: Chest [id number] personally reviewed-there is a right-sided pleural effusion which appears slightly larger than before. No obvious mass or infiltrate. Heart size is normal. Sepsis Event Note - Evaluation Sepsis Screening Result: No Definite Risk - Focused Exam Vital Signs: Vital Signs Temp Pulse Resp BP Pulse Ox 11/02/20 16:00 17 104/57 L 97 11/02/20 15:40 36.3 C 18 103/59 L 96 11/02/20 15:30 99 11/02/20 14:45 45 L 18 86/50 L 11/02/20 14:23 45 L 18 77/52 L 11/02/20 14:06 45 L 15 83/49 L 11/02/20 13:51 44 L 14 83/49 L 95 11/02/20 13:21 48 L 15 87/50 L 95 11/02/20 12:52 44 L 17 92/70 95 11/02/20 11:56 42 L 17 89/51 L 95 11/02/20 11:36 44 L 92/54 L 11/02/20 11:22 47 L 90/61 11/02/20 10:58 95/56 L 11/02/20 10:54 36.3 C 49 L 18 80/47 L 95 11/02/20 10:50 36.3 C 49 L 18 80/47 L 95 *Q Meaningful Use (ADM) - VTE *Q VTE Mechanical Contraindications *Q: Bilateral Lower Dermatits - VTE Risk Assess *Q Each Risk Factor Represents 1 Point: Swollen Legs, Current, Obesity ( BMI > 25 kg/m2), Congestive heart failure (CHF) Total Score 1 Point Risk Factors: 3 Each Risk Factor Represents 2 Points: Age 60 - 74 Years Total Score 2 Point Risk Factors: 2 Each Risk Factor Represents 3 Points: None Total Score 3 Point Risk Factors: 0 Each Risk Factor Represents 5 Points: None Total Score 5 Point Risk Factors: 0 Venous Thromboembolism Risk Factor Score *Q: 5 - Problem List (1) Acute kidney injury SNOMED Code(s): 37749220, 15490884 ICD Code: N17.9 - ACUTE KIDNEY FAILURE, UNSPECIFIED Status: Acute Current Visit: Yes (2) Hypotension SNOMED Code(s): 43728730 ICD Code: I95.9 - HYPOTENSION, UNSPECIFIED Status: Acute Current Visit: Yes Qualifiers: Hypotension type: hypotension due to drug Qualified Code(s): I95.2 - Hypotension due to drugs (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 SNOMED Code(s): 15212539, 936490507 ICD Code: I50.40 - UNSP COMBINED SYSTOLIC AND DIASTOLIC (CONGESTIVE) HRT FAIL Status: Chronic Current Visit: No Qualifiers: Heart failure chronicity: chronic Qualified Code(s): I50.42 - Chronic combined systolic (congestive) and diastolic (congestive) heart failure (4) Chronic venous stasis dermatitis of both lower extremities SNOMED Code(s): 25141968 ICD Code: I87.2 - VENOUS INSUFFICIENCY (CHRONIC) (PERIPHERAL) Status: Chronic Current Visit: No (5) Chronic atrial fibrillation SNOMED Code(s): 117321996 ICD Code: I48.20 - CHRONIC ATRIAL FIBRILLATION, UNSPECIFIED Status: Chronic Priority: High Current Visit: No Problem List Initiated/Reviewed/Updated: Yes Orders Last 24hrs: Active Orders 24 hr Category Date Time Status Patient Status [ADT] Routine ADT 11/02/20 15:27 Active Cardiac Monitoring [RC] CONTINUOUS Care 11/02/20 15:27 Active Intake and Output [RC] QSHIFT Care 11/02/20 15:27 Active Notify Provider Vital Signs [RC] ASDIRECTED Care 11/02/20 15:27 Active Oxygen Therapy [RC] PRN Care 11/02/20 15:27 Active Pulse Oximetry [RC] CONTINUOUS Care 11/02/20 15:27 Active RT Aerosol Therapy [RC] ASDIRECTED Care 11/02/20 15:27 Active Up With Assistance [RC] ASDIRECTED Care 11/02/20 15:27 Active VTE/DVT Education [RC] Per Unit Routine Care 11/02/20 15:27 Active Vital Signs [RC] Q2HR Care 11/02/20 15:27 Active PT Evaluation and Treatment [CONS] Routine Cons 11/03/20 07:00 Active 2 Gram Sodium Diet [DIET] Diet 11/02/20 Dinner Active BASIC METABOLIC PANEL,BMP [CHEM] AM Lab 11/03/20 05:11 Ordered CBC W/O DIFF,HEMOGRAM [HEME] AM Lab 11/03/20 05:11 Ordered INR,PT,PROTHROMBIN TIME [COAG] AM Lab 11/03/20 05:11 Ordered MAGNESIUM [CHEM] AM Lab 11/03/20 05:11 Ordered Acetaminophen [TylenoL] Med 11/02/20 15:27 Active 650 mg PO Q4H PRN Albuterol [Proventil Neb Soln] Med 11/02/20 15:27 Active 2.5 mg NEB Q4H PRN Aspirin [Ecotrin] Med 11/03/20 09:00 Active 325 mg PO DAILY Cholecalciferol (Vitamin D3) [Vitamin D3] Med 11/03/20 09:00 Active 50 mcg PO DAILY Docusate Sodium/Sennosides [Senna Plus] Med 11/02/20 15:27 Active 1 tab PO BID PRN LORazepam [Ativan] Med 11/02/20 15:27 Active 0.5 mg IVPUSH Q4H PRN Lactobacillus Rhamnosus GG [Culturelle] Med 11/02/20 21:00 Active 1 cap PO TID Magnesium Hydroxide [Milk of Magnesia] Med 11/02/20 15:27 Active 30 ml PO Q12H PRN Melatonin Med 11/02/20 15:27 Active 9 mg PO BEDTIME PRN Ondansetron [Zofran ODT] Med 11/02/20 15:27 Active 4 mg PO Q6H PRN Ondansetron [Zofran] Med 11/02/20 15:27 Active 4 mg IV Q6H PRN Pantoprazole [ProTONIX] Med 11/02/20 16:30 Active 40 mg PO BIDAC Sertraline [Zoloft] Med 11/03/20 09:00 Active 50 mg PO DAILY Sodium Chloride 0.9% [Normal Saline] 1,000 ml Med 11/02/20 15:27 Active IV ASDIRECTED Sodium Chloride 0.9% [Saline Flush] Med 11/02/20 10:57 Active 10 ml FLUSH ASDIRECTED PRN atorvaSTATin [Lipitor] Med 11/02/20 21:00 Active 10 mg PO BEDTIME oxyCODONE Med 11/02/20 15:27 Active 5 - 10 mg PO Q4H PRN Blood Culture x2 Reflex Set [OM.PC] Urgent Oth 11/02/20 10:57 Ordered Saline Lock Insert [OM.PC] Stat Oth 11/02/20 10:57 Ordered VTE Mechanical Contraindications [AST] Routine Oth 11/02/20 15:27 Ordered Resuscitation Status Routine Resus Stat 11/02/20 14:59 Ordered EKG 12 Lead [EK] Routine Ther 11/02/20 12:18 Stop Req Medication Orders Acetaminophen (Acetaminophen 325 Mg Tab) 650 mg PO Q4H PRN PRN Reason: Pain (Mild 1-3)/fever Albuterol (Albuterol 0.083% 2.5 Mg/3 Ml Neb Soln) 2.5 mg NEB Q4H PRN PRN Reason: Shortness Of Breath/wheezing Aspirin (Aspirin 325 Mg Tab.Ec) 325 mg PO DAILY LEIGH Atorvastatin Calcium (Atorvastatin 10 Mg Tab) 10 mg PO BEDTIME LEIGH Cholecalciferol (Cholecalciferol (Vitamin D3) 25 Mcg Tab) 50 mcg PO DAILY LEIGH Sodium Chloride (Normal Saline) 1,000 mls @ 125 mls/hr IV ASDIRECTED LEIGH Last Admin: 11/02/20 15:27 Dose: 125 mls/hr Documented by: VENKAT Lactobacillus Rhamnosus (Lactobacillus Rhamnosus Gg (Probiotic) Cap) 1 cap PO TID LEIGH Lorazepam (Lorazepam 2 Mg/Ml Sdv) 0.5 mg IVPUSH Q4H PRN PRN Reason: Nausea/Vomiting Magnesium Hydroxide (Magnesium Hydroxide 400 Mg/5 Ml Susp 30 Ml Cup) 30 ml PO Q12H PRN PRN Reason: Constipation Melatonin (Melatonin 3 Mg Tab) 9 mg PO BEDTIME PRN PRN Reason: Sleep Ondansetron HCl (Ondansetron 4 Mg/2 Ml Sdv) 4 mg IV Q6H PRN PRN Reason: Nausea/Vomiting Ondansetron HCl (Ondansetron 4 Mg Tab.Dis) 4 mg PO Q6H PRN PRN Reason: Nausea able to take PO Oxycodone HCl (Oxycodone 5 Mg Tab) 5 - 10 mg PO Q4H PRN PRN Reason: Pain Pantoprazole Sodium (Pantoprazole 40 Mg Tab.Cr) 40 mg PO BIDAC LEIGH Last Admin: 11/02/20 16:11 Dose: 40 mg Documented by: VENKAT Senna/Docusate Sodium (Docusate Sodium/Sennosides 50-8.6 Mg Tab) 1 tab PO BID PRN PRN Reason: Constipation Sertraline HCl (Sertraline 50 Mg Tab) 50 mg PO DAILY [facility] Sodium Chloride (Sodium Chloride 0.9% 10 Ml Syringe) 10 ml FLUSH ASDIRECTED PRN PRN Reason: Keep Vein Open Last Admin: 11/02/20 11:15 Dose: 10 ml Documented by: JUMANA Assessment/Plan Comment:: ASSESSMENT AND PLAN - Acute kidney injury-complicated by hypotension. I suspect this is related to intravascular volume depletion with overdiuresis and poor pump function with his heart as discussed below. Blood pressure is still low but is slowly improving with IV fluids. No strong evidence to support infection and I doubt this represents sepsis. -Hold diuretics -Continue IV fluids until blood pressure stabilizes -Norepinephrine versus dopamine if blood pressure remains low -Repeat labs in the morning Chronic venous stasis dermatitis-this involves both lower legs and is fairly severe. Patient has not complied with treatment recommendations including wraps or any sort of follow-up. No strong evidence to support infection at this time though he does have large ulcerations and open areas that are at risk for developing an infection. -Shower and good hygiene of the legs when available -Unna boots versus Coban wrap system once his legs have been cleaned up -Outpatient follow-up with Dr. Rod Chronic combined systolic and diastolic heart failure-intravascularly deplete. Significant swelling probably related to poor pump function as discussed above. -Hold diuretics -Continue additional medical management Chronic atrial fibrillation-chronically anticoagulated though INR level is low. -5 mg warfarin today and reassess in the morning Maintenance issues - -DVT prophylaxis-warfarin -GI prophylaxis-PPI -[id number] -Leach catheter-not indicated CODE STATUS -full code Admission justification -this patient will be admitted for inpatient services and is medically appropriate meeting medical necessity for inpatient admission as outlined in my documentation. I reasonably expect the patient will require inpatient services that span a period time over 2 midnights. I reasonably expect this patient to be discharged or transferred within 96 hours after admission to the [facility]. Disposition -I anticipate discharge home with home care versus possibly the assisted after the hospital stay Primary care physician -Dr Anam Khan M.D. - Mortality Measure Prognosis:: Good
[2020-11-02] MEDS: atorvaSTATin 10 MG Tab PO SCH (20:35)
[2020-11-02] MEDS: Lactobacillus Rhamnosus GG (Probiotic) Cap PO SCH (20:35)
[2020-11-03] MEDS: oxyCODONE 5 MG Tab PO PRN ×3 (02:40→20:07)
[2020-11-03] MEDS: Sodium Chloride 0.9% 1,000 ML IV SCH (06:40)
[2020-11-03] MEDS: Lactobacillus Rhamnosus GG (Probiotic) Cap PO SCH ×3 (08:23→20:11)
[2020-11-03] MEDS: Aspirin 325 MG Tab.EC PO SCH (08:23)
[2020-11-03] MEDS: Cholecalciferol (Vitamin D3) 25 MCG Tab PO SCH (08:23)
[2020-11-03] MEDS: Sertraline 50 MG Tab PO SCH (08:23)
[2020-11-03] MEDS: Pantoprazole 40 MG Tab.CR PO SCH ×2 (08:23→16:51)
[2020-11-03] MEDS ORDERED: Non-Formulary Medication 1 Each (Cholecalciferol (Vitamin D3) [Vitamin D3] 2,000 UNIT Caps PO SCH (09:00)
[2020-11-03] MEDS ORDERED: Non-Formulary Medication 1 Each (Aspirin [Aspirin] 325 MG Tablet) PO SCH (09:00)
--- NOTE | 2020-11-03 09:10 | PCM.PN ---
- General Info Date of Service: 11/03/20 Subjective Update: No acute events overnight. Blood pressure did improve with IV fluids. Heart rate has also improved after holding the carvedilol. Blood pressures are now in the low 100s and heart rate is in the 60s. Patient feels stronger today but is fatigued. Leg pain has improved quite a bit since yesterday. Edema seems a little better today. No fevers. Functional Status: Reports: Pain Controlled, Tolerating Diet - Review of Systems General: Reports: Weakness Musculoskeletal: Reports: Leg Pain - Patient Data Vitals - Most Recent: Last Vital Signs Temp 36.7 C 11/03/20 07:00 Pulse 68 11/03/20 08:00 Resp 16 11/03/20 08:00 BP 102/57 L 11/03/20 08:00 Pulse Ox 95 11/03/20 08:00 Weight - Most Recent: 99.745 kg I&O - Last 24 Hours: Intake & Output 11/02/20 11/03/20 11/03/20 22:59 06:59 14:59 Intake Total 600 2235 Output Total 150 50 Balance 600 2085 -50 Lab Results Last 24 Hours: Laboratory Results - last 24 hr 11/02/20 11/02/20 11/02/20 Range/Units 11:05 11:05 11:05 WBC 4.9 (4.5-11.0) K/uL RBC 4.85 (4.30-5.90) M/uL Hgb 13.0 (12.0-15.0) g/dL Hct 41.1 (40.0-54.0) % MCV 85 (80-98) fL MCH 27 (27-31) pg MCHC 32 (32-36) % Plt Count 128 L (150-400) K/uL Neut % (Auto) 80.8 H (36-66) % Lymph % (Auto) 9.9 L (24-44) % [place] % (Auto) 8.1 H (2-6) % Eos % (Auto) 0.8 L (2-4) % Baso % (Auto) 0.4 (0-1) % PT (9.5-12.0) sec INR (0.80-1.20) Sodium 137 L (140-148) mmol/L Potassium 4.1 (3.6-5.2) mmol/L Chloride 100 (100-108) mmol/L Carbon Dioxide 27 (21-32) mmol/L Anion Gap 14.1 H (5.0-14.0) mmol/L BUN 41 H (7-18) mg/dL Creatinine 1.9 H (0.8-1.3) mg/dL Est Cr Clr Drug Dosing 42.64 mL/min Estimated GFR (MDRD) 36 L (>60) Glucose 121 H (74-106) mg/dL Lactic Acid 1.6 (0.4-2.0) mmol/L Calcium 8.2 L (8.5-10.1) mg/dL Magnesium (1.8-2.4) mg/dL Total Bilirubin 1.3 H (0.2-1.0) mg/dL AST 19 (15-37) U/L ALT 10 L (12-78) U/L Alkaline Phosphatase 121 H (46-116) U/L Total Protein 6.4 (6.4-8.2) g/dL Albumin 2.9 L (3.4-5.0) g/dL Globulin 3.5 (2.3-3.5) g/dL Albumin/Globulin Ratio 0.8 L (1.2-2.2) Procalcitonin ng/mL Urine Color (YELLOW) Urine Appearance (CLEAR) Urine pH (5.0-8.0) Ur Specific [place] (1.008-1.030) Urine Protein (NEGATIVE) mg/dL Urine Glucose (UA) (NEGATIVE) mg/dL Urine Ketones (NEGATIVE) mg/dL Urine Occult Blood (NEGATIVE) Urine Nitrite (NEGATIVE) Urine Bilirubin (NEGATIVE) Urine Urobilinogen (0.2-1.0) EU/dL Ur Leukocyte Esterase (NEGATIVE) Urine RBC (0-5) Urine WBC (0-5) Ur Epithelial Cells Amorphous Sediment Urine Bacteria Urine Mucus 11/02/20 11/02/20 11/02/20 Range/Units 11:19 11:19 12:33 WBC (4.5-11.0) K/uL RBC (4.30-5.90) M/uL Hgb (12.0-15.0) g/dL Hct (40.0-54.0) % MCV (80-98) fL MCH (27-31) pg MCHC (32-36) % Plt Count (150-400) K/uL Neut % (Auto) (36-66) % Lymph % (Auto) (24-44) % [place] % (Auto) (2-6) % Eos % (Auto) (2-4) % Baso % (Auto) (0-1) % PT 16.0 H (9.5-12.0) sec INR 1.48 H (0.80-1.20) Sodium (140-148) mmol/L Potassium (3.6-5.2) mmol/L Chloride (100-108) mmol/L Carbon Dioxide (21-32) mmol/L Anion Gap (5.0-14.0) mmol/L BUN (7-18) mg/dL Creatinine (0.8-1.3) mg/dL Est Cr Clr Drug Dosing mL/min Estimated GFR (MDRD) (>60) Glucose (74-106) mg/dL Lactic Acid (0.4-2.0) mmol/L Calcium (8.5-10.1) mg/dL Magnesium (1.8-2.4) mg/dL Total Bilirubin (0.2-1.0) mg/dL AST (15-37) U/L ALT (12-78) U/L Alkaline Phosphatase (46-116) U/L Total Protein (6.4-8.2) g/dL Albumin (3.4-5.0) g/dL Globulin (2.3-3.5) g/dL Albumin/Globulin Ratio (1.2-2.2) Procalcitonin < 0.05 ng/mL Urine Color Yellow (YELLOW) Urine Appearance Clear (CLEAR) Urine pH 5.5 (5.0-8.0) Ur Specific [place] 1.015 (1.008-1.030) Urine Protein Negative (NEGATIVE) mg/dL Urine Glucose (UA) Negative (NEGATIVE) mg/dL Urine Ketones Negative (NEGATIVE) mg/dL Urine Occult Blood Negative (NEGATIVE) Urine Nitrite Negative (NEGATIVE) Urine Bilirubin Negative (NEGATIVE) Urine Urobilinogen 0.2 (0.2-1.0) EU/dL Ur Leukocyte Esterase Negative (NEGATIVE) Urine RBC 0-5 (0-5) Urine WBC 0-5 (0-5) Ur Epithelial Cells Not seen Amorphous Sediment Not seen Urine Bacteria Not seen Urine Mucus Not seen 11/02/20 11/03/20 11/03/20 Range/Units 14:57 04:00 04:00 WBC 5.3 (4.5-11.0) K/uL RBC 5.03 (4.30-5.90) M/uL Hgb 13.7 (12.0-15.0) g/dL Hct 42.4 (40.0-54.0) % MCV 84 (80-98) fL MCH 27 (27-31) pg MCHC 32 (32-36) % Plt Count 154 (150-400) K/uL Neut % (Auto) (36-66) % Lymph % (Auto) (24-44) % [place] % (Auto) (2-6) % Eos % (Auto) (2-4) % Baso % (Auto) (0-1) % PT 17.4 H (9.5-12.0) sec INR 1.61 H (0.80-1.20) Sodium (140-148) mmol/L Potassium (3.6-5.2) mmol/L Chloride (100-108) mmol/L Carbon Dioxide (21-32) mmol/L Anion Gap (5.0-14.0) mmol/L BUN (7-18) mg/dL Creatinine (0.8-1.3) mg/dL Est Cr Clr Drug Dosing mL/min Estimated GFR (MDRD) (>60) Glucose (74-106) mg/dL Lactic Acid 1.6 (0.4-2.0) mmol/L Calcium (8.5-10.1) mg/dL Magnesium (1.8-2.4) mg/dL Total Bilirubin (0.2-1.0) mg/dL AST (15-37) U/L ALT (12-78) U/L Alkaline Phosphatase (46-116) U/L Total Protein (6.4-8.2) g/dL Albumin (3.4-5.0) g/dL Globulin (2.3-3.5) g/dL Albumin/Globulin Ratio (1.2-2.2) Procalcitonin ng/mL Urine Color (YELLOW) Urine Appearance (CLEAR) Urine pH (5.0-8.0) Ur Specific [place] (1.008-1.030) Urine Protein (NEGATIVE) mg/dL Urine Glucose (UA) (NEGATIVE) mg/dL Urine Ketones (NEGATIVE) mg/dL Urine Occult Blood (NEGATIVE) Urine Nitrite (NEGATIVE) Urine Bilirubin (NEGATIVE) Urine Urobilinogen (0.2-1.0) EU/dL Ur Leukocyte Esterase (NEGATIVE) Urine RBC (0-5) Urine WBC (0-5) Ur Epithelial Cells Amorphous Sediment Urine Bacteria Urine Mucus 11/03/20 Range/Units 04:00 WBC (4.5-11.0) K/uL RBC (4.30-5.90) M/uL Hgb (12.0-15.0) g/dL Hct (40.0-54.0) % MCV (80-98) fL MCH (27-31) pg MCHC (32-36) % Plt Count (150-400) K/uL Neut % (Auto) (36-66) % Lymph % (Auto) (24-44) % [place] % (Auto) (2-6) % Eos % (Auto) (2-4) % Baso % (Auto) (0-1) % PT (9.5-12.0) sec INR (0.80-1.20) Sodium 134 L (140-148) mmol/L Potassium 4.4 (3.6-5.2) mmol/L Chloride 100 (100-108) mmol/L Carbon Dioxide 20 L (21-32) mmol/L Anion Gap 18.4 H (5.0-14.0) mmol/L BUN 40 H (7-18) mg/dL Creatinine 1.7 H (0.8-1.3) mg/dL Est Cr Clr Drug Dosing 47.65 mL/min Estimated GFR (MDRD) 40 L (>60) Glucose 93 (74-106) mg/dL Lactic Acid (0.4-2.0) mmol/L Calcium 7.9 L (8.5-10.1) mg/dL Magnesium 1.8 (1.8-2.4) mg/dL Total Bilirubin (0.2-1.0) mg/dL AST (15-37) U/L ALT (12-78) U/L Alkaline Phosphatase (46-116) U/L Total Protein (6.4-8.2) g/dL Albumin (3.4-5.0) g/dL Globulin (2.3-3.5) g/dL Albumin/Globulin Ratio (1.2-2.2) Procalcitonin ng/mL Urine Color (YELLOW) Urine Appearance (CLEAR) Urine pH (5.0-8.0) Ur Specific [place] (1.008-1.030) Urine Protein (NEGATIVE) mg/dL Urine Glucose (UA) (NEGATIVE) mg/dL Urine Ketones (NEGATIVE) mg/dL Urine Occult Blood (NEGATIVE) Urine Nitrite (NEGATIVE) Urine Bilirubin (NEGATIVE) Urine Urobilinogen (0.2-1.0) EU/dL Ur Leukocyte Esterase (NEGATIVE) Urine RBC (0-5) Urine WBC (0-5) Ur Epithelial Cells Amorphous Sediment Urine Bacteria Urine Mucus Med Orders - Current: Current Medications Acetaminophen (Acetaminophen 325 Mg Tab) 650 mg PO Q4H PRN PRN Reason: Pain (Mild 1-3)/fever Albuterol (Albuterol 0.083% 2.5 Mg/3 Ml Neb Soln) 2.5 mg NEB Q4H PRN PRN Reason: Shortness Of Breath/wheezing Aspirin (Aspirin 325 Mg Tab.Ec) 325 mg PO DAILY [facility] Last Admin: 11/03/20 08:23 Dose: 325 mg Documented by: Atorvastatin Calcium (Atorvastatin 10 Mg Tab) 10 mg PO BEDTIME [facility] [place] Last Admin: 11/02/20 20:35 Dose: 10 mg Documented by: Cholecalciferol (Cholecalciferol (Vitamin D3) 25 Mcg Tab) 50 mcg PO DAILY [facility] [place] Last Admin: 11/03/20 08:23 Dose: 50 mcg Documented by: Lactobacillus Rhamnosus (Lactobacillus Rhamnosus Gg (Probiotic) Cap) 1 cap PO TID [facility] [place] Last Admin: 11/03/20 08:23 Dose: 1 cap Documented by: Lorazepam (Lorazepam 2 Mg/Ml Sdv) 0.5 mg IVPUSH Q4H PRN PRN Reason: Nausea/Vomiting Magnesium Hydroxide (Magnesium Hydroxide 400 Mg/5 Ml Susp 30 Ml Cup) 30 ml PO Q12H PRN PRN Reason: Constipation Melatonin (Melatonin 3 Mg Tab) 9 mg PO BEDTIME PRN PRN Reason: Sleep Ondansetron HCl (Ondansetron 4 Mg/2 Ml Sdv) 4 mg IV Q6H PRN PRN Reason: Nausea/Vomiting Ondansetron HCl (Ondansetron 4 Mg Tab.Dis) 4 mg PO Q6H PRN PRN Reason: Nausea able to take PO Oxycodone HCl (Oxycodone 5 Mg Tab) 5 - 10 mg PO Q4H PRN PRN Reason: Pain Last Admin: 11/03/20 02:40 Dose: 5 mg Documented by: Pantoprazole Sodium (Pantoprazole 40 Mg Tab.Cr) 40 mg PO BIDAC [facility] [place] Last Admin: 11/03/20 08:23 Dose: 40 mg Documented by: Senna/Docusate Sodium (Docusate Sodium/Sennosides 50-8.6 Mg Tab) 1 tab PO BID PRN PRN Reason: Constipation Sertraline HCl (Sertraline 50 Mg Tab) 50 mg PO DAILY [facility] [place] Last Admin: 11/03/20 08:23 Dose: 50 mg Documented by: Sodium Chloride (Sodium Chloride 0.9% 10 Ml Syringe) 10 ml FLUSH ASDIRECTED PRN PRN Reason: Keep Vein Open Last Admin: 11/02/20 11:15 Dose: 10 ml Documented by: Discontinued Medications Sodium Chloride (Normal Saline) 1,000 mls @ 999 mls/hr IV BOLUS ONE; Protocol Stop: 11/02/20 11:57 Last Admin: 11/02/20 11:14 Dose: 999 mls/hr Documented by: Ceftriaxone Sodium 2 gm/ (Sodium Chloride) 50 mls @ 100 mls/hr IV ONETIME ONE Stop: 11/02/20 11:31 Last Admin: 11/02/20 11:34 Dose: 100 mls/hr Documented by: Vancomycin HCl 1.5 gm/ Sodium (Chloride) 500 mls @ 250 mls/hr IV ONETIME ONE Stop: 11/02/20 13:02 Last Admin: 11/02/20 12:23 Dose: 250 mls/hr Documented by: Sodium Chloride (Normal Saline) 500 mls @ 999 mls/hr IV .BOLUS ONE Stop: 11/02/20 15:09 Last Admin: 11/02/20 16:33 Dose: Not Given Documented by: Sodium Chloride (Normal Saline) 1,000 mls @ 125 mls/hr IV ASDIRECTED [facility] [place] Last Admin: 11/03/20 06:40 Dose: 125 mls/hr Documented by: Warfarin Sodium (Warfarin 5 Mg Tab) 5 mg PO ONETIME ONE Stop: 11/02/20 16:01 Last Admin: 11/02/20 16:11 Dose: 5 mg Documented by: - Exam Quality Assessment: No: Supplemental Oxygen General: Alert, Oriented, Cooperative, No Acute Distress Lungs: Normal Respiratory Effort. No: Wheezing Cardiovascular: Regular Rate, Irregular Rhythm GI/Abdominal Exam: Soft, No Distention Extremities: Pedal Edema (both thighs posteriorly ), Other (both lower legs wrapped with URVASHI from toes to below the knee ) Skin: Warm, Dry Psy/Mental Status: Alert, Normal Affect - Patient Data Lab Results Last 24 hrs: Laboratory Results - last 24 hr 11/02/20 11/02/20 11/02/20 Range/Units 11:05 11:05 11:05 WBC 4.9 (4.5-11.0) K/uL RBC 4.85 (4.30-5.90) M/uL Hgb 13.0 (12.0-15.0) g/dL Hct 41.1 (40.0-54.0) % MCV 85 (80-98) fL MCH 27 (27-31) pg MCHC 32 (32-36) % Plt Count 128 L (150-400) K/uL Neut % (Auto) 80.8 H (36-66) % Lymph % (Auto) 9.9 L (24-44) % [place] % (Auto) 8.1 H (2-6) % Eos % (Auto) 0.8 L (2-4) % Baso % (Auto) 0.4 (0-1) % PT (9.5-12.0) sec INR (0.80-1.20) Sodium 137 L (140-148) mmol/L Potassium 4.1 (3.6-5.2) mmol/L Chloride 100 (100-108) mmol/L Carbon Dioxide 27 (21-32) mmol/L Anion Gap 14.1 H (5.0-14.0) mmol/L BUN 41 H (7-18) mg/dL Creatinine 1.9 H (0.8-1.3) mg/dL Est Cr Clr Drug Dosing 42.64 mL/min Estimated GFR (MDRD) 36 L (>60) Glucose 121 H (74-106) mg/dL Lactic Acid 1.6 (0.4-2.0) mmol/L Calcium 8.2 L (8.5-10.1) mg/dL Magnesium (1.8-2.4) mg/dL Total Bilirubin 1.3 H (0.2-1.0) mg/dL AST 19 (15-37) U/L ALT 10 L (12-78) U/L Alkaline Phosphatase 121 H (46-116) U/L Total Protein 6.4 (6.4-8.2) g/dL Albumin 2.9 L (3.4-5.0) g/dL Globulin 3.5 (2.3-3.5) g/dL Albumin/Globulin Ratio 0.8 L (1.2-2.2) Procalcitonin ng/mL Urine Color (YELLOW) Urine Appearance (CLEAR) Urine pH (5.0-8.0) Ur Specific [place] (1.008-1.030) Urine Protein (NEGATIVE) mg/dL Urine Glucose (UA) (NEGATIVE) mg/dL Urine Ketones (NEGATIVE) mg/dL Urine Occult Blood (NEGATIVE) Urine Nitrite (NEGATIVE) Urine Bilirubin (NEGATIVE) Urine Urobilinogen (0.2-1.0) EU/dL Ur Leukocyte Esterase (NEGATIVE) Urine RBC (0-5) Urine WBC (0-5) Ur Epithelial Cells Amorphous Sediment Urine Bacteria Urine Mucus 11/02/20 11/02/20 11/02/20 Range/Units 11:19 11:19 12:33 WBC (4.5-11.0) K/uL RBC (4.30-5.90) M/uL Hgb (12.0-15.0) g/dL Hct (40.0-54.0) % MCV (80-98) fL MCH (27-31) pg MCHC (32-36) % Plt Count (150-400) K/uL Neut % (Auto) (36-66) % Lymph % (Auto) (24-44) % [place] % (Auto) (2-6) % Eos % (Auto) (2-4) % Baso % (Auto) (0-1) % PT 16.0 H (9.5-12.0) sec INR 1.48 H (0.80-1.20) Sodium (140-148) mmol/L Potassium (3.6-5.2) mmol/L Chloride (100-108) mmol/L Carbon Dioxide (21-32) mmol/L Anion Gap (5.0-14.0) mmol/L BUN (7-18) mg/dL Creatinine (0.8-1.3) mg/dL Est Cr Clr Drug Dosing mL/min Estimated GFR (MDRD) (>60) Glucose (74-106) mg/dL Lactic Acid (0.4-2.0) mmol/L Calcium (8.5-10.1) mg/dL Magnesium (1.8-2.4) mg/dL Total Bilirubin (0.2-1.0) mg/dL AST (15-37) U/L ALT (12-78) U/L Alkaline Phosphatase (46-116) U/L Total Protein (6.4-8.2) g/dL Albumin (3.4-5.0) g/dL Globulin (2.3-3.5) g/dL Albumin/Globulin Ratio (1.2-2.2) Procalcitonin < 0.05 ng/mL Urine Color Yellow (YELLOW) Urine Appearance Clear (CLEAR) Urine pH 5.5 (5.0-8.0) Ur Specific [place] 1.015 (1.008-1.030) Urine Protein Negative (NEGATIVE) mg/dL Urine Glucose (UA) Negative (NEGATIVE) mg/dL Urine Ketones Negative (NEGATIVE) mg/dL Urine Occult Blood Negative (NEGATIVE) Urine Nitrite Negative (NEGATIVE) Urine Bilirubin Negative (NEGATIVE) Urine Urobilinogen 0.2 (0.2-1.0) EU/dL Ur Leukocyte Esterase Negative (NEGATIVE) Urine RBC 0-5 (0-5) Urine WBC 0-5 (0-5) Ur Epithelial Cells Not seen Amorphous Sediment Not seen Urine Bacteria Not seen Urine Mucus Not seen 11/02/20 11/03/20 11/03/20 Range/Units 14:57 04:00 04:00 WBC 5.3 (4.5-11.0) K/uL RBC 5.03 (4.30-5.90) M/uL Hgb 13.7 (12.0-15.0) g/dL Hct 42.4 (40.0-54.0) % MCV 84 (80-98) fL MCH 27 (27-31) pg MCHC 32 (32-36) % Plt Count 154 (150-400) K/uL Neut % (Auto) (36-66) % Lymph % (Auto) (24-44) % [place] % (Auto) (2-6) % Eos % (Auto) (2-4) % Baso % (Auto) (0-1) % PT 17.4 H (9.5-12.0) sec INR 1.61 H (0.80-1.20) Sodium (140-148) mmol/L Potassium (3.6-5.2) mmol/L Chloride (100-108) mmol/L Carbon Dioxide (21-32) mmol/L Anion Gap (5.0-14.0) mmol/L BUN (7-18) mg/dL Creatinine (0.8-1.3) mg/dL Est Cr Clr Drug Dosing mL/min Estimated GFR (MDRD) (>60) Glucose (74-106) mg/dL Lactic Acid 1.6 (0.4-2.0) mmol/L Calcium (8.5-10.1) mg/dL Magnesium (1.8-2.4) mg/dL Total Bilirubin (0.2-1.0) mg/dL AST (15-37) U/L ALT (12-78) U/L Alkaline Phosphatase (46-116) U/L Total Protein (6.4-8.2) g/dL Albumin (3.4-5.0) g/dL Globulin (2.3-3.5) g/dL Albumin/Globulin Ratio (1.2-2.2) Procalcitonin ng/mL Urine Color (YELLOW) Urine Appearance (CLEAR) Urine pH (5.0-8.0) Ur Specific [place] (1.008-1.030) Urine Protein (NEGATIVE) mg/dL Urine Glucose (UA) (NEGATIVE) mg/dL Urine Ketones (NEGATIVE) mg/dL Urine Occult Blood (NEGATIVE) Urine Nitrite (NEGATIVE) Urine Bilirubin (NEGATIVE) Urine Urobilinogen (0.2-1.0) EU/dL Ur Leukocyte Esterase (NEGATIVE) Urine RBC (0-5) Urine WBC (0-5) Ur Epithelial Cells Amorphous Sediment Urine Bacteria Urine Mucus 11/03/20 Range/Units 04:00 WBC (4.5-11.0) K/uL RBC (4.30-5.90) M/uL Hgb (12.0-15.0) g/dL Hct (40.0-54.0) % MCV (80-98) fL MCH (27-31) pg MCHC (32-36) % Plt Count (150-400) K/uL Neut % (Auto) (36-66) % Lymph % (Auto) (24-44) % [place] % (Auto) (2-6) % Eos % (Auto) (2-4) % Baso % (Auto) (0-1) % PT (9.5-12.0) sec INR (0.80-1.20) Sodium 134 L (140-148) mmol/L Potassium 4.4 (3.6-5.2) mmol/L Chloride 100 (100-108) mmol/L Carbon Dioxide 20 L (21-32) mmol/L Anion Gap 18.4 H (5.0-14.0) mmol/L BUN 40 H (7-18) mg/dL Creatinine 1.7 H (0.8-1.3) mg/dL Est Cr Clr Drug Dosing 47.65 mL/min Estimated GFR (MDRD) 40 L (>60) Glucose 93 (74-106) mg/dL Lactic Acid (0.4-2.0) mmol/L Calcium 7.9 L (8.5-10.1) mg/dL Magnesium 1.8 (1.8-2.4) mg/dL Total Bilirubin (0.2-1.0) mg/dL AST (15-37) U/L ALT (12-78) U/L Alkaline Phosphatase (46-116) U/L Total Protein (6.4-8.2) g/dL Albumin (3.4-5.0) g/dL Globulin (2.3-3.5) g/dL Albumin/Globulin Ratio (1.2-2.2) Procalcitonin ng/mL Urine Color (YELLOW) Urine Appearance (CLEAR) Urine pH (5.0-8.0) Ur Specific [place] (1.008-1.030) Urine Protein (NEGATIVE) mg/dL Urine Glucose (UA) (NEGATIVE) mg/dL Urine Ketones (NEGATIVE) mg/dL Urine Occult Blood (NEGATIVE) Urine Nitrite (NEGATIVE) Urine Bilirubin (NEGATIVE) Urine Urobilinogen (0.2-1.0) EU/dL Ur Leukocyte Esterase (NEGATIVE) Urine RBC (0-5) Urine WBC (0-5) Ur Epithelial Cells Amorphous Sediment Urine Bacteria Urine Mucus Result Diagrams: 11/03/20 04:00 11/03/20 04:00 Sepsis Event Note - Evaluation Sepsis Screening Result: No Definite Risk - Focused Exam Vital Signs: Vital Signs Temp Pulse Resp BP Pulse Ox 11/03/20 08:00 68 16 102/57 L 95 11/03/20 07:26 90 L 11/03/20 07:00 36.7 C 69 19 110/80 91 L 11/03/20 06:00 17 97/73 93 L 11/03/20 04:00 19 97/71 93 L 11/03/20 02:00 18 109/68 94 L 11/03/20 00:00 22 H 103/67 95 11/02/20 22:00 18 98/66 95 - Problem List & Annotations (1) Acute kidney injury SNOMED Code(s): 10512757, 00377437 Code(s): N17.9 - ACUTE KIDNEY FAILURE, UNSPECIFIED Status: Acute Current Visit: Yes (2) Hypotension SNOMED Code(s): 56738571 Code(s): I95.9 - HYPOTENSION, UNSPECIFIED Status: Acute Current Visit: Yes Qualifiers: Hypotension type: hypotension due to drug Qualified Code(s): I95.2 - Hypo tension due to drugs (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 SNOMED Code(s): 51037071, 045570810 Code(s): I50.40 - UNSP COMBINED SYSTOLIC AND DIASTOLIC (CONGESTIVE) HRT FAIL Status: Chronic Current Visit: No Qualifiers: Heart failure chronicity: chronic Qualified Code(s): I50.42 - Chronic combined systolic (congestive) and diastolic (congestive) heart failure (4) Chronic venous stasis dermatitis of both lower extremities SNOMED Code(s): 05851151 Code(s): I87.2 - VENOUS INSUFFICIENCY (CHRONIC) (PERIPHERAL) Status: Chronic Current Visit: No (5) Chronic atrial fibrillation SNOMED Code(s): 013485261 Code(s): I48.20 - CHRONIC ATRIAL FIBRILLATION, UNSPECIFIED Status: Chronic Priority: High Current Visit: No - Problem List Review Problem List Initiated/Reviewed/Updated: Yes - My Orders Last 24 Hours: My Active Orders 11/02/20 14:59 Resuscitation Status Routine 11/02/20 15:27 Acetaminophen [TylenoL] 650 mg PO Q4H PRN Albuterol [Proventil Neb Soln] 2.5 mg NEB Q4H PRN Docusate Sodium/Sennosides [Senna Plus] 1 tab PO BID PRN LORazepam [Ativan] 0.5 mg IVPUSH Q4H PRN Magnesium Hydroxide [Milk of Magnesia] 30 ml PO Q12H PRN Melatonin 9 mg PO BEDTIME PRN Ondansetron [Zofran ODT] 4 mg PO Q6H PRN Ondansetron [Zofran] 4 mg IV Q6H PRN oxyCODONE 5 - 10 mg PO Q4H PRN 11/02/20 15:27 Patient Status [ADT] Routine Intake and Output [RC] QSHIFT Notify Provider Vital Signs [RC] ASDIRECTED Oxygen Therapy [RC] PRN RT Aerosol Therapy [RC] ASDIRECTED Up With Assistance [RC] ASDIRECTED VTE/DVT Education [RC] Per Unit Routine Vital Signs [RC] Q4H VTE Mechanical Contraindications [AST] Routine 11/02/20 16:30 Pantoprazole [ProTONIX] 40 mg PO BIDAC 11/02/20 Dinner 2 Gram Sodium Diet [DIET] 11/02/20 21:00 Lactobacillus Rhamnosus GG [Culturelle] 1 cap PO TID atorvaSTATin [Lipitor] 10 mg PO BEDTIME 11/03/20 09:00 Aspirin [Ecotrin] 325 mg PO DAILY Cholecalciferol (Vitamin D3) [Vitamin D3] 50 mcg PO DAILY Sertraline [Zoloft] 50 mg PO DAILY 11/03/20 09:05 Transfer Patient (Change bed) [ADT] Routine 11/03/20 09:06 Communication Order [RC] ROUTINE Discontinue Telemetry Monitoring [Cardiac Monitoring Discontinue] [RC] Click to Edit Convert IV to Saline Lock [OM.PC] Routine 11/03/20 09:07 Wound Care [RC] ASDIRECTED PT Evaluation and Treatment [CONS] Routine 11/04/20 05:00 BASIC METABOLIC PANEL,BMP [CHEM] Timed INR,PT,PROTHROMBIN TIME [COAG] Timed - Plan Plan:: ASSESSMENT AND PLAN - Acute kidney injury-complicated by hypotension. Suspect intravascular volume depletion. Slightly better today after hydration yesterday. -Hold diuretics -Saline lock IV -Repeat labs in the morning Chronic venous stasis dermatitis-this involves both lower legs and is fairly severe. Poor compliance with leg wrapping in the past. -Shower and scrub legs today when he gets upstairs -[place] wrap system every 3 days -Outpatient follow-up with Dr. Rod Chronic combined systolic and diastolic heart failure-acceptable volume status today. Beta-hope on hold because of bradycardia and diuretics on hold because of intravascular volume depletion. -Hold diuretics and beta-hope -Continue additional medical management Chronic atrial fibrillation-chronically anticoagulated though INR level remains low. -5 mg warfarin today and reassess in the morning Maintenance issues - -DVT prophylaxis-warfarin -GI prophylaxis-PPI -Uazyoajcr-fct-rodsdf Disposition -I anticipate discharge home with home care versus possibly the snf after the hospital stay Primary care physician -Dr Anam Khan M.D.
[2020-11-03] MEDS ORDERED: Warfarin 5 MG Tab PO ONE (15:00)
[2020-11-03] MEDS: Acetaminophen 325 MG Tab PO PRN (16:51)
[2020-11-03] MEDS: atorvaSTATin 10 MG Tab PO SCH (20:11)
[2020-11-04] MEDS: Pantoprazole 40 MG Tab.CR PO SCH ×2 (07:37→15:54)
[2020-11-04] MEDS: Lactobacillus Rhamnosus GG (Probiotic) Cap PO SCH ×3 (08:55→20:26)
[2020-11-04] MEDS: Aspirin 325 MG Tab.EC PO SCH (08:55)
[2020-11-04] MEDS: Sertraline 50 MG Tab PO SCH (08:55)
[2020-11-04] MEDS: Cholecalciferol (Vitamin D3) 25 MCG Tab PO SCH (08:55)
[2020-11-04] MEDS: Magnesium Hydroxide 400 MG/5 ML Susp 30 ML Cup PO PRN (10:31)
--- NOTE | 2020-11-04 10:50 | PCM.PN ---
- General Info Date of Service: 11/04/20 Subjective Update: No acute events overnight. Patient feels weak and feels tired. No chest pain. Dyspnea is stable. No abdominal pain or nausea. Leg pain is stable and improve d with the use of oxycodone. Creatinine level is slightly higher today than yesterday. He has not had any fevers. Functional Status: Reports: Pain Controlled, Tolerating Diet - Review of Systems General: Reports: Weakness, Fatigue Pulmonary: Denies: Shortness of Breath Cardiovascular: Reports: Edema - Patient Data Vitals - Most Recent: Last Vital Signs Temp 35.9 C L 11/04/20 07:33 Pulse 60 11/04/20 07:33 Resp 16 11/04/20 07:33 BP 107/61 11/04/20 07:33 Pulse Ox 90 L 11/04/20 07:33 Weight - Most Recent: 99.337 kg I&O - Last 24 Hours: Intake & Output 11/03/20 11/04/20 11/04/20 22:59 06:59 14:59 Intake Total 180 180 Output Total 150 Balance 30 180 Lab Results Last 24 Hours: Laboratory Results - last 24 hr 11/04/20 11/04/20 Range/Units 04:37 04:37 PT 21.0 H (9.5-12.0) sec INR 1.95 H (0.80-1.20) Sodium 134 L (140-148) mmol/L Potassium 4.5 (3.6-5.2) mmol/L Chloride 99 L (100-108) mmol/L Carbon Dioxide 21 (21-32) mmol/L Anion Gap 18.5 H (5.0-14.0) mmol/L BUN 46 H (7-18) mg/dL Creatinine 1.9 H (0.8-1.3) mg/dL Est Cr Clr Drug Dosing 42.64 mL/min Estimated GFR (MDRD) 36 L (>60) Glucose 89 (74-106) mg/dL Calcium 8.4 L (8.5-10.1) mg/dL Med Orders - Current: Current Medications Acetaminophen (Acetaminophen 325 Mg Tab) 650 mg PO Q4H PRN PRN Reason: Pain (Mild 1-3)/fever Last Admin: 11/03/20 16:51 Dose: 650 mg Documented by: Albuterol (Albuterol 0.083% 2.5 Mg/3 Ml Neb Soln) 2.5 mg NEB Q4H PRN PRN Reason: Shortness Of Breath/wheezing Aspirin (Aspirin 325 Mg Tab.Ec) 325 mg PO DAILY [facility] Last Admin: 11/04/20 08:55 Dose: 325 mg Documented by: Atorvastatin Calcium (Atorvastatin 10 Mg Tab) 10 mg PO BEDTIME [facility] Last Admin: 11/03/20 20:11 Dose: 10 mg Documented by: Bumetanide (Bumetanide 1 Mg/4 Ml Mdv) 2 mg IVPUSH ONETIME ONE Stop: 11/04/20 10:49 Cholecalciferol (Cholecalciferol (Vitamin D3) 25 Mcg Tab) 50 mcg PO DAILY [facility] Last Admin: 11/04/20 08:55 Dose: 50 mcg Documented by: Lactobacillus Rhamnosus (Lactobacillus Rhamnosus Gg (Probiotic) Cap) 1 cap PO TID [facility] Last Admin: 11/04/20 08:55 Dose: 1 cap Documented by: Lorazepam (Lorazepam 2 Mg/Ml Sdv) 0.5 mg IVPUSH Q4H PRN PRN Reason: Nausea/Vomiting Magnesium Hydroxide (Magnesium Hydroxide 400 Mg/5 Ml Susp 30 Ml Cup) 30 ml PO Q12H PRN PRN Reason: Constipation Last Admin: 11/04/20 10:31 Dose: 30 ml Documented by: Melatonin (Melatonin 3 Mg Tab) 9 mg PO BEDTIME PRN PRN Reason: Sleep Ondansetron HCl (Ondansetron 4 Mg/2 Ml Sdv) 4 mg IV Q6H PRN PRN Reason: Nausea/Vomiting Ondansetron HCl (Ondansetron 4 Mg Tab.Dis) 4 mg PO Q6H PRN PRN Reason: Nausea able to take PO Oxycodone HCl (Oxycodone 5 Mg Tab) 5 - 10 mg PO Q4H PRN PRN Reason: Pain Last Admin: 11/03/20 20:07 Dose: 10 mg Documented by: Pantoprazole Sodium (Pantoprazole 40 Mg Tab.Cr) 40 mg PO BIDAC [facility] Last Admin: 11/04/20 07:37 Dose: 40 mg Documented by: Senna/Docusate Sodium (Docusate Sodium/Sennosides 50-8.6 Mg Tab) 1 tab PO BID PRN PRN Reason: Constipation Last Admin: 11/04/20 10:31 Dose: 1 tab Documented by: Sertraline HCl (Sertraline 50 Mg Tab) 50 mg PO DAILY [facility] Last Admin: 11/04/20 08:55 Dose: 50 mg Documented by: Sodium Chloride (Sodium Chloride 0.9% 10 Ml Syringe) 10 ml FLUSH ASDIRECTED PRN PRN Reason: Keep Vein Open Last Admin: 11/02/20 11:15 Dose: 10 ml Documented by: Warfarin Sodium (Warfarin 2.5 Mg Tab) 2.5 mg PO DAILY@1300 [facility] Discontinued Medications Sodium Chloride (Normal Saline) 1,000 mls @ 999 mls/hr IV BOLUS ONE; Protocol Stop: 11/02/20 11:57 Last Admin: 11/02/20 11:14 Dose: 999 mls/hr Documented by: Ceftriaxone Sodium 2 gm/ (Sodium Chloride) 50 mls @ 100 mls/hr IV ONETIME ONE Stop: 11/02/20 11:31 Last Admin: 11/02/20 11:34 Dose: 100 mls/hr Documented by: Vancomycin HCl 1.5 gm/ Sodium (Chloride) 500 mls @ 250 mls/hr IV ONETIME ONE Stop: 11/02/20 13:02 Last Admin: 11/02/20 12:23 Dose: 250 mls/hr Documented by: Sodium Chloride (Normal Saline) 500 mls @ 999 mls/hr IV .BOLUS ONE Stop: 11/02/20 15:09 Last Admin: 11/02/20 16:33 Dose: Not Given Documented by: Sodium Chloride (Normal Saline) 1,000 mls @ 125 mls/hr IV ASDIRECTED [facility] Last Admin: 11/03/20 06:40 Dose: 125 mls/hr Documented by: Warfarin Sodium (Warfarin 5 Mg Tab) 5 mg PO ONETIME ONE Stop: 11/02/20 16:01 Last Admin: 11/02/20 16:11 Dose: 5 mg Documented by: Warfarin Sodium (Warfarin 5 Mg Tab) 5 mg PO ONETIME ONE Stop: 11/03/20 15:01 Last Admin: 11/03/20 15:01 Dose: 5 mg Documented by: - Exam Quality Assessment: No: Supplemental Oxygen General: Alert, Oriented, Cooperative, No Acute Distress, Sedated Lungs: Normal Respiratory Effort, Crackles (right lung base) Cardiovascular: Regular Rate, Irregular Rhythm GI/Abdominal Exam: Soft, No Distention Extremities: Pedal Edema, Other (both lower legs wrapped with coban from toes to the knees). No: Increased Warmth Skin: Warm, Dry Psy/Mental Status: Alert, Normal Affect - Patient Data Lab Results Last 24 hrs: Laboratory Results - last 24 hr 11/04/20 11/04/20 Range/Units 04:37 04:37 PT 21.0 H (9.5-12.0) sec INR 1.95 H (0.80-1.20) Sodium 134 L (140-148) mmol/L Potassium 4.5 (3.6-5.2) mmol/L Chloride 99 L (100-108) mmol/L Carbon Dioxide 21 (21-32) mmol/L Anion Gap 18.5 H (5.0-14.0) mmol/L BUN 46 H (7-18) mg/dL Creatinine 1.9 H (0.8-1.3) mg/dL Est Cr Clr Drug Dosing 42.64 mL/min Estimated GFR (MDRD) 36 L (>60) Glucose 89 (74-106) mg/dL Calcium 8.4 L (8.5-10.1) mg/dL Result Diagrams: 11/03/20 04:00 11/04/20 04:37 Sepsis Event Note - Evaluation Sepsis Screening Result: No Definite Risk - Focused Exam Vital Signs: Vital Signs Temp Pulse Resp BP Pulse Ox 11/04/20 07:33 35.9 C L 60 16 107/61 90 L 11/04/20 02:22 35.5 C L 60 16 96/53 L 92 L - Problem List & Annotations (1) Acute kidney injury SNOMED Code(s): 64849238, 21702988 Code(s): N17.9 - ACUTE KIDNEY FAILURE, UNSPECIFIED Status: Acute Current Visit: Yes (2) Hypotension SNOMED Code(s): 40064170 Code(s): I95.9 - HYPOTENSION, UNSPECIFIED Status: Acute Current Visit: Yes Qualifiers: Hypotension type: hypotension due to drug Qualified Code(s): I95.2 - Hypotension due to drugs (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 SNOMED Code(s): 51484381, 723601170 Code(s): I50.40 - UNSP COMBINED SYSTOLIC AND DIASTOLIC (CONGESTIVE) HRT FAIL Status: Chronic Current Visit: No Qualifiers: Heart failure chronicity: chronic Qualified Code(s): I50.42 - Chronic combined systolic (congestive) and diastolic (congestive) heart failure (4) Chronic venous stasis dermatitis of both lower extremities SNOMED Code(s): 49553435 Code(s): I87.2 - VENOUS INSUFFICIENCY (CHRONIC) (PERIPHERAL) Status: Chronic Current Visit: No (5) Chronic atrial fibrillation SNOMED Code(s): 421908537 Code(s): I48.20 - CHRONIC ATRIAL FIBRILLATION, UNSPECIFIED Status: Chronic Priority: High Current Visit: No - Problem List Review Problem List Initiated/Reviewed/Updated: Yes - My Orders Last 24 Hours: My Active Orders 11/04/20 10:48 Bumetanide [Bumex] 2 mg IVPUSH ONETIME ONE 11/04/20 13:00 Warfarin [Coumadin] 2.5 mg PO DAILY@1300 11/05/20 05:00 BASIC METABOLIC PANEL,BMP [CHEM] Timed INR,PT,PROTHROMBIN TIME [COAG] Timed - Plan Plan:: ASSESSMENT AND PLAN - Acute kidney injury-complicated by hypotension at the time of admission. Blood pressure has been good. Kidney function was a little better yesterday but now decreased again. There appears to be evidence for volume overload -Diuretics as below -Saline lock IV -Repeat labs in the morning Chronic venous stasis dermatitis-this involves both lower legs and is fairly severe. Poor compliance with leg wrapping in the past. -Coban wrap system every 3 days -Outpatient follow-up with Dr. 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 Heart rate in the 60s now that his beta-hope was discontinued. -Dose of bumetanide this morning -Hold beta-hope -Continue additional medical management Chronic atrial fibrillation-chronically anticoagulated though INR level remains low though nearly therapeutic. -2.5 mg warfarin today and reassess in the morning Maintenance issues - -DVT prophylaxis-warfarin -GI prophylaxis-PPI -[id number] Disposition -I anticipate discharge home with home care versus possibly the [facility] after the hospital stay Primary care physician -Dr Anam Khan M.D.
[2020-11-04] MEDS ORDERED: Bumetanide 2.5 MG/10 ML MDV IVPUSH ONE (11:30)
[2020-11-04] MEDS: Warfarin 2.5 MG Tab PO SCH (12:24)
[2020-11-04] MEDS: atorvaSTATin 10 MG Tab PO SCH (20:26)
[2020-11-05] MEDS: Aspirin 325 MG Tab.EC PO SCH (08:28)
[2020-11-05] MEDS: Sertraline 50 MG Tab PO SCH (08:28)
[2020-11-05] MEDS: Cholecalciferol (Vitamin D3) 25 MCG Tab PO SCH (08:28)
[2020-11-05] MEDS: Pantoprazole 40 MG Tab.CR PO SCH ×2 (08:28→17:02)
[2020-11-05] MEDS: Lactobacillus Rhamnosus GG (Probiotic) Cap PO SCH ×3 (08:28→20:40)
[2020-11-05] MEDS: oxyCODONE 5 MG Tab PO PRN (10:24)
[2020-11-05] MEDS: Warfarin 2.5 MG Tab PO SCH (12:57)
--- NOTE | 2020-11-05 14:15 | PCM.PN ---
- General Info Date of Service: 11/05/20 Subjective Update: There were no acute events overnight. Patient continues to report that he feels weak and tired but otherwise feels okay. Leg pain is minimal and tolerable. He has not had any fevers. He does not report any shortness of breath. Moderate response to diuresis yesterday. Requiring the assist of 2 at this time. Kidney function still compromised compared to baseline. Functional Status: Reports: Pain Controlled, Tolerating Diet - Review of Systems General: Reports: Weakness. Denies: Fever Musculoskeletal: Reports: Leg Pain - Patient Data Vitals - Most Recent: Last Vital Signs Temp 35.4 C L 11/05/20 10:34 Pulse 54 L 11/05/20 10:34 Resp 18 11/05/20 10:34 BP 108/55 L 11/05/20 10:34 Pulse Ox 95 11/05/20 10:34 Weight - Most Recent: 99.337 kg I&O - Last 24 Hours: Intake & Output 11/04/20 11/05/20 11/05/20 22:59 06:59 14:59 Intake Total 400 880 Output Total 300 Balance 100 880 Lab Results Last 24 Hours: Laboratory Results - last 24 hr 11/05/20 11/05/20 Range/Units 06:22 06:22 PT 28.1 H (9.5-12.0) sec INR 2.63 H (0.80-1.20) Sodium 135 L (140-148) mmol/L Potassium 4.6 (3.6-5.2) mmol/L Chloride 98 L (100-108) mmol/L Carbon Dioxide 24 (21-32) mmol/L Anion Gap 17.6 H (5.0-14.0) mmol/L BUN 50 H (7-18) mg/dL Creatinine 1.9 H (0.8-1.3) mg/dL Est Cr Clr Drug Dosing 42.64 mL/min Estimated GFR (MDRD) 36 L (>60) Glucose 89 (74-106) mg/dL Calcium 8.4 L (8.5-10.1) mg/dL Med Orders - Current: Current Medications Acetaminophen (Acetaminophen 325 Mg Tab) 650 mg PO Q4H PRN PRN Reason: Pain (Mild 1-3)/fever Last Admin: 11/03/20 16:51 Dose: 650 mg Documented by: Albuterol (Albuterol 0.083% 2.5 Mg/3 Ml Neb Soln) 2.5 mg NEB Q4H PRN PRN Reason: Shortness Of Breath/wheezing Aspirin (Aspirin 325 Mg Tab.Ec) 325 mg PO DAILY [facility] Last Admin: 11/05/20 08:28 Dose: 325 mg Documented by: Atorvastatin Calcium (Atorvastatin 10 Mg Tab) 10 mg PO BEDTIME [facility] Last Admin: 11/04/20 20:26 Dose: 10 mg Documented by: Bumetanide (Bumetanide 2.5 Mg/10 Ml Mdv) 2 mg IVPUSH DAILY [facility] Bumetanide (Bumetanide 1 Mg/4 Ml Mdv) 2 mg IVPUSH ONETIME ONE Stop: 11/05/20 14:13 Cholecalciferol (Cholecalciferol (Vitamin D3) 25 Mcg Tab) 50 mcg PO DAILY [facility] Last Admin: 11/05/20 08:28 Dose: 50 mcg Documented by: Lactobacillus Rhamnosus (Lactobacillus Rhamnosus Gg (Probiotic) Cap) 1 cap PO TID [facility] Last Admin: 11/05/20 13:00 Dose: 1 cap Documented by: Lorazepam (Lorazepam 2 Mg/Ml Sdv) 0.5 mg IVPUSH Q4H PRN PRN Reason: Nausea/Vomiting Magnesium Hydroxide (Magnesium Hydroxide 400 Mg/5 Ml Susp 30 Ml Cup) 30 ml PO Q12H PRN PRN Reason: Constipation Last Admin: 11/04/20 10:31 Dose: 30 ml Documented by: Melatonin (Melatonin 3 Mg Tab) 9 mg PO BEDTIME PRN PRN Reason: Sleep Ondansetron HCl (Ondansetron 4 Mg/2 Ml Sdv) 4 mg IV Q6H PRN PRN Reason: Nausea/Vomiting Ondansetron HCl (Ondansetron 4 Mg Tab.Dis) 4 mg PO Q6H PRN PRN Reason: Nausea able to take PO Oxycodone HCl (Oxycodone 5 Mg Tab) 5 - 10 mg PO Q4H PRN PRN Reason: Pain Last Admin: 11/05/20 10:24 Dose: 10 mg Documented by: Pantoprazole Sodium (Pantoprazole 40 Mg Tab.Cr) 40 mg PO BIDAC [facility] Last Admin: 11/05/20 08:28 Dose: 40 mg Documented by: Senna/Docusate Sodium (Docusate Sodium/Sennosides 50-8.6 Mg Tab) 1 tab PO BID PRN PRN Reason: Constipation Last Admin: 11/04/20 10:31 Dose: 1 tab Documented by: Sertraline HCl (Sertraline 50 Mg Tab) 50 mg PO DAILY [facility] Last Admin: 11/05/20 08:28 Dose: 50 mg Documented by: Sodium Chloride (Sodium Chloride 0.9% 10 Ml Syringe) 10 ml FLUSH ASDIRECTED PRN PRN Reason: Keep Vein Open Last Admin: 11/02/20 11:15 Dose: 10 ml Documented by: Warfarin Sodium (Warfarin 2.5 Mg Tab) 2.5 mg PO DAILY@1300 [facility] Last Admin: 11/05/20 12:57 Dose: 2.5 mg Documented by: Discontinued Medications Bumetanide (Bumetanide 2.5 Mg/10 Ml Mdv) 2 mg IVPUSH ONETIME ONE Stop: 11/04/20 11:31 Last Admin: 11/04/20 12:24 Dose: 2 mg Documented by: Sodium Chloride (Normal Saline) 1,000 mls @ 999 mls/hr IV BOLUS ONE; Protocol Stop: 11/02/20 11:57 Last Admin: 11/02/20 11:14 Dose: 999 mls/hr Documented by: Ceftriaxone Sodium 2 gm/ (Sodium Chloride) 50 mls @ 100 mls/hr IV ONETIME ONE Stop: 11/02/20 11:31 Last Admin: 11/02/20 11:34 Dose: 100 mls/hr Documented by: Vancomycin HCl 1.5 gm/ Sodium (Chloride) 500 mls @ 250 mls/hr IV ONETIME ONE Stop: 11/02/20 13:02 Last Admin: 11/02/20 12:23 Dose: 250 mls/hr Documented by: Sodium Chloride (Normal Saline) 500 mls @ 999 mls/hr IV .BOLUS ONE Stop: 11/02/20 15:09 Last Admin: 11/02/20 16:33 Dose: Not Given Documented by: Sodium Chloride (Normal Saline) 1,000 mls @ 125 mls/hr IV ASDIRECTED [facility] Last Admin: 11/03/20 06:40 Dose: 125 mls/hr Documented by: Warfarin Sodium (Warfarin 5 Mg Tab) 5 mg PO ONETIME ONE Stop: 11/02/20 16:01 Last Admin: 11/02/20 16:11 Dose: 5 mg Documented by: Warfarin Sodium (Warfarin 5 Mg Tab) 5 mg PO ONETIME ONE Stop: 11/03/20 15:01 Last Admin: 11/03/20 15:01 Dose: 5 mg Documented by: - Exam Quality Assessment: No: Supplemental Oxygen General: Alert, Oriented, Cooperative, No Acute Distress Neck: JVD Lungs: Normal Respiratory Effort, Decreased Breath Sounds (right lung base), Crackles (right lung base) Cardiovascular: Regular Rate, Irregular Rhythm, Murmurs GI/Abdominal Exam: Soft, No Distention Extremities: Other (4+ pitting edema both thighs and buttocks ). No: Increased Warmth Skin: Warm, Dry Wound/Incisions: Dressing Dry and Intact (both lower legs wrapped with coban from toes to the knee ) Psy/Mental Status: Alert, Normal Affect - Patient Data Lab Results Last 24 hrs: Laboratory Results - last 24 hr 11/05/20 11/05/20 Range/Units 06:22 06:22 PT 28.1 H (9.5-12.0) sec INR 2.63 H (0.80-1.20) Sodium 135 L (140-148) mmol/L Potassium 4.6 (3.6-5.2) mmol/L Chloride 98 L (100-108) mmol/L Carbon Dioxide 24 (21-32) mmol/L Anion Gap 17.6 H (5.0-14.0) mmol/L BUN 50 H (7-18) mg/dL Creatinine 1.9 H (0.8-1.3) mg/dL Est Cr Clr Drug Dosing 42.64 mL/min Estimated GFR (MDRD) 36 L (>60) Glucose 89 (74-106) mg/dL Calcium 8.4 L (8.5-10.1) mg/dL Result Diagrams: 11/03/20 04:00 11/05/20 06:22 Sepsis Event Note - Evaluation Sepsis Screening Result: No Definite Risk - Focused Exam Vital Signs: Vital Signs Temp Pulse Resp BP Pulse Ox 11/05/20 10:34 35.4 C L 54 L 18 108/55 L 95 11/05/20 06:51 35.2 C L 58 L 18 102/47 L 92 L - Problem List & Annotations (1) Acute kidney injury SNOMED Code(s): 42833927, 56057533 Code(s): N17.9 - ACUTE KIDNEY FAILURE, UNSPECIFIED Status: Acute Current Visit: Yes (2) Hypotension SNOMED Code(s): 84622030 Code(s): I95.9 - HYPOTENSION, UNSPECIFIED Status: Acute Current Visit: Yes Qualifiers: Hypotension type: hypotension due to drug Qualified Code(s): I95.2 - Hypotension due to drugs (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 SNOMED Code(s): 25469892, 310872007 Code(s): I50.40 - UNSP COMBINED SYSTOLIC AND DIASTOLIC (CONGESTIVE) HRT FAIL Status: Chronic Current Visit: No Qualifiers: Heart failure chronicity: chronic Qualified Code(s): I50.42 - Chronic combined systolic (congestive) and diastolic (congestive) heart failure (4) Chronic venous stasis dermatitis of both lower extremities SNOMED Code(s): 90735638 Code(s): I87.2 - VENOUS INSUFFICIENCY (CHRONIC) (PERIPHERAL) Status: Chronic Current Visit: No (5) Chronic atrial fibrillation SNOMED Code(s): 788551715 Code(s): I48.20 - CHRONIC ATRIAL FIBRILLATION, UNSPECIFIED Status: Chronic Priority: High Current Visit: No - Problem List Review Problem List Initiated/Reviewed/Updated: Yes - My Orders Last 24 Hours: My Active Orders 11/05/20 14:12 Bumetanide [Bumex] 2 mg IVPUSH ONETIME ONE 11/06/20 05:00 BASIC METABOLIC PANEL,BMP [CHEM] Timed INR,PT,PROTHROMBIN TIME [COAG] Timed 11/06/20 09:00 Bumetanide [Bumex] 2 mg IVPUSH DAILY - Plan Plan:: ASSESSMENT AND PLAN - Acute kidney injury-complicated by hypotension at the time of admission. Blood pressure has been good. Creatinine stable since admission but significantly elevated compared to baseline. He has evidence for volume overload and hopefully optimizing his volume status will improve his renal perfusion and function. -Diuretics as below -Saline lock IV -Repeat labs in the morning Chronic venous stasis dermatitis-this involves both lower legs and is fairly severe. Edema improved with Coban 2 wrapping. -Coban wrap system every 3 days -Outpatient follow-up with Dr. Rod Acute on chronic combined systolic and diastolic heart failure-he has JVD as well as crackles in the right lung base and significant dependent edema. Heart rate stable off his beta-hope. Still has evidence for volume overload. -Dose of bumetanide this afternoon and again in the morning -Hold beta-hope -Continue additional medical management Chronic atrial fibrillation-chronically anticoagulated and INR is now therapeutic. -2.5 mg warfarin daily Maintenance issues - -DVT prophylaxis-warfarin -GI prophylaxis-PPI -[id number] Disposition -[facility] hospital stay Primary care physician -Dr Anam Khan M.D.
[2020-11-05] MEDS ORDERED: Bumetanide 1 MG/4 ML MDV IVPUSH ONE (15:00)
[2020-11-05] MEDS: atorvaSTATin 10 MG Tab PO SCH (20:40)
[2020-11-05] MEDS: Acetaminophen 325 MG Tab PO PRN (21:22)
[2020-11-05] MEDS: Melatonin 3 MG Tab PO PRN (21:22)
[2020-11-06] MEDS: Pantoprazole 40 MG Tab.CR PO SCH ×2 (07:36→16:42)
[2020-11-06] MEDS: Magnesium Hydroxide 400 MG/5 ML Susp 30 ML Cup PO PRN ×2 (07:36→19:55)
[2020-11-06] MEDS: Aspirin 325 MG Tab.EC PO SCH (09:49)
[2020-11-06] MEDS: Cholecalciferol (Vitamin D3) 25 MCG Tab PO SCH (09:49)
[2020-11-06] MEDS: Bumetanide 2.5 MG/10 ML MDV IVPUSH SCH (09:49)
[2020-11-06] MEDS: Lactobacillus Rhamnosus GG (Probiotic) Cap PO SCH ×3 (09:49→21:44)
[2020-11-06] MEDS: Sertraline 50 MG Tab PO SCH (09:49)
--- NOTE | 2020-11-06 11:09 | PCM.PN ---
- General Info Date of Service: 11/06/20 Subjective Update: There were no acute events overnight. Vital signs have been stable. Good response to diuresis yesterday and edema is slowly improving. Foot and lower leg pain is tolerable until he tries to stand on his feet and then has moderate discomfort. He had been requiring a Kell steady for transport but was able to get from the chair a short distance back into bed this morning with help and a walker. Creatinine slightly better. INR slightly supratherapeutic. Functional Status: Reports: Pain Controlled, Tolerating Diet - Review of Systems General: Reports: Weakness Cardiovascular: Reports: Edema - Patient Data Vitals - Most Recent: Last Vital Signs Temp 35.6 C L 11/06/20 11:00 Pulse 53 L 11/06/20 11:00 Resp 18 11/06/20 11:00 BP 114/50 L 11/06/20 11:00 Pulse Ox 93 L 11/06/20 11:00 Weight - Most Recent: 99.337 kg I&O - Last 24 Hours: Intake & Output 11/05/20 11/06/20 11/06/20 22:59 06:59 14:59 Intake Total 400 800 Output Total 250 Balance 400 -250 800 Lab Results Last 24 Hours: Laboratory Results - last 24 hr 11/06/20 11/06/20 Range/Units 05:40 05:40 PT 33.6 H (9.5-12.0) sec INR 3.15 H (0.80-1.20) Sodium 135 L (140-148) mmol/L Potassium 4.3 (3.6-5.2) mmol/L Chloride 98 L (100-108) mmol/L Carbon Dioxide 26 (21-32) mmol/L Anion Gap 15.3 H (5.0-14.0) mmol/L BUN 54 H (7-18) mg/dL Creatinine 1.8 H (0.8-1.3) mg/dL Est Cr Clr Drug Dosing 45.01 mL/min Estimated GFR (MDRD) 38 L (>60) Glucose 95 (74-106) mg/dL Calcium 8.4 L (8.5-10.1) mg/dL Med Orders - Current: Current Medications Acetaminophen (Acetaminophen 325 Mg Tab) 650 mg PO Q4H PRN PRN Reason: Pain (Mild 1-3)/fever Last Admin: 11/05/20 21:22 Dose: 650 mg Documented by: Albuterol (Albuterol 0.083% 2.5 Mg/3 Ml Neb Soln) 2.5 mg NEB Q4H PRN PRN Reason: Shortness Of Breath/wheezing Aspirin (Aspirin 325 Mg Tab.Ec) 325 mg PO DAILY [facility] Last Admin: 11/06/20 09:49 Dose: 325 mg Documented by: Atorvastatin Calcium (Atorvastatin 10 Mg Tab) 10 mg PO BEDTIME [facility] Last Admin: 11/05/20 20:40 Dose: 10 mg Documented by: Bumetanide (Bumetanide 2.5 Mg/10 Ml Mdv) 2 mg IVPUSH DAILY [facility] Last Admin: 11/06/20 09:49 Dose: 2 mg Documented by: Bumetanide (Bumetanide 1 Mg/4 Ml Mdv) 2 mg IVPUSH ONETIME ONE Stop: 11/06/20 16:01 Cholecalciferol (Cholecalciferol (Vitamin D3) 25 Mcg Tab) 50 mcg PO DAILY [facility] Last Admin: 11/06/20 09:49 Dose: 50 mcg Documented by: Lactobacillus Rhamnosus (Lactobacillus Rhamnosus Gg (Probiotic) Cap) 1 cap PO TID [facility] Last Admin: 11/06/20 09:49 Dose: 1 cap Documented by: Lorazepam (Lorazepam 2 Mg/Ml Sdv) 0.5 mg IVPUSH Q4H PRN PRN Reason: Nausea/Vomiting Magnesium Hydroxide (Magnesium Hydroxide 400 Mg/5 Ml Susp 30 Ml Cup) 30 ml PO Q12H PRN PRN Reason: Constipation Last Admin: 11/06/20 07:36 Dose: 30 ml Documented by: Melatonin (Melatonin 3 Mg Tab) 9 mg PO BEDTIME PRN PRN Reason: Sleep Last Admin: 11/05/20 21:22 Dose: 9 mg Documented by: Ondansetron HCl (Ondansetron 4 Mg/2 Ml Sdv) 4 mg IV Q6H PRN PRN Reason: Nausea/Vomiting Ondansetron HCl (Ondansetron 4 Mg Tab.Dis) 4 mg PO Q6H PRN PRN Reason: Nausea able to take PO Oxycodone HCl (Oxycodone 5 Mg Tab) 5 - 10 mg PO Q4H PRN PRN Reason: Pain Last Admin: 11/05/20 10:24 Dose: 10 mg Documented by: Pantoprazole Sodium (Pantoprazole 40 Mg Tab.Cr) 40 mg PO BIDAC [facility] Last Admin: 11/06/20 07:36 Dose: 40 mg Documented by: Senna/Docusate Sodium (Docusate Sodium/Sennosides 50-8.6 Mg Tab) 1 tab PO BID PRN PRN Reason: Constipation Last Admin: 11/06/20 07:36 Dose: 1 tab Documented by: Sertraline HCl (Sertraline 50 Mg Tab) 50 mg PO DAILY [facility] Last Admin: 11/06/20 09:49 Dose: 50 mg Documented by: Sodium Chloride (Sodium Chloride 0.9% 10 Ml Syringe) 10 ml FLUSH ASDIRECTED PRN PRN Reason: Keep Vein Open Last Admin: 11/02/20 11:15 Dose: 10 ml Documented by: Warfarin Sodium (Warfarin 2.5 Mg Tab) 2.5 mg PO DAILY@1300 [facility] Last Admin: 11/05/20 12:57 Dose: 2.5 mg Documented by: Discontinued Medications Bumetanide (Bumetanide 2.5 Mg/10 Ml Mdv) 2 mg IVPUSH ONETIME ONE Stop: 11/04/20 11:31 Last Admin: 11/04/20 12:24 Dose: 2 mg Documented by: Bumetanide (Bumetanide 1 Mg/4 Ml Mdv) 2 mg IVPUSH ONETIME ONE Stop: 11/05/20 15:01 Last Admin: 11/05/20 14:43 Dose: 2 mg Documented by: Sodium Chloride (Normal Saline) 1,000 mls @ 999 mls/hr IV BOLUS ONE; Protocol Stop: 11/02/20 11:57 Last Admin: 11/02/20 11:14 Dose: 999 mls/hr Documented by: Ceftriaxone Sodium 2 gm/ (Sodium Chloride) 50 mls @ 100 mls/hr IV ONETIME ONE Stop: 11/02/20 11:31 Last Admin: 11/02/20 11:34 Dose: 100 mls/hr Documented by: Vancomycin HCl 1.5 gm/ Sodium (Chloride) 500 mls @ 250 mls/hr IV ONETIME ONE Stop: 11/02/20 13:02 Last Admin: 11/02/20 12:23 Dose: 250 mls/hr Documented by: Sodium Chloride (Normal Saline) 500 mls @ 999 mls/hr IV .BOLUS ONE Stop: 11/02/20 15:09 Last Admin: 11/02/20 16:33 Dose: Not Given Documented by: Sodium Chloride (Normal Saline) 1,000 mls @ 125 mls/hr IV ASDIRECTED [facility] Last Admin: 11/03/20 06:40 Dose: 125 mls/hr Documented by: Warfarin Sodium (Warfarin 5 Mg Tab) 5 mg PO ONETIME ONE Stop: 11/02/20 16:01 Last Admin: 11/02/20 16:11 Dose: 5 mg Documented by: Warfarin Sodium (Warfarin 5 Mg Tab) 5 mg PO ONETIME ONE Stop: 11/03/20 15:01 Last Admin: 11/03/20 15:01 Dose: 5 mg Documented by: - Exam Quality Assessment: No: Supplemental Oxygen General: Alert, Oriented, Cooperative, No Acute Distress Neck: JVD Lungs: Normal Respiratory Effort, Crackles (mild right lung base) Cardiovascular: Regular Rate, Irregular Rhythm, Murmurs GI/Abdominal Exam: Soft, Non-Tender, Distended Extremities: Pedal Edema (pitting edema from knees to waist bilaterally ), Other (both lower legs wrapped with coban from toes to below the knee ) Skin: Warm, Dry Psy/Mental Status: Alert, Normal Affect - Patient Data Lab Results Last 24 hrs: Laboratory Results - last 24 hr 11/06/20 11/06/20 Range/Units 05:40 05:40 PT 33.6 H (9.5-12.0) sec INR 3.15 H (0.80-1.20) Sodium 135 L (140-148) mmol/L Potassium 4.3 (3.6-5.2) mmol/L Chloride 98 L (100-108) mmol/L Carbon Dioxide 26 (21-32) mmol/L Anion Gap 15.3 H (5.0-14.0) mmol/L BUN 54 H (7-18) mg/dL Creatinine 1.8 H (0.8-1.3) mg/dL Est Cr Clr Drug Dosing 45.01 mL/min Estimated GFR (MDRD) 38 L (>60) Glucose 95 (74-106) mg/dL Calcium 8.4 L (8.5-10.1) mg/dL Result Diagrams: 11/03/20 04:00 11/06/20 05:40 Sepsis Event Note - Evaluation Sepsis Screening Result: No Definite Risk - Focused Exam Vital Signs: Vital Signs Temp Pulse Resp BP Pulse Ox 11/06/20 11:00 35.6 C L 53 L 18 114/50 L 93 L 11/06/20 07:19 35.5 C L 55 L 18 116/52 L 97 11/05/20 23:27 35.8 C L 55 L 15 105/50 L 96 - Problem List & Annotations (1) Acute kidney injury SNOMED Code(s): 84671332, 93677865 Code(s): N17.9 - ACUTE KIDNEY FAILURE, UNSPECIFIED Status: Acute Current Visit: Yes (2) Hypotension SNOMED Code(s): 30797803 Code(s): I95.9 - HYPOTENSION, UNSPECIFIED Status: Acute Current Visit: Yes Qualifiers: Hypotension type: hypotension due to drug Qualified Code(s): I95.2 - Hypotension due to drugs (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 SNOMED Code(s): 71427538, 658570262 Code(s): I50.40 - UNSP COMBINED SYSTOLIC AND DIASTOLIC (CONGESTIVE) HRT FAIL Status: Chronic Current Visit: No Qualifiers: Heart failure chronicity: chronic Qualified Code(s): I50.42 - Chronic combined systolic (congestive) and diastolic (congestive) heart failure (4) Chronic venous stasis dermatitis of both lower extremities SNOMED Code(s): 56771100 Code(s): I87.2 - VENOUS INSUFFICIENCY (CHRONIC) (PERIPHERAL) Status: Chronic Current Visit: No (5) Chronic atrial fibrillation SNOMED Code(s): 416849238 Code(s): I48.20 - CHRONIC ATRIAL FIBRILLATION, UNSPECIFIED Status: Chronic Priority: High Current Visit: No - Problem List Review Problem List Initiated/Reviewed/Updated: Yes - My Orders Last 24 Hours: My Active Orders 11/06/20 09:00 Bumetanide [Bumex] 2 mg IVPUSH DAILY 11/06/20 16:00 Bumetanide [Bumex] 2 mg IVPUSH ONETIME ONE 11/07/20 05:00 BASIC METABOLIC PANEL,BMP [CHEM] Timed INR,PT,PROTHROMBIN TIME [COAG] Timed - Plan Plan:: ASSESSMENT AND PLAN - Acute kidney injury-complicated by hypotension at the time of admission. Blood pressure has been good. Creatinine slightly better today. -Diuretics as below -Saline lock IV -Repeat labs in the morning Chronic venous stasis dermatitis-this involves both lower legs and is fairly severe. Edema improved with Coban 2 wrapping. -Coban wrap system every 3 days -Outpatient follow-up with Dr. Rod Acute on chronic combined systolic and diastolic heart failure-he has JVD as well as crackles in the right lung base and significant dependent edema. Heart rate stable off his beta-hope. Ongoing evidence for volume overload. -Dose of bumetanide twice today -Hold beta-hope -Continue additional medical management Chronic atrial fibrillation-chronically anticoagulated and INR is now slightly supra therapeutic. -hold warfarin today -INR in the morning Maintenance issues - -DVT prophylaxis-warfarin -GI prophylaxis-PPI -[id number] Disposition -I anticipate discharge to the residential after the hospital stay, likely Sunday if stable over the weekend Primary care physician -Dr Anam Khan M.D.
[2020-11-06] MEDS ORDERED: Bumetanide 1 MG/4 ML MDV IVPUSH ONE (16:00)
[2020-11-06] MEDS: Polyethylene Glycol 3350 Powder 17 GM Packet PO PRN (16:42)
[2020-11-06] MEDS: atorvaSTATin 10 MG Tab PO SCH (21:44)
[2020-11-06] MEDS: Acetaminophen 325 MG Tab PO PRN (21:44)
[2020-11-06] MEDS: Melatonin 3 MG Tab PO PRN (21:45)
[2020-11-07] MEDS: Acetaminophen 325 MG Tab PO PRN ×3 (05:09→20:49)
[2020-11-07] MEDS: oxyCODONE 5 MG Tab PO PRN (05:09)
[2020-11-07] MEDS: Pantoprazole 40 MG Tab.CR PO SCH ×2 (07:21→16:00)
[2020-11-07] MEDS: Lactobacillus Rhamnosus GG (Probiotic) Cap PO SCH ×3 (09:42→20:46)
[2020-11-07] MEDS: Cholecalciferol (Vitamin D3) 25 MCG Tab PO SCH (09:42)
[2020-11-07] MEDS: Bumetanide 2.5 MG/10 ML MDV IVPUSH SCH (09:42)
[2020-11-07] MEDS: Sertraline 50 MG Tab PO SCH (09:43)
[2020-11-07] MEDS: Aspirin 325 MG Tab.EC PO SCH (09:43)
[2020-11-07] MEDS: Magnesium Hydroxide 400 MG/5 ML Susp 30 ML Cup PO PRN (09:48)
--- NOTE | 2020-11-07 10:54 | PCM.PN ---
- General Info Date of Service: 11/07/20 Subjective Update: There were no acute events overnight. Good response to diuresis again yesterday. Edema slowly improving. Leg pain mild and tolerable. He does not feel short of breath and thinks he is breathing better each day. He does continue to report feeling tired and rundown. Appetite has been acceptable. Kidney function steadily improving. Functional Status: Reports: Pain Controlled, Tolerating Diet - Review of Systems General: Reports: Weakness Pulmonary: Reports: Shortness of Breath Cardiovascular: Reports: Edema - Patient Data Vitals - Most Recent: Last Vital Signs Temp 35.3 C L 11/07/20 10:12 Pulse 53 L 11/07/20 10:12 Resp 18 11/07/20 10:12 BP 112/48 L 11/07/20 10:12 Pulse Ox 97 11/07/20 10:12 Weight - Most Recent: 99.337 kg I&O - Last 24 Hours: Intake & Output 11/06/20 11/07/20 11/07/20 22:59 06:59 14:59 Intake Total 1250 Balance 1250 Lab Results Last 24 Hours: Laboratory Results - last 24 hr 11/07/20 11/07/20 Range/Units 04:15 04:15 PT 33.5 H (9.5-12.0) sec INR 3.14 H (0.80-1.20) Sodium 135 L (140-148) mmol/L Potassium 4.8 (3.6-5.2) mmol/L Chloride 99 L (100-108) mmol/L Carbon Dioxide 25 (21-32) mmol/L Anion Gap 15.8 H (5.0-14.0) mmol/L BUN 50 H (7-18) mg/dL Creatinine 1.5 H (0.8-1.3) mg/dL Est Cr Clr Drug Dosing 54.01 mL/min Estimated GFR (MDRD) 47 L (>60) Glucose 90 (74-106) mg/dL Calcium 7.9 L (8.5-10.1) mg/dL Med Orders - Current: Current Medications Acetaminophen (Acetaminophen 325 Mg Tab) 650 mg PO Q4H PRN PRN Reason: Pain (Mild 1-3)/fever Last Admin: 11/07/20 05:09 Dose: 650 mg Documented by: Albuterol (Albuterol 0.083% 2.5 Mg/3 Ml Neb Soln) 2.5 mg NEB Q4H PRN PRN Reason: Shortness Of Breath/wheezing Aspirin (Aspirin 325 Mg Tab.Ec) 325 mg PO DAILY [facility] Last Admin: 11/07/20 09:43 Dose: 325 mg Documented by: Atorvastatin Calcium (Atorvastatin 10 Mg Tab) 10 mg PO BEDTIME [facility] Last Admin: 11/06/20 21:44 Dose: 10 mg Documented by: Bumetanide (Bumetanide 2.5 Mg/10 Ml Mdv) 2 mg IVPUSH DAILY [facility] Last Admin: 11/07/20 09:42 Dose: 2 mg Documented by: Cholecalciferol (Cholecalciferol (Vitamin D3) 25 Mcg Tab) 50 mcg PO DAILY [facility] Last Admin: 11/07/20 09:42 Dose: 50 mcg Documented by: Lactobacillus Rhamnosus (Lactobacillus Rhamnosus Gg (Probiotic) Cap) 1 cap PO TID [facility] Last Admin: 11/07/20 09:42 Dose: 1 cap Documented by: Lorazepam (Lorazepam 2 Mg/Ml Sdv) 0.5 mg IVPUSH Q4H PRN PRN Reason: Nausea/Vomiting Magnesium Hydroxide (Magnesium Hydroxide 400 Mg/5 Ml Susp 30 Ml Cup) 30 ml PO Q12H PRN PRN Reason: Constipation Last Admin: 11/07/20 09:48 Dose: 30 ml Documented by: Melatonin (Melatonin 3 Mg Tab) 9 mg PO BEDTIME PRN PRN Reason: Sleep Last Admin: 11/06/20 21:45 Dose: 9 mg Documented by: Ondansetron HCl (Ondansetron 4 Mg/2 Ml Sdv) 4 mg IV Q6H PRN PRN Reason: Nausea/Vomiting Ondansetron HCl (Ondansetron 4 Mg Tab.Dis) 4 mg PO Q6H PRN PRN Reason: Nausea able to take PO Oxycodone HCl (Oxycodone 5 Mg Tab) 5 - 10 mg PO Q4H PRN PRN Reason: Pain Last Admin: 11/07/20 05:09 Dose: 5 mg Documented by: Pantoprazole Sodium (Pantoprazole 40 Mg Tab.Cr) 40 mg PO BIDAC [facility] Last Admin: 11/07/20 07:21 Dose: 40 mg Documented by: Polyethylene Glycol (Polyethylene Glycol 3350 Powder 17 Gm Packet) 17 gm PO DAILY PRN PRN Reason: Constipation Last Admin: 11/06/20 16:42 Dose: 17 gm Documented by: Senna/Docusate Sodium (Docusate Sodium/Sennosides 50-8.6 Mg Tab) 1 tab PO BID PRN PRN Reason: Constipation Last Admin: 11/07/20 09:48 Dose: 1 tab Documented by: Sertraline HCl (Sertraline 50 Mg Tab) 50 mg PO DAILY [facility] Last Admin: 11/07/20 09:43 Dose: 50 mg Documented by: Sodium Chloride (Sodium Chloride 0.9% 10 Ml Syringe) 10 ml FLUSH ASDIRECTED PRN PRN Reason: Keep Vein Open Last Admin: 11/02/20 11:15 Dose: 10 ml Documented by: Warfarin Sodium (Warfarin 1 Mg Tab) 2 mg PO DAILY@1300 [facility] Discontinued Medications Bumetanide (Bumetanide 2.5 Mg/10 Ml Mdv) 2 mg IVPUSH ONETIME ONE Stop: 11/04/20 11:31 Last Admin: 11/04/20 12:24 Dose: 2 mg Documented by: Bumetanide (Bumetanide 1 Mg/4 Ml Mdv) 2 mg IVPUSH ONETIME ONE Stop: 11/05/20 15:01 Last Admin: 11/05/20 14:43 Dose: 2 mg Documented by: Bumetanide (Bumetanide 1 Mg/4 Ml Mdv) 2 mg IVPUSH ONETIME ONE Stop: 11/06/20 16:01 Last Admin: 11/06/20 15:08 Dose: 2 mg Documented by: Sodium Chloride (Normal Saline) 1,000 mls @ 999 mls/hr IV BOLUS ONE; Protocol Stop: 11/02/20 11:57 Last Admin: 11/02/20 11:14 Dose: 999 mls/hr Documented by: Ceftriaxone Sodium 2 gm/ (Sodium Chloride) 50 mls @ 100 mls/hr IV ONETIME ONE Stop: 11/02/20 11:31 Last Admin: 11/02/20 11:34 Dose: 100 mls/hr Documented by: Vancomycin HCl 1.5 gm/ Sodium (Chloride) 500 mls @ 250 mls/hr IV ONETIME ONE Stop: 11/02/20 13:02 Last Admin: 11/02/20 12:23 Dose: 250 mls/hr Documented by: Sodium Chloride (Normal Saline) 500 mls @ 999 mls/hr IV .BOLUS ONE Stop: 11/02/20 15:09 Last Admin: 11/02/20 16:33 Dose: Not Given Documented by: Sodium Chloride (Normal Saline) 1,000 mls @ 125 mls/hr IV ASDIRECTED [facility] Last Admin: 11/03/20 06:40 Dose: 125 mls/hr Documented by: Warfarin Sodium (Warfarin 5 Mg Tab) 5 mg PO ONETIME ONE Stop: 11/02/20 16:01 Last Admin: 11/02/20 16:11 Dose: 5 mg Documented by: Warfarin Sodium (Warfarin 5 Mg Tab) 5 mg PO ONETIME ONE Stop: 11/03/20 15:01 Last Admin: 11/03/20 15:01 Dose: 5 mg Documented by: Warfarin Sodium (Warfarin 2.5 Mg Tab) 2.5 mg PO DAILY@1300 [facility] Last Admin: 11/05/20 12:57 Dose: 2.5 mg Documented by: - Exam Quality Assessment: No: Supplemental Oxygen General: Alert, Oriented, Cooperative, No Acute Distress, Other (sleepy ) HEENT: Pupils Equal Lungs: Clear to Auscultation, Normal Respiratory Effort, Crackles (rare right lung base) Cardiovascular: Regular Rate, Irregular Rhythm, Murmurs GI/Abdominal Exam: Normal Bowel Sounds, Soft, No Distention Extremities: Pedal Edema, Other (both lower legs wrapped from toes to below the knee ) Skin: Warm, Dry Wound/Incisions: Dressing Dry and Intact Psy/Mental Status: Alert, Normal Affect - Patient Data Lab Results Last 24 hrs: Laboratory Results - last 24 hr 11/07/20 11/07/20 Range/Units 04:15 04:15 PT 33.5 H (9.5-12.0) sec INR 3.14 H (0.80-1.20) Sodium 135 L (140-148) mmol/L Potassium 4.8 (3.6-5.2) mmol/L Chloride 99 L (100-108) mmol/L Carbon Dioxide 25 (21-32) mmol/L Anion Gap 15.8 H (5.0-14.0) mmol/L BUN 50 H (7-18) mg/dL Creatinine 1.5 H (0.8-1.3) mg/dL Est Cr Clr Drug Dosing 54.01 mL/min Estimated GFR (MDRD) 47 L (>60) Glucose 90 (74-106) mg/dL Calcium 7.9 L (8.5-10.1) mg/dL Result Diagrams: 11/03/20 04:00 11/07/20 04:15 Sepsis Event Note - Evaluation Sepsis Screening Result: No Definite Risk - Focused Exam Vital Signs: Vital Signs Temp Pulse Resp BP Pulse Ox 11/07/20 10:12 35.3 C L 53 L 18 112/48 L 97 11/07/20 07:05 35.2 C L 55 L 18 97/52 L 96 11/06/20 23:03 35.7 C L 62 16 99/50 L 93 L - Problem List & Annotations (1) Acute kidney injury SNOMED Code(s): 03033906, 06394037 Code(s): N17.9 - ACUTE KIDNEY FAILURE, UNSPECIFIED Status: Acute Current Visit: Yes (2) Hypotension SNOMED Code(s): 46263154 Code(s): I95.9 - HYPOTENSION, UNSPECIFIED Status: Acute Current Visit: Yes Qualifiers: Hypotension type: hypotension due to drug Qualified Code(s): I95.2 - Hypotension due to drugs (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 SNOMED Code(s): 25301605, 407565571 Code(s): I50.40 - UNSP COMBINED SYSTOLIC AND DIASTOLIC (CONGESTIVE) HRT FAIL Status: Acute Current Visit: No Qualifiers: Heart failure chronicity: acute on chronic Qualified Code(s): I50.43 - Acute on chronic combined systolic (congestive) and diastolic (congestive) heart failure (4) Chronic venous stasis dermatitis of both lower extremities SNOMED Code(s): 88795659 Code(s): I87.2 - VENOUS INSUFFICIENCY (CHRONIC) (PERIPHERAL) Status: Chronic Current Visit: No (5) Chronic atrial fibrillation SNOMED Code(s): 308659605 Code(s): I48.20 - CHRONIC ATRIAL FIBRILLATION, UNSPECIFIED Status: Chronic Priority: High Current Visit: No - Problem List Review Problem List Initiated/Reviewed/Updated: Yes - My Orders Last 24 Hours: My Active Orders 11/06/20 15:15 polyethylene glycoL 3350 [MiraLAX] 17 gm PO DAILY PRN 11/07/20 16:00 Bumetanide [Bumex] 2 mg IVPUSH ONETIME ONE 11/08/20 05:00 BASIC METABOLIC PANEL,BMP [CHEM] Timed INR,PT,PROTHROMBIN TIME [COAG] Timed 11/08/20 13:00 Warfarin [Coumadin] 2 mg PO DAILY@1300 - Plan Plan:: ASSESSMENT AND PLAN - Acute kidney injury-complicated by hypotension 2/2 intravascular volume depletion at the time of admission. Blood pressure has been good. Creatinine slightly better again today. -Diuretics as below -Saline lock IV -Repeat labs in the morning Chronic venous stasis dermatitis-this involves both lower legs and is fairly severe. Edema stable/improved with Coban 2 wrapping. -Coban wrap system every 3 days (due on Sunday) -Outpatient follow-up with Dr. Rod Acute on chronic combined systolic and diastolic heart failure-stable off the beta-hope which was stopped because of bradycardia. Still has evidence for volume overload but steadily improving. -Dose of bumetanide twice today -Hold beta-hope -Continue additional medical management Chronic atrial fibrillation-chronically anticoagulated and INR is now slightly supra therapeutic. -hold warfarin today -INR in the morning Maintenance issues - -DVT prophylaxis-warfarin -GI prophylaxis-PPI -[id number] Disposition -I anticipate discharge to the [facility] after the hospital stay, planning discharge tomorrow Primary care physician -Dr Anam Khan M.D.
--- NOTE | 2020-11-07 11:10 | PCM.DCSUM1 ---
Discharge Summary - Hospital Course Brief History: 65-year-old male with history of chronic combined systolic and diastolic congestive heart failure, chronic atrial fibrillation with long-term anticoagulation, chronic venous stasis ulcers and stage III kidney disease who presented with weakness and increased edema. He was admitted for management of hypotension and an exacerbation of his congestive heart failure. Diagnosis: Stroke: No - Discharge Data Discharge Date: 11/08/20 Discharge Disposition: DC/Tfer to [facility] 03 Condition: Fair - Referral to Home Health Primary Care Physician: Nick Albright MD - Discharge Diagnosis/Problem(s) (1) Acute kidney injury SNOMED Code(s): 56300328, 16128043 ICD Code: N17.9 - ACUTE KIDNEY FAILURE, UNSPECIFIED Status: Acute Current Visit: Yes (2) Hypotension SNOMED Code(s): 75458014 ICD Code: I95.9 - HYPOTENSION, UNSPECIFIED Status: Acute Current Visit: Yes Qualifiers: Hypotension type: hypotension due to drug Qualified Code(s): I95.2 - Hypotension due to drugs (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 SNOMED Code(s): 62793324, 372009239 ICD Code: I50.40 - UNSP COMBINED SYSTOLIC AND DIASTOLIC (CONGESTIVE) HRT FAIL Status: Acute Current Visit: No Qualifiers: Heart failure chronicity: acute on chronic Qualified Code(s): I50.43 - Acute on chronic combined systolic (congestive) and diastolic (congestive) heart failure (4) Chronic venous stasis dermatitis of both lower extremities SNOMED Code(s): 81623052 ICD Code: I87.2 - VENOUS INSUFFICIENCY (CHRONIC) (PERIPHERAL) Status: Chronic Current Visit: No (5) Chronic atrial fibrillation SNOMED Code(s): 637560466 ICD Code: I48.20 - CHRONIC ATRIAL FIBRILLATION, UNSPECIFIED Status: Chronic Priority: High Current Visit: No - Patient Summary/Data Consults: Consultations 11/03/20 09:07 PT Evaluation and Treatment [CONS] Routine Please Evaluate and Treat. PT Reason for Consult: Strengthening This query below is only for informational purposes and is not editable. Admission Diagnosis/Problem: Acute kidney injury Hospital Course: Gene presented to the emergency room with weakness as well as increasing lower extremity edema. Work-up in the emergency room revealed evidence for hypotension that initially raised some concern for sepsis though no strong evidence for infection was found. He had significant edema concerning for heart failure but with the hypotension we were unable to diurese him initially. The patient had a rise in his creatinine to 1.9 with a baseline of 1. He was also noted to be bradycardic with heart rates in the 40s. He was admitted to the hospital for further management. At the time of admission he did receive initially some IV fluids to help with the hypotension. His beta-hope was discontinued with the bradycardia. Overnight following admission we did see a steady improvement in his blood pressures. During the first night he was monitored in the intensive care unit in case he were to require vasopressor support but fortunately did not need this. Morning after admission once we had adequate blood pressure we did start to diurese him. He had JVD, a right pleural effusion as well as impressive pitting edema. He responded well to diuresis. Initially we were only able to give him bumetanide once daily but eventually were able to progress to twice daily. We had a good response. His kidney function remained abnormal during the first couple of the days but has started to trend back towards normal now and is nearly back to normal. We have had a good response to diuresis though he does have some ongoing evidence for volume overload. We have not seen any fevers or any concern for infection arise during the hospital stay. Regarding his chronic venous stasis, his legs were wrapped with a Coban 2 system. This has been changed every 3 days during the course of the hospital stay. We are seeing improvements in the legs with the most ulcerated areas being the distal posterior portion of the lower legs. He would benefit from outpatient follow-up with his wound care physician Dr. Rod. He remains quite weak and is requiring significant assistance just to get out of bed. I think he would benefit from subacute rehab. The plan is for him to go to a transitional care unit for some strengthening with the ultimate goal of returning home. He does have some residual edema but I think this will be more of a long-term and slow diuresis. We did change him from torsemide to bumetanide. I would anticipate that once we have achieved a good volume status over the next couple of weeks that he can be transitioned down to once daily bumetanide rather than twice daily. I did discontinue his beta- hope because of the bradycardia and his heart rate during the hospital stay has been in the 60s. Referral to physical and occupational therapy will be placed. His INR on the day before discharge was 3.1 so we will hold his wa rfarin today and then plan to restart his maintenance dosing tomorrow. He should have a BMP and INR checked in 3 to 4 days. - Patient Instructions Diet: Low Sodium (2 gram sodium daily ) Activity: As Tolerated Showering/Bathing: May Shower Other/Special Instructions: 1. You were in the hospital for management of acute on chronic combined systolic and diastolic congestive heart failure. Your condition has been improving with therapy provided in the hospital. I do recommend that we change your diuretics. Please take bumetanide 2 mg twice daily (0800 and 1500) to help reduce the fluid in your legs. Please continue to take spironolactone. We did discontinue your carvedilol because of bradycardia. 2. Wrap lower legs to the knee with Coban 2 or equivalent. These dressings should be changed every 3 days. They will be due for a change on 11/09. 3. Please check BMP and INR on 11/10. Diagnosis for BMP will be acute kidney injury and chronic anticoagulation with atrial fibrillation for the INR. 4. Referral to physical and occupational therapy for strengthening with acute on chronic weakness in the setting of heart failure exacerbation. 5. CODE STATUS is full code - Discharge Plan *PRESCRIPTION DRUG MONITORING PROGRAM REVIEWED*: Not Applicable *COPY OF PRESCRIPTION DRUG MONITORING REPORT IN PATIENT REESE: Not Applicable Prescriptions/Med Rec: Bumetanide 2 mg PO BID #60 tablet oxyCODONE 5 mg PO Q4H PRN #40 tablet PRN Reason: Pain Docusate Sodium/Sennosides [Senna Plus] 1 tab PO BID #60 tablet Acetaminophen [Tylenol] 650 mg PO Q4H PRN #100 tablet PRN Reason: Pain (Mild 1-3)/fever Home Medications: Home Meds Aspirin 325 mg PO DAILY 12/09/19 [History] atorvaSTATin [Lipitor] 10 mg PO BEDTIME #30 12/14/19 [Rx] Cholecalciferol (Vitamin D3) [Vitamin D3] 2,000 unit PO DAILY 02/26/20 [History] Omeprazole 20 mg PO BID 02/26/20 [History] Sertraline [Zoloft] 50 mg PO DAILY 02/26/20 [History] Lactobacillus Rhamnosus GG [Culturelle] 1 cap PO TID 07/14/20 [History] Warfarin [Coumadin] 2.5 mg PO DAILY 11/02/20 [History] Acetaminophen [Tylenol] 650 mg PO Q4H PRN #100 tablet 11/07/20 [Rx] Bumetanide 2 mg PO BID #60 tablet 11/07/20 [Rx] Docusate Sodium/Sennosides [Senna Plus] 1 tab PO BID #60 tablet 11/07/20 [Rx] Spironolactone [Aldactone] 25 mg PO BID #60 11/07/20 [Rx] oxyCODONE 5 mg PO Q4H PRN #40 tablet 11/07/20 [Rx] Oxygen Therapy Mode: Room Air Referrals: Nick Albright MD [Primary Care Provider] - (Follow-up as needed after the rehab stay) Devon Rod MD [Physician] - (Follow-up in 1 to 2 weeks -follow-up chronic venous stasis ulcers) - Discharge Summary/Plan Comment DC Time >30 min.: Yes (45-new [facility] discharge ) - Patient Data Vitals - Most Recent: Last Vital Signs Temp 35.3 C L 11/07/20 10:12 Pulse 53 L 11/07/20 10:12 Resp 18 11/07/20 10:12 BP 112/48 L 11/07/20 10:12 Pulse Ox 97 11/07/20 10:12 Weight - Most Recent: 99.337 kg I&O - Last 24 hours: Intake & Output 11/06/20 11/07/20 11/07/20 22:59 06:59 14:59 Intake Total 1250 Balance 1250 Lab Results - Last 24 hrs: Laboratory Results - last 24 hr 11/07/20 11/07/20 Range/Units 04:15 04:15 PT 33.5 H (9.5-12.0) sec INR 3.14 H (0.80-1.20) Sodium 135 L (140-148) mmol/L Potassium 4.8 (3.6-5.2) mmol/L Chloride 99 L (100-108) mmol/L Carbon Dioxide 25 (21-32) mmol/L Anion Gap 15.8 H (5.0-14.0) mmol/L BUN 50 H (7-18) mg/dL Creatinine 1.5 H (0.8-1.3) mg/dL Est Cr Clr Drug Dosing 54.01 mL/min Estimated GFR (MDRD) 47 L (>60) Glucose 90 (74-106) mg/dL Calcium 7.9 L (8.5-10.1) mg/dL Med Orders - Current: Current Medications Acetaminophen (Acetaminophen 325 Mg Tab) 650 mg PO Q4H PRN PRN Reason: Pain (Mild 1-3)/fever Last Admin: 11/07/20 05:09 Dose: 650 mg Documented by: Albuterol (Albuterol 0.083% 2.5 Mg/3 Ml Neb Soln) 2.5 mg NEB Q4H PRN PRN Reason: Shortness Of Breath/wheezing Aspirin (Aspirin 325 Mg Tab.Ec) 325 mg PO DAILY [facility] Last Admin: 11/07/20 09:43 Dose: 325 mg Documented by: Atorvastatin Calcium (Atorvastatin 10 Mg Tab) 10 mg PO BEDTIME [facility] Last Admin: 11/06/20 21:44 Dose: 10 mg Documented by: Bumetanide (Bumetanide 2.5 Mg/10 Ml Mdv) 2 mg IVPUSH DAILY [facility] Last Admin: 11/07/20 09:42 Dose: 2 mg Documented by: Bumetanide (Bumetanide 1 Mg/4 Ml Mdv) 2 mg IVPUSH ONETIME ONE Stop: 11/07/20 16:01 Cholecalciferol (Cholecalciferol (Vitamin D3) 25 Mcg Tab) 50 mcg PO DAILY [facility] Last Admin: 11/07/20 09:42 Dose: 50 mcg Documented by: Lactobacillus Rhamnosus (Lactobacillus Rhamnosus Gg (Probiotic) Cap) 1 cap PO TID [facility] Last Admin: 11/07/20 09:42 Dose: 1 cap Documented by: Lorazepam (Lorazepam 2 Mg/Ml Sdv) 0.5 mg IVPUSH Q4H PRN PRN Reason: Nausea/Vomiting Magnesium Hydroxide (Magnesium Hydroxide 400 Mg/5 Ml Susp 30 Ml Cup) 30 ml PO Q12H PRN PRN Reason: Constipation Last Admin: 11/07/20 09:48 Dose: 30 ml Documented by: Melatonin (Melatonin 3 Mg Tab) 9 mg PO BEDTIME PRN PRN Reason: Sleep Last Admin: 11/06/20 21:45 Dose: 9 mg Documented by: Ondansetron HCl (Ondansetron 4 Mg/2 Ml Sdv) 4 mg IV Q6H PRN PRN Reason: Nausea/Vomiting Ondansetron HCl (Ondansetron 4 Mg Tab.Dis) 4 mg PO Q6H PRN PRN Reason: Nausea able to take PO Oxycodone HCl (Oxycodone 5 Mg Tab) 5 - 10 mg PO Q4H PRN PRN Reason: Pain Last Admin: 11/07/20 05:09 Dose: 5 mg Documented by: Pantoprazole Sodium (Pantoprazole 40 Mg Tab.Cr) 40 mg PO BIDAC [facility] Last Admin: 11/07/20 07:21 Dose: 40 mg Documented by: Polyethylene Glycol (Polyethylene Glycol 3350 Powder 17 Gm Packet) 17 gm PO DAILY PRN PRN Reason: Constipation Last Admin: 11/06/20 16:42 Dose: 17 gm Documented by: Senna/Docusate Sodium (Docusate Sodium/Sennosides 50-8.6 Mg Tab) 1 tab PO BID PRN PRN Reason: Constipation Last Admin: 11/07/20 09:48 Dose: 1 tab Documented by: Sertraline HCl (Sertraline 50 Mg Tab) 50 mg PO DAILY [facility] Last Admin: 11/07/20 09:43 Dose: 50 mg Documented by: Sodium Chloride (Sodium Chloride 0.9% 10 Ml Syringe) 10 ml FLUSH ASDIRECTED PRN PRN Reason: Keep Vein Open Last Admin: 11/02/20 11:15 Dose: 10 ml Documented by: Warfarin Sodium (Warfarin 1 Mg Tab) 2 mg PO DAILY@1300 [facility] Discontinued Medications Bumetanide (Bumetanide 2.5 Mg/10 Ml Mdv) 2 mg IVPUSH ONETIME ONE Stop: 11/04/20 11:31 Last Admin: 11/04/20 12:24 Dose: 2 mg Documented by: Bumetanide (Bumetanide 1 Mg/4 Ml Mdv) 2 mg IVPUSH ONETIME ONE Stop: 11/05/20 15:01 Last Admin: 11/05/20 14:43 Dose: 2 mg Documented by: Bumetanide (Bumetanide 1 Mg/4 Ml Mdv) 2 mg IVPUSH ONETIME ONE Stop: 11/06/20 16:01 Last Admin: 11/06/20 15:08 Dose: 2 mg Documented by: Sodium Chloride (Normal Saline) 1,000 mls @ 999 mls/hr IV BOLUS ONE; Protocol Stop: 11/02/20 11:57 Last Admin: 11/02/20 11:14 Dose: 999 mls/hr Documented by: Ceftriaxone Sodium 2 gm/ (Sodium Chloride) 50 mls @ 100 mls/hr IV ONETIME ONE Stop: 11/02/20 11:31 Last Admin: 11/02/20 11:34 Dose: 100 mls/hr Documented by: Vancomycin HCl 1.5 gm/ Sodium (Chloride) 500 mls @ 250 mls/hr IV ONETIME ONE Stop: 11/02/20 13:02 Last Admin: 11/02/20 12:23 Dose: 250 mls/hr Documented by: Sodium Chloride (Normal Saline) 500 mls @ 999 mls/hr IV .BOLUS ONE Stop: 11/02/20 15:09 Last Admin: 11/02/20 16:33 Dose: Not Given Documented by: Sodium Chloride (Normal Saline) 1,000 mls @ 125 mls/hr IV ASDIRECTED [facility] Last Admin: 11/03/20 06:40 Dose: 125 mls/hr Documented by: Warfarin Sodium (Warfarin 5 Mg Tab) 5 mg PO ONETIME ONE Stop: 11/02/20 16:01 Last Admin: 11/02/20 16:11 Dose: 5 mg Documented by: Warfarin Sodium (Warfarin 5 Mg Tab) 5 mg PO ONETIME ONE Stop: 11/03/20 15:01 Last Admin: 11/03/20 15:01 Dose: 5 mg Documented by: Warfarin Sodium (Warfarin 2.5 Mg Tab) 2.5 mg PO DAILY@1300 [facility] Last Admin: 11/05/20 12:57 Dose: 2.5 mg Documented by: *Q Meaningful Use (DIS) - VTE *Q VTE Mechanical Contraindications *Q: Bilateral Lower Dermatits
[2020-11-07] MEDS: Polyethylene Glycol 3350 Powder 17 GM Packet PO PRN (16:00)
[2020-11-07] MEDS ORDERED: Bumetanide 1 MG/4 ML MDV IVPUSH ONE (16:00)
[2020-11-07] MEDS: atorvaSTATin 10 MG Tab PO SCH (20:46)
[2020-11-08] MEDS: Acetaminophen 325 MG Tab PO PRN (03:35)
[2020-11-08] MEDS: oxyCODONE 5 MG Tab PO PRN (05:47)
[2020-11-08] MEDS: Sertraline 50 MG Tab PO SCH (08:29)
[2020-11-08] MEDS: Aspirin 325 MG Tab.EC PO SCH (08:29)
[2020-11-08] MEDS: Lactobacillus Rhamnosus GG (Probiotic) Cap PO SCH ×2 (08:29→13:34)
[2020-11-08] MEDS: Pantoprazole 40 MG Tab.CR PO SCH (08:29)
[2020-11-08] MEDS: Bumetanide 2.5 MG/10 ML MDV IVPUSH SCH (08:30)
[2020-11-08] MEDS: Cholecalciferol (Vitamin D3) 25 MCG Tab PO SCH (08:30)
[2020-11-08 10:44] VITALS: BP 111/56; PULSE 61
== END 2020-11-08 16:05 | DRG 291 ==
LOC: JP.ED 10:48 → JP.ICU 14:55 → JP.MS 11-03 09:59
PROVIDERS: ADMIT Internal Medicine; ATTEND Hospitalist
DX: R62.7 Adult failure to thrive (principal); I13.0 Hypertensive heart and chronic kidney disease with heart failure and stage 1 through stage 4 chronic kidney disease, or unspecified chronic kidney disease; I48.91 Unspecified atrial fibrillation; I50.43 Acute on chronic combined systolic (congestive) and diastolic (congestive) heart failure; N17.9 Acute kidney failure, unspecified; I48.20 Chronic atrial fibrillation, unspecified; I73.9 Peripheral vascular disease, unspecified; N18.30 Chronic kidney disease, stage 3 unspecified; I83.009 Varicose veins of unspecified lower extremity with ulcer of unspecified site; I50.9 Heart failure, unspecified; N18.9 Chronic kidney disease, unspecified; I95.2 Hypotension due to drugs; I87.2 Venous insufficiency (chronic) (peripheral); H54.7 Unspecified visual loss; E78.00 Pure hypercholesterolemia, unspecified; K21.9 Gastro-esophageal reflux disease without esophagitis; K74.60 Unspecified cirrhosis of liver; F32.9 Major depressive disorder, single episode, unspecified; Z95.2 Presence of prosthetic heart valve; Z79.01 Long term (current) use of anticoagulants; Z79.82 Long term (current) use of aspirin; Z79.899 Other long term (current) drug therapy; Z86.74 Personal history of sudden cardiac arrest; Z86.73 Personal history of transient ischemic attack (TIA), and cerebral infarction without residual deficits; Z91.09 Other allergy status, other than to drugs and biological substances; Z95.1 Presence of aortocoronary bypass graft; I25.2 Old myocardial infarction; Z87.891 Personal history of nicotine dependence
CPT/HCPCS: 36415; 71045 ×2; 80053; 81001; 83605; 84145; 85025; 85610; 93005; 96365; 96366; 96367; 99285 ×2; J0696; J3370; J7030; J7040; 80048; 83735; 85027; 97110-GP; 97162-GP; 97530-GP; 97535-GP; A9270-GY; J3490